=== PATIENT | male | born 1975 | race Caucasian/White ===

== ENCOUNTER 2024-04-17 17:38 | Emergency (ER) | payer OTHER ==
[2024-04-17] MEDS ORDERED: LORazepam 2 MG/ML VIAL ONE (18:29)
[2024-04-17] MEDS ORDERED: ONDANSETRON 4 MG/2 ML VIAL ONE (18:29)
[2024-04-17] MEDS ORDERED: NA CHLORIDE 0.9% 1,000 ML ONE (18:30)
[2024-04-17 18:36] LABS: Absolute Eosinophils 0.2 K/uL (0-0.5); Absolute Monocytes 0.3 K/uL (0.1-1.3); Absolute Neutrophil 3.1 K/uL (1.8-8.0); Basophils % 0.9 % (0-1.3); Eosinophils % 5.2 % (0-4.4); Hematocrit 40.6 % (39.6-49.0); Hemoglobin 13.7 g/dL (13.6-17.9); Lymphocytes % 22.3 % (15.3-44.8); MCH 29.5 pg (27.0-35.0); MCHC 33.6 g/dL (32.0-36.0); MCV 87.8 fL (80-100); MPV 7.8 fL (7.6-11.3); Neutrophils % 65.6 % (41.7-73.7); Nucleated Red Blood Cells % 0.1 % (0-0); Platelets 164 thou/uL (152-406); RBC Red Blood Cell Count 4.63 M/uL (4.33-5.43); Red Cell Distribution Width 17.8 % (12.1-15.2)
[2024-04-17 18:53] LABS: Albumin 3.8 g/dL (3.4-5.0); Albumin/Globulin Ratio 0.8 (1.1-1.8); Anion Gap 15.5 mEq/L (5.0-15.0); Bilirubin Total 0.5 mg/dL (0.2-1.0); Globulin 4.6 g/dL (2.3-3.5); Magnesium 2.2 mg/dL (1.6-2.4); Potassium 3.5 mEq/L (3.5-5.1); Protein, Total 8.4 g/dL (6.4-8.2)
--- NOTE | 2024-04-17 19:03 | ER ---
Nurse's Notes [facility] Name: Felipe Barriga Age: 48 yrs Sex: Male : 1975 Arrival Date: 04/17/2024 Time: 17:38 Bed 10 Private MD: Diagnosis: Alcohol withdrawal Presentation: 04/17 17:47 Chief complaint: EMS states: toned out for n/v/detox from etoh. Had been drinking for 6 me1 days and hasnt had anything since last night. Coronavirus screen: Vaccine status: Patient reports receiving the 2nd dose of the covid vaccine. Ebola Screen: No symptoms or risks identified at this time. Initial Sepsis Screen: Does the patient meet any 2 criteria? No. Patient's initial sepsis screen is negative. Does the patient have a suspected source of infection? No. Patient's initial sepsis screen is negative. Risk Assessment: Do you want to hurt yourself or someone else? Patient reports no desire to harm self or others. Onset of symptoms was April 17, 2024. 17:47 Method Of Arrival: EMS: [facility] nc1 17:47 Acuity: CLARITA 3 me1 Triage Assessment: 17:52 General: Appears ill, well developed, well nourished, Behavior is calm, cooperative, me1 appropriate for age, Reports feeling ill for detoxing from etoh starting this morning. Pain: Complains of pain in generalized. EENT: No signs and/or symptoms were reported regarding the EENT system. Neuro: Level of Consciousness is awake, alert, obeys commands, Oriented to person, place, time, situation, Appropriate for age. Cardiovascular: Patient's skin is warm and dry. Respiratory: Airway is patent Trachea midline Respiratory effort is even, unlabored, Respiratory pattern is regular, symmetrical. GI: Pt is actively vomiting clear fluid, Bowel sounds present X 4 quads. : No signs and/or symptoms were reported regarding the genitourinary system. Derm: Skin is intact, is healthy with good turgor, Skin is pink, warm \T\ dry. Musculoskeletal: No signs and/or symptoms reported regarding the musculoskeletal system. Historical: - Allergies: 17:52 No Known Allergies; me1 - PMHx: 17:52 PTSD; Anxiety; Depressive disorder; night terrors; me1 - Immunization history:: Adult Immunizations up to date. - Infectious Disease History:: Denies. - Social history:: Smoking status: Patient denies any tobacco usage or history of. Patient uses alcohol, on a daily basis. Screenin:52 [facility] ED Fall Risk Assessment (Adult) History of falling in the last 3 months, me1 including since admission No falls in past 3 months (0 pts) Confusion or Disorientation No (0 pts) Intoxicated or Sedated No (0 pts) Impaired Gait No (0 pts) Mobility Assist Device Used No (0 pt) Altered Elimination No (0 pt) Score/Fall Risk Level 0 - 2 = Low Risk Maintained a safe environment, Provided non-skid footwear, Hourly rounding (assess needs \T\ fall precautionary measures) done. Abuse screen: Denies threats or abuse. Nutritional screening: No deficits noted. Tuberculosis screening: No symptoms or risk factors identified. Assessment: 17:52 General: See triage assessment. . me1 19:07 General: Discharge delayed to finish IV fluids. me1 Vital Signs: 17:47 BP 129 / 82; Pulse 98; Resp 16; Temp 98.6; Pulse Ox 98% ; Weight 96.16 kg; Height 5 ft. me1 11 in. ; Pain 3/10; 19:04 BP 119 / 83; Pulse 94; Resp 16; Pulse Ox 99% on R/A; me1 20:00 BP 120 / 79; Pulse 93; Resp 16; Temp 98.4; Pulse Ox 100% on R/A; me1 17:47 Body Mass Index 29.57 (96.16 kg, 180.34 cm) me1 17:47 Pain Scale: Adult nc1 ED Course: 17:42 Patient arrived in ED. sp3 17:42 Minda Chacon MD is Attending Physician. sp3 17:47 Cesilia Sims, KORIN is Primary Nurse. me1 17:52 Triage completed. me1 17:52 Arm band placed on Patient placed in an exam room. me1 17:52 Patient has correct armband on for positive identification. Bed in low position. Call nc1 light in reach. Side rails up X2. Provided Education on: POC. Verbalized understanding. . Client placed on continuous cardiac and pulse oximetry monitoring. NIBP monitoring applied. Pulse ox on. NIBP on. Warm blanket given. 17:52 No provider procedures requiring assistance completed. me1 18:27 CBC with Diff Sent. me1 18:27 CMP Sent. me1 18:27 Lipase Sent. me1 18:27 Magnesium Sent. me1 18:27 Initial lab(s) drawn, by me, sent to lab. Inserted saline lock: 24 gauge in right hand, me1 using aseptic technique. 20:39 IV discontinued, intact, bleeding controlled, No redness/swelling at site. Pressure me1 dressing applied. Administered Medications: 18:35 Drug: NS 0.9% IV 1000 ml IV at 1 bolus Per protocol; 1000 mL bolus Route: IV; Rate: 1 me1 bolus; Site: right hand; 20:39 Follow up: IV Status: Infusion continued; IV Intake: 1000ml me1 18:35 Drug: Ondansetron IVP 4 mg IVP once; over 2 minutes Route: IVP; Site: right hand; me1 19:04 Follow up: Response: No adverse reaction; Nausea is decreased me1 18:35 Drug: Ativan IVP 1 mg IVP once Route: IVP; Site: right hand; me1 19:04 Follow up: Response: No adverse reaction; Anxiety decreased; Nausea is decreased me1 Medication: 17:52 VIS not applicable for this client. me1 Intake: 20:39 IV: 1000ml; Total: 1000ml. me1 Outcome: 19:02 Discharge ordered by . sp3 20:39 Discharged to home ambulatory, me1 20:39 Condition: stable 20:39 Discharge instructions given to patient, Instructed on discharge instructions, follow up and referral plans. medication usage, Demonstrated understanding of instructions, follow-up care, medications, Prescriptions given X 1, 20:40 Patient left the ED. me1 Signatures: Minda Chacon MD MD sp3 Cesilia Sims, RN RN me1
--- NOTE | 2024-04-17 19:03 | EDPHYS ---
Physician Documentation [facility] Name: Felipe Barriga Age: 48 yrs Sex: Male : 1975 Arrival Date: 04/17/2024 Time: 17:38 Bed 10 Private MD: ED Physician Minda Chacon HPI: 04/17 18:15 48-year-old male with history of PTSD, anxiety, depression, alcoholism now presents to 3 the ED with chief complaint alcohol withdrawal with last drink being over 6 days ago. He also states he is nauseated. He denies any trauma, fever, neck pain, chest pain, shortness of breath, diarrhea, abdominal pain, rash, or any other signs or symptoms on ROS at this time.. Historical: - Allergies: 17:52 No Known Allergies; me1 - PMHx: 17:52 PTSD; Anxiety; Depressive disorder; night terrors; me1 - Immunization history:: Adult Immunizations up to date. - Infectious Disease History:: Denies. - Social history:: Smoking status: Patient denies any tobacco usage or history of. Patient uses alcohol, on a daily basis. ROS: 18:16 Constitutional: Negative for fever, chills, and weight loss, Eyes: Negative for injury, sp3 pain, redness, and discharge, Neck: Negative for injury, pain, and swelling, Cardiovascular: Negative for chest pain, palpitations, and edema, Respiratory: Negative for shortness of breath, cough, wheezing, and pleuritic chest pain, Back: Negative for injury and pain, MS/Extremity: Negative for injury and deformity, Skin: Negative for injury, rash, and discoloration, Endocrine: Negative for neck swelling, polydipsia, polyuria, polyphagia, and marked weight changes, Hematologic/Lymphatic: Negative for swollen nodes, abnormal bleeding, and unusual bruising, 18:16 All other systems are negative, Exam: 18:18 Constitutional: This is a well developed, well nourished patient who is awake, alert, sp3 and in no acute distress. Head/Face: Normocephalic, atraumatic. Eyes: Pupils equal round and reactive to light, extra-ocular motions intact. Lids and lashes normal. Conjunctiva and sclera are non-icteric and not injected. Cornea within normal limits. Periorbital areas with no swelling, redness, or edema. ENT: Nares patent. No nasal discharge, no septal abnormalities noted. External auditory canals are clear. Oropharynx with no redness, swelling, or masses, exudates, or evidence of obstruction, uvula midline. Mucous membranes moist. Neck: Trachea midline, no thyromegaly or masses palpated, and no cervical lymphadenopathy. Supple, full range of motion without nuchal rigidity, or vertebral point tenderness. No Meningismus. Chest/axilla: Normal chest wall appearance and motion. Nontender with no deformity. No lesions are appreciated. Cardiovascular: Regular rate and rhythm with a normal S1 and S2. No gallops, murmurs, or rubs. Normal PMI, no JVD. No pulse deficits. Respiratory: Lungs have equal breath sounds bilaterally, clear to auscultation and percussion. No rales, rhonchi or wheezes noted. No increased work of breathing, no retractions or nasal flaring. Abdomen/GI: Soft, non-tender, with normal bowel sounds. No distension or tympany. No guarding or rebound. No evidence of tenderness throughout. Back: No spinal tenderness. No costovertebral tenderness. Full range of motion. Skin: Warm, dry with normal turgor. Normal color with no rashes, no lesions, and no evidence of cellulitis. MS/ Extremity: Pulses equal, no cyanosis. Neurovascular intact. Full, normal range of motion. Neuro: Awake and alert, GCS 15, oriented to person, place, time, and situation. Cranial nerves II-XII grossly intact. Motor strength 5/5 in all extremities. Sensory grossly intact. Cerebellar exam normal. Normal gait. Psych: Awake, alert, with orientation to person, place and time. Behavior, mood, and affect are within normal limits. Vital Signs: 17:47 BP 129 / 82; Pulse 98; Resp 16; Temp 98.6; Pulse Ox 98% ; Weight 96.16 kg; Height 5 ft. me1 11 in. ; Pain 3/10; 19:04 BP 119 / 83; Pulse 94; Resp 16; Pulse Ox 99% on R/A; me1 20:00 BP 120 / 79; Pulse 93; Resp 16; Temp 98.4; Pulse Ox 100% on R/A; me1 17:47 Body Mass Index 29.57 (96.16 kg, 180.34 cm) me1 17:47 Pain Scale: Adult me1 MDM: 17:42 Patient medically screened. sp3 18:18 Data reviewed: vital signs, nurses notes, EMS record, lab test result(s). ED course: sp3 48-year-old male with subjective alcohol withdrawal. Patient's vital signs are normal and patient has no tremor or other signs of withdrawal. No diaphoresis. Normal neurological exam. Will administer normal saline 1 L, check blood work and also administer ondansetron and Ativan 1 mg. If workup negative and vital signs continue to be normal, we will safely discharge patient home on p.o. clonidine and follow-up with the [facility].. 19:01 ED course: Full workup negative and electrolytes are normal. Will safely discharge sp3 patient home on clonidine as needed.. 04/17 17:46 Order name: CBC with Diff; Complete Time: 18:58 sp3 04/17 17:46 Order name: CMP; Complete Time: 18:58 sp3 04/17 17:46 Order name: Lipase; Complete Time: 18:58 sp3 04/17 17:46 Order name: Magnesium; Complete Time: 18:58 sp3 04/17 17:46 Order name: IV Saline Lock; Complete Time: 18:27 sp3 04/17 17:46 Order name: Labs collected and sent; Complete Time: 18:27 sp3 Administered Medications: 18:35 Drug: NS 0.9% IV 1000 ml IV at 1 bolus Per protocol; 1000 mL bolus Route: IV; Rate: 1 me1 bolus; Site: right hand; 20:39 Follow up: IV Status: Infusion continued; IV Intake: 1000ml me1 18:35 Drug: Ondansetron IVP 4 mg IVP once; over 2 minutes Route: IVP; Site: right hand; me1 19:04 Follow up: Response: No adverse reaction; Nausea is decreased me1 18:35 Drug: Ativan IVP 1 mg IVP once Route: IVP; Site: right hand; me1 19:04 Follow up: Response: No adverse reaction; Anxiety decreased; Nausea is decreased me1 Disposition Summary: 04/17/24 19:02 Discharge Ordered Notes: Location: Home sp3 Condition: Stable sp3 Diagnosis - Alcohol withdrawal sp3 Followup: sp3 - With: Private Physician - When: Upon discharge from the Emergency Department - Reason: Continuance of care Discharge Instructions: - Discharge Summary Sheet sp3 - Alcohol Withdrawal Syndrome sp3 Forms: - Medication Reconciliation Form sp3 - Antibiotic Education sp3 - Prescription Opioid Use sp3 - Patient Portal Instructions sp3 - Leadership Thank You Letter sp3 Prescriptions: - clonidine HCl 0.1 mg Oral tablet - take 1 tablet ORAL route every 6 hours for 24 hours as needed for alcohol sp3 withdrawal; 20 tablet; Refills: 0, Product Selection Permitted Signatures: Dispatcher [employer] Minda Torres MD MD sp3 Cesilia Sism RN RN me1
[2024-04-17 21:08] VITALS: BP 120/79; TEMP 98.4; O2SAT 100
== END 2024-04-17 20:40 | disposition home or self-care (01) ==
LOC: ER 17:38
DX: F10.239 Alcohol dependence with withdrawal, unspecified (principal)
CPT/HCPCS: 96361; 85025; 36415; 83735; 83690; 80053; 96375; 96374; 99284; J2405; J7030

== ENCOUNTER 2024-04-18 14:36 | Emergency (ER) | payer OTHER ==
[2024-04-18] MEDS ORDERED: LORazepam 2 MG/ML VIAL ONE (15:28)
[2024-04-18] MEDS ORDERED: ONDANSETRON 4 MG/2 ML VIAL ONE (15:29)
[2024-04-18] MEDS ORDERED: NA CHLORIDE 0.9% 1,000 ML ONE (15:29)
[2024-04-18] MEDS ORDERED: FAMOTIDINE 20 MG/2 ML VIAL IV ONE (15:29)
[2024-04-18 15:46] LABS: Absolute Eosinophils 0.8 K/uL (0-0.5); Absolute Monocytes 0.4 K/uL (0.1-1.3); Absolute Neutrophil 5.6 K/uL (1.8-8.0); Basophils % 0.5 % (0-1.3); Eosinophils % 9.7 % (0-4.4); Hematocrit 38.8 % (39.6-49.0); Hemoglobin 12.9 g/dL (13.6-17.9); Lymphocytes % 12.7 % (15.3-44.8); MCH 29.3 pg (27.0-35.0); MCHC 33.1 g/dL (32.0-36.0); MCV 88.5 fL (80-100); MPV 7.9 fL (7.6-11.3); Monocytes % 5.4 % (3.3-12.3); Neutrophils % 71.7 % (41.7-73.7); Platelets 135 thou/uL (152-406); RBC Red Blood Cell Count 4.38 M/uL (4.33-5.43)
[2024-04-18 16:06] LABS: Albumin 3.7 g/dL (3.4-5.0); Albumin/Globulin Ratio 0.9 (1.1-1.8); Anion Gap 14.4 mEq/L (5.0-15.0); Bilirubin Total 0.7 mg/dL (0.2-1.0); Globulin 4.1 g/dL (2.3-3.5); Potassium 3.4 mEq/L (3.5-5.1); Protein, Total 7.8 g/dL (6.4-8.2)
--- NOTE | 2024-04-18 17:04 | RAD REPORT ---
EXAM DESCRIPTION: CTAbdomen Pelvis W Contrast - 04/18/2024 4:54 pm CLINICAL HISTORY: Abdominal pain. ABD PAIN COMPARISON: No comparisons TECHNIQUE: Biphasic CT imaging of the abdomen and pelvis was performed with 100 ml non-ionic IV cont rast. All CT scans are performed using dose optimization technique as appropriate and may include automated exposure control or mA/KV adjustment according to patient size. FINDINGS: The lung bases are clear.Small hiatal hernia. The liver demonstrates mild fatty infiltration. Spleen, pancreas, adrenal glands and kidneys are with in normal limits. Gallbladder is distended. No bowel obstruction, free air, free fluid or abscess. The appendix is normal. No evidence of signi ficant lymphadenopathy. No suspicious bony findings. IMPRESSION: No acute intra-abdominal or pelvic finding. Fatty liver. Gallbladder distension.
--- NOTE | 2024-04-18 19:57 | EDPHYS ---
Physician Documentation [facility] Name: Felipe Barriga Age: 48 yrs Sex: Male : 1975 Arrival Date: 04/18/2024 Time: 14:36 Bed 26 Private MD: ED Physician Bib Prieto HPI: 04/18 15:48 This 48 yrs old Male presents to ER via EMS with complaints of Alcohol Withdrawal. rn 15:48 Patient brought in by EMS from [facility] for possible alcohol withdrawal. Patient rn reports binges a lot of alcohol, has been on a 1 week binge currently with last drink yesterday. Patient reports feels tremors. Seen here yesterday and deemed safe to be discharged. Patient returns with identical symptoms. Does not feel any better or worse.. Onset: The symptoms/episode began/occurred yesterday. Severity of symptoms: At their worst the symptoms were moderate in the emergency department the symptoms are unchanged. The patient has been recently seen by a physician: The patient has been recently seen at the [facility] Emergency Department. Historical: - Allergies: 14:43 No Known Allergies; iw - PMHx: 14:42 Anxiety; depressive disorder; Night Terrors; PTSD; iw - Immunization history:: Adult Immunizations unknown. - Infectious Disease History:: Denies. - Social history:: Smoking status: Patient reports the use of cigarette tobacco products, denies chronic smoking, but will smoke occasionally, Patient uses alcohol, on a daily basis. - Family history:: not pertinent. - Hospitalizations: : No recent hospitalization is reported. ROS: 15:48 Constitutional: Negative for fever, chills, and weight loss, Eyes: Negative for injury, rn pain, redness, and discharge, Cardiovascular: Negative for chest pain, palpitations, and edema, Respiratory: Negative for shortness of breath, cough, wheezing, and pleuritic chest pain, Abdomen/GI: Positive for nausea MS/Extremity: Negative for injury and deformity, Skin: Negative for injury, rash, and discoloration, Neuro: Positive for tremors and generalized weakness Exam: 15:48 Constitutional: Disheveled, no acute distress, holding emesis bag Head/Face: rn Normocephalic, atraumatic. Eyes: Pupils equal round and reactive to light, extra-ocular motions intact. No nystagmus ENT: Dry mucous membranes Cardiovascular: Regular rate and rhythm. No pulse deficits. Respiratory: No increased work of breathing, no retractions or nasal flaring. Abdomen/GI: Soft, mild left lower quadrant tenderness. No masses Neuro: Coarse bilateral extremity tremor. Mild tongue fasciculations present. Equal strength throughout. 15:53 ECG was reviewed by the Attending Physician. rn Vital Signs: 14:40 BP 127 / 72; Pulse 84; Resp 18; Temp 98.1; Pulse Ox 84% on R/A; me1 14:41 Pulse Ox 96% on 2 lpm NC; me1 16:00 BP 142 / 78; Pulse 94; Resp 16; Pulse Ox 94% on 3 lpm NC; me1 17:00 BP 127 / 76; Pulse 85; Resp 14; Pulse Ox 100% on 4 lpm NC; me1 18:00 BP 121 / 65; Pulse 92; Resp 15; Pulse Ox 94% on 3 lpm NC; me1 19:02 BP 123 / 65; Pulse 82; Resp 16; Pulse Ox 98% on R/A; me1 19:32 BP 124 / 73; Pulse 92; Resp 16; Pulse Ox 97% on R/A; jb4 14:41 Dr Prieto informed me1 MDM: 14:44 Patient medically screened. rn 19:13 Differential Diagnosis Mild alcohol withdrawal, dehydration, psychiatric issues. Data rn reviewed: vital signs, nurses notes, lab test result(s), radiologic studies, CT scan, and as a result, I will discharge patient. Counseling: I had a detailed discussion with the patient and/or guardian regarding the historical points, exam findings, and any diagnostic results supporting the discharge/admit diagnosis, lab results, radiology results, the need for outpatient follow up, to return to the emergency department if symptoms worsen or persist or if there are any questions or concerns that arise at home. Response to treatment: the patient's symptoms have markedly improved after treatment. ED course: Patient feels much better, still somnolent from Ativan but easily awakens to voice. Will continue to monitor and anticipate discharge home as mild alcohol intoxication.. 19:55 Special discussion: I discussed with the patient/guardian in detail that at this point rn there is no indication for admission to the hospital. It is understood, however, that if the symptoms persist or worsen the patient needs to return immediately for re-evaluation. ED course: Patient markedly improved, normal vital signs, no indication for emergent admission as his mild withdrawal. Patient sent home with clonidine yesterday. Will discharge home with return precautions and recommend slow taper of alcohol with usage of his medication prescribed. Also recommend detox facility if needed.. 04/18 14:56 Order name: CBC with Diff; Complete Time: 16:10 rn 04/18 14:56 Order name: CMP; Complete Time: 16:10 rn 04/18 14:56 Order name: Lipase; Complete Time: 16:10 rn 04/18 14:56 Order name: CT Abd/Pelvis - IV Contrast Only rn 04/18 14:56 Order name: IV Start; Complete Time: 16:00 rn 04/18 14:56 Order name: Labs collected and sent; Complete Time: 16:00 rn EC:53 Rate is 89 beats/min. Rhythm is regular. QRS [place] is Normal. [place] interval is normal. QRS rn interval is normal. QT interval is normal. No Q waves. T waves are Normal. No ST changes noted. Clinical impression: NSR w/ Non-specific ST/T Changes. Interpreted by me. Reviewed by me. Administered Medications: 16:00 Drug: NS 0.9% IV 1000 ml IV at 1 bolus Per protocol; 1000 mL bolus Route: IV; Rate: 1 me1 bolus; Site: right forearm; 17:54 Follow up: Response: No adverse reaction; IV Status: Completed infusion; IV Intake: me1 1000ml 16:00 Drug: Famotidine IVP 20 mg IVP once; dilute with 10 mL 0.9% NaCl; give over 2 minutes me1 Route: IVP; Site: right forearm; 16:37 Follow up: Response: No adverse reaction me1 16:00 Drug: Ondansetron IVP 4 mg IVP once; over 2 minutes Route: IVP; Site: right forearm; me1 16:36 Follow up: Response: No adverse reaction; Nausea is decreased me1 16:00 Drug: Ativan IVP 1 mg IVP once Route: IVP; Site: right forearm; me1 16:30 Follow up: Response: No adverse reaction; Marked relief of symptoms me1 Disposition Summary: 04/18/24 19:56 Discharge Ordered Notes: Location: Home rn Problem: new rn Symptoms: have improved rn Condition: Stable rn Diagnosis - Alcohol dependence with withdrawal, unspecified rn Followup: rn - With: Private Physician - When: As needed - Reason: Recheck today's complaints, Re-evaluation by your physician Discharge Instructions: - Discharge Summary Sheet rn - Finding Treatment for Addiction rn - Alcohol Withdrawal Syndrome rn - Alcohol Use Disorder rn Forms: - Medication Reconciliation Form rn - Antibiotic chief crna - Prescription Opioid Use rn - Patient Portal Instructions rn - Leadership Thank You Letter rn Signatures: Dispatcher [employer] Arielle Stack RN Bib Leyva MD MD rn Eddleman, Michelle, RN RN me1
--- NOTE | 2024-04-18 19:57 | ER ---
Nurse's Notes [facility] Name: Felipe Barriga Age: 48 yrs Sex: Male : 1975 Arrival Date: 04/18/2024 Time: 14:36 Bed 26 Private MD: Diagnosis: Alcohol dependence with withdrawal, unspecified Presentation: 04/18 14:40 Chief complaint: EMS states: toned out for alcohol withdrawal, last drink was 10 hours iw ago, he was seen here and discharged from ER yesterday , pt appears to be having seizure like activity that lasts approx 20 seconds, with no postictal period, also reports sharp chest pains , pt A\T\OX3. Coronavirus screen: At this time, the client does not indicate any symptoms associated with coronavirus-19. Ebola Screen: No symptoms or risks identified at this time. Onset of symptoms was April 18, 2024. 14:40 Method Of Arrival: EMS iw 14:40 Acuity: CLARITA 2 iw 14:56 Initial Sepsis Screen: Does the patient meet any 2 criteria? No. Patient's initial me1 sepsis screen is negative. Does the patient have a suspected source of infection? No. Patient's initial sepsis screen is negative. Risk Assessment: Do you want to hurt yourself or someone else? Patient reports no desire to harm self or others. Triage Assessment: 14:56 General: Appears uncomfortable, ill, unkempt, well developed, well nourished, Behavior me1 is cooperative, appropriate for age, anxious, Reports toned out for alcohol withdrawal, last drink was 10 hours ago, he was seen here and discharged from ER yesterday , pt appears to be having seizure like activity that lasts approx 20 seconds, with no postictal period, also reports sharp chest pains , pt A\T\OX3. Pain: Complains of pain in chest Pain does not radiate. Pain currently is 3 out of 10 on a pain scale. at worst was 10 out of 10 on a pain scale. Quality of pain is described as sharp, Pain began suddenly, Is intermittent. EENT: No signs and/or symptoms were reported regarding the EENT system. Neuro: Level of Consciousness is awake, alert, obeys commands, Oriented to person, place, time, situation, Appropriate for age. Cardiovascular: Reports chest pain, Patient's skin is warm and dry. Respiratory: Airway is patent Trachea midline Respiratory effort is even, unlabored, Respiratory pattern is regular, symmetrical. GI: Reports nausea, vomiting. : No signs and/or symptoms were reported regarding the genitourinary system. Derm: Skin is intact, is healthy with good turgor, Skin is pink, warm \T\ dry. Musculoskeletal: No signs and/or symptoms reported regarding the musculoskeletal system. Historical: - Allergies: 14:43 No Known Allergies; iw - PMHx: 14:42 Anxiety; depressive disorder; Night Terrors; PTSD; iw - Immunization history:: Adult Immunizations unknown. - Infectious Disease History:: Denies. - Social history:: Smoking status: Patient reports the use of cigarette tobacco products, denies chronic smoking, but will smoke occasionally, Patient uses alcohol, on a daily basis. - Family history:: not pertinent. - Hospitalizations: : No recent hospitalization is reported. Screenin:55 [facility] ED Fall Risk Assessment (Adult) History of falling in the last 3 months, me1 including since admission No falls in past 3 months (0 pts) Confusion or Disorientation No (0 pts) Intoxicated or Sedated Yes (3 pts) Impaired Gait No (0 pts) Mobility Assist Device Used No (0 pt) Altered Elimination No (0 pt) Score/Fall Risk Level 0 - 2 = Low Risk Maintained a safe environment, Provided non-skid footwear, Hourly rounding (assess needs \T\ fall precautionary measures) done. Abuse screen: Denies threats or abuse. Nutritional screening: No deficits noted. Tuberculosis screening: No symptoms or risk factors identified. Assessment: 14:55 General: Appears uncomfortable, well groomed, well developed, well nourished, Behavior me1 is calm, cooperative, appropriate for age, Reports toned out for alcohol withdrawal, last drink was 10 hours ago, he was seen here and discharged from ER yesterday , pt appears to be having seizure like activity that lasts approx 20 seconds, with no postictal period, also reports sharp chest pains , pt A\T\OX3. Pain: Denies pain. Neuro: Level of Consciousness is awake, alert, obeys commands, Oriented to person, place, time, situation, Appropriate for age EMS reported seizure activity with no postictal state after. . Cardiovascular: Patient's skin is warm and dry. Respiratory: Airway is patent Trachea midline Respiratory effort is even, unlabored, Respiratory pattern is regular, symmetrical, room air o2 sat dropped to mid 80s, o2 at 2 lpm via nc administered and o2 increased to 97%. GI: Reports nausea, vomiting. : No signs and/or symptoms were reported regarding the genitourinary system. EENT: No signs and/or symptoms were reported regarding the EENT system. Derm: Skin is intact, is healthy with good turgor, Skin is pink, warm \T\ dry. Musculoskeletal: No signs and/or symptoms reported regarding the musculoskeletal system. 18:00 General: Intermittent episodes of sleep apnea where o2 sats drop down to the 60s. . me1 19:52 Reassessment: PT is lethargic, wakens to physical and verbal stimuli. Provider jb4 notified, will continue to monitor. 20:41 Reassessment: Patient appears in no apparent distress at this time. Patient and/or jb4 family updated on plan of care and expected duration. Pain level reassessed. Patient is alert, oriented x 3, equal unlabored respirations, skin warm/dry/pink. Pt ambulated to the lobby to call cab ride home. Vital Signs: 14:40 BP 127 / 72; Pulse 84; Resp 18; Temp 98.1; Pulse Ox 84% on R/A; me1 14:41 Pulse Ox 96% on 2 lpm NC; me1 16:00 BP 142 / 78; Pulse 94; Resp 16; Pulse Ox 94% on 3 lpm NC; me1 17:00 BP 127 / 76; Pulse 85; Resp 14; Pulse Ox 100% on 4 lpm NC; me1 18:00 BP 121 / 65; Pulse 92; Resp 15; Pulse Ox 94% on 3 lpm NC; me1 19:02 BP 123 / 65; Pulse 82; Resp 16; Pulse Ox 98% on R/A; me1 19:32 BP 124 / 73; Pulse 92; Resp 16; Pulse Ox 97% on R/A; jb4 14:41 Dr Prieto informed me1 ED Course: 14:40 Patient arrived in ED. iw 14:42 Triage completed. iw 14:42 Arm band placed on. iw 14:44 Bib Prieto MD is Attending Physician. rn 14:55 Cesilia Sims RN is Primary Nurse. me1 14:55 Patient has correct armband on for positive identification. Bed in low position. Call me1 light in reach. Side rails up X2. Provided Education on: POC. Verbalized understanding. . Client placed on continuous cardiac and pulse oximetry monitoring. NIBP monitoring applied. Pulse ox on. NIBP on. 15:00 Missed attempt(s): 24 gauge in right antecubital area. Bleeding controlled, band aid bc6 applied, catheter tip intact. 15:02 EKG done, by ED staff, reviewed by Bib Prieto MD. iw 15:09 Missed attempt(s): 24 gauge in right hand. Bleeding controlled, band aid applied, bc6 catheter tip intact. 15:39 No provider procedures requiring assistance completed. Accessed peripheral vein via me1 ultrasound, utilizing dynamic ultrasound technique Blood collected. Clean \T\ dry. Dressing intact. Good blood return. Flushes easily. by Nubia Horton RN (household refrigeration mechanic). 16:56 CT Abd/Pelvis - IV Contrast Only In Process Unspecified. EDMS 20:41 IV discontinued, intact, bleeding controlled, No redness/swelling at site. Pressure jb4 dressing applied. Administered Medications: 16:00 Drug: NS 0.9% IV 1000 ml IV at 1 bolus Per protocol; 1000 mL bolus Route: IV; Rate: 1 me1 bolus; Site: right forearm; 17:54 Follow up: Response: No adverse reaction; IV Status: Completed infusion; IV Intake: me1 1000ml 16:00 Drug: Famotidine IVP 20 mg IVP once; dilute with 10 mL 0.9% NaCl; give over 2 minutes me1 Route: IVP; Site: right forearm; 16:37 Follow up: Response: No adverse reaction me1 16:00 Drug: Ondansetron IVP 4 mg IVP once; over 2 minutes Route: IVP; Site: right forearm; me1 16:36 Follow up: Response: No adverse reaction; Nausea is decreased me1 16:00 Drug: Ativan IVP 1 mg IVP once Route: IVP; Site: right forearm; me1 16:30 Follow up: Response: No adverse reaction; Marked relief of symptoms me1 Medication: 14:55 VIS not applicable for this client. me1 Intake: 17:54 IV: 1000ml; Total: 1000ml. me1 Outcome: 19:56 Discharge ordered by . rn 20:41 Discharged to home ambulatory, jb4 20:41 Condition: stable 20:41 Discharge instructions given to patient, Instructed on discharge instructions, follow up and referral plans. Demonstrated understanding of instructions, follow-up care, 20:49 Patient left the ED. jb4 Signatures: Dispatcher [employer] EDArielle Sales, RN RN iw Bib Prieto MD MD rn Bryson, James, RN RN jb4 Paula [facility] Cesilia Sims RN RN me1 Corrections: (The following items were deleted from the chart) 14:59 14:40 Chief complaint: EMS states: toned out for alcohol withdrawal, last drink was 10 me1 hours ago, he was seen here and discharged from ER yesterday , pt appears to be having seizure like activity that lasts approx 20 seconds, with no postictal period, also reports sharp chest pains , pt A\T\OX3 iw 15:46 14:40 Chief complaint: EMS states: toned out for alcohol withdrawal, last drink was 10 me1 hours ago, he was seen here and discharged from ER yesterday , pt appears to be having seizure like activity that lasts approx 20 seconds, with no postictal period, also reports sharp chest pains , pt A\T\OX3 me1 19:02 18:00 BP 123 / 65; Pulse 82bpm; Resp 16bpm; Pulse Ox 98% RA; me1 me1
[2024-04-18 20:56] VITALS: TEMP 98.1
[2024-04-18 21:06] VITALS: BP 124/73; O2SAT 97
== END 2024-04-18 20:49 | disposition home or self-care (01) ==
LOC: ER 14:36
DX: F10.239 Alcohol dependence with withdrawal, unspecified (principal); F17.210 Nicotine dependence, cigarettes, uncomplicated
CPT/HCPCS: 85025; 36415; 83690; 80053; 74177; Q9967; J2405; J7030

== ENCOUNTER 2024-04-25 19:10 | Inpatient (IN) | payer OTHER ==
[2024-04-25] MEDS ORDERED: LORazepam 2 MG/ML VIAL ONE (19:36)
[2024-04-25] MEDS ORDERED: THIAMINE 200 MG/2 ML INJ ONE (19:37)
[2024-04-25] MEDS ORDERED: FOLIC ACID 5 MG/ML VIAL ONE (19:37)
[2024-04-25] MEDS ORDERED: MULTIVITAMINS 10 ML VIAL (INJ) IV ONE (19:37)
[2024-04-25] MEDS ORDERED: NA CHLORIDE 0.9% 1,000 ML ONE ×2 (19:38→22:13)
[2024-04-25 20:36] LABS: Absolute Lymphocytes (CBC) 0.7 K/uL (0.7-4.9); Absolute Monocytes 0.9 K/uL (0.1-1.3); Absolute Neutrophil 7.7 K/uL (1.8-8.0); Eosinophils % 0.1 % (0-4.4); Hematocrit 42.5 % (39.6-49.0); Hemoglobin 14.3 g/dL (13.6-17.9); Lymphocytes % 7.7 % (15.3-44.8); MCHC 33.6 g/dL (32.0-36.0); MCV 89.4 fL (80-100); MPV 8.5 fL (7.6-11.3); Monocytes % 9.8 % (3.3-12.3); Neutrophils % 82.4 % (41.7-73.7); Nucleated Red Blood Cells % 0.1 % (0-0); Platelets 84 thou/uL (152-406); RBC Red Blood Cell Count 4.75 M/uL (4.33-5.43); Red Cell Distribution Width 17.8 % (12.1-15.2)
--- NOTE | 2024-04-25 20:40 | RAD REPORT ---
EXAM DESCRIPTION: CT - Head Brain Wo Cont - 04/25/2024 8:31 pm CLINICAL HISTORY: Seizure COMPARISON: none TECHNIQUE: Computed axial tomography of the head was obtained. IV contrast was not requested. All CT scans are performed using dose optimization technique as appropriate and may include automated exposure control or mA/KV adjustment according to patient size. FINDINGS: An intracranial bleed is not seen The ventricles are normal in caliber No significant hypodense areas within the brain visualized No extra-axial fluid collection is noted. Fluid within the sinuses/ mastoids is not seen IMPRESSION: No acute intracranial abnormality is seen If patient's symptoms persist MRI of the brain would be recommended
[2024-04-25 20:49] LABS: Albumin/Globulin Ratio 0.8 (1.1-1.8); Anion Gap 16.8 mEq/L (5.0-15.0); Bilirubin Total 1.1 mg/dL (0.2-1.0); Globulin 4.8 g/dL (2.3-3.5); Potassium 2.8 mEq/L (3.5-5.1); Protein, Total 8.8 g/dL (6.4-8.2)
[2024-04-25 21:25] LABS: Blood Morphology Comment NOT SEEN (NOT SEEN); Platelet Estimate DECR; White Blood Cell Scan OK (OK)
[2024-04-25] MEDS ORDERED: LEVETIRACETAM 500 MG/5 ML VIAL IV ONE (21:40)
[2024-04-25] MEDS ORDERED: POTASSIUM CL SA 10 MEQ TAB PO ONE (21:40)
[2024-04-25] MEDS ORDERED: NA CHLORIDE 0.9% 100 ML ONE (21:40)
--- NOTE | 2024-04-25 21:41 | P.HP ---
Certification for Inpatient Patient admitted to: Inpatient With expected LOS: >2 Midnights Practitioner: I am a practitioner with admitting privileges, knowledge of patient current condition, hospital course, and medical plan of care. Services: Services provided to patient in accordance with Admission requirements found in Title 42 Section 412.3 of the Code of Federal Regulations Patient History Date of Service: 04/25/24 Reason for admission: Withdrawals History of Present Illness: 48-year-old male with history of alcohol use, history of seizures presents to the emergency with suspected withdrawals. The patient reports that earlier today around 6 PM he was found by a group of people after what he suspects he had a seizure. He reports since this morning he has been feeling that he has been having withdrawals. Reports having nausea and vomiting for the last day and a half. He does report some abdominal pain as well as chills. The patient states that his last drink was about 4 days ago. He states he drinks multiple bottles of whiskey. When he drinks he binge drinks. He has been drinking heavy since his 20s. He recently moved here from [place]. He states he is has a poor appetite. And has had minimal stool and urine output. A CT scan of his head was done in the emergency room which was unremarkable Review of Systems 10-point ROS is otherwise unremarkable General: Chills Respiratory: Unremarkable Cardiovascular: Unremarkable Gastrointestinal: Nausea, Vomiting, Abdominal Pain Genitourinary: Unremarkable Musculoskeletal: Other Physical Examination - Physical Exam General: Alert, Oriented x3 HEENT: Atraumatic, Normocephalic Neck: Supple Respiratory: Clear to auscultation bilaterally, Normal air movement Cardiovascular: No edema Gastrointestinal: Normal bowel sounds, Soft and benign Musculoskeletal: Other Integumentary: Other Neurological: Normal speech - Studies Laboratory Data (last 24 hrs) 04/25/24 04/25/24 20:20 20:20 WBC 9.30 Hgb 14.3 Hct 42.5 Plt Count 84 L Sodium 127 L Potassium 2.8 L BUN 22 H Creatinine 1.90 H Glucose 110 H Total Bilirubin 1.1 H AST 91 H ALT 39 Alkaline Phosphatase 94 Lipase 77 H Assessment and Plan - Problems (Diagnosis) (1) ETOH abuse Current Visit: Yes Status: Acute (2) Seizure Current Visit: Yes Status: Acute (3) Hyponatremia Current Visit: Yes Status: Acute (4) Elevated CK Current Visit: Yes Status: Acute (5) DINORA (acute kidney injury) Current Visit: Yes Status: Acute (6) Nausea & vomiting Current Visit: Yes Status: Acute (7) Thrombocytopenia Current Visit: Yes Status: Acute - Plan 48-year-old male presents with possible seizure, alcohol withdrawal Alcohol withdrawal Suspected seizure Hyponatremia Hypokalemia Acute kidney injury Hypochloremia Thrombocytopenia Elevated CK Will place patient on CIWA protocol Banana bag given, continue as needed benzos, vitamin replacement Seizure precautions, will load with Keppra 1 g then 500 mg twice daily MRI brain with contrast if possible pending improvement of creatinine Replace potassium Monitor labs including serial CBCs and BMPs Order EEG Case was discussed with neurology DVT:SCD Code:full - Advance Directives Does patient have a Living Will: No Does patient have a Durable POA for Healthcare: No
[2024-04-25 22:10] LABS: Specific Gravity 1.022 (1.005-1.030); Sqamous Epithelial <5 /HPF (None Seen); Urine Bacteria None Seen /HPF (<20); Urine Bilirubin NEGATIVE (Negative); Urine Blood 1+ (Negative); Urine Clarity Extremely Turbid (Clear); Urine Color Yellow (Yellow); Urine Culture Reflex Order NOT NEEDED; Urine Glucose NEGATIVE (Negative); Urine Ketones TRACE (Negative); Urine Microscopic Reflex YN ORDER UMIC; Urine Mucus Slight /HPF (None Seen); Urine Nitrite NEGATIVE (Negative); Urine Protein 2+ (Negative); Urine RBC <5 /HPF (None Seen); Urine Urobilinogen 1+ (Normal); Urine WBC <5 /HPF (<5); Urine Yeast (Budding) Trace /HPF (None Seen)
[2024-04-25] MEDS ORDERED: ONDANSETRON 4 MG/2 ML VIAL IV PRN (22:17)
--- NOTE | 2024-04-25 22:18 | RAD REPORT ---
EXAM DESCRIPTION: CT - Abdomen Pelvis Wo Contrast - 04/25/2024 10:07 pm CLINICAL HISTORY: Abdominal pain acute renal failure COMPARISON: March 2024 TECHNIQUE: Computed axial tomography of the abdomen and pelvis was obtained. IV and oral contrast we re not requested. All CT scans are performed using dose optimization technique as appropriate and may include automated exposure control or mA/KV adjustment according to patient size. FINDINGS: The evaluation of solid organs, vessels and bowel is limited secondary to the lack of con trast administration. Fatty liver Gallbladder distention The spleen, pancreas, adrenals and right kidney grossly normal Small left renal calculi. No hydronephrosis. The appendix is normal. There is no evidence of diverticulitis. Small hiatal hernia IMPRESSION: Gallbladder distention Small nonobstructing left renal calculi
[2024-04-25] MEDS ORDERED: FLUMAZENIL 0.1 MG/ML (5 mL VIAL) IV PRN (22:25)
[2024-04-25] MEDS ORDERED: LORAZEPAM 1 MG TABLET PO PRN (22:25)
--- NOTE | 2024-04-25 22:28 | EDPHYS ---
Physician Documentation [facility] Name: Felipe Barriga Age: 48 yrs Sex: Male : 1975 Arrival Date: 04/25/2024 Time: 19:10 Bed 5 Private MD: ED Physician Fiordaliza Justin HPI: 04/25 21:28 This 48 yrs old Male presents to ER via EMS with complaints of seizure. kb 21:28 Pt is a 48 year old male who presents after seizure. States he remembers sitting on his couch, watching tv then he was being picked up by EMS. EMS reports they were called for pt having seizure on the side of the road. Pt does not remember going outside. States he has been drinking heavily over the last several days and his last drink was last night. . Historical: - Allergies: 19:28 No Known Allergies; ha1 - PMHx: 19:28 Anxiety; depressive disorder; Night Terrors; PTSD; Alcohol dependence; ha1 - Immunization history:: Adult Immunizations up to date. - Infectious Disease History:: Denies. - Social history:: Smoking status: Patient denies any tobacco usage or history of. ROS: 21:28 Constitutional: As per HPI kb Exam: 20:51 Constitutional: This is a well developed, well nourished patient who is awake, alert, kb and in no acute distress. Head/Face: Normocephalic, atraumatic. Eyes: Pupils equal round and reactive to light, extra-ocular motions intact. Lids and lashes normal. Conjunctiva and sclera are non-icteric and not injected. Cornea within normal limits. Periorbital areas with no swelling, redness, or edema. ENT: Moist Mucous membranes Cardiovascular: Regular rate Respiratory: Respirations even and unlabored. No increased work of breathing. Talking in full sentences Abdomen/GI: Soft, non-tender. No distention Skin: Warm, dry with normal turgor. Normal color. MS/ Extremity: Pulses equal, no cyanosis. Neurovascular intact. Full, normal range of motion. 20:51 ECG was reviewed by the Attending Physician. 20:51 Neuro: Orientation: to person, place, time \T\ situation. Mentation: is normal, able to follow commands, Motor: moves all fours, tremors, Vital Signs: 19:20 BP 119 / 72; Pulse 124; Resp 18 S; Temp 98.7(O); Pulse Ox 96% on R/A; Weight 92.99 kg; ha1 Height 5 ft. 11 in. ; 21:10 BP 119 / 84; Pulse 108; Resp 17 S; Pulse Ox 96% on R/A; ha1 22:14 BP 99 / 78; Pulse 104; Resp 17 S; Pulse Ox 97% on R/A; ha1 23:20 BP 127 / 73; Pulse 96; Resp 17 S; Pulse Ox 97% on R/A; ha1 19:20 Body Mass Index 28.59 (92.99 kg, 180.34 cm) ha1 MDM: 19:28 Patient medically screened. kb 21:27 Differential diagnosis: seizure, abnormal electrolytes, ETOH withdrawal. Data reviewed: kb vital signs, nurses notes. Consideration of Admission/Observation Patient was admitted/placed on observation. Escalation of care including admission/observation considered. Management of patient was discussed with the following: Hospitalist: kg Suarez CPK, lactate, ct abd/pelvis and kaitlyn mcgraw. Historians other than the Patient: EMS: [facility]. Counseling: I had a detailed discussion with the patient and/or guardian regarding the historical points, exam findings, and any diagnostic results supporting the discharge/admit diagnosis, lab results, radiology results, the need for further work-up and treatment in the hospital. 04/25 19:29 Order name: CBC with Diff; Complete Time: 21:26 kb 04/25 19:29 Order name: CMP; Complete Time: 21:51 kb 04/25 19:29 Order name: ETOH Level; Complete Time: 20:50 kb 04/25 19:29 Order name: Lipase; Complete Time: 21:51 kb 04/25 20:41 Order name: CBC Smear Scan; Complete Time: 21:26 EDMS 04/25 21:06 Order name: Lactate w/ 2H reflex if indic.; Complete Time: 23:15 kb 04/25 21:07 Order name: Urinalysis w/ reflexes; Complete Time: 22:11 kb 04/25 21:10 Order name: Creatine Phosphokinase; Complete Time: 21:51 EDMS 04/25 22:25 Order name: Urinalysis w/ reflexes EDMS 04/25 22:25 Order name: CBC with Automated Diff EDMS 04/25 22:25 Order name: CBC with Automated Diff EDMS 04/25 22:25 Order name: Comprehensive Metabolic Panel EDMS 04/25 22:25 Order name: Comprehensive Metabolic Panel EDMS 04/25 22:25 Order name: Creatine Phosphokinase EDMS 04/25 22:25 Order name: Creatine Phosphokinase EDMS 04/25 22:25 Order name: Creatine Phosphokinase EDMS 04/25 22:26 Order name: Creatine Phosphokinase EDMS 04/25 22:26 Order name: Magnesium EDMS 04/25 22:26 Order name: Magnesium EDMS 04/25 22:26 Order name: Phosphorus EDMS 04/25 22:26 Order name: Phosphorus EDMS 04/25 19:29 Order name: CT Head Brain wo Cont; Complete Time: 20:43 kb 04/25 21:20 Order name: CT Abd/Pelvis - Without Contrast; Complete Time: 22:24 kb 04/25 22:32 Order name: EEG Request EDMS 04/25 19:29 Order name: EKG; Complete Time: 19:29 kb 04/25 19:29 Order name: IV Start; Complete Time: 22:05 kb 04/25 19:29 Order name: EKG - Nurse/Tech; Complete Time: 20:28 kb EC:51 Rate is 115 beats/min. Rhythm is regular. QRS Estill is Normal. CO interval is normal at kb 148 msec. QRS interval is normal at 80 msec. QT interval is normal at 484 msec. Administered Medications: 20:13 Drug: Ativan IVP 1 mg IVP once Route: IVP; Site: left forearm; ha1 20:40 Follow up: Response: No adverse reaction; Marked relief of symptoms; RASS: Alert and ha1 Calm (0) 20:15 Drug: Banana Bag - (Multivitamin IV 1 amp, NS 0.9% IV 1000 ml, Thiamine IV 100 mg, ha1 foLIC Acid IVPB 1 mg) IV at calculated rate once Route: IV; Rate: calculated rate; Site: left forearm; 04/26 00:11 Follow up: Response: No adverse reaction; IV Status: Completed infusion; IV Intake: ha1 1000ml 04/25 21:40 Drug: Keppra IV 1000 mg IV at calculated rate once Route: IV; Rate: calculated rate; ha1 Site: right antecubital; 22:00 Follow up: Response: No adverse reaction; IV Status: Completed infusion; IV Intake: ha1 100ml 21:50 Drug: Potassium Chloride PO 40 mEq PO once Route: PO; ha1 22:25 Follow up: Response: No adverse reaction ha1 22:00 Drug: NS 0.9% IV 1000 ml IV at 125 ml/hr continuous Route: IV; Rate: 125 ml/hr; Site: [facility] right antecubital; 04/26 00:11 Follow up: Response: No adverse reaction; IV Status: Infusion continued upon admission; ha1 IV Intake: 450ml Disposition Summary: 04/25/24 22:27 Hospitalization Ordered Notes: Hospitalization Status: Inpatient Admission kb Provider: Theodore Yu Location: Telemetry/MedSurg (Inpatient) kb Condition: Stable kb Problem: new kb Symptoms: are unchanged kb Bed/Room Type: Standard Room Assignment: 209(04/25/24 23:18) Diagnosis - Rhabdomyolysis kb - Acute kidney failure, unspecified kb - Hypokalemia kb - Hyponatremia kb - Other seizures kb - Alcohol dependence with withdrawal kb Forms: - Medication Reconciliation Form kb - SBAR form kb - Leadership Thank You Letter kb Signatures: Dispatcher [employer] EDSwapna Mcintyre, ELECTRIC POWER MACHINE OPERATOR-C ELECTRIC POWER MACHINE OPERATOR-Albertina Blackwood, RN RN Arely Rosado RN RN 1 Corrections: (The following items were deleted from the chart) 04/25 21:07 21:07 LACTATE+C.LAB.BRZ ordered. EDIL EDMS 21:07 21:07 CREATINE PHOSPHOKINASE+C.LAB.BRZ ordered. EDIL EDMS 23:18 22:27 kb cg
--- NOTE | 2024-04-25 22:28 | ER ---
Nurse's Notes [facility] Name: Felipe Barriga Age: 48 yrs Sex: Male : 1975 Arrival Date: 04/25/2024 Time: 19:10 Bed 5 Private MD: Diagnosis: Rhabdomyolysis;Acute kidney failure, unspecified;Hypokalemia;Hyponatremia;Other seizures;Alcohol dependence with withdrawal Presentation: 04/25 19:20 Chief complaint: EMS states: 48 year old patient was found unconscious on the side of [address]. CPR was performed by other people who were going by . On our arrival AOX4 reporting going trough alcohol withdraws which is causing him seizures and N/V. Coronavirus screen: Vaccine status: Patient reports being unvaccinated. Ebola Screen: Patient denies travel to an Ebola-affected area in the 21 days before illness onset. Initial Sepsis Screen: Does the patient meet any 2 criteria? No. Patient's initial sepsis screen is negative. Does the patient have a suspected source of infection? No. Patient's initial sepsis screen is negative. Risk Assessment: Do you want to hurt yourself or someone else? Patient reports no desire to harm self or others. Onset of symptoms was April 25, 2024. 19:20 Method Of Arrival: EMS: [facility] 19:20 Acuity: CLARITA 2 1 Triage Assessment: 19:20 General: Appears uncomfortable, Behavior is cooperative, anxious. Pain: Complains of ha1 pain in body tremors Pain does not radiate. Pain currently is 7 out of 10 on a pain scale. Quality of pain is described as aching. Neuro: Level of Consciousness is awake, alert, obeys commands, Oriented to person, place, time, situation. Cardiovascular: Capillary refill < 3 seconds Patient's skin is warm and dry. Respiratory: Airway is patent Respiratory effort is even, unlabored, Respiratory pattern is regular, symmetrical. GI: Abdomen is round non-distended, Bowel sounds present X 4 quads. Reports nausea, vomiting. Musculoskeletal: Circulation, motion, and sensation intact. Range of motion: intact in all extremities. Historical: - Allergies: 19:28 No Known Allergies; ha1 - PMHx: 19:28 Anxiety; depressive disorder; Night Terrors; PTSD; Alcohol dependence; ha1 - Immunization history:: Adult Immunizations up to date. - Infectious Disease History:: Denies. - Social history:: Smoking status: Patient denies any tobacco usage or history of. Screenin:17 [facility] ED Fall Risk Assessment (Adult) History of falling in the last 3 months, ha1 including since admission Yes- single mechanical fall (1 pt) Confusion or Disorientation No (0 pts) Intoxicated or Sedated Yes (3 pts) Impaired Gait No (0 pts) Mobility Assist Device Used No (0 pt) Altered Elimination Yes (1 pt) Score/Fall Risk Level 3 or more points = High Risk Oriented to surroundings, Maintained a safe environment, Educated pt \T\ family on fall prevention, incl call for assistance when getting out of bed, Hourly rounding (assess needs \T\ fall precautionary measures) done. Abuse screen: Denies threats or abuse. Denies injuries from another. Nutritional screening: No deficits noted. Tuberculosis screening: No symptoms or risk factors identified. Assessment: 19:17 Reassessment: see triage assessment. 1 20:25 Reassessment: going to CT. 1 20:25 Reassessment: Patient and/or family updated on plan of care and expected duration. Pain ha1 level reassessed. Patient is alert, oriented x 3, equal unlabored respirations, skin warm/dry/pink. 21:10 Reassessment: Patient and/or family updated on plan of care and expected duration. Pain ha1 level reassessed. Patient is alert, oriented x 3, equal unlabored respirations, skin warm/dry/pink. 22:10 Reassessment: Patient and/or family updated on plan of care and expected duration. Pain ha1 level reassessed. Patient is alert, oriented x 3, equal unlabored respirations, skin warm/dry/pink. 23:10 Reassessment: Patient and/or family updated on plan of care and expected duration. Pain ha1 level reassessed. Patient is alert, oriented x 3, equal unlabored respirations, skin warm/dry/pink. Patient denies pain at this time. Patient states feeling better. Patient states symptoms have improved. 23:35 Reassessment: report fax sheet sent. [facility] Vital Signs: 19:20 BP 119 / 72; Pulse 124; Resp 18 S; Temp 98.7(O); Pulse Ox 96% on R/A; Weight 92.99 kg; ha1 Height 5 ft. 11 in. ; 21:10 BP 119 / 84; Pulse 108; Resp 17 S; Pulse Ox 96% on R/A; ha1 22:14 BP 99 / 78; Pulse 104; Resp 17 S; Pulse Ox 97% on R/A; ha1 23:20 BP 127 / 73; Pulse 96; Resp 17 S; Pulse Ox 97% on R/A; ha1 19:20 Body Mass Index 28.59 (92.99 kg, 180.34 cm) ha1 ED Course: 19:17 Patient arrived in ED. rv1 19:17 Patient has correct armband on for positive identification. Placed in gown. Bed in low ha1 position. Call light in reach. Side rails up X2. Seizure precautions initiated. 19:17 Arm band placed on right wrist. ha1 19:28 Swapna Mary FNP-C is PHCP. kb 19:28 Fiordaliza Justin MD is Attending Physician. kb 19:28 Triage completed. ha1 19:31 Arely Rosado RN is Primary Nurse. ha1 19:35 Missed attempt(s): 20 gauge in right antecubital area. Bleeding controlled, band aid ha1 applied, catheter tip intact. 19:45 Missed attempt(s): 20 gauge in right forearm. Bleeding controlled, band aid applied, ha1 catheter tip intact. 19:45 EKG done, by ED staff, reviewed by Swapna RENTERIA. ha1 20:13 Inserted saline lock: 20 gauge in left forearm, using aseptic technique. Blood ha1 collected. Flushed with 10 mL NS Accessed peripheral vein via ultrasound, utilizing dynamic ultrasound technique. 20:25 IV discontinued, intact, bleeding controlled, No redness/swelling at site. Pressure ha1 dressing applied, IV discontinue patient reports discomfort at IV site. 20:33 CT Head Brain wo Cont In Process Unspecified. EDMS 20:46 Inserted saline lock: 20 gauge in right antecubital area, using aseptic technique. jb4 22:09 CT Abd/Pelvis - Without Contrast In Process Unspecified. EDMS 22:26 Theodore Yu MD is Hospitalizing Provider. kb 22:28 Lactate w/ 2H reflex if indic. Sent. ha1 04/26 00:13 No provider procedures requiring assistance completed. Patient admitted, IV remains in ha1 place. 00:13 Provided Education on: need for admit . ha1 Administered Medications: 04/25 20:13 Drug: Ativan IVP 1 mg IVP once Route: IVP; Site: left forearm; [facility] 20:40 Follow up: Response: No adverse reaction; Marked relief of symptoms; RASS: Alert and ha1 Calm (0) 20:15 Drug: Banana Bag - (Multivitamin IV 1 amp, NS 0.9% IV 1000 ml, Thiamine IV 100 mg, ha1 foLIC Acid IVPB 1 mg) IV at calculated rate once Route: IV; Rate: calculated rate; Site: left forearm; 04/26 00:11 Follow up: Response: No adverse reaction; IV Status: Completed infusion; IV Intake: ha1 1000ml 04/25 21:40 Drug: Keppra IV 1000 mg IV at calculated rate once Route: IV; Rate: calculated rate; [facility] Site: right antecubital; 22:00 Follow up: Response: No adverse reaction; IV Status: Completed infusion; IV Intake: ha1 100ml 21:50 Drug: Potassium Chloride PO 40 mEq PO once Route: PO; ha1 22:25 Follow up: Response: No adverse reaction [facility] 22:00 Drug: NS 0.9% IV 1000 ml IV at 125 ml/hr continuous Route: IV; Rate: 125 ml/hr; Site: [facility] right antecubital; 04/26 00:11 Follow up: Response: No adverse reaction; IV Status: Infusion continued upon admission; [facility] IV Intake: 450ml Medication: 04/25 22:05 VIS not applicable for this client. 1 Intake: 22:00 IV: 100ml; Total: 100ml. ha1 04/26 00:11 IV: 450ml; Total: 550ml. ha1 00:11 IV: 1000ml; Total: 1550ml. [facility] Outcome: 04/25 22:27 Decision to Hospitalize by Provider. kb 04/26 00:00 Admitted to Med/surg accompanied by tech, via stretcher, room 209, with chart, [facility] Condition: stable Instructed on the need for admit, Demonstrated understanding of instructions, 00:14 Patient left the ED. [facility] Signatures: Dispatcher [employer] [facility] Swapna Mary, ZAINC GARY-Vj Oropeza RN RN jb4 Arely Rosado RN RN ha1 Sharda Morillo rv1
[2024-04-25] MEDS: NA CHLORIDE 0.9% 1,000 ML IV SCH (23:00)
[2024-04-26 00:32] VITALS: BMI 28.4
[2024-04-26] MEDS: LORAZEPAM 1 MG TABLET PO SCH (01:04)
[2024-04-26 04:55] LABS: Absolute Monocytes 0.9 K/uL (0.1-1.3); Absolute Neutrophil 4.2 K/uL (1.8-8.0); Basophils % 0.4 % (0-1.3); Eosinophils % 0.5 % (0-4.4); Hematocrit 38.8 % (39.6-49.0); Hemoglobin 12.8 g/dL (13.6-17.9); Lymphocytes % 16.1 % (15.3-44.8); MCH 29.5 pg (27.0-35.0); MCHC 32.9 g/dL (32.0-36.0); MCV 89.6 fL (80-100); MPV 8.5 fL (7.6-11.3); RBC Red Blood Cell Count 4.33 M/uL (4.33-5.43); Red Cell Distribution Width 18.1 % (12.1-15.2)
[2024-04-26 04:58] LABS: Platelets 66 thou/uL (152-406)
[2024-04-26 05:52] LABS: Albumin 3.5 g/dL (3.4-5.0); Albumin/Globulin Ratio 0.9 (1.1-1.8); Anion Gap 11.4 mEq/L (5.0-15.0); Bilirubin Total 0.8 mg/dL (0.2-1.0); Phosphorus 4.3 mg/dL (2.5-4.9); Protein, Total 7.5 g/dL (6.4-8.2)
[2024-04-26 05:55] LABS: Potassium 2.4 mEq/L (3.5-5.1)
[2024-04-26] MEDS: KCL 20 MEQ/100 mL IVPB 100 ML IV ONE (06:08)
[2024-04-26] MEDS: KCL 20 MEQ/100 mL IVPB 20 MEQ/100 ML BAG IV SCH (06:12)
[2024-04-26] MEDS: MULTIVITAMIN TAB PO SCH (08:12)
[2024-04-26] MEDS: levETIRAcetam 500 MG in NA CHLORIDE 0.9% 100 ML IV SCH (08:12)
[2024-04-26] MEDS: THIAMINE HCL 100 MG TABLET PO SCH (08:13)
[2024-04-26] MEDS: FOLIC ACID 1 MG TABLET PO SCH (08:13)
[2024-04-26 11:08] VITALS: O2SAT 98
--- NOTE | 2024-04-26 17:07 | P.PN ---
Subjective Date of Service: 04/26/24 Chief Complaint: Withdrawals Patient reports generalized weakness. He denies any nausea vomiting. He denies any palpitation. He has mild tremors. Physical Examination - Vital Signs Temperature: 98.3 F Blood Pressure: 129/66 Pulse: 81 Respirations: 16 Pulse Ox (%): 98 - Studies Laboratory Data (last 24 hrs) 04/25/24 04/25/24 20:20 20:20 WBC 9.30 Hgb 14.3 Hct 42.5 Plt Count 84 L Sodium 127 L Potassium 2.8 L BUN 22 H Creatinine 1.90 H Glucose 110 H Total Bilirubin 1.1 H AST 91 H ALT 39 Alkaline Phosphatase 94 Lipase 77 H Assessment And Plan - Plan Physical examination General: Alert and oriented x3, NAD, HEENT: Conjunctiva not pale, anicteric sclera Neck: Supple, no elevated JVD Heart: Heart sounds 1 and 2 normal, regular rhythm, normal rate, no pedal edema Lungs: Clear to auscultation bilaterally, adequate breath sounds bilaterally, no rhonchi or crackles. Abdomen: Soft, nondistended, nontender, normal bowel sounds. Extremities: No tenderness, no deformity Skin: Normal skin turgor, no rash, no nodules or ulcers. Neuro: No focal motor deficit. Normal speech. Psychiatry: Normal mood, no agitation. Diagnosis: Alcohol withdrawal syndrome Alcohol-related seizure Hyponatremia Hypokalemia Acute kidney injury Thrombocytopenia Elevated CK Plan: Alcohol withdrawal ssyndrome Alcohol-related seizure Patient reports this is her second episode of alcohol-related seizure Last alcohol binge was about 3 days ago. 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 Continue Keppra for now. Acute kidney Hyponatremia Hypokalemia Continue IV hydration with IV NS Replete potassium p.o. and IV. Monitor and optimize electrolytes including magnesium and phosphorus levels. Thrombocytopenia Likely alcohol related. Monitor CBC. Elevated CK IV hydration Monitor CK levels. DVT prophylaxis; SCD Advanced directive: Full code
[2024-04-26] MEDS: BUSPIRONE HCL 5 MG TABLET PO SCH (20:14)
[2024-04-26] MEDS: TRAZODONE 50 MG TABLET PO SCH (20:15)
[2024-04-26] MEDS: TRAZODONE 150 MG TAB PO SCH (20:15)
[2024-04-26] MEDS: PRAZOSIN HCL 1 MG CAP PO SCH (20:16)
[2024-04-26] MEDS ORDERED: HOME MED 1 EA UNK (Trazodone Hcl [Desyrel] 100 MG Tablet) PO SCH (21:00)
[2024-04-26] MEDS ORDERED: HOME MED 1 EA UNK (Prazosin Hcl [Prazosin Hcl] 2 MG Capsule) PO SCH (21:00)
[2024-04-26 22:23] LABS: Magnesium 1.8 mg/dL (1.6-2.4); Phosphorus 3.3 mg/dL (2.5-4.9)
[2024-04-26] MEDS: POTASSIUM CL SA 10 MEQ TAB PO ONE (23:23)
[2024-04-27 05:35] LABS: Absolute Eosinophils 0.1 K/uL (0-0.5); Absolute Lymphocytes (CBC) 0.9 K/uL (0.7-4.9); Absolute Monocytes 0.6 K/uL (0.1-1.3); Absolute Neutrophil 3.3 K/uL (1.8-8.0); Basophils % 0.7 % (0-1.3); Eosinophils % 2.6 % (0-4.4); Hematocrit 32.6 % (39.6-49.0); Hemoglobin 10.9 g/dL (13.6-17.9); Lymphocytes % 18.9 % (15.3-44.8); MCH 30.5 pg (27.0-35.0); MCHC 33.3 g/dL (32.0-36.0); MCV 91.5 fL (80-100); MPV 8.1 fL (7.6-11.3); Monocytes % 11.7 % (3.3-12.3); Neutrophils % 66.1 % (41.7-73.7); Nucleated Red Blood Cells % 0.1 % (0-0); Platelets 77 thou/uL (152-406); RBC Red Blood Cell Count 3.56 M/uL (4.33-5.43); Red Cell Distribution Width 18.2 % (12.1-15.2)
[2024-04-27 05:44] LABS: Albumin 2.9 g/dL (3.4-5.0); Anion Gap 9.9 mEq/L (5.0-15.0); Phosphorus 3.3 mg/dL (2.5-4.9); Potassium 2.9 mEq/L (3.5-5.1)
[2024-04-27] MEDS: KCL 20 MEQ/100 mL IVPB 20 MEQ/100 ML BAG IV SCH (06:00)
[2024-04-27] MEDS: SERTRALINE HCL 100 MG TAB PO SCH (08:03)
[2024-04-27] MEDS: POTASSIUM 25 MEQ EFFERV TAB PO SCH (10:43)
--- NOTE | 2024-04-27 12:20 | EEG ---
CHART: [id number] TEST ID#: [id number] DATE OF STUDY: 04-26-2024 THE EEG WAS RECORDED PORTABLE IN THE PATIENT'S ROOM ON A 17 CHANNEL MACHINE. ELECTRODES WERE APPLIED IN THE USUAL MANNER USING THE INTERNATIONAL 10-20 SYSTEM. THE WAKING BACKGROUND RHYTHM IN THIS RECORD CONSISTS OF WELL DEVELOPED AND WELL ORGANIZED WAVES OF 9 HZ., MAXIMAL IN THE POSTERIOR HEAD REGIONS WHICH ATTENUATE NORMALLY WITH EYE OPENING. LOW-VOLTAGE 18-22 HZ ACTIVITY IS EXPRESSED IN THE FRONTAL REGIONS. THERE ARE NO FOCAL OR LATERALIZING FEATURES. NO EPILEPTIFORM ACTIVITY APPEARS. SLEEP OCCURRED NATURALLY. IN ADDTION NORMAL SLEEP PATTERNS ARE PRESENT. HYPERVENTILATION WAS NOT PERFORMED. PHOTIC STIMULATION PRODUCED FAIR DRIVING BILATERALLY. IMPRESSION: NORMAL EEG FOR THE AGE OF THE PATIENT IN [place], DROWSINESS AND SLEEP.
[2024-04-27] MEDS: POTASSIUM CL SA 10 MEQ TAB PO SCH ×2 (12:59→16:26)
--- NOTE | 2024-04-27 14:11 | EKG ---
Test Date: 2024-04-25 Test Time: 20:23:03 Tentering Machine Off Bearer: ISAC MEASUREMENT RESULTS: Intervals: Rate: 115 ME: 148 QRSD: 80 QT: 350 QTc: 484 [place]: P: 70 ME: 148 QRS: 52 T: 44 INTERPRETIVE STATEMENTS: Sinus tachycardia Cannot rule out Anterior infarct, age undetermined Abnormal ECG Compared to ECG 04/18/2024 14:53:04 Myocardial infarct finding now present Sinus rhythm no longer present Electronically Signed On 04-27-24 14:07:46 CDT by Prince Nelson
--- NOTE | 2024-04-27 17:51 | P.PN ---
Subjective Date of Service: 04/27/24 Chief Complaint: Withdrawals Patient states he feels better today He denies any palpitation. Physical Examination - Vital Signs Temperature: 98.4 F Blood Pressure: 137/69 Pulse: 77 Respirations: 16 Pulse Ox (%): 94 Assessment And Plan - Plan Physical examination General: Alert and oriented x3, NAD, HEENT: Conjunctiva not pale, anicteric sclera Neck: Supple, no elevated JVD Heart: Heart sounds 1 and 2 normal, regular rhythm, normal rate, no pedal edema Lungs: Clear to auscultation bilaterally, adequate breath sounds bilaterally, no rhonchi or crackles. Abdomen: Soft, nondistended, nontender, normal bowel sounds. Skin: Normal skin turgor, no rash, no nodules or ulcers. Neuro: No focal motor deficit. Normal speech. Psychiatry: Normal mood, no agitation. Diagnosis: Alcohol withdrawal syndrome Alcohol-related seizure Hyponatremia Hypokalemia Acute kidney injury Thrombocytopenia Elevated CK Plan: Alcohol withdrawal ssyndrome Alcohol-related seizure Patient reports this is her second episode of alcohol-related seizure Last alcohol binge was about 3 days ago. Continue CIWA [employer] vitals. Continue Keppra for now. Acute kidney Hyponatremia Hypokalemia Continue IV hydration with IV NS Replete potassium p.o. and IV. Monitor and optimize electrolytes including magnesium and phosphorus levels. Thrombocytopenia Likely alcohol related. stable Elevated CK Serum CK level improved IV hydration Monitor CK levels. DVT prophylaxis; SCD Advanced directive: Full code
[2024-04-27 18:04] LABS: Magnesium 1.6 mg/dL (1.6-2.4); Potassium 4.3 mEq/L (3.5-5.1)
[2024-04-27 18:06] LABS: Anion Gap 11.3 mEq/L (5.0-15.0); Potassium 4.3 mEq/L (3.5-5.1)
[2024-04-27] MEDS: LORAZEPAM 1 MG TABLET PO SCH (23:00)
[2024-04-28 06:11] LABS: Albumin 3.1 g/dL (3.4-5.0); Anion Gap 10.8 mEq/L (5.0-15.0); Magnesium 1.7 mg/dL (1.6-2.4); Phosphorus 2.8 mg/dL (2.5-4.9); Potassium 3.8 mEq/L (3.5-5.1)
[2024-04-28] MEDS: MAGNESIUM OXIDE 400 MG TAB PO ONE (08:27)
[2024-04-28] MEDS: POTASSIUM CL SA 10 MEQ TAB PO ONE (08:28)
[2024-04-28 08:45] VITALS: BP 128/67; TEMP 98.8
--- NOTE | 2024-04-28 13:05 | P.DS ---
Admission Date: 04/25/24 Discharge Date: 04/28/24 Disposition: ROUTINE DISCHARGE Reason for Admission: Withdrawals Brief History of Present Illness: 48-year-old male with history of alcohol use, history of seizures presents to the emergency with suspected withdrawals. The patient reported that he was found by a group of people after what he suspects he had a seizure. He reported he was experiencing alcohol withdrawal symptoms with associated nausea and vo miting and abdominal pain. Last alcohol drink was [address] scan of his head was done in the emergency room which was unremarkable. Patient was hospitalized for further management. Hospital Course: Patient was admitted to the medical floor and the following medical problems addressed: Diagnosis: Alcohol withdrawal syndrome Alcohol-related seizure Hyponatremia Hypokalemia Acute kidney injury Thrombocytopenia Elevated CK Plan: Alcohol withdrawal ssyndrome Alcohol-related seizure Patient reports this is his third episode of alcohol-related seizure Last alcohol binge was about 4 days prior. Patient placed on CIWA protocol. He experienced mild alcohol withdrawal symptoms which resolved. Patient was placed on Keppra for alcohol-related seizures. Case discussed with neurology Dr. Angelo and patient discharged with oral Keppra as patient complained of multiple seizure episodes prior to this one Acute kidney Hyponatremia Hypokalemia Treated with IV fluid. Potassium was replaced both IV and p.o. DINORA, hyponatremia and hypokalemia resolved. Thrombocytopenia Likely alcohol related. stable Elevated CK Serum CK level improved with IV hydration Vital Signs/Physical Exam: Temp Pulse Resp BP Pulse Ox 98.8 F 83 16 128/67 94 04/28/24 08:00 04/28/24 08:00 04/28/24 08:00 04/28/24 08:00 04/28/24 08:00 General: Alert, In no apparent distress, Oriented x3 HEENT: Mucous membr. moist/pink, Sclerae nonicteric Neck: Supple, JVD not distended Respiratory: Clear to auscultation bilaterally, Normal air movement Cardiovascular: No edema, Regular rate/rhythm, Normal S1 S2 Gastrointestinal: Normal bowel sounds, Soft and benign, Non-distended, No tenderness Musculoskeletal: No swelling, No tenderness Integumentary: No rashes, No cyanosis Neurological: Normal strength at 5/5 x4 extr Laboratory Data at Discharge: WBC 5.00 thou/uL (4.3-10.9) 04/27/24 04:50 Hgb 10.9 g/dL (13.6-17.9) L D 04/27/24 04:50 Hct 32.6 % (39.6-49.0) L 04/27/24 04:50 Plt Count 77 thou/uL (152-406) L 04/27/24 04:50 Sodium 140 mEq/L (136-145) 04/28/24 04:31 Potassium 3.8 mEq/L (3.5-5.1) 04/28/24 04:31 BUN 12 mg/dL (7-18) 04/28/24 04:31 Creatinine 0.87 mg/dL (0.70-1.30) 04/28/24 04:31 Glucose 93 mg/dL (74-106) 04/28/24 04:31 Phosphorus 2.8 mg/dL (2.5-4.9) 04/28/24 04:31 Phosphorus 3.0 mg/dL (2.5-4.9) 04/28/24 04:31 Magnesium 1.7 mg/dL (1.6-2.4) 04/28/24 04:31 Total Bilirubin 0.8 mg/dL (0.2-1.0) 04/26/24 04:42 AST 72 U/L (15-37) H 04/26/24 04:42 ALT 35 U/L (16-61) 04/26/24 04:42 Alkaline Phosphatase 80 U/L (45-117) 04/26/24 04:42 Lipase 77 U/L (13-75) H 04/25/24 20:20 Home Medications: Buspirone HCl [Buspar*] 5 mg PO BID 04/26/24 Prazosin HCl 2 mg PO BEDTIME 04/26/24 Quetiapine [Seroquel*] 50 mg PO DAILY 04/26/24 Quetiapine [Seroquel] 100 mg PO BEDTIME 04/26/24 Sertraline [Zoloft*] 200 mg PO DAILY 04/26/24 Trazodone HCl [Desyrel] 200 mg PO BEDTIME 04/26/24 Folic Acid 1 mg PO DAILY #30 tab 04/28/24 Multivit,Ther Iron,Ca,FA & Min [Centrum Tablet*] 1 tab PO DAILY #30 tab 04/28/24 Thiamine HCl [Vitamin B-1*] 100 mg PO DAILY #30 tab 04/28/24 levETIRAcetam [Keppra Tab] 500 mg PO BID #60 tab 04/28/24 New Medications: Multivit,Ther Iron,Ca,FA & Min [Centrum Tablet*] 1 tab PO DAILY #30 tab Folic Acid 1 mg PO DAILY #30 tab levETIRAcetam [Keppra Tab] 500 mg PO BID #60 tab Thiamine HCl [Vitamin B-1*] 100 mg PO DAILY #30 tab Followup: Bud Angelo MD [ASSOCIATE-ACTIVE - CAN ADMIT] - (within 3 weeks) [facility] [Primary Care Provider] - 1-2 Weeks Time spent managing pt's care (in minutes): 32
== END 2024-04-28 10:28 | disposition home or self-care (01) | DRG 897 ==
LOC: ER 19:10 → ERHOLD 22:17 → 2ND 04-26 00:01
PROVIDERS: ADMIT Internal Medicine; ATTEND Internal Medicine
DX: F10.239 Alcohol dependence with withdrawal, unspecified (principal); E87.1 Hypo-osmolality and hyponatremia; N17.9 Acute kidney failure, unspecified; M62.82 Rhabdomyolysis; G40.89 Other seizures; E87.6 Hypokalemia; F43.10 Post-traumatic stress disorder, unspecified; E87.8 Other disorders of electrolyte and fluid balance, not elsewhere classified; Y90.0 Blood alcohol level of less than 20 mg/100 ml; D69.59 Other secondary thrombocytopenia; R25.1 Tremor, unspecified
CPT/HCPCS: 36415; 70450; 74176; 80048; 80053; 80069; 81001; 82077; 82550; 83605; 83690; 83735; 84100; 84132; 85025; 93005; 95819; 99285; J1953; J3411; J3480; J7030

== ENCOUNTER 2024-06-01 14:51 | Inpatient (IN) | payer OTHER ==
[2024-06-01] MEDS ORDERED: LORazepam 2 MG/ML VIAL ONE ×4 (15:06→22:10)
[2024-06-01] MEDS ORDERED: NA CHLORIDE 0.9% 1,000 ML ONE ×2 (15:07→22:16)
[2024-06-01 15:20] LABS: Absolute Lymphocytes (CBC) 0.8 K/uL (0.7-4.9); Absolute Monocytes 1.3 K/uL (0.1-1.3); Absolute Neutrophil 8.1 K/uL (1.8-8.0); Basophils % 0.2 % (0-1.3); Hematocrit 41.5 % (39.6-49.0); Hemoglobin 13.9 g/dL (13.6-17.9); MCH 30.5 pg (27.0-35.0); MCHC 33.5 g/dL (32.0-36.0); MPV 7.5 fL (7.6-11.3); Neutrophils % 78.8 % (41.7-73.7); Nucleated Red Blood Cells % 0.1 % (0-0); Platelets 384 thou/uL (152-406); RBC Red Blood Cell Count 4.56 M/uL (4.33-5.43); Red Cell Distribution Width 18.5 % (12.1-15.2)
--- NOTE | 2024-06-01 15:33 | RAD REPORT ---
Procedure: Chest Single View History: Chest pain Comparison: none Findings: The lungs appear clear of acute infiltrate. No significant pleural effusion noted. The heart is normal size. Post surgical changes involving the chest. Old rib fractures IMPRESSION: No acute abnormality is displayed.
[2024-06-01 15:43] LABS: Albumin 4.1 g/dL (3.4-5.0); Albumin/Globulin Ratio 0.9 (1.1-1.8); Anion Gap 15.6 mEq/L (5.0-15.0); Bilirubin Direct 0.4 mg/dL (0-0.2); Bilirubin Indirect, Calculated 1.6 mg/dL (0.2-0.8); Globulin 4.6 g/dL (2.3-3.5); Potassium 3.6 mEq/L (3.5-5.1); Protein, Total 8.7 g/dL (6.4-8.2); Troponin High Sensitivity 12.9 pg/mL (<58.9)
[2024-06-01] MEDS ORDERED: ONDANSETRON 4 MG/2 ML VIAL ONE (16:08)
[2024-06-01] MEDS ORDERED: ACETAMINOPHEN 325 MG TABLET ONE (16:44)
[2024-06-01 16:49] LABS: Barbiturates NEGATIVE (NEGATIVE); Benzodiazepines NEGATIVE (NEGATIVE); Cocaine NEGATIVE (NEGATIVE); METHAMPHETAM NEGATIVE (NEGATIVE); Methadone NEGATIVE (NEGATIVE); Opiates NEGATIVE (NEGATIVE); Phencyclidine NEGATIVE (NEGATIVE); THC Cannibis NEGATIVE (NEGATIVE)
--- NOTE | 2024-06-01 16:49 | RAD REPORT ---
EXAMINATION: CT ABDOMEN AND PELVIS WITHOUT CONTRAST CLINICAL INDICATION: Abdominal pain TECHNIQUE: CT abdomen and pelvis was performed, as per department protocol. IV contrast and oral was not administered.Axial, sagittal and coronal reconstructions were obtained. One or more of the following dose reduction techniques were used: Automated exposure control, adjustment of the mA and/o r kV according to the patient size, and/or iterative reconstruction. Unless otherwise specified, incidental findings do not require dedicated imaging follow-up. [id number]. COMPARISON: April 2024 FINDINGS: The lack of intravenous and contrast limits the sensitivity of this exam for evaluation of solid visc eral organs, vascular structures, and bowel. The liver appears grossly normal. Mild gallbladder distention The spleen, pancreas, adrenals and right kidney grossly normal Small left renal calculi. No hydronephrosis. The appendix is normal. There is no evidence of diverticulitis. Small hiatal hernia Mild bladder distention IMPRESSION: Mild gallbladder distention. Small nonobstructing left renal calculi
--- NOTE | 2024-06-01 17:26 | RAD REPORT ---
EXAM: Right upper quadrant ultrasound. CLINICAL HISTORY: COMPARISON: June 01, 2024 CT FINDINGS: A gallstone is not seen. Gallbladder wall not thickened. Small amount of gallbladder sludge. Mild gallbladder distention Biliary tree normal caliber IMPRESSION: Mild gallbladder distention Small amount of gallbladder sludge. No evidence of cholecystitis
--- NOTE | 2024-06-01 18:33 | ER ---
Nurse's Notes [facility] Name: Felipe Barriga Age: 48 yrs Sex: Male : 1975 Arrival Date: 06/01/2024 Time: 14:51 Bed 19 Private MD: Diagnosis: Alcohol dependence with withdrawal;Hypo-osmolality and hyponatremia;Acute kidney failure, unspecified Presentation: 06/01 15:11 Chief complaint: EMS states: "toned out for alcohol withdrawal and chest pain that mb9 started today. Last drink was 2 days ago.". Coronavirus screen: Vaccine status: Patient reports receiving the 2nd dose of the covid vaccine. Ebola Screen: No symptoms or risks identified at this time. Initial Sepsis Screen: Does the patient meet any 2 criteria? No. Patient's initial sepsis screen is negative. Does the patient have a suspected source of infection? No. Patient's initial sepsis screen is negative. Risk Assessment: Do you want to hurt yourself or someone else? Patient reports no desire to harm self or others. Onset of symptoms was June 01, 2024. Care prior to arrival: Medication(s) given: zofran 4 mg. 15:11 Acuity: CLARITA 2 mb9 15:11 Method Of Arrival: EMS: [facility] mb9 Triage Assessment: 15:14 General: Appears uncomfortable, Behavior is anxious. Pain: Complains of pain in chest mb9 and abdomen Pain radiates to LUQ Pain currently is 8 out of 10 on a pain scale. Quality of pain is described as sharp, stabbing, Pain began suddenly, Is continuous. EENT: No signs and/or symptoms were reported regarding the EENT system. Neuro: Turner Agitation-Sedation Scale (RASS): 0 - Alert and Calm Level of Consciousness is awake, alert, obeys commands, Oriented to person, place, time, situation, Appropriate for age tremors noted . Cardiovascular: Heart tones S1 S2 present Patient's skin is warm and dry. Rhythm is sinus tachycardia. Respiratory: Airway is patent Respiratory effort is even, unlabored, Respiratory pattern is regular, symmetrical, Breath sounds are clear bilaterally. GI: Abdomen is round non-distended, Bowel sounds present X 4 quads. Abd is soft and non tender X 4 quads. Reports nausea, vomiting. : No signs and/or symptoms were reported regarding the genitourinary system. Derm: Skin is intact, Skin is clammy, Skin is red, Skin temperature is warm. Musculoskeletal: Range of motion: intact in all extremities. Historical: - Allergies: 15:12 No Known Allergies; mb9 - PMHx: 15:12 Alcohol dependence; Anxiety; depressive disorder; Night Terrors; PTSD; mb9 - PSHx: 15:12 aortic root replacement (PTSD); mb9 - Immunization history:: Adult Immunizations up to date. - Infectious Disease History:: Denies. - Social history:: Smoking status: Patient denies any tobacco usage or history of. Screenin:15 [facility] ED Fall Risk Assessment (Adult) History of falling in the last 3 months, mb9 including since admission No falls in past 3 months (0 pts) Confusion or Disorientation No (0 pts) Intoxicated or Sedated No (0 pts) Impaired Gait No (0 pts) Mobility Assist Device Used No (0 pt) Altered Elimination No (0 pt) Score/Fall Risk Level 0 - 2 = Low Risk Oriented to surroundings, Maintained a safe environment, Educated pt \\T\\ family on fall prevention, incl call for assistance when getting out of bed. Abuse screen: Denies threats or abuse. Nutritional screening: No deficits noted. Tuberculosis screening: No symptoms or risk factors identified. Assessment: 15:15 Reassessment: see triage assessment. mb9 16:35 Reassessment:. Neuro: Reports headache in entire frontal area. mb9 17:00 Reassessment: Patient and/or family updated on plan of care and expected duration. Pain mb9 level reassessed. Patient is alert, oriented x 3, equal unlabored respirations, skin warm/dry/pink. Patient states feeling better. Patient states symptoms have improved. 18:45 Reassessment: No changes from previously documented assessment. Patient and/or family mb9 updated on plan of care and expected duration. Pain level reassessed. Patient is alert, oriented x 3, equal unlabored respirations, skin warm/dry/pink. 20:00 Reassessment: Patient appears in no apparent distress at this time. Patient and/or jb4 family updated on plan of care and expected duration. Pain level reassessed. Patient is alert, oriented x 3, equal unlabored respirations, skin warm/dry/pink. Vital Signs: 15:11 BP 146 / 83; Pulse 112; Resp 18; Temp 98.9; Pulse Ox 100% ; Weight 97.52 kg; Height 5 mb9 ft. 11 in. ; Pain 8/10; 15:45 BP 142 / 68; Pulse 107; Resp 18; Pulse Ox 100% on R/A; mb9 17:53 BP 138 / 88; Pulse 108; Resp 16; Pulse Ox 99% on R/A; mb9 19:06 BP 145 / 93; Pulse 112; Resp 16; Pulse Ox 97% on R/A; mb9 20:00 BP 131 / 83; Pulse 112; Resp 18; Pulse Ox 94% on R/A; jb4 21:00 BP 128 / 81; Pulse 116; Resp 17; Pulse Ox 96% on R/A; jb4 22:15 BP 115 / 74; Pulse 117; Resp 20; Pulse Ox 97% on R/A; jb4 15:11 Body Mass Index 29.99 (97.52 kg, 180.34 cm) mb9 15:11 Pain Scale: Adult mb9 ED Course: 14:57 Patient arrived in ED. sb4 14:57 Neisha Candelario PA-C is PHCP. sb4 14:57 Rafael Young MD is Attending Physician. sb4 15:04 Leonela Drew, KORIN is Primary Nurse. mb9 15:05 EKG done, by ED staff, reviewed by Neisha Candelario PA-C. mb9 15:10 Initial lab(s) drawn, by ut, sent to lab. Inserted saline lock: 20 gauge in right mb9 forearm, using aseptic technique. Blood collected. Flushed with 10 mL NS. 15:12 Triage completed. mb9 15:15 Arm band placed on. mb9 15:16 XRAY Chest (1 view) In Process Unspecified. EDMS 15:16 No provider procedures requiring assistance completed. mb9 15:16 Placed in gown. Bed in low position. Call light in reach. Side rails up X 1. Provided mb9 Education on: press call light if needing anything. Client placed on continuous cardiac and pulse oximetry monitoring. NIBP monitoring applied. stationary engineer supervisor on. 16:36 CT Abd/Pelvis - Without Contrast In Process Unspecified. EDMS 17:04 Osmolality, Serum Sent. mb9 17:04 Urine Sodium Random Sent. mb9 17:04 Urine Osmolality Sent. mb9 17:05 Repeat lab(s) drawn. by me, sent to lab. Urine collected: clean catch specimen, clear. mb9 17:05 Door closed. Noise minimized. Warm blanket given. Pillow given. mb9 17:13 Abdomen Limited US In Process Unspecified. EDMS 18:32 Prince Blanton MD is Hospitalizing Provider. sb4 19:06 Patient admitted, IV remains in place. mb9 19:13 Report given to KORIN Tellez. mb9 Administered Medications: 15:10 Drug: NS 0.9% IV 1000 ml IV at 1000 ml once; to be given as a bolus over 60 minutes mb9 Route: IV; Rate: 1000 ml; Site: right forearm; 16:06 Follow up: Response: No adverse reaction; IV Status: Completed infusion mb9 15:10 Drug: Ativan IVP 1 mg IVP once Route: IVP; Site: right forearm; mb9 15:52 Follow up: Response: No adverse reaction mb9 16:08 Drug: Ondansetron IVP 4 mg IVP once; over 2 minutes Route: IVP; Site: right forearm; mb9 17:04 Follow up: Response: No adverse reaction mb9 16:11 Drug: Ativan IVP 2 mg IVP once Route: IVP; Site: right forearm; mb9 17:04 Follow up: Response: No adverse reaction mb9 16:48 Drug: Acetaminophen PO 650 mg PO once Route: PO; mb9 17:04 Follow up: Response: No adverse reaction mb9 Medication: 15:16 VIS not applicable for this client. mb9 Outcome: 18:33 Decision to Hospitalize by Provider. sb4 19:06 Admitted to ER Hold. Please see [facility] for further documentation. mb9 19:06 Condition: stable 19:06 Instructed on the need for admit, 23:14 Admitted to ICU accompanied by nurse, room ICU 8, with chart, Report called to fidelia Mendes RN 23:14 Condition: improved 23:14 Instructed on the need for admit, 23:16 Patient left the ED. fidelia Signatures: Dispatcher [employer] EDMS Vj Rizzo RN RN jb4 Brown, Sophia PAGalileoC PAGalileoC Leonela Becerril RN KORIN mb9
--- NOTE | 2024-06-01 18:33 | EDPHYS ---
Physician Documentation [facility] Name: Felipe Barriga Age: 48 yrs Sex: Male : 1975 Arrival Date: 06/01/2024 Time: 14:51 Bed 19 Private MD: ED Physician Rafael Young HPI: 06/01 15:01 This 48 yrs old Male presents to ER via Unassigned with complaints of alcohol sb4 withdrawal, chest pain, abdominal pain, vomiting. 15:01 patient presents via EMS with chest pain, abdominal pain, nausea, vomiting, and sb4 suspected alcohol withdrawal. he states his last drink was 1.5 days ago, reports drinking a 5th of whiskey/day. has been seen here 4 times in the past month and half for similar symptoms. he states he cannot hold anything down. states he wishes to become sober. Historical: - Allergies: 15:12 No Known Allergies; mb9 - PMHx: 15:12 Alcohol dependence; Anxiety; depressive disorder; Night Terrors; PTSD; mb9 - PSHx: 15:12 aortic root replacement (PTSD); mb9 - Immunization history:: Adult Immunizations up to date. - Infectious Disease History:: Denies. - Social history:: Smoking status: Patient denies any tobacco usage or history of. ROS: 15:01 Constitutional: Negative for fever, chills, and weight loss, sb4 15:01 Cardiovascular: Positive for chest pain, 15:01 Respiratory: 15:01 Abdomen/GI: Positive for abdominal pain, nausea and vomiting, 15:01 All other systems are negative, Exam: 15:01 Constitutional: The patient appears alert, awake, anxious, in obvious distress, mildly sb4 distressed, 15:03 Head/Face: Normocephalic, atraumatic. Eyes: Extra-ocular motions intact. Periorbital sb4 areas with no swelling, redness, or edema. ENT: Mucous membranes moist. Respiratory: Lungs have equal breath sounds bilaterally, clear to auscultation and percussion. No rales, rhonchi or wheezes noted. No increased work of breathing, no retractions or nasal flaring. 15:03 Cardiovascular: Rate: tachycardic, Rhythm: regular, 15:03 Abdomen/GI: Inspection: abdomen appears normal, Bowel sounds: normal, Palpation: soft, mild abdominal tenderness, in the epigastric area, Vital Signs: 15:11 BP 146 / 83; Pulse 112; Resp 18; Temp 98.9; Pulse Ox 100% ; Weight 97.52 kg; Height 5 mb9 ft. 11 in. ; Pain 8/10; 15:45 BP 142 / 68; Pulse 107; Resp 18; Pulse Ox 100% on R/A; mb9 17:53 BP 138 / 88; Pulse 108; Resp 16; Pulse Ox 99% on R/A; mb9 19:06 BP 145 / 93; Pulse 112; Resp 16; Pulse Ox 97% on R/A; mb9 20:00 BP 131 / 83; Pulse 112; Resp 18; Pulse Ox 94% on R/A; jb4 21:00 BP 128 / 81; Pulse 116; Resp 17; Pulse Ox 96% on R/A; jb4 22:15 BP 115 / 74; Pulse 117; Resp 20; Pulse Ox 97% on R/A; jb4 15:11 Body Mass Index 29.99 (97.52 kg, 180.34 cm) mb9 15:11 Pain Scale: Adult mb9 MDM: 14:57 Patient medically screened. sb4 18:32 Data reviewed: vital signs, nurses notes, EMS record, lab test result(s), EKG, sb4 radiologic studies, and as a result, I will admit patient. Counseling: I had a detailed discussion with the patient and/or guardian regarding the historical points, exam findings, and any diagnostic results supporting the discharge/admit diagnosis, the presence of at least one elevated blood pressure reading (>120/80) during this emergency department visit, lab results, radiology results, the need for further work-up and treatment in the hospital. 19:42 ED course: Offered transfer to [place], but patient states he would prefer to stay here. sb4 06/01 14:58 Order name: Basic Metabolic Panel; Complete Time: 15:44 sb4 06/01 14:58 Order name: CBC with Diff; Complete Time: 15:25 sb4 06/01 14:58 Order name: LFT's; Complete Time: 15:44 sb4 06/01 14:58 Order name: Troponin HS; Complete Time: 15:44 sb4 06/01 14:58 Order name: ETOH Level; Complete Time: 15:31 sb4 06/01 14:58 Order name: Lipase; Complete Time: 15:44 4 06/01 14:58 Order name: UDS; Complete Time: 16:49 4 06/01 15:16 Order name: Creatine Phosphokinase; Complete Time: 15:44 [facility] 06/01 16:47 Order name: Osmolality, Serum; Complete Time: 17:58 4 06/01 16:47 Order name: Urine Sodium Random; Complete Time: 17:14 [facility] 06/01 16:47 Order name: Urine Osmolality; Complete Time: 17:58 4 06/01 19:53 Order name: Lactate w/ 2H reflex if indic. [facility] 06/01 19:53 Order name: Urinalysis w/ reflexes [facility] 06/01 19:53 Order name: CBC with Automated Diff [facility] 06/01 19:53 Order name: CBC with Automated Diff [facility] 06/01 19:53 Order name: Comprehensive Metabolic Panel [facility] 06/01 19:53 Order name: Comprehensive Metabolic Panel [facility] 06/01 20:02 Order name: Magnesium [facility] 06/01 20:02 Order name: Phosphorus [facility] 06/01 20:02 Order name: Basic Metabolic Panel [facility] 06/01 20:02 Order name: Basic Metabolic Panel [facility] 06/01 20:02 Order name: Basic Metabolic Panel [facility] 06/01 20:02 Order name: Basic Metabolic Panel [facility] 06/01 14:58 Order name: XRAY Chest (1 view); Complete Time: 15:34 [facility] 06/01 15:46 Order name: CT Abd/Pelvis - Without Contrast; Complete Time: 16:49 [facility] 06/01 16:49 Order name: Abdomen Limited US; Complete Time: 17:27 [facility] 06/01 20:02 Order name: Occupational Therapy Consult [facility] 06/01 20:02 Order name: Physical Therapy Consult [facility] 06/01 20:05 Order name: Delirium Tremens Prophylaxis-IV Meds [facility] 06/01 14:58 Order name: Cardiac monitoring; Complete Time: 15:04 4 06/01 14:58 Order name: EKG - Nurse/Tech; Complete Time: 15:04 [facility] 06/01 14:58 Order name: IV Saline Lock; Complete Time: 15:05 [facility] 06/01 14:58 Order name: Labs collected and sent; Complete Time: 15:05 [facility] 06/01 14:58 Order name: O2 Per Protocol; Complete Time: 15:05 sb4 06/01 14:58 Order name: O2 Sat Monitoring; Complete Time: 15:05 sb4 EC:05 Rate is 112 beats/min. Rhythm is regular, Sinus tachycardia. HI interval is normal at sb4 140 msec. QRS interval is normal at 76 msec. QT interval is normal at 352 msec. No Q waves. T waves are Normal. No ST changes noted. Clinical impression: Sinus tachycardia and No evidence of ischemia. Interpreted by me. Reviewed by me. Administered Medications: 15:10 Drug: NS 0.9% IV 1000 ml IV at 1000 ml once; to be given as a bolus over 60 minutes mb9 Route: IV; Rate: 1000 ml; Site: right forearm; 16:06 Follow up: Response: No adverse reaction; IV Status: Completed infusion mb9 15:10 Drug: Ativan IVP 1 mg IVP once Route: IVP; Site: right forearm; mb9 15:52 Follow up: Response: No adverse reaction mb9 16:08 Drug: Ondansetron IVP 4 mg IVP once; over 2 minutes Route: IVP; Site: right forearm; mb9 17:04 Follow up: Response: No adverse reaction mb9 16:11 Drug: Ativan IVP 2 mg IVP once Route: IVP; Site: right forearm; mb9 17:04 Follow up: Response: No adverse reaction mb9 16:48 Drug: Acetaminophen PO 650 mg PO once Route: PO; mb9 17:04 Follow up: Response: No adverse reaction mb9 Disposition Summary: 06/01/24 18:33 Hospitalization Ordered Notes: Hospitalization Status: Inpatient Admission sb4 Provider: Prince Franny sbMarquita Condition: Fair sb4 Problem: new sb4 Symptoms: are unchanged sb4 Bed/Room Type: Standard sb4 Location: Intensive Care Unit(06/01/24 22:46) Room Assignment: 8-(06/01/24 22:46) Diagnosis - Alcohol dependence with withdrawal sb4 - Hypo-osmolality and hyponatremia sb4 - Acute kidney failure, unspecified sb4 Forms: - Medication Reconciliation Form sb4 - SBAR form sb4 - Leadership Thank You Letter sb4 Addendum: 06/03/2024 07:03 I was immediately available for consultation during this patient's visit. I did not e c2 personally see the patient or discuss the patient with the SCHUYLER. . Signatures: Dispatcher [employer] EDHawa Reddy RN Neisha Oconnor PA-C PA-C sb4 Wilkerson, Mary Beth RN RN mb9 Rafael Young MD MD ec2 Mary Jane Moraes cp4 Orlando Garcia ty Corrections: (The following items were deleted from the chart) 06/01 14:58 14:58 BASIC METABOLIC PANEL+C.LAB.BRZ ordered. EDMS EDMS 14:58 14:58 CBC+H.LAB.BRZ ordered. EDMS EDMS 14:58 14:58 HEPATIC FUNCTION+C.LAB.BRZ ordered. EDMS EDMS 14:58 14:58 Troponin High Sensitivity+C.LAB.BRZ ordered. EDMS EDMS 14:58 14:58 ETHANOL+C.LAB.BRZ ordered. EDMS EDMS 14:58 14:58 LIPASE+C.LAB.BRZ ordered. EDMS EDMS 14:58 14:58 URINE DRUG SCREEN+UC.LAB.BRZ ordered. EDMS EDMS 14:58 14:58 Chest Single View+RAD.RAD.BRZ ordered. EDMS EDMS 15:16 15:01 CREATINE PHOSPHOKINASE+C.LAB.BRZ ordered. EDMS EDMS 15:47 15:45 Abdomen Pelvis W Con+CT.RAD.BRZ ordered. EDMS EDMS 20:38 18:33 sb4 ty 22:33 18:33 Telemetry/MedSurg (Inpatient) sb4 cp4 22:33 20:38 209 ty cp4 22:46 22:33 BR ER HOLD cp4 kl 22:46 22:33 ERHOLD- cp4 kl
--- NOTE | 2024-06-01 19:53 | P.HP ---
Certification for Inpatient Patient admitted to: Inpatient With expected LOS: >2 Midnights Practitioner: I am a practitioner with admitting privileges, knowledge of patient current condition, hospital course, and medical plan of care. Services: Services provided to patient in accordance with Admission requirements found in Title 42 Section 412.3 of the Code of Federal Regulations Patient History Date of Service: 06/01/24 Reason for admission: alcohol withdrawal syndrome History of Present Illness: Patient is a 48-year-old male with a past medical history of excessive alcohol consumption. He presented to the ER complaining of excessive tremors involving both his upper and lower extremities. Patient states that he knows he is withdrawing from alcohol. He mainly consumes liquor and admits doing quite a lot of it. He has not consumed any alcohol for the past 1-1/2 days. Patient is visibly tremulous during my evaluation. He can provide a history but appears lethargic. He is being admitted for alcohol withdrawal syndrome. Allergies No Known Allergies Allergy (Verified 04/26/24 00:33) Home Medications: Buspirone HCl [Buspar*] 5 mg PO BID 04/26/24 Prazosin HCl 2 mg PO BEDTIME 04/26/24 Quetiapine [Seroquel*] 50 mg PO DAILY 04/26/24 Quetiapine [Seroquel] 100 mg PO BEDTIME 04/26/24 Sertraline [Zoloft*] 200 mg PO DAILY 04/26/24 Trazodone HCl [Desyrel] 200 mg PO BEDTIME 04/26/24 Folic Acid 1 mg PO DAILY #30 tab 04/28/24 Multivit,Ther Iron,Ca,FA & Min [Centrum Tablet*] 1 tab PO DAILY #30 tab 04/28/24 Thiamine HCl [Vitamin B-1*] 100 mg PO DAILY #30 tab 04/28/24 levETIRAcetam [Keppra Tab] 500 mg PO BID #60 tab 04/28/24 - Past Medical/Surgical History Diabetic: No -: PTSD -: Schizoeffective anxiety -: Major Depressive disorder -: Alcohol abuse -: Aortic root replacement - Family History Mother -: Cancer Notes: breast - Social History Alcohol use: Yes CD- Drugs: No Caffeine use: Yes Physical Examination - Physical Exam General: Cooperative, Obese HEENT: Atraumatic, Normocephalic Respiratory: Clear to auscultation bilaterally, Normal air movement, Diminished Cardiovascular: No edema, Normal pulses, Regular rate/rhythm, No murmurs, Other (tachycardic) Musculoskeletal: No clubbing, No swelling, No contractures, No tenderness Integumentary: Other (flushed) Neurological: Other (tremelous) - Studies Laboratory Data (last 24 hrs) 06/01/24 06/01/24 15:03 15:03 WBC 10.20 Hgb 13.9 Hct 41.5 Plt Count 384 Sodium 124 L Potassium 3.6 BUN 27 H Creatinine 1.73 H Glucose 132 H Total Bilirubin 2.0 H AST 31 ALT 28 Alkaline Phosphatase 93 Lipase 55 Assessment and Plan - Problems (Diagnosis) (1) Alcohol withdrawal syndrome Current Visit: Yes Status: Acute (2) DINORA (acute kidney injury) Current Visit: No Status: Acute (3) ETOH abuse Current Visit: No Status: Acute (4) Seizure Current Visit: No Status: Acute - Plan Assessment Patient is a 48-year-old male who is being admitted for alcohol withdrawal syndrome after he presented with generalized tremors. He has gone a day and a half without consuming alcohol. Admits to drinking excessively. Basic labs are significant for an DINORA with a creatinine of 1.73 and a sodium of 124. Patient is visibly tremulous during my evaluation. Alcohol withdrawal syndrome Hyponatremia DINORA Rhabdomyolysis Plan: Will admit inpatient with telemetry Initiate CIWA protocol Will also start a banana bag which will include multivitamins PT/OT VTE and GI prophylaxis Patient is full code - Advance Directives Does patient have a Living Will: No Does patient have a Durable POA for Healthcare: No
[2024-06-01] MEDS ORDERED: FLUMAZENIL 0.1 MG/ML (5 mL VIAL) IV PRN (20:01)
[2024-06-01] MEDS ORDERED: HALOPERIDOL LACT 5 MG/ML INJ IM PRN (20:01)
[2024-06-01] MEDS ORDERED: SODIUM CHLORIDE 0.9% 10ML INJ IV PRN (20:04)
[2024-06-01] MEDS ORDERED: ACETAMINOPHEN 500 MG TAB PO PRN (21:00)
[2024-06-01] MEDS: LORazepam 2 MG/ML VIAL IV SCH (21:00)
[2024-06-01] MEDS: LORazepam 2 MG/ML VIAL IV PRN (22:13)
[2024-06-01] MEDS ORDERED: PANTOPRAZOLE 40 MG INJ ONE (22:15)
[2024-06-01] MEDS ORDERED: THIAMINE 200 MG/2 ML INJ ONE (22:15)
[2024-06-01] MEDS ORDERED: FOLIC ACID 5 MG/ML VIAL ONE (22:16)
[2024-06-01] MEDS ORDERED: MULTIVITAMINS 10 ML VIAL (INJ) IV ONE (22:16)
[2024-06-01] MEDS: FOLIC ACID 1 MG, MULTIVITAMINS INJ 10 ML, THIAMINE HCL 100 MG in NA CHLORIDE 0.9% 1,000 ML IV SCH (22:25)
[2024-06-01] MEDS: PANTOPRAZOLE 40 MG INJ IVP SCH (22:25)
[2024-06-01] MEDS: ONDANSETRON 4 MG/2 ML VIAL IV PRN (23:50)
[2024-06-02 00:39] LABS: Anion Gap 12.2 mEq/L (5.0-15.0); Potassium 3.2 mEq/L (3.5-5.1)
[2024-06-02 00:54] LABS: Magnesium 1.3 mg/dL (1.6-2.4)
[2024-06-02 01:09] LABS: Specific Gravity 1.009 (1.005-1.030); Urine Bilirubin NEGATIVE (Negative); Urine Blood Negative (Negative); Urine Clarity Clear (Clear); Urine Color Light-Yellow (Yellow); Urine Glucose NEGATIVE (Negative); Urine Ketones NEGATIVE (Negative); Urine Microscopic Reflex YN NO UMIC; Urine Nitrite NEGATIVE (Negative); Urine Protein NEGATIVE (Negative); Urine Urobilinogen Normal (Normal); Urine pH 6.5 (5.0-7.0)
[2024-06-02] MEDS: NA CHLORIDE 0.9% 500 ML IV ONE (01:12)
[2024-06-02 06:01] LABS: Absolute Lymphocytes (CBC) 1.3 K/uL (0.7-4.9); Absolute Neutrophil 5.2 K/uL (1.8-8.0); Basophils % 0.6 % (0-1.3); Eosinophils % 0.2 % (0-4.4); Hemoglobin 12.9 g/dL (13.6-17.9); Lymphocytes % 16.9 % (15.3-44.8); MCH 30.2 pg (27.0-35.0); MCV 91.5 fL (80-100); MPV 7.7 fL (7.6-11.3); Monocytes % 13.1 % (3.3-12.3); Neutrophils % 69.2 % (41.7-73.7); Platelets 287 thou/uL (152-406); RBC Red Blood Cell Count 4.26 M/uL (4.33-5.43)
[2024-06-02] MEDS: MAGNESIUM 50% 3 GM in NA CHLORIDE 0.9% 100 ML IV ONE (06:11)
[2024-06-02] MEDS: Magnesium Sulfate 2gm IVPB 2 G/50 ML BAG IV ONE (06:26)
[2024-06-02 06:35] LABS: Albumin 3.7 g/dL (3.4-5.0); Anion Gap 8.1 mEq/L (5.0-15.0); Bilirubin Total 1.4 mg/dL (0.2-1.0); Globulin 3.6 g/dL (2.3-3.5); Potassium 3.1 mEq/L (3.5-5.1); Protein, Total 7.3 g/dL (6.4-8.2)
[2024-06-02] MEDS: KCL 20 MEQ/100 mL IVPB 20 MEQ/100 ML BAG IV ONE (09:05)
[2024-06-02] MEDS: POTASSIUM 25 MEQ EFFERV TAB PO ONE (09:05)
[2024-06-02] MEDS: ENOXAPARIN 40 MG/0.4 ML SQ SCH (09:06)
--- NOTE | 2024-06-02 10:01 | P.PN ---
Subjective Date of Service: 06/02/24 Chief Complaint: alcohol withdrawal syndrome Patient is currently stable requiring large doses of Ativan Review of Systems is unable to be obtained Physical Examination - Vital Signs Temperature: 97.7 F Blood Pressure: 124/76 Pulse: 102 Respirations: 16 Pulse Ox (%): 97 - Physical Exam General: Unresponsive - Studies Laboratory Data (last 24 hrs) 06/01/24 06/01/24 15:03 15:03 WBC 10.20 Hgb 13.9 Hct 41.5 Plt Count 384 Sodium 124 L Potassium 3.6 BUN 27 H Creatinine 1.73 H Glucose 132 H Total Bilirubin 2.0 H AST 31 ALT 28 Alkaline Phosphatase 93 Lipase 55 Assessment And Plan - Current Problems (Diagnosis) (1) Alcohol withdrawal delirium Current Visit: Yes Status: Acute Plan: Patient is 48 years of age admitted with alcohol withdrawal symptoms currently requiring sedation resume all his home medication he has a history of baseline schizophrenia labs reviewed add additional thiamine continue with IV fluids replace potassium signs stable oxygenation satisfactory labs reviewed no significant findings on chest x-ray will order abdominal CT to monitor in ICU
[2024-06-02] MEDS: POTASSIUM CL SA 10 MEQ TAB PO ONE (11:25)
[2024-06-02] MEDS: SERTRALINE HCL 100 MG TAB PO SCH (11:25)
[2024-06-02] MEDS: QUETIAPINE 25 MG TAB PO SCH (11:25)
[2024-06-02] MEDS: THIAMINE 200 MG/2 ML INJ IVP SCH (11:33)
[2024-06-02] MEDS: DEXMEDETOMIDINE HCL 1,000 MCG in NA CHLORIDE 0.9% 490 ML IV SCH (15:52)
[2024-06-02] MEDS ORDERED: DEXMEDETOMIDINE HCL 200 MCG in NA CHLORIDE 0.9% 98 ML IV SCH (16:00)
[2024-06-02] MEDS: PANTOPRAZOLE 40MG TABLET PO ONE (19:14)
[2024-06-02] MEDS: PANTOPRAZOLE 40MG TABLET PO SCH (19:21)
[2024-06-02] MEDS: BUSPIRONE HCL 5 MG TABLET PO SCH (20:52)
[2024-06-02] MEDS: TRAZODONE 50 MG TABLET PO SCH (20:53)
[2024-06-02] MEDS: PRAZOSIN HCL 1 MG CAP PO SCH (20:54)
[2024-06-02] MEDS: TRAZODONE 150 MG TAB PO SCH (20:54)
[2024-06-02] MEDS: QUETIAPINE 100MG TAB PO SCH (20:55)
[2024-06-02] MEDS ORDERED: HOME MED 1 EA UNK (Prazosin Hcl [Prazosin Hcl] 2 MG Capsule) PO SCH (21:00)
[2024-06-02] MEDS ORDERED: HOME MED 1 EA UNK (Trazodone Hcl [Desyrel] 100 MG Tablet) PO SCH (21:00)
[2024-06-03 05:40] LABS: Anion Gap 8.5 mEq/L (5.0-15.0); Magnesium 2.1 mg/dL (1.6-2.4); Phosphorus 3.8 mg/dL (2.5-4.9); Potassium 3.5 mEq/L (3.5-5.1)
[2024-06-03] MEDS: POTASSIUM 25 MEQ EFFERV TAB PO ONE (06:23)
[2024-06-03] MEDS ORDERED: LORazepam 2 MG/ML VIAL IV PRN (08:43)
--- NOTE | 2024-06-03 08:45 | P.PN ---
Subjective Date of Service: 06/03/24 Chief Complaint: alcohol withdrawal syndrome Condition has been stabilized on Precedex being drinking communicating Review of Systems is unable to be obtained Physical Examination - Vital Signs Temperature: 98.5 F Blood Pressure: 98/63 Pulse: 84 Respirations: 12 Pulse Ox (%): 96 - Physical Exam General: Unresponsive Respiratory: Clear to auscultation bilaterally Cardiovascular: No edema, Regular rate/rhythm Assessment And Plan - Current Problems (Diagnosis) (1) Alcohol withdrawal delirium Current Visit: Yes Status: Acute Plan: Patient admitted with alcohol withdrawal doing better on Precedex over to p.o. Librium advance diet eating and drinking wean off the has a family labs reviewed Discharge Plan: Home Plan to discharge in: 48 Hours
[2024-06-03] MEDS ORDERED: THIAMINE HCL 100 MG TABLET PO SCH (09:00)
[2024-06-03] MEDS: MULTIVITAMIN TAB PO SCH (09:06)
[2024-06-03] MEDS: FOLIC ACID 1 MG TABLET PO SCH (09:07)
[2024-06-03] MEDS: chlordiazePOXIDE HCl 5 MG CAP PO PRN (15:10)
[2024-06-03] MEDS: LORazepam 2 MG/ML VIAL IV PRN (16:54)
[2024-06-03] MEDS ORDERED: LORazepam 2 MG/ML VIAL IV SCH (21:00)
[2024-06-04 05:32] LABS: Anion Gap 7.8 mEq/L (5.0-15.0); Potassium 3.8 mEq/L (3.5-5.1)
[2024-06-04 05:50] LABS: Magnesium 1.7 mg/dL (1.6-2.4); Phosphorus 3.9 mg/dL (2.5-4.9)
[2024-06-04] MEDS: MAGNESIUM SULFATE 1 gm IVPB 1 GM/100 ML BAG IV ONE (06:15)
[2024-06-04] MEDS: POTASSIUM CL SA 10 MEQ TAB PO ONE (06:16)
[2024-06-05 05:31] LABS: Absolute Basophils 0.1 K/uL (0-0.5); Absolute Eosinophils 0.1 K/uL (0-0.5); Absolute Lymphocytes (CBC) 1.3 K/uL (0.7-4.9); Absolute Monocytes 0.6 K/uL (0.1-1.3); Absolute Neutrophil 5.3 K/uL (1.8-8.0); Basophils % 0.7 % (0-1.3); Eosinophils % 1.6 % (0-4.4); Hemoglobin 12.5 g/dL (13.6-17.9); Lymphocytes % 17.2 % (15.3-44.8); MCH 31.3 pg (27.0-35.0); MCHC 33.9 g/dL (32.0-36.0); MCV 92.5 fL (80-100); MPV 7.6 fL (7.6-11.3); Neutrophils % 72.5 % (41.7-73.7); Nucleated Red Blood Cells % 0.1 % (0-0); Platelets 236 thou/uL (152-406); Red Cell Distribution Width 18.1 % (12.1-15.2)
[2024-06-05 06:30] LABS: Anion Gap 7.8 mEq/L (5.0-15.0); Magnesium 1.8 mg/dL (1.6-2.4); Potassium 3.8 mEq/L (3.5-5.1)
[2024-06-05] MEDS: POTASSIUM CL SA 10 MEQ TAB PO ONE ×2 (06:35→08:04)
[2024-06-05] MEDS: MAGNESIUM SULFATE 1 gm IVPB 1 GM/100 ML BAG IV ONE (06:46)
[2024-06-05] MEDS: chlordiazePOXIDE HCl 5 MG CAP PO SCH (11:48)
--- NOTE | 2024-06-05 23:59 | P.PN ---
Subjective Date of Service: 06/04/24 Subjective: No new changes, No C/O voiced, Improving Review of Systems 10-point ROS is otherwise unremarkable Physical Examination - Vital Signs Temperature: 98.8 F Blood Pressure: 112/60 Pulse: 75 Respirations: 14 Pulse Ox (%): 97 - Physical Exam General: Alert, In no apparent distress, Oriented x3 ( ) Respiratory: Clear to auscultation bilaterally, Normal air movement Cardiovascular: Regular rate/rhythm, Normal S1 S2, No murmurs Gastrointestinal: Normal bowel sounds, Soft and benign, Non-distended, No tenderness, No rebound, No guarding Musculoskeletal: No clubbing, No swelling Neurological: Normal gait, Normal speech, Normal strength at 5/5 x4 extr, Sensation intact, Cranial nerves 3-12 intact Assessment & Plan - Problems (Diagnosis) (1) Alcohol withdrawal delirium Current Visit: Yes Status: Acute (2) ETOH abuse Current Visit: No Status: Acute (3) DINORA (acute kidney injury) Current Visit: No Status: Acute - Plan Plan: 1. Continue with IV fluids 2. Librium tapering dose 3. Replete electrolytes 4. Physical therapy evaluation 5. Out of bed and ambulate Discharge Plan: Home Plan to discharge in: 24 Hours - Advance Directives Does patient have a Living Will: No Does patient have a Durable POA for Healthcare: Yes - Code Status/Comfort Care Code Status Assessed: Yes Code Status: Full Code Critical Care: Yes Time Spent Managing PTS Care (In Minutes): 35
--- NOTE | 2024-06-06 00:14 | P.PN ---
Date of Service: 06/05/24 Subjective Physical Examination - Vital Signs reviewed - Physical Exam General: Alert, In no apparent distress, Oriented x3 ( ) Respiratory: Clear to auscultation bilaterally, Normal air movement Cardiovascular: Regular rate/rhythm, Normal S1 S2, No murmurs Gastrointestinal: Normal bowel sounds, Soft and benign, Non-distended, No tenderness, No rebound, No guarding Musculoskeletal: No clubbing, No swelling Neurological: Normal gait, Normal speech, Normal strength at 5/5 x4 extr, Sensation intact, Cranial nerves 3-12 intact Assessment & Plan - Problems (Diagnosis) (1) Alcohol withdrawal delirium Current Visit: Yes Status: Acute (2) ETOH abuse Current Visit: No Status: Acute (3) DINORA (acute kidney injury) Current Visit: No Status: Acute - Plan Plan: 1. Continue with IV fluids 2. Librium tapering dose 3. Replete electrolytes 4. Physical therapy evaluation 5. Out of bed and ambulate Discharge Plan: Home Plan to discharge in: 24 Hours - Advance Directives Does patient have a Living Will: No Does patient have a Durable POA for Healthcare: Yes - Code Status/Comfort Care Code Status Assessed: Yes Code Status: Full Code Critical Care: Yes Time Spent Managing PTS Care (In Minutes): 35
[2024-06-06 06:55] LABS: Absolute Basophils 0.1 K/uL (0-0.5); Absolute Eosinophils 0.1 K/uL (0-0.5); Absolute Lymphocytes (CBC) 1.1 K/uL (0.7-4.9); Absolute Monocytes 0.7 K/uL (0.1-1.3); Absolute Neutrophil 4.7 K/uL (1.8-8.0); Basophils % 0.8 % (0-1.3); Eosinophils % 1.4 % (0-4.4); Hemoglobin 12.7 g/dL (13.6-17.9); Lymphocytes % 16.1 % (15.3-44.8); MCH 31.6 pg (27.0-35.0); MCHC 34.2 g/dL (32.0-36.0); MCV 92.2 fL (80-100); MPV 7.7 fL (7.6-11.3); Monocytes % 10.3 % (3.3-12.3); Neutrophils % 71.4 % (41.7-73.7); Nucleated Red Blood Cells % 0.1 % (0-0); Platelets 228 thou/uL (152-406); RBC Red Blood Cell Count 4.02 M/uL (4.33-5.43); Red Cell Distribution Width 18.8 % (12.1-15.2)
[2024-06-06 07:03] LABS: Anion Gap 8.9 mEq/L (5.0-15.0); Magnesium 1.9 mg/dL (1.6-2.4); Phosphorus 3.3 mg/dL (2.5-4.9); Potassium 3.9 mEq/L (3.5-5.1)
[2024-06-06] MEDS: POTASSIUM CL SA 10 MEQ TAB PO ONE (08:27)
[2024-06-06] MEDS: NA CHLORIDE 0.9% 500 ML IV ONE (11:11)
[2024-06-06] MEDS: NA CHLORIDE 0.9% 1,000 ML IV SCH (11:12)
[2024-06-07 06:29] LABS: Absolute Basophils 0.1 K/uL (0-0.5); Absolute Eosinophils 0.1 K/uL (0-0.5); Absolute Lymphocytes (CBC) 1.4 K/uL (0.7-4.9); Absolute Neutrophil 3.3 K/uL (1.8-8.0); Basophils % 1.2 % (0-1.3); Hematocrit 35.3 % (39.6-49.0); Hemoglobin 11.4 g/dL (13.6-17.9); Lymphocytes % 23.4 % (15.3-44.8); MCH 30.4 pg (27.0-35.0); MCHC 32.4 g/dL (32.0-36.0); MCV 93.7 fL (80-100); MPV 7.8 fL (7.6-11.3); Monocytes % 16.4 % (3.3-12.3); Nucleated Red Blood Cells % 0.1 % (0-0); Platelets 202 thou/uL (152-406); RBC Red Blood Cell Count 3.77 M/uL (4.33-5.43); Red Cell Distribution Width 17.9 % (12.1-15.2)
[2024-06-07 06:33] VITALS: BMI 28.6
[2024-06-07 06:54] LABS: Anion Gap 7.9 mEq/L (5.0-15.0); Magnesium 1.8 mg/dL (1.6-2.4); Phosphorus 3.6 mg/dL (2.5-4.9); Potassium 3.9 mEq/L (3.5-5.1)
[2024-06-07] MEDS: chlordiazePOXIDE HCl 5 MG CAP PO SCH ×2 (09:41→12:55)
--- NOTE | 2024-06-07 12:16 | EKG ---
Test Date: 2024-06-01 Test Time: 14:57:39 [employer]: MB MEASUREMENT RESULTS: Intervals: Rate: 112 WV: 140 QRSD: 76 QT: 352 QTc: 480 [place]: P: 77 WV: 140 QRS: 69 T: 62 INTERPRETIVE STATEMENTS: Sinus tachycardia Otherwise normal ECG Compared to ECG 05/18/2024 12:43:01 No significant changes Electronically Signed On 06-07-24 12:01:03 CDT by Bernard Whitmore
[2024-06-08 00:14] VITALS: TEMP 97.8
[2024-06-08 01:12] VITALS: BP 126/63
[2024-06-08 09:02] VITALS: O2SAT 97
--- NOTE | 2024-06-08 09:25 | P.DS ---
Admission Date: 06/01/24 Discharge Date: 06/08/24 Disposition: ROUTINE DISCHARGE Discharge Condition: GOOD Reason for Admission: alcohol withdrawal syndrome Brief History of Present Illness: Patient is a 48-year-old male with a past medical history of excessive alcohol consumption. He presented to the ER complaining of excessive tremors involving both his upper and lower extremities. Patient states that he knows he is withdrawing from alcohol. He mainly consumes liquor and admits doing quite a lot of it. He has not consumed any alcohol for the past 1-1/2 days. Patient is visibly tremulous during my evaluation. He can provide a history but appears lethargic. He is being admitted for alcohol withdrawal syndrome. - Physical Exam General: Alert, In no apparent distress, Oriented x3 ( ) Respiratory: Clear to auscultation bilaterally, Normal air movement Cardiovascular: Regular rate/rhythm, Normal S1 S2, No murmurs Gastrointestinal: Normal bowel sounds, Soft and benign, Non-distended, No tenderness, No rebound, No guarding Musculoskeletal: No clubbing, No swelling Neurological: Normal gait, Normal speech, Normal strength at 5/5 x4 extr, Sensation intact, Cranial nerves 3-12 intact Hospital Course: 48-year-old male with a past medical history of excessive alcohol consumption. He presented to the ER complaining of excessive tremors involving both his upper and lower extremities. Patient states that he knows he is withdrawing from alcohol. He mainly consumes liquor and admits doing quite a lot of it. He has not consumed any alcohol for the past 1-1/2 days prior to admission. He is being admitted for alcohol withdrawal syndrome. Symptoms improved stable to discharge home, follow-up with primary care after discharge. Discharge medication Librium, Protonix, follow-up with PCP after discharge, follow-up with the [facility] after discharge for alcohol cessation Assessment Alcohol withdrawals-treated with Librium, alcohol withdrawal protocol while inpatient. Alcohol abuse educated on alcohol cessation Acute kidney injury, treated with IV fluids, Nonobstructing left renal kqguumxz-wzhgob-gu with PCP for routine monitor Mild gallbladder tlgwcrqybp-nbu-zak low saturated diet CT of the abdomen pelvis Mild gallbladder distention, Small nonobstructing left renal calculi Abdomen ultrasound Mild gallbladder distention. Small nonobstructing left renal calculi INSTRUCTIONS: Physician Discharge Instructions: -Follow-up with PCP in 1 to 2 weeks -Please call Dr. Ojeda at [phone] if any questions regarding hospital stay -Please call nursing station at [phone] if any nursing or medication questions -Return to the emergency room if symptoms worsen Diet: ADA, low sodium Activity: Fall precautions Vital Signs/Physical Exam: Temp Pulse Resp BP Pulse Ox 97.8 F 91 H 16 126/63 98 06/08/24 04:40 06/08/24 04:40 06/08/24 04:40 06/08/24 04:40 06/08/24 04:40 Laboratory Data at Discharge: WBC 5.80 thou/uL (4.3-10.9) 06/07/24 06:08 Hgb 11.4 g/dL (13.6-17.9) L D 06/07/24 06:08 Hct 35.3 % (39.6-49.0) L 06/07/24 06:08 Plt Count 202 thou/uL (152-406) 06/07/24 06:08 Sodium 137 mEq/L (136-145) 06/07/24 06:08 Potassium 3.9 mEq/L (3.5-5.1) 06/07/24 06:08 BUN 11 mg/dL (7-18) 06/07/24 06:08 Creatinine 0.98 mg/dL (0.70-1.30) 06/07/24 06:08 Glucose 97 mg/dL (74-106) 06/07/24 06:08 Phosphorus 3.6 mg/dL (2.5-4.9) 06/07/24 06:08 Magnesium 1.8 mg/dL (1.6-2.4) 06/07/24 06:08 Total Bilirubin 1.4 mg/dL (0.2-1.0) H 06/02/24 05:44 AST 27 U/L (15-37) 06/02/24 05:44 ALT 27 U/L (16-61) 06/02/24 05:44 Alkaline Phosphatase 71 U/L (45-117) D 06/02/24 05:44 Lipase 55 U/L (13-75) 06/01/24 15:03 Home Medications: Buspirone HCl [Buspar*] 5 mg PO BID 04/26/24 Prazosin HCl 2 mg PO BEDTIME 04/26/24 Quetiapine [Seroquel*] 50 mg PO DAILY 04/26/24 Quetiapine [Seroquel*] 100 mg PO BEDTIME 04/26/24 Sertraline [Zoloft*] 200 mg PO DAILY 04/26/24 Trazodone HCl [Desyrel] 200 mg PO BEDTIME 04/26/24 Folic Acid 1 mg PO DAILY #30 tab 04/28/24 Multivit,Ther Iron,Ca,FA & Min [Centrum Tablet*] 1 tab PO DAILY #30 tab 04/28/24 Thiamine HCl [Vitamin B-1*] 100 mg PO DAILY #30 tab 04/28/24 Pantoprazole [Protonix Tab*] 40 mg PO DAILYAC #30 tab 06/08/24 chlordiazePOXIDE HCl [Chlordiazepoxide HCl] 20 mg PO Q8H #70 cap 06/08/24 New Medications: chlordiazePOXIDE HCl [Chlordiazepoxide HCl] 20 mg PO Q8H #70 cap Pantoprazole [Protonix Tab*] 40 mg PO DAILYAC #30 tab Physician Discharge Instructions: 48-year-old male with a past medical history of excessive alcohol consumption. He presented to the ER complaining of excessive tremors involving both his upper and lower extremities. Patient states that he knows he is withdrawing from alcohol. He mainly consumes liquor and admits doing quite a lot of it. He has not consumed any alcohol for the past 1-1/2 days prior to admission. He is being admitted for alcohol withdrawal syndrome. Symptoms improved stable to discharge home, follow-up with primary care after discharge. Discharge medication Librium, Protonix, follow-up with PCP after discharge, follow-up with the [facility] after discharge for alcohol cessation Assessment Alcohol withdrawals-treated with Librium, alcohol withdrawal protocol while inpatient. Alcohol abuse educated on alcohol cessation Acute kidney injury, treated with IV fluids, Nonobstructing left renal aczktopo-mlpnco-sn with PCP for routine monitor Mild gallbladder zpyslxqpum-tvv-lto low saturated diet CT of the abdomen pelvis Mild gallbladder distention, Small nonobstructing left renal calculi Abdomen ultrasound Mild gallbladder distention. Small nonobstructing left renal calculi INSTRUCTIONS: Physician Discharge Instructions: -DC IV and DC home -Follow-up with PCP in 1 to 2 weeks -Please call Dr. Ojeda at [phone] if any questions regarding hospital stay -Please call nursing station at [phone] if any nursing or medication questions -Return to the emergency room if symptoms worsen Diet: ADA, low sodium Activity: Fall precautions Diet: AHA Activity: Fall precautions [facility]up: [facility] [Primary Care Provider] - Time spent managing pt's care (in minutes): 45
== END 2024-06-08 09:50 | disposition home or self-care (01) | DRG 897 ==
LOC: ER 14:51 → ERHOLD 19:48 → 2ND 21:50 → 3RD-ICU 22:48 → 2ND 06-07 20:52
PROVIDERS: ADMIT Internal Medicine; ATTEND Hospitalist
DX: F10.231 Alcohol dependence with withdrawal delirium (principal); E87.1 Hypo-osmolality and hyponatremia; N17.9 Acute kidney failure, unspecified; M62.82 Rhabdomyolysis; N20.0 Calculus of kidney; E66.9 Obesity, unspecified; F43.10 Post-traumatic stress disorder, unspecified; Z68.29 Body mass index [BMI] 29.0-29.9, adult; Z79.899 Other long term (current) drug therapy; Y90.0 Blood alcohol level of less than 20 mg/100 ml
CPT/HCPCS: 36415; 71045; 74176; 76705; 80048; 80053; 80076; 80307; 81003; 82077; 82550; 83605; 83690; 83735; 83930; 83935; 84100; 84300; 84484; 85025; 93005; 94760; 96361; 96374; 96375; 97116; 97161; 97165; 97530; 99285; J1650; J2405; J2470; J3411; J3475; J3480; J7030; J7040

== ENCOUNTER 2024-06-14 15:57 | Emergency (ER) | payer OTHER ==
[2024-06-14] MEDS ORDERED: LORazepam 2 MG/ML VIAL ONE ×2 (17:43→22:09)
[2024-06-14] MEDS ORDERED: NA CHLORIDE 0.9% 1,000 ML ONE (17:44)
[2024-06-14] MEDS ORDERED: NA CHLORIDE 0.9% 0 ML ONE (17:44)
[2024-06-14] MEDS ORDERED: MULTIVITAMINS 10 ML VIAL (INJ) IV ONE (17:44)
[2024-06-14] MEDS ORDERED: THIAMINE 200 MG/2 ML INJ ONE (17:44)
--- NOTE | 2024-06-14 17:49 | EDPHYS ---
Physician Documentation [facility] Name: Felipe Barriga Age: 48 yrs Sex: Male : 1975 Arrival Date: 06/14/2024 Time: 15:57 Bed 2 Private MD: SALVADOR Physician Chuck Shine HPI: 06/14 17:39 This 48 yrs old Male presents to ER via EMS with complaints of ETOH Abuse, briana Alcohol Withdrawal. 17:39 ALCOHOL ABUSE WITHDRAWAL. The patient presents with trouble concentrating. Onset: The briana symptoms/episode began/occurred today, yesterday. Possible causes: alcohol, has had a recent alcohol binge, has apparently stopped drinking, for 1.5 day(s). Associated signs and symptoms: Pertinent positives: gait abnormality, nausea, palpitations. Onset: The symptoms/episode began/occurred 1.5 day(s) ago. Current symptoms: In the emergency department the patient's symptoms are unchanged from the initial presentation. Patient's baseline: Neuro: alert and fully oriented. Severity of symptoms: At their worst the symptoms were moderate in the emergency department the symptoms are unchanged. Historical: - Allergies: 16:28 No Known Allergies; db - PMHx: 16:28 Alcohol dependence; Anxiety; depressive disorder; Night Terrors; PTSD; db - PSHx: 16:28 aortic root replacement (PTSD); db - Immunization history:: Adult Immunizations unknown. - Infectious Disease History:: Denies. - Social history:: Smoking status: Patient denies any tobacco usage or history of. Patient/guardian denies using alcohol. ROS: 17:43 Constitutional: Negative for fever, chills, and weight loss, Eyes: Negative for injury, briana pain, redness, and discharge, ENT: Negative for injury, pain, and discharge, Neck: Negative for injury, pain, and swelling, Respiratory: Negative for shortness of breath, cough, wheezing, and pleuritic chest pain, Abdomen/GI: Negative for abdominal pain, nausea, vomiting, diarrhea, and constipation, Back: Negative for injury and pain, : Negative for injury, bleeding, discharge, and swelling, MS/Extremity: Negative for injury and deformity, Skin: Negative for injury, rash, and discoloration, Psych: Negative for depression, anxiety, suicide ideation, homicidal ideation, and hallucinations, Allergy/Immunology: Negative for hives, rash, and allergies, Endocrine: Negative for neck swelling, polydipsia, polyuria, polyphagia, and marked weight changes, Hematologic/Lymphatic: Negative for swollen nodes, abnormal bleeding, and unusual bruising, 17:43 Cardiovascular: Positive for palpitations, 17:43 Neuro: Positive for altered mental status, gait disturbance, weakness, Exam: 17:43 Constitutional: This is a well developed, well nourished patient who is awake, alert, briana and in no acute distress. Head/Face: Normocephalic, atraumatic. Eyes: Pupils equal round and reactive to light, extra-ocular motions intact. Lids and lashes normal. Conjunctiva and sclera are non-icteric and not injected. Cornea within normal limits. Periorbital areas with no swelling, redness, or edema. ENT: Nares patent. No nasal discharge, no septal abnormalities noted. Tympanic membranes are normal and external auditory canals are clear. Oropharynx with no redness, swelling, or masses, exudates, or evidence of obstruction, uvula midline. Mucous membranes moist. Neck: Trachea midline, no thyromegaly or masses palpated, and no cervical lymphadenopathy. Supple, full range of motion without nuchal rigidity, or vertebral point tenderness. No Meningismus. Chest/axilla: Normal chest wall appearance and motion. Nontender with no deformity. No lesions are appreciated. Respiratory: Lungs have equal breath sounds bilaterally, clear to auscultation and percussion. No rales, rhonchi or wheezes noted. No increased work of breathing, no retractions or nasal flaring. Abdomen/GI: Soft, non-tender, with normal bowel sounds. No distension or tympany. No guarding or rebound. No evidence of tenderness throughout. Back: No spinal tenderness. No costovertebral tenderness. Full range of motion. Male : Normal genitalia with no discharge or lesions. Skin: Warm, dry with normal turgor. Normal color with no rashes, no lesions, and no evidence of cellulitis. MS/ Extremity: Pulses equal, no cyanosis. Neurovascular intact. Full, normal range of motion. Psych: Awake, alert, with orientation to person, place and time. Behavior, mood, and affect are within normal limits. 17:43 Cardiovascular: Rate: tachycardic, actual rate is 118 bpm, Rhythm: regular, Pulses: Pulses are 4+ in bilateral radial, brachial, femoral, popliteal, posterior tibial and and dorsalis pedis arteries.. Heart sounds: normal, Edema: is not appreciated, JVD: is not appreciated, 18:41 ECG was reviewed by the Attending Physician. [facility] Vital Signs: 16:31 BP 143 / 87; Pulse 118; Resp 18; Temp 98.5(O); Pulse Ox 95% ; Weight 97.52 kg; Height 5 db ft. 11 in. ; 20:14 BP 145 / 92; Pulse 107; Resp 18; Pulse Ox 96% ; vc1 16:31 Body Mass Index 29.99 (97.52 kg, 180.34 cm) db MDM: 16:21 Medical Screening Exam initiated briana 17:44 Differential Diagnosis altered mental status, sepsis, flu. Differential Diagnosis: CVA, briana electrolyte abnormality, alcohol intoxication, hypoglycemia, intracranial bleed, overdose, TIA, UTI, volume depletion. Data reviewed: vital signs, nurses notes, lab test result(s), EKG, radiologic studies, CT scan, plain films. Consideration of Admission/Observation Escalation of care including admission/observation considered. I considered the following discharge prescriptions or medication management in the emergency department Medications were administered in the Emergency Department. See MAR. Independent interpretation of the following test(s) in the Emergency Department EKG: See my EKG interpretation above. Test considered but Not performed: MRI: NO MRI BRAIN. Care significantly affected by the following chronic conditions: Obesity, ALCOHOL DEPENDENCE, ANXIETY, NIGHT TERRORS, PTSD. 06/14 16:24 Order name: Basic Metabolic Panel; Complete Time: 18:34 [facility] 06/14 16:24 Order name: CBC with Diff; Complete Time: 18:34 [facility] 06/14 16:24 Order name: LFT's; Complete Time: 18:34 [facility] 06/14 16:24 Order name: Magnesium; Complete Time: 18:34 [facility] 06/14 16:24 Order name: NT PRO-BNP; Complete Time: 18:34 [facility] 06/14 16:24 Order name: PT-INR; Complete Time: 18:34 [facility] 06/14 16:24 Order name: Troponin HS; Complete Time: 18:34 [facility] 06/14 16:24 Order name: Acetaminophen; Complete Time: 18:34 [facility] 06/14 16:24 Order name: ETOH Level; Complete Time: 18:34 06/14 16:24 Order name: Ptt, Activated; Complete Time: 18:34 06/14 16:24 Order name: Salicylate; Complete Time: 19:08 briana 06/14 16:24 Order name: XRAY Chest (1 view); Complete Time: 18:34 06/14 17:42 Order name: CT Head Brain wo Cont; Complete Time: 18:34 06/14 16:24 Order name: EKG; Complete Time: 16:25 06/14 16:24 Order name: Cardiac monitoring; Complete Time: 18:32 06/14 16:24 Order name: EKG - Nurse/Tech; Complete Time: 18:32 briana 06/14 16:24 Order name: IV Saline Lock; Complete Time: 18:32 [facility] 06/14 16:24 Order name: Labs collected and sent; Complete Time: 18:32 [facility] 06/14 16:24 Order name: O2 Per Protocol; Complete Time: 18:32 [facility] 06/14 16:24 Order name: O2 Sat Monitoring; Complete Time: 18:32 [facility] EC:41 Rate is 105 beats/min. Rhythm is regular. QRS [place] is Normal. [place] interval is normal. briana QRS interval is normal. QT interval is normal. No Q waves. T waves are Normal. No ST changes noted. Clinical impression: Sinus tachycardia and No evidence of ischemia. Interpreted by me. Reviewed by me. Administered Medications: 18:31 Drug: Thiamine IV 100 mg IV at bolus once Route: IV; Rate: bolus; Site: right upper arm;iw 18:35 Follow up: IV Status: Completed infusion vc1 18:31 Drug: NS 0.9% IV 1000 ml IV at 1000 ml once; to be given as a bolus over 60 minutes iw Route: IV; Rate: 1000 ml; Site: right upper arm; 19:31 Follow up: IV Status: Completed infusion; IV Intake: 1000ml dd2 18:31 Drug: Ativan IVP 2 mg IVP once Route: IVP; Site: right upper arm; iw 19:05 Follow up: Response: No adverse reaction vc1 18:48 Drug: Banana Bag - (Multivitamin IV 1 amp, NS 0.9% IV 1000 ml, Thiamine IV 100 mg, rs5 foLIC Acid IVPB 1 mg) IV at 500 ml/hr once Route: IV; Rate: 500 ml/hr; Site: right upper arm; 19:04 Follow up: IV Status: Infusion continued upon transfer vc1 19:06 Follow up: IV Status: Infusion continued upon transfer iw 19:30 Drug: Magnesium Sulfate IVPB 2 grams IVPB once over 1 hrs Route: IVPB; Infused Over: 1 vc1 hrs; Site: right upper arm; 19:52 Follow up: IV Status: Completed infusion; IV Intake: 50ml vc1 22:12 Drug: Ativan IVP 2 mg IVP once; IF NEEDED Route: IVP; Site: right upper arm; dd2 22:54 Drug: Ondansetron IVP 8 mg IVP once; over 2 minutes, ordered by Maximino Dunbar MD dd2 Route: IVP; Site: right upper arm; 22:54 Follow up: Response: Medication Administered at Departure dd2 Disposition Summary: 06/14/24 17:48 Transfer Ordered Notes: Transfer Location: [facility] briana Reason: Higher level of care briana Condition: Fair briana Problem: new briana Symptoms: have improved briana Accepting Physician: TO [facility](06/14/24 22:56) dd2 Diagnosis - Alcohol dependence with withdrawal, unspecified briana - Alcohol abuse briana - Post-traumatic stress disorder (PTSD) briana - Tachycardia, unspecified briana - Essential (primary) hypertension briana - Hypomagnesemia briana - Chronic kidney disease, unspecified briana - Elevated white blood cell count briana Forms: - Medication Reconciliation Form briana - SBAR form briana Signatures: Dispatcher [employer] EDChuck Castañeda MD MD cha Williams, Irene, RN RN iw Peri Cosme RN RN vc1 Pauly Nunez RN RN db Konstantin Jackson RN RN rs5 FADY SOW RN RN dd2 Corrections: (The following items were deleted from the chart) 16:25 16:25 BASIC METABOLIC PANEL+C.LAB.BRZ ordered. EDMS EDMS 16:25 16:25 CBC+H.LAB.BRZ ordered. EDMS EDMS 16:25 16:25 HEPATIC FUNCTION+C.LAB.BRZ ordered. EDMS EDMS 16:25 16:25 MAGNESIUM+C.LAB.BRZ ordered. EDMS EDMS 16:25 16:25 PROBNP+C.LAB.BRZ ordered. EDMS EDMS 16:25 16:25 PROTIME (+INR)+COAG.LAB.BRZ ordered. EDMS EDMS 16:25 16:25 Troponin High Sensitivity+C.LAB.BRZ ordered. EDMS EDMS 16:25 16:25 ACETAMINOPHEN+C.LAB.BRZ ordered. EDMS EDMS 16:25 16:25 ETHANOL+C.LAB.BRZ ordered. EDMS EDMS 16:25 16:25 PTT, ACTIVATED+COAG.LAB.BRZ ordered. EDMS EDMS 16:25 16:25 SALICYLATE+C.LAB.BRZ ordered. EDMS EDMS 16:25 16:25 Urinalysis+U.LAB.BRZ ordered. EDMS EDMS 16:25 16:25 URINE DRUG SCREEN+UC.LAB.BRZ ordered. EDMS EDMS 18:04 16:24 Suicide Screening ([place]) ordered. briana iw 18:37 17:48 TO [facility] briana briana 18:37 18:37 TO [facility] briana briana 22:56 18:37 TO [facility] briana dd2
--- NOTE | 2024-06-14 17:49 | ER ---
Nurse's Notes [facility] Name: Felipe Barriga Age: 48 yrs Sex: Male : 1975 Arrival Date: 06/14/2024 Time: 15:57 Bed 2 Private MD: Diagnosis: Alcohol dependence with withdrawal, unspecified;Alcohol abuse;Post-traumatic stress disorder (PTSD);Tachycardia, unspecified;Essential (primary) hypertension;Hypomagnesemia;Chronic kidney disease, unspecified;Elevated white blood cell count Presentation: 06/14 16:26 Chief complaint: EMS states: ETOH WITHDRAWAL. X 2 DAYS. HAS NOT EATEN OR DRANK ALCHOL db IN 2 DAYS. Coronavirus screen: Client denies travel out of the [place] in the last 14 days. At this time, the client does not indicate any symptoms associated with coronavirus-19. Ebola Screen: Patient negative for fever greater than or equal to 101.5 degrees Fahrenheit, and additional compatible Ebola Virus Disease symptoms Patient denies exposure to infectious person. Patient denies travel to an Ebola-affected area in the 21 days before illness onset. No symptoms or risks identified at this time. Initial Sepsis Screen: Does the patient meet any 2 criteria? No. Patient's initial sepsis screen is negative. Does the patient have a suspected source of infection? No. Patient's initial sepsis screen is negative. Risk Assessment: Do you want to hurt yourself or someone else? Patient reports no desire to harm self or others. Onset of symptoms was June 14, 2024. 16:26 Method Of Arrival: EMS: [facility] db 16:26 Acuity: CLARITA 3 db Triage Assessment: 16:28 General: Appears in no apparent distress. uncomfortable, Behavior is cooperative, db anxious. Pain: Complains of pain in head and abdomen Pain currently is 6 out of 10 on a pain scale. Neuro: Level of Consciousness is awake, alert, obeys commands, Oriented to person, place, time, situation. Neuro: Reports headache. Respiratory: Airway is patent Respiratory effort is even, unlabored, Respiratory pattern is regular, symmetrical. GI: Reports upper abdominal pain. Historical: - Allergies: 16:28 No Known Allergies; db - PMHx: 16:28 Alcohol dependence; Anxiety; depressive disorder; Night Terrors; PTSD; db - PSHx: 16:28 aortic root replacement (PTSD); db - Immunization history:: Adult Immunizations unknown. - Infectious Disease History:: Denies. - Social history:: Smoking status: Patient denies any tobacco usage or history of. Patient/guardian denies using alcohol. Screenin:05 [facility] ED Fall Risk Assessment (Adult) History of falling in the last 3 months, iw including since admission No falls in past 3 months (0 pts) Confusion or Disorientation No (0 pts) Intoxicated or Sedated Yes (3 pts) Impaired Gait No (0 pts) Mobility Assist Device Used No (0 pt) Altered Elimination No (0 pt) Score/Fall Risk Level 3 or more points = High Risk Oriented to surroundings. Abuse screen: Denies injuries from another. Nutritional screening: No deficits noted. Tuberculosis screening: No symptoms or risk factors identified. Assessment: 18:05 General: Appears uncomfortable, Behavior is cooperative, agitated, anxious. Neuro: iw Level of Consciousness is awake, alert, obeys commands, Oriented to person, place, time, situation, Moves all extremities. Full function. Cardiovascular: Patient's skin is warm and dry. Respiratory: Respiratory effort is even, unlabored, Respiratory pattern is regular, symmetrical. GI: Abdomen is non-distended. GI: Reports nausea, vomiting. Derm: Skin is intact, is healthy with good turgor. Musculoskeletal: Range of motion: intact in all extremities. 20:12 Reassessment: Patient appears in no apparent distress at this time. No changes from vc1 previously documented assessment. Patient and/or family updated on plan of care and expected duration. Pain level reassessed. Patient is alert, oriented x 3, equal unlabored respirations, skin warm/dry/pink. 22:04 Reassessment: REPORT CALLED TO REJI RN \T\ [facility]. dd2 Vital Signs: 16:31 BP 143 / 87; Pulse 118; Resp 18; Temp 98.5(O); Pulse Ox 95% ; Weight 97.52 kg; Height 5 db ft. 11 in. ; 20:14 BP 145 / 92; Pulse 107; Resp 18; Pulse Ox 96% ; vc1 16:31 Body Mass Index 29.99 (97.52 kg, 180.34 cm) db ED Course: 16:21 Patient arrived in ED. ss 16:21 Chuck Shine MD is Attending Physician. briana 16:28 Triage completed. db 16:29 Arm band placed on right wrist. Patient placed. db 17:24 XRAY Chest (1 view) In Process Unspecified. EDMS 17:45 Initial lab(s) drawn, by me, sent to lab. Inserted saline lock: 24 gauge in right upper iw arm, using aseptic technique. Blood collected. Flushed with 10 mL NS. 18:04 Arielle Reese, RN is Primary Nurse. iw 18:05 CT Head Brain wo Cont In Process Unspecified. EDMS 20:15 Patient has correct armband on for positive identification. Bed in low position. Call vc1 light in reach. Side rails up X2. monitoring coordinator on. Pulse ox on. NIBP on. 22:55 Provided Education on: MEDICATION, TRANSFER. dd2 22:55 No provider procedures requiring assistance completed. Patient transferred, IV remains dd2 in place. 23:00 1900 called the [place] to start transfer talked to Jessika Gaytan 2045 Dr. Haley Chen accepted sp pt 2045 admin approval by Jessika Gaytan will go to the [facility] to the ER report number [phone] faxed MOT to [phone]. called [facility] talked to Laly. Administered Medications: 18:31 Drug: Thiamine IV 100 mg IV at bolus once Route: IV; Rate: bolus; Site: right upper arm;iw 18:35 Follow up: IV Status: Completed infusion vc1 18:31 Drug: NS 0.9% IV 1000 ml IV at 1000 ml once; to be given as a bolus over 60 minutes iw Route: IV; Rate: 1000 ml; Site: right upper arm; 19:31 Follow up: IV Status: Completed infusion; IV Intake: 1000ml dd2 18:31 Drug: Ativan IVP 2 mg IVP once Route: IVP; Site: right upper arm; iw 19:05 Follow up: Response: No adverse reaction vc1 18:48 Drug: Banana Bag - (Multivitamin IV 1 amp, NS 0.9% IV 1000 ml, Thiamine IV 100 mg, rs5 foLIC Acid IVPB 1 mg) IV at 500 ml/hr once Route: IV; Rate: 500 ml/hr; Site: right upper arm; 19:04 Follow up: IV Status: Infusion continued upon transfer vc1 19:06 Follow up: IV Status: Infusion continued upon transfer iw 19:30 Drug: Magnesium Sulfate IVPB 2 grams IVPB once over 1 hrs Route: IVPB; Infused Over: 1 vc1 hrs; Site: right upper arm; 19:52 Follow up: IV Status: Completed infusion; IV Intake: 50ml vc1 22:12 Drug: Ativan IVP 2 mg IVP once; IF NEEDED Route: IVP; Site: right upper arm; dd2 22:54 Drug: Ondansetron IVP 8 mg IVP once; over 2 minutes, ordered by Maximino Dunbar MD dd2 Route: IVP; Site: right upper arm; 22:54 Follow up: Response: Medication Administered at Departure dd2 Medication: 18:06 VIS not applicable for this client. iw Intake: 19:31 IV: 1000ml; Total: 1000ml. dd2 19:52 IV: 50ml; Total: 1050ml. vc1 Outcome: 17:48 ER care complete, transfer ordered by MD. warren 22:55 Transferred by ground EMS to [facility] Transfer form completed. dd2 22:55 Condition: stable 22:55 Instructed on the need for transfer, 22:56 Patient left the ED. dd2 Signatures: Dispatcher [employer] EDMS Chuck Shine MD MD cha Pinkerton, Shawna sp Williams, Irene, RN RN iw Nubia Horton RN RN ss Peri Cosme RN RN vc1 Pauly Nunez RN RN db Konstantin Jackson RN RN rs5 FADY SOW RN RN dd2
--- NOTE | 2024-06-14 17:51 | RAD REPORT ---
EXAMINATION: ONE VIEW CHEST XR CLINICAL INDICATION: Male, 48 years old.,COUGH TECHNIQUE: Frontal chest projection is submitted. Examination is limited by patient positioning and t echnique. COMPARISON: 06/01/2024 FINDINGS: The lungs are well inflated and clear. No pneumothorax or sizable effusion. The heart is normal in s ize. Bilateral rib deformities with replating hardware is again seen. Sequelae of median sternotomy. IMPRESSION: No acute intrathoracic abnormalities.
[2024-06-14 17:56] LABS: Absolute Basophils 0.1 K/uL (0-0.5); Absolute Lymphocytes (CBC) 1.6 K/uL (0.7-4.9); Basophils % 0.5 % (0-1.3); Eosinophils % 0.1 % (0-4.4); Hematocrit 42.3 % (39.6-49.0); Hemoglobin 14.4 g/dL (13.6-17.9); Lymphocytes % 9.9 % (15.3-44.8); MCH 30.8 pg (27.0-35.0); MCHC 34.1 g/dL (32.0-36.0); MCV 90.3 fL (80-100); MPV 7.5 fL (7.6-11.3); Monocytes % 6.6 % (3.3-12.3); Neutrophils % 82.9 % (41.7-73.7); Platelets 352 thou/uL (152-406); RBC Red Blood Cell Count 4.68 M/uL (4.33-5.43); Red Cell Distribution Width 18.3 % (12.1-15.2)
[2024-06-14 18:03] LABS: PT Prothrombin Time 13.2 SECONDS (9.4-12.5); PTT, Activated Partial Thromb 29.5 SECONDS (24.3-36.9); Protime INR 1.18
[2024-06-14 18:23] LABS: ALT/SGPT 37 U/L (16-61); AST/SGOT 24 U/L (15-37); Albumin 4.2 g/dL (3.4-5.0); Albumin/Globulin Ratio 0.9 (1.1-1.8); Alkaline Phosphatase 68 U/L (45-117); Anion Gap 19.9 mEq/L (5.0-15.0); BUN Blood Urea Nitrogen 19 mg/dL (7-18); Bicarbonate 22 mEq/L (21-32); Bilirubin Direct 0.2 mg/dL (0-0.2); Bilirubin Indirect, Calculated 0.9 mg/dL (0.2-0.8); Bilirubin Total 1.1 mg/dL (0.2-1.0); Globulin 4.7 g/dL (2.3-3.5); Glomerular Filtration Rate 41 ml/min (=/>90); Glucose Level 98 mg/dL (74-106); NT PRO-BNP 89 pg/mL (<125); Potassium 3.9 mEq/L (3.5-5.1); Protein, Total 8.9 g/dL (6.4-8.2); Sodium Level 132 mEq/L (136-145); Troponin High Sensitivity 11.8 pg/mL (<58.9)
[2024-06-14 18:25] LABS: Magnesium 0.7 mg/dL (1.6-2.4)
--- NOTE | 2024-06-14 18:25 | RAD REPORT ---
EXAM: CT Head Brain Wo Cont HISTORY: DIZZINESS COMPARISON: 04/25/2024 TECHNIQUE: Multiple contiguous axial images were obtained for a CT of the brain without contrast. Sag ittal and coronal reformats were performed. One or more of the following dose reduction techniques were used: Automated exposure control, adjus tment of the mA and kV according to patient size, and iterative reconstruction. Unless otherwise specified, incidental findings do not require dedicated imaging follow-up. FINDINGS: No evidence of hydrocephalus, intracranial hemorrhage, or extra-axial fluid collection. The brain is normal in morphology. The calvarium is intact. The visualized paranasal sinuses and mastoid air cells are essentially clear . IMPRESSION: No evidence of acute intracranial abnormality.
[2024-06-14] MEDS ORDERED: FOLIC ACID 1 MG, MULTIVITAMINS INJ 10 ML, THIAMINE HCL 100 MG in NA CHLORIDE 0.9% 1,000 ML IV SCH (19:00)
[2024-06-14] MEDS ORDERED: Magnesium Sulfate 2gm IVPB 2 G/50 ML BAG IV ONE (19:10)
[2024-06-14] MEDS ORDERED: ONDANSETRON 4 MG/2 ML VIAL ONE (22:51)
[2024-06-15 08:59] VITALS: TEMP 98.5
[2024-06-15 09:10] VITALS: BP 145/92; O2SAT 96
--- NOTE | 2024-06-15 14:13 | EKG ---
Test Date: 2024-06-14 Test Time: 17:53:40 School Coordinator: RAKEL MEASUREMENT RESULTS: Intervals: Rate: 105 W[place]: 138 QRSD: 76 QT: 356 QTc: 470 [place]: P: 51 W[place]: 138 QRS: 24 T: 47 INTERPRETIVE STATEMENTS: Sinus tachycardia Otherwise normal ECG Compared to ECG 06/01/2024 14:57:39 No significant changes Electronically Signed On 06-15-24 14:11:04 CDT by Bernard Whitmore
== END 2024-06-14 22:56 ==
LOC: ER 15:57
DX: F10.239 Alcohol dependence with withdrawal, unspecified (principal); F43.10 Post-traumatic stress disorder, unspecified; R00.0 Tachycardia, unspecified; E83.42 Hypomagnesemia; D72.829 Elevated white blood cell count, unspecified; I12.9 Hypertensive chronic kidney disease with stage 1 through stage 4 chronic kidney disease, or unspecified chronic kidney disease; N18.9 Chronic kidney disease, unspecified
CPT/HCPCS: 96365; 96367; 96361; 93005; 85025; 80048; 36415; 83735; 85610; 80076; 85730; 84484; 83880; 70450; 71045; 96375; 99285; 80143; 80179; 82077; J3411; J3475; J2405; J7030 ×2

== ENCOUNTER 2024-07-01 17:08 | Inpatient (IN) | payer OTHER ==
[2024-07-01 18:43] LABS: Absolute Basophils 0.1 K/uL (0-0.5); Absolute Lymphocytes (CBC) 1.2 K/uL (0.7-4.9); Absolute Monocytes 0.5 K/uL (0.1-1.3); Absolute Neutrophil 5.7 K/uL (1.8-8.0); Basophils % 1.2 % (0-1.3); Eosinophils % 0.4 % (0-4.4); Hematocrit 37.9 % (39.6-49.0); Hemoglobin 12.8 g/dL (13.6-17.9); Lymphocytes % 15.6 % (15.3-44.8); MCH 30.9 pg (27.0-35.0); MCHC 33.7 g/dL (32.0-36.0); MCV 91.7 fL (80-100); MPV 6.7 fL (7.6-11.3); Monocytes % 7.2 % (3.3-12.3); Neutrophils % 75.6 % (41.7-73.7); Platelets 366 thou/uL (152-406); RBC Red Blood Cell Count 4.13 M/uL (4.33-5.43); Red Cell Distribution Width 19.6 % (12.1-15.2)
[2024-07-01 18:47] LABS: PT Prothrombin Time 12.6 SECONDS (9.4-12.5); Protime INR 1.13
[2024-07-01 18:53] LABS: Sqamous Epithelial <5 /HPF (None Seen); Urine Bacteria <20 /HPF (<20); Urine Bilirubin NEGATIVE (Negative); Urine Blood Negative (Negative); Urine Clarity Turbid (Clear); Urine Color Yellow (Yellow); Urine Crystals Unidentified Few /HPF (None Seen); Urine Culture Reflex Order NOT NEEDED; Urine Glucose NEGATIVE (Negative); Urine Ketones TRACE (Negative); Urine Microscopic Reflex YN ORDER UMIC; Urine Mucus 1+ /HPF (None Seen); Urine Nitrite NEGATIVE (Negative); Urine Protein 2+ (Negative); Urine RBC <5 /HPF (None Seen); Urine Urobilinogen Normal (Normal); Urine WBC <5 /HPF (<5); Urine WBC Clump Rare /HPF (None Seen); Urine Yeast (Budding) Trace /HPF (None Seen); Urine pH 6.5 (5.0-7.0)
[2024-07-01 19:00] LABS: Barbiturates NEGATIVE (NEGATIVE); Benzodiazepines POSITIVE (NEGATIVE); Cocaine NEGATIVE (NEGATIVE); METHAMPHETAM NEGATIVE (NEGATIVE); Methadone NEGATIVE (NEGATIVE); Opiates NEGATIVE (NEGATIVE); Phencyclidine NEGATIVE (NEGATIVE); THC Cannibis POSITIVE (NEGATIVE)
[2024-07-01 19:02] LABS: ALT/SGPT 24 U/L (16-61); AST/SGOT 26 U/L (15-37); Albumin 3.4 g/dL (3.4-5.0); Albumin/Globulin Ratio 0.7 (1.1-1.8); Alkaline Phosphatase 90 U/L (45-117); Anion Gap 15.5 mEq/L (5.0-15.0); BUN Blood Urea Nitrogen 15 mg/dL (7-18); Bicarbonate 23 mEq/L (21-32); Bilirubin Total 0.3 mg/dL (0.2-1.0); Globulin 4.7 g/dL (2.3-3.5); Glomerular Filtration Rate 88 ml/min (=/>90); Glucose Level 108 mg/dL (74-106); Lipase 48 U/L (13-75); Magnesium 1.2 mg/dL (1.6-2.4); NT PRO-BNP 38 pg/mL (<125); Potassium 3.5 mEq/L (3.5-5.1); Protein, Total 8.1 g/dL (6.4-8.2); Sodium Level 138 mEq/L (136-145); Troponin High Sensitivity 52.5 pg/mL (<58.9)
[2024-07-01 19:03] LABS: Bilirubin Direct < 0.2 mg/dL (0-0.2); Bilirubin Indirect, Calculated 0.1 mg/dL (0.2-0.8)
--- NOTE | 2024-07-01 19:09 | RAD REPORT ---
EXAMINATION: ONE VIEW CHEST XR CLINICAL INDICATION: Male, 48 years old.,COUGH TECHNIQUE: Frontal chest projection is submitted. Examination is limited by patient positioning and t echnique. COMPARISON: 06/14/2024 FINDINGS: The lungs are well inflated and clear. No pneumothorax or sizable effusion. The heart is normal in s ize. Mediastinal contours are unchanged with sequelae of median sternotomy. Stable rib deformities with replating hardware on the left. IMPRESSION: No acute intrathoracic abnormalities.
--- NOTE | 2024-07-01 19:54 | ER ---
Nurse's Notes [facility] Name: Felipe Barriga Age: 48 yrs Sex: Male : 1975 Arrival Date: 07/01/2024 Time: 17:08 Bed 13 Private MD: Diagnosis: Alcohol dependence with withdrawal, unspecified;Essential (primary) hypertension;Adjustment disorder with mixed anxiety and depressed mood;Hypomagnesemia;Vomiting Presentation: 07/01 17:28 Acuity: CLARITA 2 aa 17:28 Onset of symptoms was July 01, 2024. aa 17:28 Coronavirus screen: vomiting. Ebola Screen: Patient denies travel to an Ebola-affected [place] [employer] [place] area in the 21 days before illness onset. Initial Sepsis Screen: Does the patient meet any 2 criteria? HR > 90 bpm. Does the patient have a suspected source of infection? No. Patient's initial sepsis screen is negative. Risk Assessment: Do you want to hurt yourself or someone else? Patient reports no desire to harm self or others. 17:28 Method Of Arrival: EMS: [facility] [place] [employer] 17:28 Chief complaint: Chief complaint: Patient states: "I drank a bunch of whiskey, bottles aa5 and bottles of whiskey yesterday". Pt reports tremors, nausea/vomiting, and right foot pain, abrasion noted to right great toe, pt states "I am not sure how I hurt my foot". Historical: - Allergies: 17:41 No Known Allergies; aa5 - PMHx: 17:41 Alcohol dependence; Anxiety; depressive disorder; Night Terrors; PTSD; aa5 - PSHx: 17:41 aortic root replacement (Unknown); aa5 - Immunization history:: Adult Immunizations unknown. - Infectious Disease History:: Denies. - Social history:: Smoking status: Patient denies any tobacco usage or history of. Patient uses alcohol, patient/guardian reports recent binge of alcohol consumption. Pt states "I normally binge drink about 3 times a week" . street drugs, marijuana. - Family history:: not pertinent. Screenin:16 [facility] ED Fall Risk Assessment (Adult) History of falling in the last 3 months, tl4 including since admission No falls in past 3 months (0 pts) Confusion or Disorientation No (0 pts) Intoxicated or Sedated No (0 pts) Impaired Gait No (0 pts) Mobility Assist Device Used No (0 pt) Altered Elimination No (0 pt) Score/Fall Risk Level 0 - 2 = Low Risk Oriented to surroundings, Maintained a safe environment, Educated pt \\T\\ family on fall prevention, incl call for assistance when getting out of bed, Assessed \\T\\ reinforced patient's understanding of fall precautions. Abuse screen: Denies threats or abuse. Denies injuries from another. Nutritional screening: No deficits noted. Tuberculosis screening: No symptoms or risk factors identified. 18:20 Clinical [facility] Withdrawal Assessment for Alcohol, revised (CIWA-Ar): tl4 Nausea/Vomitin - Intermittent nausea with dry heaves Headache: 2 - Mild Paroxysmal Sweats: 4 - Beads of sweat obvious on forehead Anxiety: 4 - Moderately anxious, guarded Agitation: 0 - Normal actiivty Tremor: 4 - Moderate when client's hands extended Auditory Disturbances: 0 - Not present Visual Disturbances: 0 - Not present Tactile Disturbances: 0 - None Orientation and Clouding of Sensorium: 0 - Oriented and can do serial additions Total Score: 10 to 15: Mild Withdrawal. Assessment: 18:15 General: Appears distressed, Behavior is calm, cooperative. Pain: Complains of pain in tl4 chest. Neuro: Level of Consciousness is awake, alert, obeys commands, Oriented to person, place, time, situation. Cardiovascular: Capillary refill < 3 seconds Patient's skin is warm and dry. Respiratory: Airway is patent Respiratory effort is even, unlabored, Respiratory pattern is regular, symmetrical, Breath sounds are clear bilaterally. GI: No signs and/or symptoms were reported involving the gastrointestinal system. : No signs and/or symptoms were reported regarding the genitourinary system. EENT: No signs and/or symptoms were reported regarding the EENT system. Derm: No signs and/or symptoms reported regarding the dermatologic system. Musculoskeletal: No signs and/or symptoms reported regarding the musculoskeletal system. 19:00 Reassessment: Patient appears in no apparent distress at this time. No changes from 4 previously documented assessment. Patient and/or family updated on plan of care and expected duration. Pain level reassessed. Patient is alert, oriented x 3, equal unlabored respirations, skin warm/dry/pink. 20:00 Reassessment: Patient appears in no apparent distress at this time. Patient and/or cp4 family updated on plan of care and expected duration. Pain level reassessed. Patient is alert, oriented x 3, equal unlabored respirations, skin warm/dry/pink. 21:00 Reassessment: Patient appears in no apparent distress at this time. Patient and/or cp4 family updated on plan of care and expected duration. Pain level reassessed. Patient is alert, oriented x 3, equal unlabored respirations, skin warm/dry/pink. Vital Signs: 17:28 BP 157 / 85; Pulse 119; Resp 20 S; Temp 98.3(O); Pulse Ox 98% on R/A; Weight 97.52 kg aa5 (R); Height 5 ft. 11 in. (R); 18:32 BP 157 / 85; Pulse 114; Resp 21; Pulse Ox 98% on R/A; tl4 19:30 BP 153 / 83; Pulse 117; Resp 18; Pulse Ox 95% ; cp4 20:30 BP 146 / 85; Pulse 121; Resp 18; Pulse Ox 96% ; cp4 21:41 BP 138 / 71; Pulse 111; Resp 18; Pulse Ox 94% ; cp4 17:28 Body Mass Index 29.99 (97.52 kg, 180.34 cm) aa5 ED Course: 17:28 Patient arrived in ED. aa5 17:28 Arm band placed on Patient placed in an exam room, on a stretcher. aa5 17:35 Triage completed. aa5 17:39 Chuck Shine MD is Attending Physician. [facility] 18:00 Christiano Coker, RN is Primary Nurse. tl4 18:07 XRAY Chest (1 view) In Process Unspecified. EDMS 18:15 EKG done, by ED staff, reviewed by Chuck Shine MD. tl4 18:16 Patient has correct armband on for positive identification. Placed in gown. Bed in low tl4 position. Call light in reach. Side rails up X2. Client placed on continuous cardiac and pulse oximetry monitoring. NIBP monitoring applied. double end trimmer on. Door closed. Noise minimized. Lights dimmed. Moved to private room. Warm blanket given. 18:30 Basic Metabolic Panel Sent. tl4 18:30 CBC with Diff Sent. tl4 18:30 LFT's Sent. tl4 18:30 Magnesium Sent. tl4 18:30 NT PRO-BNP Sent. tl4 18:30 PT-INR Sent. tl4 18:31 Troponin HS Sent. tl4 18:31 Lipase Sent. tl4 18:31 Initial lab(s) drawn, by me, sent to lab. tl4 18:46 Missed attempt(s): 22 gauge in right antecubital area. tl4 19:08 Primary Nurse role handed off by Christiano Coker RN cp4 19:08 Mary Jane Moraes is Primary Nurse. cp4 19:52 Stepan Abarca MD is Hospitalizing Provider. briana 20:11 Accessed peripheral vein via ultrasound, utilizing dynamic ultrasound technique Clean \\T\\ cm10 dry. Dressing intact. Good blood return. Flushes easily. 20g right forearm. 21:20 ETOH Level Sent. cp4 Administered Medications: 20:24 Drug: NS 0.9% IV 1000 ml IV at 1000 ml once; to be given as a bolus over 60 minutes cp4 Route: IV; Rate: 1000 ml; Site: right forearm; 21:40 Follow up: IV Status: Completed infusion cp4 20:24 Drug: Ativan IVP 2 mg IVP once Route: IVP; Site: right forearm; cp4 20:45 Follow up: Response: No adverse reaction cp4 20:25 Drug: Thiamine IV 100 mg IV at bolus once Route: IV; Rate: bolus; Site: right forearm; cp4 20:44 Follow up: Response: No adverse reaction; IV Status: Completed infusion cp4 20:25 Drug: Banana Bag - (Multivitamin IV 1 amp, NS 0.9% IV 1000 ml, Thiamine IV 100 mg, cp4 foLIC Acid IVPB 1 mg) IV at 500 ml/hr once Route: IV; Rate: 500 ml/hr; Site: right forearm; 21:40 Follow up: IV Status: Infusion continued upon admission cp4 20:25 Drug: Ondansetron IVP 4 mg IVP once; over 2 minutes Route: IVP; Site: right antecubital;cp4 20:45 Follow up: Response: No adverse reaction cp4 20:26 Drug: Famotidine IVP 20 mg IVP once; dilute with 10 mL 0.9% NaCl; give over 2 minutes cp4 Route: IVP; Site: right forearm; 20:45 Follow up: Response: No adverse reaction cp4 20:44 Drug: Magnesium Sulfate IVPB 2 grams IVPB once over 1 hrs Route: IVPB; Infused Over: 1 cp4 hrs; Site: right forearm; 21:40 Follow up: IV Status: Completed infusion cp4 20:44 Drug: Ativan IVP 2 mg IVP once Route: IVP; Site: right forearm; cp4 21:40 Follow up: Response: No adverse reaction cp4 Medication: 18:16 VIS not applicable for this client. tl4 Outcome: 19:54 Decision to Hospitalize by Provider. [facility] 21:42 Patient left the ED. cp4 Signatures: Dispatcher [employer] EDChuck Castañeda MD MD cha Calderon, Audri RN RN aa5 Liliana Roberto RN RN cm10 Mary Jane Moraes cp4 Christiano Coker RN RN tl4 Corrections: (The following items were deleted from the chart) 17:39 17:28 Chief complaint: aa5 aa5 20:24 20:24 Ativan IVP 2 mg IVP in right forearm cp4 cp4
--- NOTE | 2024-07-01 19:54 | EDPHYS ---
Physician Documentation [facility] Name: Felipe Barriga Age: 48 yrs Sex: Male : 1975 Arrival Date: 07/01/2024 Time: 17:08 Bed 13 Private MD: ED Physician Chuck Shine HPI: 07/01 19:46 This 48 yrs old Male presents to ER via EMS with complaints of Alcohol briana Withdrawal. 19:46 The patient presents to the emergency department with anxiety, a history of substance briana abuse, Type: beer, 12 cans per day. Onset: The symptoms/episode began/occurred 2 week(s) ago. Past psychiatric history: Prior diagnosis: addiction history, alcohol, depression. The patient presents to the emergency department with nausea, that is moderate, vomiting, that is intermittent. Possible causes: ETOH WD. ALCOHOLIC. Associated signs and symptoms: Pertinent positives: nausea, vomiting. Historical: - Allergies: 17:41 No Known Allergies; aa5 - PMHx: 17:41 Alcohol dependence; Anxiety; depressive disorder; Night Terrors; PTSD; aa5 - PSHx: 17:41 aortic root replacement (Unknown); aa5 - Immunization history:: Adult Immunizations unknown. - Infectious Disease History:: Denies. - Social history:: Smoking status: Patient denies any tobacco usage or history of. Patient uses alcohol, patient/guardian reports recent binge of alcohol consumption. Pt states "I normally binge drink about 3 times a week" . street drugs, marijuana. - Family history:: not pertinent. ROS: 19:46 Constitutional: Negative for fever, chills, and weight loss, Eyes: Negative for injury, briana pain, redness, and discharge, ENT: Negative for injury, pain, and discharge, Neck: Negative for injury, pain, and swelling, Respiratory: Negative for shortness of breath, cough, wheezing, and pleuritic chest pain, Back: Negative for injury and pain, : Negative for injury, bleeding, discharge, and swelling, MS/Extremity: Negative for injury and deformity, Skin: Negative for injury, rash, and discoloration, Psych: Negative for depression, anxiety, suicide ideation, homicidal ideation, and hallucinations, Allergy/Immunology: Negative for hives, rash, and allergies, Endocrine: Negative for neck swelling, polydipsia, polyuria, polyphagia, and marked weight changes, Hematologic/Lymphatic: Negative for swollen nodes, abnormal bleeding, and unusual bruising, 19:46 Cardiovascular: Positive for palpitations, 19:46 Abdomen/GI: Positive for nausea and vomiting, nausea, vomiting, 19:46 Neuro: Positive for dizziness, weakness, 19:46 Psych: Positive for anxiety, depression, Exam: 19:46 Constitutional: This is a well developed, well nourished patient who is awake, alert, briana and in no acute distress. Head/Face: Normocephalic, atraumatic. Eyes: Pupils equal round and reactive to light, extra-ocular motions intact. Lids and lashes normal. Conjunctiva and sclera are non-icteric and not injected. Cornea within normal limits. Periorbital areas with no swelling, redness, or edema. ENT: Nares patent. No nasal discharge, no septal abnormalities noted. Tympanic membranes are normal and external auditory canals are clear. Oropharynx with no redness, swelling, or masses, exudates, or evidence of obstruction, uvula midline. Mucous membranes moist. Neck: Trachea midline, no thyromegaly or masses palpated, and no cervical lymphadenopathy. Supple, full range of motion without nuchal rigidity, or vertebral point tenderness. No Meningismus. Chest/axilla: Normal chest wall appearance and motion. Nontender with no deformity. No lesions are appreciated. Respiratory: Lungs have equal breath sounds bilaterally, clear to auscultation and percussion. No rales, rhonchi or wheezes noted. No increased work of breathing, no retractions or nasal flaring. Abdomen/GI: Soft, non-tender, with normal bowel sounds. No distension or tympany. No guarding or rebound. No evidence of tenderness throughout. Back: No spinal tenderness. No costovertebral tenderness. Full range of motion. Male : Normal genitalia with no discharge or lesions. MS/ Extremity: Pulses equal, no cyanosis. Neurovascular intact. Full, normal range of motion. Neuro: Awake and alert, GCS 15, oriented to person, place, time, and situation. Cranial nerves II-XII grossly intact. Motor strength 5/5 in all extremities. Sensory grossly intact. Cerebellar exam normal. Normal gait. Psych: Awake, alert, with orientation to person, place and time. Behavior, mood, and affect are within normal limits. 19:46 Cardiovascular: Rate: tachycardic, actual rate is 114 bpm, Rhythm: regular, Pulses: Pulses are 4+ in bilateral radial, brachial, femoral, popliteal, posterior tibial and and dorsalis pedis arteries.. Heart sounds: normal, Edema: is not appreciated, JVD: is not appreciated, 19:46 ECG was reviewed by the Attending Physician. 19:46 Musculoskeletal/extremity: ROM: no acute changes, Circulation is intact in all extremities. Compartment Syndrome exam of affected extremity: is normal. no pain, no numbness, no tingling, no sensation deficit, no palor, no weak pulses, Weight bearing: able to fully bear weight, DVT Exam: No signs of deep vein thrombosis. no pain, no swelling, no tenderness, negative Homans' sign noted on exam, no appreciated bluish discoloration, no erythema, no increased warmth, Vital Signs: 17:28 BP 157 / 85; Pulse 119; Resp 20 S; Temp 98.3(O); Pulse Ox 98% on R/A; Weight 97.52 kg aa5 (R); Height 5 ft. 11 in. (R); 18:32 BP 157 / 85; Pulse 114; Resp 21; Pulse Ox 98% on R/A; tl4 19:30 BP 153 / 83; Pulse 117; Resp 18; Pulse Ox 95% ; cp4 20:30 BP 146 / 85; Pulse 121; Resp 18; Pulse Ox 96% ; cp4 21:41 BP 138 / 71; Pulse 111; Resp 18; Pulse Ox 94% ; cp4 17:28 Body Mass Index 29.99 (97.52 kg, 180.34 cm) aa5 MDM: 17:39 Medical Screening Exam initiated briana 19:50 Differential diagnosis: drug withdrawal. acute psychotic break, depression, psychosis briana secondary to non-compliance, Nonspecific abd pain, gastritis, cholecystitis, pancreatitis, viral gastroenteritis, gastroenteritis. Differential Diagnosis altered mental status, sepsis, flu. Data reviewed: vital signs, nurses notes, lab test result(s), EKG, radiologic studies. Consideration of Admission/Observation Patient was admitted/placed on observation. Escalation of care including admission/observation considered. I considered the following discharge prescriptions or medication management in the emergency department Medications were administered in the Emergency Department. See MAR. Independent interpretation of the following test(s) in the Emergency Department EKG: See my EKG interpretation above. Test considered but Not performed: Ultrasound NO ABD USG. Historians other than the Patient: EMS: EMS WELL INFORMED. Care significantly affected by the following chronic conditions: Hypertension, Obesity, ETOH, PTSD, ANXIETY, NIGHT TEROR. 07/01 17:42 Order name: Basic Metabolic Panel; Complete Time: 19:34 [facility] 07/01 17:42 Order name: CBC with Diff; Complete Time: 19:34 07/01 17:42 Order name: LFT's; Complete Time: 19:34 [facility] 07/01 17:42 Order name: Magnesium; Complete Time: 19:34 [facility] 07/01 17:42 Order name: NT PRO-BNP; Complete Time: 19:34 [facility] 07/01 17:42 Order name: PT-INR; Complete Time: 19:34 [facility] 07/01 17:42 Order name: Troponin HS; Complete Time: 19:34 [facility] 07/01 17:42 Order name: Lipase; Complete Time: 19:34 [facility] 07/01 17:43 Order name: Urinalysis w/ reflexes; Complete Time: 19:34 [facility] 07/01 17:43 Order name: UDS; Complete Time: 19:34 [facility] 07/01 19:36 Order name: ETOH Level [facility] 07/01 20:40 Order name: Urinalysis w/ reflexes EDMS 07/01 20:40 Order name: CBC with Automated Diff EDMS 07/01 20:40 Order name: CBC with Automated Diff EDMS 07/01 20:40 Order name: Comprehensive Metabolic Panel EDMS 07/01 20:40 Order name: Comprehensive Metabolic Panel EDMS 07/01 17:42 Order name: XRAY Chest (1 view); Complete Time: 19:34 [facility] 07/01 17:42 Order name: Cardiac monitoring; Complete Time: 18:15 [facility] 07/01 17:42 Order name: EKG - Nurse/Tech; Complete Time: 18:15 [facility] 07/01 17:42 Order name: IV Saline Lock; Complete Time: 20:11 [facility] 07/01 17:42 Order name: Labs collected and sent; Complete Time: 18:30 [facility] 07/01 17:42 Order name: O2 Per Protocol; Complete Time: 18:14 [facility] 07/01 17:42 Order name: O2 Sat Monitoring; Complete Time: 18:14 [facility] 07/01 21:19 Order name: Misc. Order: GREEN TOP; Complete Time: 21:29 sp EC:46 Rate is 111 beats/min. Rhythm is regular. QRS [place] is Normal. NV interval is normal. briana QRS interval is normal. QT interval is normal. No Q waves. T waves are Normal. No ST changes noted. Clinical impression: Sinus tachycardia and No evidence of ischemia. Interpreted by me. Reviewed by me. Administered Medications: 20:24 Drug: NS 0.9% IV 1000 ml IV at 1000 ml once; to be given as a bolus over 60 minutes cp4 Route: IV; Rate: 1000 ml; Site: right forearm; 21:40 Follow up: IV Status: Completed infusion cp4 20:24 Drug: Ativan IVP 2 mg IVP once Route: IVP; Site: right forearm; cp4 20:45 Follow up: Response: No adverse reaction cp4 20:25 Drug: Thiamine IV 100 mg IV at bolus once Route: IV; Rate: bolus; Site: right forearm; cp4 20:44 Follow up: Response: No adverse reaction; IV Status: Completed infusion cp4 20:25 Drug: Banana Bag - (Multivitamin IV 1 amp, NS 0.9% IV 1000 ml, Thiamine IV 100 mg, cp4 foLIC Acid IVPB 1 mg) IV at 500 ml/hr once Route: IV; Rate: 500 ml/hr; Site: right forearm; 21:40 Follow up: IV Status: Infusion continued upon admission cp4 20:25 Drug: Ondansetron IVP 4 mg IVP once; over 2 minutes Route: IVP; Site: right antecubital;cp4 20:45 Follow up: Response: No adverse reaction cp4 20:26 Drug: Famotidine IVP 20 mg IVP once; dilute with 10 mL 0.9% NaCl; give over 2 minutes cp4 Route: IVP; Site: right forearm; 20:45 Follow up: Response: No adverse reaction cp4 20:44 Drug: Magnesium Sulfate IVPB 2 grams IVPB once over 1 hrs Route: IVPB; Infused Over: 1 cp4 hrs; Site: right forearm; 21:40 Follow up: IV Status: Completed infusion cp4 20:44 Drug: Ativan IVP 2 mg IVP once Route: IVP; Site: right forearm; cp4 21:40 Follow up: Response: No adverse reaction cp4 Disposition Summary: 07/01/24 19:54 Hospitalization Ordered Notes: Hospitalization Status: Inpatient Admission briana Provider: Stepan Abarca cha Location: Telemetry/MedSurg (Inpatient) briana Condition: Fair briana Problem: new briana Symptoms: have improved briana Bed/Room Type: Standard briana Room Assignment: 210(07/01/24 20:43) sp Diagnosis - Alcohol dependence with withdrawal, unspecified briana - Essential (primary) hypertension briana - Adjustment disorder with mixed anxiety and depressed mood briana - Hypomagnesemia briana - Vomiting briana Forms: - Medication Reconciliation Form briana - SBAR form briana - Leadership Thank You Letter briana Signatures: Dispatcher [employer] EDMS Chuck Shine MD MD cha Pinkerton, Shawna sp Calderon, Audri, RN RN aa5 Mary Jane Moraes cp4 Corrections: (The following items were deleted from the chart) 17:43 17:43 BASIC METABOLIC PANEL+C.LAB.BRZ ordered. EDMS EDMS 17:43 17:43 CBC+H.LAB.BRZ ordered. EDMS EDMS 17:43 17:43 HEPATIC FUNCTION+C.LAB.BRZ ordered. EDMS EDMS 17:43 17:43 MAGNESIUM+C.LAB.BRZ ordered. EDMS EDMS 17:43 17:43 PROBNP+C.LAB.BRZ ordered. EDMS EDMS 17:43 17:43 PROTIME (+INR)+COAG.LAB.BRZ ordered. EDMS EDMS 17:43 17:43 Troponin High Sensitivity+C.LAB.BRZ ordered. EDMS EDMS 17:43 17:43 LIPASE+C.LAB.BRZ ordered. EDMS EDMS 17:43 17:43 Chest Single View+RAD.RAD.BRZ ordered. EDMS EDMS 17:44 17:44 Urinalysis+U.LAB.BRZ ordered. EDMS EDMS 17:44 17:44 URINE DRUG SCREEN+UC.LAB.BRZ ordered. EDMS EDMS 20:43 19:54 briana sp
[2024-07-01] MEDS ORDERED: ONDANSETRON 4 MG/2 ML VIAL ONE (20:12)
[2024-07-01] MEDS ORDERED: LORazepam 2 MG/ML VIAL ONE ×2 (20:12→20:40)
[2024-07-01] MEDS ORDERED: THIAMINE 200 MG/2 ML INJ ONE (20:13)
[2024-07-01] MEDS ORDERED: FAMOTIDINE 20 MG/2 ML VIAL IV ONE (20:13)
[2024-07-01] MEDS ORDERED: MULTIVITAMINS 10 ML VIAL (INJ) IV ONE (20:13)
[2024-07-01] MEDS ORDERED: NA CHLORIDE 0.9% 2,000 ML ONE (20:14)
[2024-07-01] MEDS ORDERED: FOLIC ACID 5 MG/ML VIAL ONE (20:14)
--- NOTE | 2024-07-01 20:33 | P.HP ---
Certification for Inpatient Patient admitted to: Inpatient With expected LOS: >2 Midnights Practitioner: I am a practitioner with admitting privileges, knowledge of patient current condition, hospital course, and medical plan of care. Services: Services provided to patient in accordance with Admission requirements found in Title 42 Section 412.3 of the Code of Federal Regulations Patient History Date of Service: 07/01/24 Reason for admission: Alcohool Withdrawal History of Present Illness: 48 yrs old Male with past medical history of anxiety, depression, PTSD, alcohol dependence, history of substance abuse, brought to ER with alcohol withdrawal symptoms. He usually drinks 12 cans of beer a day. He started having nausea associated with the vomiting intermittent. Denies any abdominal pain. No fever or chills. No sick contacts. Patient started having palpitations and anxiety and was presented to ER. Patient was assessed in the ER and was admitted for further management of alcohol withdrawal Allergies No Known Allergies Allergy (Verified 04/26/24 00:33) Home medications list reviewed: Yes Home Medications: Buspirone HCl [Buspar*] 5 mg PO BID 04/26/24 Prazosin HCl 2 mg PO BEDTIME 04/26/24 Quetiapine [Seroquel*] 50 mg PO DAILY 04/26/24 Quetiapine [Seroquel*] 100 mg PO BEDTIME 04/26/24 Sertraline [Zoloft*] 200 mg PO DAILY 04/26/24 Trazodone HCl [Desyrel] 200 mg PO BEDTIME 04/26/24 Folic Acid 1 mg PO DAILY #30 tab 04/28/24 Multivit,Ther Iron,Ca,FA & Min [Centrum Tablet*] 1 tab PO DAILY #30 tab 04/28/24 Thiamine HCl [Vitamin B-1*] 100 mg PO DAILY #30 tab 04/28/24 Pantoprazole [Protonix Tab*] 40 mg PO DAILYAC #30 tab 06/08/24 chlordiazePOXIDE HCl [Chlordiazepoxide HCl] 20 mg PO Q8H #70 cap 06/08/24 - Past Medical/Surgical History Diabetic: No Past Medical History: Reviewed- Non-Contributory -: PTSD -: Schizoeffective anxiety -: Major Depressive disorder -: Alcohol abuse Past Surgical History: Reviewed- Non-Contributory -: Aortic root replacement -: Leg Surgery when child - Family History Family History: Reviewed- Non-Contributory - Family History Mother -: Cancer Notes: breast - Social History Smoking Status: Current some day smoker Alcohol use: Yes CD- Drugs: No Caffeine use: Yes Review of Systems 10-point ROS is otherwise unremarkable Physical Examination - Vital Signs Temperature: 98.3 F Blood Pressure: 156/82 Pulse: 119 Respirations: 18 Pulse Ox (%): 94 - Physical Exam General: Alert, Oriented x3, Mild distress HEENT: Atraumatic, Normocephalic Neck: Supple, No Thyromegaly Respiratory: Clear to auscultation bilaterally, Normal air movement Cardiovascular: Normal S1 S2, Other (Tachycardia) Capillary refill: <2 Seconds Gastrointestinal: Soft and benign, W/out hepatosplenomegaly Musculoskeletal: No clubbing Integumentary: No rashes, No breakdown Neurological: Other (Alert, Awake , non focal ) Lymphatics: No axilla or inguinal lymphadenopathy - Studies Laboratory Data (last 24 hrs) 07/01/24 07/01/24 07/01/24 18:29 18:29 18:29 WBC 7.50 Hgb 12.8 L Hct 37.9 L Plt Count 366 PT 12.6 H INR 1.13 Sodium 138 Potassium 3.5 BUN 15 Creatinine 1.05 Glucose 108 H Magnesium 1.2 L Total Bilirubin 0.3 AST 26 ALT 24 Alkaline Phosphatase 90 Lipase 48 Assessment and Plan - Plan Alcohol withdrawal Advised alcohol cessation Watch closely for delirium tremens Seizure precautions Started on CIWA protocol with Ativan as needed Banana bag Monitor closely Anxiety Depression PTSD Continue home medications and titrate as needed Alcohol abuse Advised cessation Offered measures Hypomagnesemia Will replace magnesium Electrolytes monitor and replace accordingly Substance abuse THC positive benzo positive as well Advised cessation GI/DVT prophylaxis Advanced directive full code Discharge Plan: Home Plan to discharge in: 48 Hours - Advance Directives Does patient have a Living Will: No Does patient have a Durable POA for Healthcare: No - Code Status/Comfort Care Code Status: Full Code Time Spent Managing Pts Care (In Minutes): 48
[2024-07-01] MEDS ORDERED: ONDANSETRON 4 MG/2 ML VIAL IV PRN (20:34)
[2024-07-01] MEDS ORDERED: Magnesium Sulfate 2gm IVPB 2 G/50 ML BAG IV ONE (20:40)
[2024-07-01 23:13] VITALS: BMI 29.9
[2024-07-02 05:29] LABS: Absolute Basophils 0.1 K/uL (0-0.5); Absolute Eosinophils 0.1 K/uL (0-0.5); Absolute Lymphocytes (CBC) 0.9 K/uL (0.7-4.9); Absolute Monocytes 0.7 K/uL (0.1-1.3); Absolute Neutrophil 4.2 K/uL (1.8-8.0); Basophils % 0.9 % (0-1.3); Hematocrit 31.7 % (39.6-49.0); Hemoglobin 10.9 g/dL (13.6-17.9); Lymphocytes % 15.4 % (15.3-44.8); MCH 31.5 pg (27.0-35.0); MCHC 34.3 g/dL (32.0-36.0); MCV 91.9 fL (80-100); MPV 6.9 fL (7.6-11.3); Monocytes % 11.6 % (3.3-12.3); Neutrophils % 71.1 % (41.7-73.7); Platelets 258 thou/uL (152-406); RBC Red Blood Cell Count 3.45 M/uL (4.33-5.43); Red Cell Distribution Width 19.1 % (12.1-15.2)
[2024-07-02 05:49] LABS: Albumin 2.9 g/dL (3.4-5.0); Albumin/Globulin Ratio 0.8 (1.1-1.8); Anion Gap 11.4 mEq/L (5.0-15.0); Bilirubin Total 0.5 mg/dL (0.2-1.0); Globulin 3.6 g/dL (2.3-3.5); Potassium 3.4 mEq/L (3.5-5.1); Protein, Total 6.5 g/dL (6.4-8.2)
[2024-07-02] MEDS: LORazepam 2 MG/ML VIAL IV PRN (09:23)
[2024-07-02] MEDS: FOLIC ACID 1 MG, MULTIVITAMINS INJ 10 ML, THIAMINE HCL 100 MG in NA CHLORIDE 0.9% 1,000 ML IV SCH (09:25)
[2024-07-02] MEDS: ENOXAPARIN 40 MG/0.4 ML SQ SCH (09:26)
[2024-07-02] MEDS ORDERED: FLUMAZENIL 0.1 MG/ML (5 mL VIAL) IV PRN (09:44)
[2024-07-02] MEDS ORDERED: ONDANSETRON 4 MG/2 ML VIAL IV PRN (09:44)
--- NOTE | 2024-07-02 09:48 | P.PN ---
Date of Service: 07/02/24 subjective Tremors, as needed p.o. Ativan ordered Reports drinking heavily for 5 days prior to admission Review of Systems 10-point ROS is otherwise unremarkable Physical Examination - Vital Signs reviewed - Physical Exam General: Alert, Oriented x3, Mild distress HEENT: Atraumatic, Normocephalic Neck: Supple, No Thyromegaly Respiratory: Clear to auscultation bilaterally, Normal air movement Cardiovascular: Normal S1 S2, Other (Tachycardia) Capillary refill: <2 Seconds Gastrointestinal: Soft and benign, W/out hepatosplenomegaly Musculoskeletal: No clubbing Integumentary: No rashes, No breakdown Neurological: Other (Alert, Awake , non focal deficits, mild hand tremor Lymphatics: No axilla or inguinal lymphadenopathy Assessment and Plan - Plan acute Alcohol withdrawal Alcohol abuse Advised cessation Offered measures alcohol cessation Advised alcohol cessation Watch closely for delirium tremens Seizure precautions Started on CIWA protocol with Ativan as needed Banana bag, Librium, thiamine, folic acid, when tolerating p.o. Anxiety PTSD Resume antidepressants,'s as needed benzodiazepine, Seroquel Hypomagnesemia hypokalemia Hypocalcemia Will replace electrolytes as needed Electrolytes monitor and replace accordingly Substance abuse THC positive benzo positive as well Advised cessation GI/DVT prophylaxis Advanced directive full code Discharge Plan: Home Plan to discharge in: 48 Hours - Advance Directives Does patient have a Living Will: No Does patient have a Durable POA for Healthcare: No - Code Status/Comfort Care Code Status: Full Code Time Spent Managing Pts Care (In Minutes): 35
[2024-07-02] MEDS ORDERED: CLIDINIUM/CHLORDIAZEPOX 1 CAP PO PRN (10:00)
[2024-07-02] MEDS: QUETIAPINE 25 MG TAB PO SCH (10:54)
[2024-07-02] MEDS: CALCIUM GLUCONATE 1 GM IVPB 1 GM/50 ML BAG IV ONE (10:55)
[2024-07-02] MEDS: ACETAMINOPHEN 325 MG TABLET PO PRN (11:00)
[2024-07-02] MEDS: LORazepam 2 MG/ML VIAL IV ONE (11:46)
[2024-07-02] MEDS ORDERED: LORAZEPAM 0.5 MG TABLET PO PRN (11:55)
--- NOTE | 2024-07-02 12:04 | EKG ---
Test Date: 2024-07-01 Test Time: 18:07:51 Irrigator Head: TL MEASUREMENT RESULTS: Intervals: Rate: 111 MA: 170 QRSD: 74 QT: 354 QTc: 481 [place]: P: 45 MA: 170 QRS: -7 T: 58 INTERPRETIVE STATEMENTS: Sinus tachycardia Otherwise normal ECG Compared to ECG 06/14/2024 17:53:40 No significant changes Electronically Signed On 07-02-24 12:02:39 CLINICAL SCIENCE LIAISON by Bernard Whitmore
[2024-07-02] MEDS: PANTOPRAZOLE 40MG TABLET PO SCH (16:05)
[2024-07-02] MEDS: chlordiazePOXIDE HCl 25 MG CAP PO ONE (16:06)
[2024-07-02] MEDS: chlordiazePOXIDE HCl 25 MG CAP PO SCH (17:05)
[2024-07-02] MEDS: QUETIAPINE 100MG TAB PO SCH (21:09)
[2024-07-02] MEDS: TRAZODONE 50 MG TABLET PO SCH (22:05)
[2024-07-02] MEDS: BUSPIRONE HCL 5 MG TABLET PO SCH (22:05)
[2024-07-03 06:06] LABS: Absolute Eosinophils 0.1 K/uL (0-0.5); Absolute Lymphocytes (CBC) 0.8 K/uL (0.7-4.9); Absolute Monocytes 0.5 K/uL (0.1-1.3); Absolute Neutrophil 2.2 K/uL (1.8-8.0); Basophils % 0.9 % (0-1.3); Eosinophils % 2.6 % (0-4.4); Lymphocytes % 22.8 % (15.3-44.8); MCH 31.4 pg (27.0-35.0); MCHC 34.3 g/dL (32.0-36.0); MCV 91.5 fL (80-100); MPV 7.2 fL (7.6-11.3); Monocytes % 14.3 % (3.3-12.3); Neutrophils % 59.4 % (41.7-73.7); Nucleated Red Blood Cells % 0.3 % (0-0); Platelets 237 thou/uL (152-406); RBC Red Blood Cell Count 3.83 M/uL (4.33-5.43); Red Cell Distribution Width 18.8 % (12.1-15.2)
[2024-07-03 06:16] LABS: Albumin/Globulin Ratio 0.7 (1.1-1.8); Anion Gap 10.3 mEq/L (5.0-15.0); Bilirubin Total 0.4 mg/dL (0.2-1.0); Globulin 4.1 g/dL (2.3-3.5); Magnesium 1.7 mg/dL (1.6-2.4); Potassium 3.3 mEq/L (3.5-5.1); Protein, Total 7.1 g/dL (6.4-8.2)
[2024-07-03] MEDS: MAGNESIUM SULFATE 1 gm IVPB 1 GM/100 ML BAG IV ONE (06:59)
[2024-07-03] MEDS: FOLIC ACID 1 MG TABLET PO SCH (09:55)
[2024-07-03] MEDS: THIAMINE HCL 100 MG TABLET PO SCH (09:55)
[2024-07-03] MEDS: POTASSIUM CL SA 10 MEQ TAB PO ONE (09:55)
--- NOTE | 2024-07-03 20:40 | P.PN ---
Date of Service: 07/03/24 subjective Tremors are improving, reports moderate anxiety Review of Systems 10-point ROS is otherwise unremarkable Physical Examination - Vital Signs reviewed - Physical Exam General: Alert, Oriented x3, anxious HEENT: Atraumatic, Normocephalic Neck: Supple, No Thyromegaly Respiratory: Clear to auscultation bilaterally, Normal air movement Cardiovascular: Normal S1 S2, Other (Tachycardia) Capillary refill: <2 Seconds Gastrointestinal: Soft and benign, W/out hepatosplenomegaly Musculoskeletal: No clubbing Integumentary: No rashes, No breakdown Neurological: Other (Alert, Awake , non focal deficits, tremors Lymphatics: No axilla or inguinal lymphadenopathy Psychological: Anxious Assessment and Plan - Plan acute Alcohol withdrawal Alcohol abuse Advised cessation Offered measures alcohol cessation Advised alcohol cessation Watch closely for delirium tremens Seizure precautions Started on CIWA protocol with Ativan as needed Banana bag, Librium, thiamine, folic acid, when tolerating p.o. Anxiety PTSD Resume antidepressants,'s as needed benzodiazepine, Seroquel Hypomagnesemia hypokalemia Hypocalcemia Will replace electrolytes as needed Electrolytes monitor and replace accordingly Microcytic anemia stable Trend H&H Substance abuse THC positive benzo positive as well Advised cessation GI/DVT prophylaxis Advanced directive full code Discharge Plan: Home Plan to discharge in: 48 Hours - Advance Directives Does patient have a Living Will: No Does patient have a Durable POA for Healthcare: No - Code Status/Comfort Care Code Status: Full Code Time Spent Managing Pts Care (In Minutes): 25
[2024-07-03] MEDS ORDERED: BUSPIRONE HCL 5 MG TABLET PO SCH (21:30)
[2024-07-03] MEDS ORDERED: TRAZODONE 50 MG TABLET PO SCH (21:30)
[2024-07-04 04:46] LABS: Absolute Basophils 0.1 K/uL (0-0.5); Absolute Eosinophils 0.2 K/uL (0-0.5); Absolute Lymphocytes (CBC) 1.1 K/uL (0.7-4.9); Absolute Monocytes 0.6 K/uL (0.1-1.3); Absolute Neutrophil 4.3 K/uL (1.8-8.0); Basophils % 0.9 % (0-1.3); Eosinophils % 2.7 % (0-4.4); Hematocrit 34.8 % (39.6-49.0); Hemoglobin 11.3 g/dL (13.6-17.9); Lymphocytes % 17.7 % (15.3-44.8); MCH 30.5 pg (27.0-35.0); MCHC 32.6 g/dL (32.0-36.0); MCV 93.5 fL (80-100); MPV 7.8 fL (7.6-11.3); Monocytes % 9.6 % (3.3-12.3); Neutrophils % 69.1 % (41.7-73.7); Nucleated Red Blood Cells % 0.1 % (0-0); Platelets 194 thou/uL (152-406); RBC Red Blood Cell Count 3.72 M/uL (4.33-5.43); Red Cell Distribution Width 18.6 % (12.1-15.2)
[2024-07-04 05:06] LABS: Albumin 3.1 g/dL (3.4-5.0); Albumin/Globulin Ratio 0.8 (1.1-1.8); Anion Gap 9.4 mEq/L (5.0-15.0); Bilirubin Total 0.5 mg/dL (0.2-1.0); Magnesium 1.7 mg/dL (1.6-2.4); Potassium 3.4 mEq/L (3.5-5.1); Protein, Total 7.1 g/dL (6.4-8.2)
[2024-07-04] MEDS: POTASSIUM 25 MEQ EFFERV TAB PO ONE (06:53)
[2024-07-04] MEDS: MAGNESIUM SULFATE 1 gm IVPB 1 GM/100 ML BAG IV ONE (06:56)
--- NOTE | 2024-07-04 07:17 | P.DS ---
Admission Date: 07/01/24 Discharge Date: 07/04/24 Disposition: ROUTINE DISCHARGE Discharge Condition: FAIR Reason for Admission: Alcohool Withdrawal Brief History of Present Illness: 48 yrs old Male with past medical history of anxiety, depression, PTSD, alcohol dependence, history of substance abuse, brought to ER with alcohol withdrawal symptoms. He usually drinks 12 cans of beer a day. He started having nausea associated with the vomiting intermittent. Denies any abdominal pain. No fever or chills. No sick contacts. Patient started having palpitations and anxiety and was presented to ER. Patient was assessed in the ER and was admitted for further management of alcohol withdrawal - Physical Exam General: Alert, Oriented x3, Mild distress HEENT: Atraumatic, Normocephalic Neck: Supple, No Thyromegaly Respiratory: Clear to auscultation bilaterally, Normal air movement Cardiovascular: Normal S1 S2, Other (Tachycardia) Capillary refill: <2 Seconds Gastrointestinal: Soft and benign, W/out hepatosplenomegaly Musculoskeletal: No clubbing Integumentary: No rashes, No breakdown Neurological: Other (Alert, Awake , non focal ), Hospital Course: 48 yrs old Male with past medical history of anxiety, depression, PTSD, alcohol dependence, history of substance abuse, brought to ER with alcohol withdrawal symptoms. He usually drinks 12 cans of beer a day. He started having nausea associated with the vomiting intermittent. Denies any abdominal pain. No fever or chills. No sick contacts. Patient started having palpitations and anxiety and was presented to ER. Was admitted for alcohol withdrawals, treated with Librium, as needed Ativan, alcohol withdrawal symptoms improved, plan to discharge home on Librium, instruct patient to alcohol cessation. Patient verbalized understanding. He reports history of binge drinking, he is to follow-up with PCP after discharge, follow-up with AA after discharge for alcohol abuse Assessment Alcohol abuse, follow-up with AA after discharge Substance abuse, discharge follow-up with AA after discharge/PCP for treat GOAL: Clear understanding of disease process INSTRUCTIONS: Physician Discharge Instructions: -Follow-up with AA after -Follow-up with PCP in 1 to 2 weeks -Please call Dr. Ojeda at [phone] if any questions regarding hospital stay -Please call nursing station at [phone] if any nursing or medication questions -Return to the emergency room if symptoms worsen Diet: ADA, low sodium Activity: Fall precautions Alcohol withdrawals, treated with Librium, as needed Ativan, discharged home on Librium after discharge PTSD, anxiety, Electrolyte derangement during inpatient, replaced while inpatient, Microcytic anemia H&H is stable, Vital Signs/Physical Exam: Temp Pulse Resp BP Pulse Ox 97.6 F 95 H 19 128/64 96 07/04/24 04:00 07/04/24 04:00 07/04/24 04:00 07/04/24 04:00 07/04/24 04:00 Laboratory Data at Discharge: WBC 6.30 thou/uL (4.3-10.9) 07/04/24 04:27 Hgb 11.3 g/dL (13.6-17.9) L 07/04/24 04:27 Hct 34.8 % (39.6-49.0) L 07/04/24 04:27 Plt Count 194 thou/uL (152-406) 07/04/24 04:27 PT 12.6 SECONDS (9.4-12.5) H 07/01/24 18:29 INR 1.13 07/01/24 18:29 Sodium 137 mEq/L (136-145) 07/04/24 04:27 Potassium 3.4 mEq/L (3.5-5.1) L 07/04/24 04:27 BUN 11 mg/dL (7-18) 07/04/24 04:27 Creatinine 1.01 mg/dL (0.70-1.30) 07/04/24 04:27 Glucose 105 mg/dL (74-106) 07/04/24 04:27 Phosphorus 3.0 mg/dL (2.5-4.9) 07/03/24 05:40 Magnesium 1.7 mg/dL (1.6-2.4) 07/04/24 04:27 Total Bilirubin 0.5 mg/dL (0.2-1.0) 07/04/24 04:27 AST 15 U/L (15-37) 07/04/24 04:27 ALT 16 U/L (16-61) 07/04/24 04:27 Alkaline Phosphatase 92 U/L (45-117) 07/04/24 04:27 Lipase 48 U/L (13-75) 07/01/24 18:29 Home Medications: Buspirone HCl [Buspar*] 5 mg PO BID 04/26/24 Prazosin HCl 2 mg PO BEDTIME 04/26/24 Quetiapine [Seroquel*] 50 mg PO DAILY 04/26/24 Quetiapine [Seroquel*] 100 mg PO BEDTIME 04/26/24 Sertraline [Zoloft*] 200 mg PO DAILY 04/26/24 Trazodone HCl [Desyrel] 200 mg PO BEDTIME 04/26/24 Folic Acid 1 mg PO DAILY #30 tab 04/28/24 Multivit,Ther Iron,Ca,FA & Min [Centrum Tablet*] 1 tab PO DAILY #30 tab 04/28/24 Thiamine HCl [Vitamin B-1*] 100 mg PO DAILY #30 tab 04/28/24 Pantoprazole [Protonix Tab*] 40 mg PO DAILYAC #30 tab 06/08/24 chlordiazePOXIDE HCl [Chlordiazepoxide HCl] 20 mg PO Q8H #70 cap 06/08/24 Diet: AHA Activity: Fall precautions [facility]: [facility] [Primary Care Provider] - Time spent managing pt's care (in minutes): 55
[2024-07-04 08:28] VITALS: BP 130/74; TEMP 98.2
[2024-07-04 10:41] VITALS: O2SAT 96
== END 2024-07-04 11:17 | disposition home or self-care (01) | DRG 897 ==
LOC: ER 17:08 → ERHOLD 20:34 → 2ND 20:55
PROVIDERS: ADMIT Family Medicine; ATTEND Hospitalist
DX: F10.239 Alcohol dependence with withdrawal, unspecified (principal); F41.9 Anxiety disorder, unspecified; I10 Essential (primary) hypertension; F43.10 Post-traumatic stress disorder, unspecified; E83.42 Hypomagnesemia; F32.A Depression, unspecified; F12.10 Cannabis abuse, uncomplicated; E83.51 Hypocalcemia; E87.6 Hypokalemia; D50.9 Iron deficiency anemia, unspecified; F17.200 Nicotine dependence, unspecified, uncomplicated; Z68.29 Body mass index [BMI] 29.0-29.9, adult; Z79.899 Other long term (current) drug therapy; Y90.6 Blood alcohol level of 120-199 mg/100 ml
CPT/HCPCS: 36415; 71045; 80048; 80053; 80076; 80307; 81001; 82077; 83690; 83735; 83880; 84100; 84484; 85025; 85610; 93005; 94760; 99285; J0612; J1650; J2405; J3411; J3475; J7030

== ENCOUNTER 2024-07-11 14:50 | Inpatient (IN) | payer OTHER ==
[2024-07-11] MEDS ORDERED: THIAMINE 200 MG/2 ML INJ ONE (15:01)
[2024-07-11] MEDS ORDERED: MULTIVITAMINS 10 ML VIAL (INJ) IV ONE (15:01)
[2024-07-11] MEDS ORDERED: DIAZEPAM 10 MG/2 ML INJ SYRINGE ONE ×3 (15:01→17:32)
[2024-07-11] MEDS ORDERED: NA CHLORIDE 0.9% 2,000 ML ONE (15:02)
[2024-07-11] MEDS ORDERED: FOLIC ACID 5 MG/ML VIAL ONE (15:02)
[2024-07-11 15:57] LABS: Absolute Lymphocytes (CBC) 0.8 K/uL (0.7-4.9); Absolute Monocytes 0.8 K/uL (0.1-1.3); Basophils % 0.5 % (0-1.3); Hemoglobin 12.8 g/dL (13.6-17.9); Lymphocytes % 8.6 % (15.3-44.8); MCH 30.8 pg (27.0-35.0); MCHC 33.6 g/dL (32.0-36.0); MCV 91.6 fL (80-100); MPV 7.4 fL (7.6-11.3); Monocytes % 8.3 % (3.3-12.3); Neutrophils % 82.6 % (41.7-73.7); Nucleated Red Blood Cells % 0.1 % (0-0); Platelets 260 thou/uL (152-406); RBC Red Blood Cell Count 4.15 M/uL (4.33-5.43); Red Cell Distribution Width 17.7 % (12.1-15.2)
[2024-07-11 16:07] LABS: PT Prothrombin Time 12.5 SECONDS (9.4-12.5); PTT, Activated Partial Thromb 24.8 SECONDS (24.3-36.9); Protime INR 1.12
[2024-07-11 16:17] LABS: Albumin 4.1 g/dL (3.4-5.0); Albumin/Globulin Ratio 0.8 (1.1-1.8); Anion Gap 17.6 mEq/L (5.0-15.0); Bilirubin Direct 0.4 mg/dL (0-0.2); Bilirubin Indirect, Calculated 1.3 mg/dL (0.2-0.8); Bilirubin Total 1.7 mg/dL (0.2-1.0); Globulin 4.9 g/dL (2.3-3.5); Potassium 3.6 mEq/L (3.5-5.1)
[2024-07-11] MEDS ORDERED: ONDANSETRON 4 MG/2 ML VIAL ONE (17:32)
--- NOTE | 2024-07-11 18:57 | ER ---
Nurse's Notes [facility] Name: Felipe Barriga Age: 48 yrs Sex: Male : 1975 Arrival Date: 07/11/2024 Time: 14:50 Bed 18 Private MD: Diagnosis: Alcohol dependence with withdrawal Presentation: 07/11 14:52 Chief complaint: EMS states: pt toned out EMS for alcohol withdrawal, pt reports rs5 shakiness, dizziness, and that he had a seizure one hour prior to arrival. Pt was AOx4 on arrival and shaking. Last drink was yesterday morning at 10 a.m. 14:52 Coronavirus screen: At this time, the client does not indicate any symptoms associated rs5 with coronavirus-19. Ebola Screen: No symptoms or risks identified at this time. Initial Sepsis Screen: Does the patient meet any 2 criteria? Yes Does the patient have a suspected source of infection? No. Patient's initial sepsis screen is negative. Risk Assessment: Do you want to hurt yourself or someone else? Patient reports no desire to harm self or others. Onset of symptoms was July 21, 2024. 14:52 Method Of Arrival: EMS: [facility] rs5 14:52 Acuity: CLARIAT 2 rs5 Historical: - Allergies: 15:10 No Known Allergies; rs5 - PMHx: 15:10 Alcohol dependence; Anxiety; depressive disorder; Night Terrors; PTSD; rs5 - PSHx: 15:10 aortic root replacement; rs5 - Immunization history:: Adult Immunizations up to date. - Infectious Disease History:: Denies. - Social history:: Smoking status: Patient denies any tobacco usage or history of. - Family history:: not pertinent. - Hospitalizations: : No recent hospitalization is reported. Screenin:55 [facility] ED Fall Risk Assessment (Adult) History of falling in the last 3 months, rs5 including since admission No falls in past 3 months (0 pts) Confusion or Disorientation No (0 pts) Intoxicated or Sedated No (0 pts) Impaired Gait Mobility Assist Device Used No (0 pt) Altered Elimination No (0 pt) Score/Fall Risk Level 0 - 2 = Low Risk Oriented to surroundings, Maintained a safe environment. Abuse screen: Denies threats or abuse. Nutritional screening: No deficits noted. Tuberculosis screening: No symptoms or risk factors identified. Assessment: 14:52 General: Appears distressed, uncomfortable, Behavior is agitated, anxious. rs5 14:52 Pain: Denies pain. Neuro: Level of Consciousness is awake, alert, obeys commands, rs5 Oriented to person, place, time, situation. Cardiovascular: Patient's skin is warm and dry. Respiratory: Airway is patent Respiratory effort is even, unlabored, Respiratory pattern is regular, symmetrical. GI: Abdomen is round non-distended, Abd is soft and non tender X 4 quads. : No signs and/or symptoms were reported regarding the genitourinary system. EENT: No signs and/or symptoms were reported regarding the EENT system. Derm: Skin is intact, Skin is pink, warm \T\ dry. Musculoskeletal: Range of motion: intact in all extremities. 15:54 Reassessment: Patient and/or family updated on plan of care and expected duration. Pain rs5 level reassessed. Patient is alert, oriented x 3, equal unlabored respirations, skin warm/dry/pink. 16:34 Reassessment: Patient and/or family updated on plan of care and expected duration. Pain rs5 level reassessed. Patient is alert, oriented x 3, equal unlabored respirations, skin warm/dry/pink. 17:21 Reassessment: Patient and/or family updated on plan of care and expected duration. Pain rs5 level reassessed. Patient is alert, oriented x 3, equal unlabored respirations, skin warm/dry/pink. 18:44 Reassessment: Patient and/or family updated on plan of care and expected duration. Pain rs5 level reassessed. Patient is alert, oriented x 3, equal unlabored respirations, skin warm/dry/pink. Vital Signs: 14:52 BP 148 / 94; Pulse 132; Resp 18; Temp 98.6(O); Pulse Ox 98% on R/A; rs5 15:54 BP 141 / 88; Pulse 117; Resp 17; Pulse Ox 99% on R/A; rs5 16:36 BP 154 / 91; Pulse 108; Resp 17; Pulse Ox 99% on R/A; rs5 20:34 BP 154 / 123; Pulse 109; Resp 27; Pulse Ox 100% on R/A; Pain 7/10; le1 20:34 Pain Scale: Adult le1 ED Course: 14:51 Patient arrived in ED. rn 14:51 Bib Prieto MD is Attending Physician. rn 14:55 No provider procedures requiring assistance completed. rs5 14:55 Patient has correct armband on for positive identification. Placed in gown. Bed in low rs5 position. Call light in reach. Side rails up X2. 14:59 Konstantin Jackson RN is Primary Nurse. rs5 15:00 Missed attempt(s): 22 gauge in right antecubital area. Bleeding controlled, band aid rs5 applied, catheter tip intact. 15:10 Triage completed. rs5 15:15 Missed attempt(s): 22 gauge forearm. Bleeding controlled, band aid applied, catheter rs5 tip intact. 15:40 Accessed ,peripheral vein via ultrasound, utilizing static ultrasound technique using rs5 20G Nexia IV catheter ,sterile technique, per hospital protocol. Clean \T\ dry. Dressing intact. Good blood return. Flushes easily. 18:56 Stepan Abarca MD is Hospitalizing Provider. rn 20:24 Primary Nurse role handed off by Konstantin Jackson RN le1 20:24 Alan Palencia RN is Primary Nurse. le1 20:33 Provided Education on: Informed patient to use call light if needing assistance. le1 07/12 01:04 Patient admitted, IV remains in place. al5 Administered Medications: 07/11 15:52 Drug: Diazepam IVP 10 mg IVP once Route: IVP; Site: right antecubital; rs5 16:20 Follow up: Response: No adverse reaction; Other; tremors decreased rs5 15:52 Drug: Banana Bag - (Multivitamin IV 1 amp, NS 0.9% IV 1000 ml, Thiamine IV 100 mg, rs5 foLIC Acid IVPB 1 mg) IV at calculated rate once Route: IV; Rate: calculated rate; Site: right antecubital; 18:12 Follow up: Response: No adverse reaction; IV Status: Completed infusion; IV Intake: rs5 1000ml 15:53 Drug: NS 0.9% IV 1000 ml IV at 1 bolus Per protocol; to be given as a bolus over 60 rs5 minutes Route: IV; Rate: 1 bolus; Site: right antecubital; 17:04 Follow up: Response: No adverse reaction; IV Status: Completed infusion; IV Intake: rs5 1000ml 16:22 Drug: Diazepam IVP 10 mg IVP once Route: IVP; Site: right antecubital; rs5 16:44 Follow up: Response: No adverse reaction; Anxiety decreased rs5 17:25 Drug: Ondansetron IVP 4 mg IVP once; over 2 minutes Route: IVP; Site: right antecubital;rs5 18:01 Follow up: Response: No adverse reaction rs5 17:25 Drug: Diazepam IVP 10 mg IVP once Route: IVP; Site: right antecubital; rs5 18:15 Follow up: Response: No adverse reaction; Anxiety decreased rs5 Medication: 16:35 VIS not applicable for this client. rs5 Intake: 17:04 IV: 1000ml; Total: 1000ml. rs5 18:12 IV: 1000ml; Total: 2000ml. rs5 Outcome: 18:57 Decision to Hospitalize by Provider. rn 07/12 01:04 Admitted to ER Hold. Please see [facility] for further documentation. al5 Condition: stable Instructed on the need for admit, Instructed on ER hold since 185607/11/24 14:51 Patient left the ED. bp Signatures: Bib Prieto MD MD rn Peltier, Brian RN RN bp oKnstantin Jackson RN RN rs5 Abbie Romo RN RN al5 Alan Palencia RN RN le1 Corrections: (The following items were deleted from the chart) 07/11 16:00 15:00 Accessed ,peripheral vein via ultrasound, utilizing static ultrasound technique rs5 using 20G Nexia IV catheter ,sterile technique, per hospital protocol. Clean \T\ dry. Dressing intact. Good blood return. Flushes easily. rs5
--- NOTE | 2024-07-11 18:57 | EDPHYS ---
Physician Documentation [facility] Name: Felipe Barriga Age: 48 yrs Sex: Male : 1975 Arrival Date: 07/11/2024 Time: 14:50 Bed 18 Private MD: ED Physician Bib Prieto HPI: 07/11 17:12 This 48 yrs old Male presents to ER via EMS with complaints of Alcohol Withdrawal. rn 17:12 Patient reports alcoholic and last drink was yesterday. Experiencing alcohol withdrawal rn once again.. Onset: The symptoms/episode began/occurred today. Severity of symptoms: At their worst the symptoms were moderate in the emergency department the symptoms are unchanged. The patient has experienced similar episodes in the past. Historical: - Allergies: 15:10 No Known Allergies; rs5 - PMHx: 15:10 Alcohol dependence; Anxiety; depressive disorder; Night Terrors; PTSD; rs5 - PSHx: 15:10 aortic root replacement; rs5 - Immunization history:: Adult Immunizations up to date. - Infectious Disease History:: Denies. - Social history:: Smoking status: Patient denies any tobacco usage or history of. - Family history:: not pertinent. - Hospitalizations: : No recent hospitalization is reported. ROS: 17:12 Constitutional: Negative for fever, chills, and weight loss, Neck: Negative for injury, rn pain, and swelling, Cardiovascular: Positive for palpitations Respiratory: Negative for shortness of breath, cough, wheezing, and pleuritic chest pain, Abdomen/GI: Positive for nausea MS/Extremity: Negative for injury and deformity, Neuro: Positive for generalized weakness and tremors Exam: 14:59 ECG was reviewed by the Attending Physician. 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 No pulse deficits. Respiratory: No increased work of breathing, no retractions or nasal flaring. Abdomen/GI: Soft, non-tender MS/ Extremity: Pulses equal, no cyanosis. Neuro: Awake and alert, GCS 15, oriented to person, place, time, and situation. Cranial nerves II-XII grossly intact. Motor strength 5/5 in all extremities. Sensory grossly intact. Coarse tremor and tongue fasciculations present Vital Signs: 14:52 BP 148 / 94; Pulse 132; Resp 18; Temp 98.6(O); Pulse Ox 98% on R/A; rs5 15:54 BP 141 / 88; Pulse 117; Resp 17; Pulse Ox 99% on R/A; rs5 16:36 BP 154 / 91; Pulse 108; Resp 17; Pulse Ox 99% on R/A; rs5 20:34 BP 154 / 123; Pulse 109; Resp 27; Pulse Ox 100% on R/A; Pain 7/10; le1 20:34 Pain Scale: Adult le1 MDM: 14:51 Medical Screening Exam initiated rn 18:56 Differential Diagnosis Alcohol withdrawal, dehydration, electrolyte disorder. Data rn reviewed: vital signs, nurses notes, lab test result(s), EKG, and as a result, I will admit patient. Consideration of Admission/Observation Patient was admitted/placed on observation. Escalation of care including admission/observation considered. Counseling: I had a detailed discussion with the patient and/or guardian regarding the historical points, exam findings, and any diagnostic results supporting the discharge/admit diagnosis, lab results, the need for further work-up and treatment in the hospital. ED course: I personally spent 35 minutes engaged in work directly related to the individual patient's care. This does not include any time spent performing procedures. The patient has been deemed critically ill because of moderate to severe alcohol withdrawal requiring multiple IV doses of diazepam and admission to the hospital. 07/11 14:55 Order name: CBC with Diff; Complete Time: 16:14 rn 07/11 14:55 Order name: Basic Metabolic Panel; Complete Time: 16:42 rn 07/11 14:55 Order name: Protime (+inr); Complete Time: 16:14 rn 07/11 14:55 Order name: Ptt, Activated; Complete Time: 16:14 rn 07/11 14:55 Order name: LFT's; Complete Time: 16:42 rn 07/11 14:56 Order name: ETOH Level; Complete Time: 16:14 rn 07/11 19:39 Order name: Urinalysis w/ reflexes EDMS 07/11 19:39 Order name: CBC with Automated Diff EDMS 07/11 19:39 Order name: CBC with Automated Diff EDMS 07/11 19:39 Order name: Comprehensive Metabolic Panel EDMS 07/11 19:39 Order name: Comprehensive Metabolic Panel EDMS 07/12 09:01 Order name: Ammonia EDTX 07/12 09:06 Order name: Lactate w/ 2H reflex if indic. EDTX 07/12 09:17 Order name: Magnesium EDTX 07/12 12:28 Order name: Potassium [facility] 07/11 14:55 Order name: IV Start; Complete Time: 16:00 rn 07/11 14:55 Order name: Cardiac monitoring; Complete Time: 14:58 rn 07/11 14:55 Order name: O2 Sat Monitoring; Complete Time: 14:58 rn EC:59 Rate is 124 beats/min. Rhythm is regular. QRS Craig is Normal. AR interval is normal. rn QRS interval is normal. QT interval is normal. No Q waves. T waves are Normal. No ST changes noted. Clinical impression: Sinus tachycardia. Interpreted by me. Reviewed by me. Administered Medications: 15:52 Drug: Diazepam IVP 10 mg IVP once Route: IVP; Site: right antecubital; rs5 16:20 Follow up: Response: No adverse reaction; Other; tremors decreased rs5 15:52 Drug: Banana Bag - (Multivitamin IV 1 amp, NS 0.9% IV 1000 ml, Thiamine IV 100 mg, rs5 foLIC Acid IVPB 1 mg) IV at calculated rate once Route: IV; Rate: calculated rate; Site: right antecubital; 18:12 Follow up: Response: No adverse reaction; IV Status: Completed infusion; IV Intake: rs5 1000ml 15:53 Drug: NS 0.9% IV 1000 ml IV at 1 bolus Per protocol; to be given as a bolus over 60 rs5 minutes Route: IV; Rate: 1 bolus; Site: right antecubital; 17:04 Follow up: Response: No adverse reaction; IV Status: Completed infusion; IV Intake: rs5 1000ml 16:22 Drug: Diazepam IVP 10 mg IVP once Route: IVP; Site: right antecubital; rs5 16:44 Follow up: Response: No adverse reaction; Anxiety decreased rs5 17:25 Drug: Ondansetron IVP 4 mg IVP once; over 2 minutes Route: IVP; Site: right antecubital;rs5 18:01 Follow up: Response: No adverse reaction rs5 17:25 Drug: Diazepam IVP 10 mg IVP once Route: IVP; Site: right antecubital; rs5 18:15 Follow up: Response: No adverse reaction; Anxiety decreased rs5 Disposition Summary: 07/11/24 18:57 Hospitalization Ordered Notes: Hospitalization Status: Inpatient Admission rn Provider: Stepan Abarca rn Condition: Stable rn Problem: new rn Symptoms: have improved rn Bed/Room Type: Standard rn Location: Telemetry/MedSurg (Inpatient)(07/12/24 13:56) em1 Room Assignment: 218(07/12/24 13:56) em1 Diagnosis - Alcohol dependence with withdrawal rn Forms: - Medication Reconciliation Form rn - SBAR form rn - Leadership Thank You Letter rn 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 EDMS EDMS 14:56 14:56 BASIC METABOLIC PANEL+C.LAB.BRZ ordered. EDMS EDMS 14:56 14:56 PROTIME (+INR)+COAG.LAB.BRZ ordered. EDMS EDMS 14:56 14:56 PTT, ACTIVATED+COAG.LAB.BRZ ordered. EDMS EDMS 14:56 14:56 HEPATIC FUNCTION+C.LAB.BRZ ordered. EDMS EDMS 19:48 18:57 Telemetry/MedSurg (Inpatient) rn rv1 19:48 18:57 rn rv1 07/12 13:56 07/11 19:48 [facility] ER HOLD rv1 em1 07/12 13:56 07/11 19:48 ERHOLD- rv1 em1
[2024-07-11] MEDS ORDERED: ACETAMINOPHEN 325 MG TABLET PO PRN (19:32)
[2024-07-11] MEDS ORDERED: ONDANSETRON 4 MG/2 ML VIAL IV PRN (19:32)
--- NOTE | 2024-07-11 19:32 | P.HP ---
Certification for Inpatient Patient admitted to: Inpatient With expected LOS: >2 Midnights Practitioner: I am a practitioner with admitting privileges, knowledge of patient current condition, hospital course, and medical plan of care. Services: Services provided to patient in accordance with Admission requirements found in Title 42 Section 412.3 of the Code of Federal Regulations Patient History Date of Service: 07/11/24 Reason for admission: Alcohol Withdrawal History of Present Illness: 48 yrs old Male with past medical history of anxiety, depression, PTSD, alcohol dependence, history of substance abuse, brought to ER with alcohol withdrawal symptoms. He usually drinks 12 cans of beer a day. He started having nausea associated with the vomiting intermittent. Denies any abdominal pain. No fever or chills. No sick contacts. Patient started having palpitations and anxiety and was presented to ER. No chest pain or shortness of breath Patient was assessed in the ER and was admitted for further management of alcohol withdrawal Allergies No Known Allergies Allergy (Verified 04/26/24 00:33) Home medications list reviewed: Yes Home Medications: Buspirone HCl [Buspar*] 5 mg PO BID 04/26/24 Prazosin HCl 2 mg PO BEDTIME 04/26/24 Quetiapine [Seroquel*] 50 mg PO DAILY 04/26/24 Quetiapine [Seroquel*] 100 mg PO BEDTIME 04/26/24 Sertraline [Zoloft*] 200 mg PO DAILY 04/26/24 Trazodone HCl [Desyrel] 200 mg PO BEDTIME 04/26/24 Folic Acid 1 mg PO DAILY #30 tab 04/28/24 Multivit,Ther Iron,Ca,FA & Min [Centrum Tablet*] 1 tab PO DAILY #30 tab 04/28/24 Thiamine HCl [Vitamin B-1*] 100 mg PO DAILY #30 tab 04/28/24 Pantoprazole [Protonix Tab*] 40 mg PO DAILYAC #30 tab 06/08/24 chlordiazePOXIDE HCl [Chlordiazepoxide HCl] 20 mg PO Q8H #70 cap 06/08/24 Pantoprazole [Protonix Tab*] 40 mg PO BIDAC #60 tab 07/04/24 Thiamine HCl [Vitamin B-1*] 100 mg PO DAILY #30 tab 07/04/24 chlordiazePOXIDE HCl [Chlordiazepoxide HCl] 10 mg PO Q8H #35 cap 07/04/24 - Past Medical/Surgical History Diabetic: No Past Medical History: Reviewed- Non-Contributory -: PTSD -: Schizoeffective anxiety -: Major Depressive disorder -: Alcohol abuse Past Surgical History: Reviewed- Non-Contributory -: Aortic root replacement -: Leg Surgery when child - Family History Mother -: Cancer Notes: breast - Social History Smoking Status: Never smoker Alcohol use: Yes CD- Drugs: No Caffeine use: Yes Review of Systems 10-point ROS is otherwise unremarkable Physical Examination - Vital Signs Temperature: 97.6 F Blood Pressure: 146/78 Pulse: 86 Respirations: 18 Pulse Ox (%): 94 - Physical Exam General: Alert, Mild distress HEENT: Atraumatic, Normocephalic Neck: Supple, No Thyromegaly Respiratory: Clear to auscultation bilaterally, Normal air movement Cardiovascular: Regular rate/rhythm, Normal S1 S2 Capillary refill: <2 Seconds Gastrointestinal: Soft and benign, No tenderness Musculoskeletal: No clubbing, Swelling Integumentary: No rashes Neurological: Other (Alert, awake ) Lymphatics: No axilla or inguinal lymphadenopathy - Studies Laboratory Data (last 24 hrs) 07/11/24 07/11/24 07/11/24 15:48 15:48 15:48 WBC 9.70 Hgb 12.8 L Hct 38.0 L Plt Count 260 PT 12.5 INR 1.12 APTT 24.8 Sodium 135 L Potassium 3.6 BUN 11 Creatinine 1.37 H Glucose 113 H Total Bilirubin 1.7 H AST 21 ALT 24 Alkaline Phosphatase 112 Assessment and Plan - Plan Alcohol withdrawal Advised alcohol cessation Watch closely for delirium tremens Seizure precautions Started on CIWA protocol with Ativan as needed Banana bag Monitor closely Anxiety Depression PTSD Continue home medications and titrate as needed Alcohol abuse Advised cessation Offered measures DINORA Dehydration IV hydration Substance abuse history Advised cessation GI/DVT prophylaxis Advanced directive full code Discharge Plan: Home Plan to discharge in: 48 Hours - Advance Directives Does patient have a Living Will: No Does patient have a Durable POA for Healthcare: No - Code Status/Comfort Care Code Status: Full Code Time Spent Managing Pts Care (In Minutes): 48
[2024-07-11] MEDS: HEPARIN 5000 UNIT/ML 1 ML VIAL SQ SCH (21:00)
[2024-07-11] MEDS ORDERED: HEPARIN 5000 UNIT/ML 1 ML VIAL ONE (21:29)
[2024-07-11] MEDS ORDERED: LORazepam 2 MG/ML VIAL ONE (21:29)
[2024-07-11] MEDS: LORazepam 2 MG/ML VIAL IV PRN (21:32)
[2024-07-11 21:46] LABS: Specific Gravity > 1.030 (1.005-1.030); Sqamous Epithelial <5 /HPF (None Seen); Urine Bacteria <20 /HPF (<20); Urine Bilirubin NEGATIVE (Negative); Urine Blood Negative (Negative); Urine Clarity Extremely Turbid (Clear); Urine Color Yellow (Yellow); Urine Crystals Unidentified Few /HPF (None Seen); Urine Culture Reflex Order NOT NEEDED; Urine Glucose NEGATIVE (Negative); Urine Ketones TRACE (Negative); Urine Microscopic Reflex YN ORDER UMIC; Urine Mucus 4+ /HPF (None Seen); Urine Nitrite NEGATIVE (Negative); Urine Protein 3+ (Negative); Urine Urobilinogen 1+ (Normal); Urine WBC <5 /HPF (<5); Urine WBC Clump Rare /HPF (None Seen)
[2024-07-11 22:35] VITALS: BMI 29.2
[2024-07-12] MEDS: NA CHLORIDE 0.9% 1,000 ML IV SCH (02:00)
[2024-07-12] MEDS ORDERED: LORazepam 2 MG/ML VIAL ONE (02:16)
[2024-07-12] MEDS ORDERED: NA CHLORIDE 0.9% 1,000 ML ONE (02:17)
[2024-07-12 05:27] LABS: Absolute Eosinophils 0.1 K/uL (0-0.5); Absolute Lymphocytes (CBC) 1.2 K/uL (0.7-4.9); Absolute Monocytes 0.7 K/uL (0.1-1.3); Absolute Neutrophil 3.5 K/uL (1.8-8.0); Basophils % 0.8 % (0-1.3); Eosinophils % 1.5 % (0-4.4); Hematocrit 34.6 % (39.6-49.0); Hemoglobin 11.6 g/dL (13.6-17.9); Lymphocytes % 22.3 % (15.3-44.8); MCHC 33.6 g/dL (32.0-36.0); MCV 92.2 fL (80-100); MPV 7.9 fL (7.6-11.3); Monocytes % 12.5 % (3.3-12.3); Neutrophils % 62.9 % (41.7-73.7); Nucleated Red Blood Cells % 0.1 % (0-0); Platelets 220 thou/uL (152-406); RBC Red Blood Cell Count 3.76 M/uL (4.33-5.43); Red Cell Distribution Width 18.5 % (12.1-15.2)
[2024-07-12 05:58] LABS: Albumin 3.2 g/dL (3.4-5.0); Albumin/Globulin Ratio 0.8 (1.1-1.8); Anion Gap 10.9 mEq/L (5.0-15.0); Bilirubin Total 1.3 mg/dL (0.2-1.0); Globulin 4.2 g/dL (2.3-3.5); Potassium 2.9 mEq/L (3.5-5.1); Protein, Total 7.4 g/dL (6.4-8.2)
[2024-07-12] MEDS ORDERED: LORazepam 2 MG/ML VIAL IV PRN ×2 (07:06→15:42)
[2024-07-12] MEDS ORDERED: SODIUM CHLORIDE 0.9% 10ML INJ IV PRN (07:09)
[2024-07-12] MEDS: DIAZEPAM 10 MG/2 ML INJ SYRINGE IV ONE (07:30)
[2024-07-12] MEDS: PANTOPRAZOLE 40 MG INJ IVP ONE (07:45)
[2024-07-12] MEDS: POTASSIUM 25 MEQ EFFERV TAB PO ONE (08:00)
[2024-07-12] MEDS: KCL 20 MEQ/100 mL IVPB 20 MEQ/100 ML BAG IV SCH (08:00)
[2024-07-12] MEDS ORDERED: PANTOPRAZOLE 40 MG INJ ONE (08:19)
[2024-07-12] MEDS ORDERED: DIAZEPAM 10 MG/2 ML INJ SYRINGE ONE (08:19)
[2024-07-12] MEDS ORDERED: HEPARIN 5000 UNIT/ML 1 ML VIAL ONE (08:19)
[2024-07-12] MEDS ORDERED: POTASSIUM 25 MEQ EFFERV TAB ONE (08:20)
[2024-07-12] MEDS ORDERED: KCL 20 MEQ/100 mL IVPB 100 ML IV ONE (08:20)
[2024-07-12] MEDS: FOLIC ACID 1 MG, MULTIVITAMINS INJ 10 ML, THIAMINE HCL 100 MG in NA CHLORIDE 0.9% 1,000 ML IV SCH (09:00)
--- NOTE | 2024-07-12 11:08 | P.PN ---
Date of Service: 07/12/24 Subjective frequent admissions for the same. Pt with tremor. States he tries. Discussed recurrent behavior and consequences to health and life Review of Systems 10-point ROS is otherwise unremarkable Physical Examination - Vital Signs reviewed - Physical Exam General: Alert, Mild distress HEENT: Atraumatic, Normocephalic Neck: Supple, No Thyromegaly Respiratory: Clear to auscultation bilaterally, Normal air movement Cardiovascular: Regular rate/rhythm, Normal S1 S2 Capillary refill: <2 Seconds Gastrointestinal: Soft and benign, No tenderness Musculoskeletal: No clubbing, Swelling Integumentary: No rashes Neurological: Other (Alert, awake ) Lymphatics: No axilla or inguinal lymphadenopathy - Studies Laboratory Data (last 24 hrs) 07/11/24 07/11/24 07/11/24 15:48 15:48 15:48 WBC 9.70 Hgb 12.8 L Hct 38.0 L Plt Count 260 PT 12.5 INR 1.12 APTT 24.8 Sodium 135 L Potassium 3.6 BUN 11 Creatinine 1.37 H Glucose 113 H Total Bilirubin 1.7 H AST 21 ALT 24 Alkaline Phosphatase 112 Assessment and Plan - Plan Alcohol withdrawal Advised alcohol cessation Watch closely for delirium tremens Seizure precautions Started on CIWA protocol with Ativan as needed Banana bag Monitor closely Anxiety Depression PTSD Continue home medications and titrate as needed Alcohol abuse Advised cessation Offered measures DINORA Dehydration IV hydration Substance abuse history Advised cessation GI/DVT prophylaxis Advanced directive full code Discharge Plan: Home Plan to discharge in: 48 Hours - Advance Directives Does patient have a Living Will: No Does patient have a Durable POA for Healthcare: No - Code Status/Comfort Care Code Status: Full Code
[2024-07-12] MEDS: chlordiazePOXIDE HCl 25 MG CAP PO SCH (12:00)
[2024-07-12] MEDS ORDERED: chlordiazePOXIDE HCl 25 MG CAP ONE (14:03)
[2024-07-12] MEDS: LORazepam 2 MG/ML VIAL IV PRN (16:56)
--- NOTE | 2024-07-13 10:40 | P.PN ---
Date of Service: 07/13/24 Subjective frequent admissions for the same. Pt with tremor. States he tries. Discussed recurrent behavior and consequences to health and life Review of Systems 10-point ROS is otherwise unremarkable Physical Examination - Vital Signs reviewed - Physical Exam General: Alert, Mild distress HEENT: Atraumatic, Normocephalic Neck: Supple, No Thyromegaly Respiratory: Clear to auscultation bilaterally, Normal air movement Cardiovascular: Regular rate/rhythm, Normal S1 S2 Capillary refill: <2 Seconds Gastrointestinal: Soft and benign, No tenderness Musculoskeletal: No clubbing, Swelling Integumentary: No rashes Neurological: Other (Alert, awake ) Lymphatics: No axilla or inguinal lymphadenopathy Assessment and Plan Alcohol withdrawal Advised alcohol cessation Watch closely for delirium tremens - pt states he is feeling better Seizure precautions Started on CIWA protocol with Ativan as needed Banana bag Monitor closely Anxiety Depression PTSD Continue home medications and titrate as needed Alcohol abuse Advised cessation Offered measures DINORA Dehydration IV hydration continues 07/13/24 pt eating better, potassium improved, hypomagnesemic at 1.4, will give two grams IV and reassess Substance abuse history Advised cessation GI/DVT prophylaxis Advanced directive full code Discharge Plan: Home Plan to discharge in: 24 Hours - Advance Directives Does patient have a Living Will: No Does patient have a Durable POA for Healthcare: No - Code Status/Comfort Care Code Status: Full Code
[2024-07-13] MEDS: Magnesium Sulfate 2gm IVPB 2 G/50 ML BAG IV ONE (11:14)
[2024-07-14 07:36] LABS: Absolute Basophils 0.1 K/uL (0-0.5); Absolute Eosinophils 0.2 K/uL (0-0.5); Absolute Lymphocytes (CBC) 1.1 K/uL (0.7-4.9); Absolute Monocytes 0.6 K/uL (0.1-1.3); Absolute Neutrophil 4.3 K/uL (1.8-8.0); Basophils % 1.1 % (0-1.3); Eosinophils % 3.1 % (0-4.4); Hematocrit 32.5 % (39.6-49.0); Hemoglobin 10.8 g/dL (13.6-17.9); Lymphocytes % 17.5 % (15.3-44.8); MCH 31.2 pg (27.0-35.0); MCHC 33.2 g/dL (32.0-36.0); MPV 8.5 fL (7.6-11.3); Monocytes % 10.3 % (3.3-12.3); Platelets 183 thou/uL (152-406); RBC Red Blood Cell Count 3.46 M/uL (4.33-5.43); Red Cell Distribution Width 17.6 % (12.1-15.2)
[2024-07-14 07:55] LABS: Albumin/Globulin Ratio 0.8 (1.1-1.8); Anion Gap 9.4 mEq/L (5.0-15.0); Bilirubin Total 0.4 mg/dL (0.2-1.0); Globulin 3.8 g/dL (2.3-3.5); Magnesium 1.7 mg/dL (1.6-2.4); Potassium 3.4 mEq/L (3.5-5.1); Protein, Total 6.8 g/dL (6.4-8.2)
[2024-07-14] MEDS: MAGNESIUM SULFATE 1 gm IVPB 1 GM/100 ML BAG IV ONE (09:19)
[2024-07-14] MEDS: POTASSIUM CL SA 10 MEQ TAB PO ONE (09:19)
[2024-07-14] MEDS: LIDOCAINE 4% PATCH TOP SCH (09:19)
--- NOTE | 2024-07-14 10:31 | P.PN ---
Date of Service: 07/14/24 Subjective feeling better today, continued tremor, states LUQ is tender. Tolerating po last pm Review of Systems 10-point ROS is otherwise unremarkable Physical Examination - Vital Signs reviewed - Physical Exam General: Alert, Mild distress HEENT: Atraumatic, Normocephalic Neck: Supple, No Thyromegaly Respiratory: Clear to auscultation bilaterally, Normal air movement Cardiovascular: Regular rate/rhythm, Normal S1 S2 Capillary refill: <2 Seconds Gastrointestinal: Soft and benign, LUQ tenderness Musculoskeletal: No clubbing Integumentary: No rashes Neurological: Other (Alert, awake), tremors continue Lymphatics: No axilla or inguinal lymphadenopathy Assessment and Plan Alcohol withdrawal Advised alcohol cessation Watch closely for delirium tremens - pt states he is feeling better, tremors continue but tolerating diet Seizure precautions Started on CIWA protocol with Ativan as needed Banana bag infusion is finishing this am and pt is tolerating diet so will stop IVF Monitor closely Anxiety Depression PTSD Continue home medications and titrate as needed Alcohol abuse Advised cessation Offered measures DINORA Dehydration IV hydration continues 07/13/24 pt eating better, potassium improved, hypomagnesemic at 1.4, will give two grams IV and reassess 07/14/24 electrolytes improved, creatinine normal, GFR 104 DINORA resolved Substance abuse history Advised cessation Luq abdominal pain will US abd for cirrhotic change, splenomegaly, pancreatitis GI/DVT prophylaxis Advanced directive full code Discharge Plan: Home Plan to discharge in: expect dc in am - Advance Directives Does patient have a Living Will: No Does patient have a Durable POA for Healthcare: No - Code Status/Comfort Care Code Status: Full Code
--- NOTE | 2024-07-14 16:43 | RAD REPORT ---
EXAMINATION: US Abdomen Exam Complete CLINICAL INDICATION: Male, 48 years, [facility] MA[facility] LUQ pain hx ETOH abuse TECHNIQUE: Grayscale ultrasonography of the abdomen was performed. COMPARISON: No prior exam. FINDINGS: LIVER: Increased echogenicity with reduced sonographic penetration and without focal mass. GALLBLADDER: Decompressed limiting evaluation. The gallbladder wall at the upper limit of normal in t hickness. No gallstones. No Pericholecystic fluid. No reported sonographic Estrada's sign. BILE DUCTS: Intrahepatic and extrahepatic bile ducts appear normal. Measured near the emerson hepatis , the common bile duct is 0.4 cm RIGHT KIDNEY: Right renal length measurement: 11.0 cm. Normal in echogenicity and size. No calculus, solid mass or hydronephrosis. LEFT KIDNEY: Left renal length measurement: 12.6 cm. Normal in echogenicity and size. No calculus, s olid mass or hydronephrosis. SPLEEN: Normal in echogenicity, with length of 11.3 cm PANCREAS: The visualized pancreas is normal in size and echogenicity. AORTA AND INFERIOR VENA CAVA: Visualized segments of the aorta and inferior vena cava are normal. ASCITES: None. ADDITIONAL FINDINGS: Superficial sonographic evaluation in the area of concern in the left lower quadrant shows no abnorma lity of the cutaneous tissues and included deeper muscles. IMPRESSION: Diffuse hepatic parenchymal hyperechogenicity suggesting steatosis. Contracted gallbladder limiting evaluation. No abnormalities upon superficial targeted sonographic evaluation in the left lower quadrant.
[2024-07-15 08:54] VITALS: BP 114/61; TEMP 98.3
--- NOTE | 2024-07-15 09:19 | P.DS ---
Admission Date: 07/11/24 Discharge Date: 07/15/24 Reason for Admission: Alcohol Withdrawal Brief History of Present Illness: 48 yrs old Male with past medical history of anxiety, depression, PTSD, alcohol dependence, history of substance abuse, brought to ER with alcohol withdrawal symptoms. He usually drinks 12 cans of beer a day. He started having nausea associated with the vomiting intermittent. Denies any abdominal pain. No fever or chills. No sick contacts. Patient started having palpitations and anxiety and was presented to ER. No chest pain or shortness of breath Mr. Barriga has been admitted many times for alcohol withdrawal. He states he is committed to quitting. [place] for this kind of assistance and he is encouraged to follow-up. During hospitalization, he had no seizures, his electrolytes were replaced and returned to normal. He did briefly complain of some left mid abdomen pain and an ultrasound of his abdomen was unremarkable for any acute findings. [facility], changes in behavior, and encouragement of adhering to a healthy lifestyle. <Laly Khan - Last Filed: 07/15/24 09:23> Admission Date: 07/11/24 Discharge Date: 07/15/24 Brief History of Present Illness: Discharge diagnosis #1 alcohol withdrawal #2 mild hypokalemia with hypomagnesemia associated with #1, resolved #3 alcoholic fatty liver #4 generalized anxiety disorder and depression <ERIKA Michaud - Last Filed: 07/15/24 17:11> Disposition: ROUTINE DISCHARGE Discharge Condition: GOOD Vital Signs/Physical Exam: Temp Pulse Resp BP Pulse Ox 98.3 F 88 18 114/61 100 07/15/24 08:00 07/15/24 08:00 07/15/24 08:00 07/15/24 08:00 07/15/24 08:00 General: Alert, In no apparent distress, Oriented x3 HEENT: Atraumatic, Normocephalic, PERRLA Neck: Supple Respiratory: Clear to auscultation bilaterally, Normal air movement Cardiovascular: No edema, Normal pulses, Regular rate/rhythm, Normal S1 S2 Capillary refill: <2 Seconds Gastrointestinal: Normal bowel sounds Musculoskeletal: No clubbing Integumentary: No rashes Neurological: Normal speech, Normal tone, Normal affect Lymphatics: No axilla or inguinal lymphadenopathy External genitalia: Deferred Rectal: Deferred Laboratory Data at Discharge: WBC 6.30 thou/uL (4.3-10.9) 07/14/24 07:14 Hgb 10.8 g/dL (13.6-17.9) L 07/14/24 07:14 Hct 32.5 % (39.6-49.0) L 07/14/24 07:14 Plt Count 183 thou/uL (152-406) 07/14/24 07:14 PT 12.5 SECONDS (9.4-12.5) 07/11/24 15:48 INR 1.12 07/11/24 15:48 APTT 24.8 SECONDS (24.3-36.9) 07/11/24 15:48 Sodium 136 mEq/L (136-145) 07/14/24 07:14 Potassium 4.1 mEq/L (3.5-5.1) D 07/14/24 15:46 BUN 13 mg/dL (7-18) 07/14/24 07:14 Creatinine 0.85 mg/dL (0.70-1.30) 07/14/24 07:14 Glucose 102 mg/dL (74-106) 07/14/24 07:14 Magnesium 1.7 mg/dL (1.6-2.4) 07/14/24 07:14 Total Bilirubin 0.4 mg/dL (0.2-1.0) 07/14/24 07:14 AST 12 U/L (15-37) L 07/14/24 07:14 ALT 17 U/L (16-61) 07/14/24 07:14 Alkaline Phosphatase 74 U/L (45-117) 07/14/24 07:14 <Khan,Laly Nixon - Last Filed: 07/15/24 09:23> Vital Signs/Physical Exam: Temp Pulse Resp BP Pulse Ox 98.3 F 88 18 114/61 100 07/15/24 08:00 07/15/24 08:00 07/15/24 08:00 07/15/24 08:00 07/15/24 08:00 Laboratory Data at Discharge: WBC 6.30 thou/uL (4.3-10.9) 07/14/24 07:14 Hgb 10.8 g/dL (13.6-17.9) L 07/14/24 07:14 Hct 32.5 % (39.6-49.0) L 07/14/24 07:14 Plt Count 183 thou/uL (152-406) 07/14/24 07:14 PT 12.5 SECONDS (9.4-12.5) 07/11/24 15:48 INR 1.12 07/11/24 15:48 APTT 24.8 SECONDS (24.3-36.9) 07/11/24 15:48 Sodium 136 mEq/L (136-145) 07/14/24 07:14 Potassium 4.1 mEq/L (3.5-5.1) D 07/14/24 15:46 BUN 13 mg/dL (7-18) 07/14/24 07:14 Creatinine 0.85 mg/dL (0.70-1.30) 07/14/24 07:14 Glucose 102 mg/dL (74-106) 07/14/24 07:14 Magnesium 1.7 mg/dL (1.6-2.4) 07/14/24 07:14 Total Bilirubin 0.4 mg/dL (0.2-1.0) 07/14/24 07:14 AST 12 U/L (15-37) L 07/14/24 07:14 ALT 17 U/L (16-61) 07/14/24 07:14 Alkaline Phosphatase 74 U/L (45-117) 07/14/24 07:14 <ERIKA Michaud - Last Filed: 07/15/24 17:11> Diet: Regular Activity: Ad kezia <Erin,Laly Nixon - Last Filed: 07/15/24 09:23> <ERIKA Michaud - Last Filed: 07/15/24 17:11> Home Medications: Buspirone HCl [Buspar*] 5 mg PO BID 04/26/24 Prazosin HCl 2 mg PO BEDTIME 04/26/24 Quetiapine [Seroquel*] 50 mg PO DAILY 04/26/24 Quetiapine [Seroquel*] 100 mg PO BEDTIME 04/26/24 Sertraline [Zoloft*] 200 mg PO DAILY 04/26/24 Trazodone HCl [Desyrel] 200 mg PO BEDTIME 04/26/24 Folic Acid 1 mg PO DAILY #30 tab 04/28/24 Multivit,Ther Iron,Ca,FA & Min [Centrum Tablet*] 1 tab PO DAILY #30 tab 04/28/24 Thiamine HCl [Vitamin B-1*] 100 mg PO DAILY #30 tab 04/28/24 chlordiazePOXIDE HCl [Chlordiazepoxide HCl] 20 mg PO Q8H #70 cap 06/08/24 Thiamine HCl [Vitamin B-1*] 100 mg PO DAILY #30 tab 07/04/24 chlordiazePOXIDE HCl [Chlordiazepoxide HCl] 10 mg PO Q8H #35 cap 07/04/24 chlordiazePOXIDE HCl [Librium*] 25 mg PO Q12HR #10 cap 07/15/24 chlordiazePOXIDE HCl [Librium] 25 mg PO Q12H 5 Days #10 cap 07/15/24 New Medications: chlordiazePOXIDE HCl [Librium*] 25 mg PO Q12HR #10 cap chlordiazePOXIDE HCl [Librium] 25 mg PO Q12H 5 Days #10 cap Physician Discharge Instructions: 48 yrs old Male with past medical history of anxiety, depression, PTSD, alcohol dependence, history of substance abuse, brought to ER with alcohol withdrawal symptoms. He usually drinks 12 cans of beer a day. He started having nausea associated with the vomiting intermittent. Denies any abdominal pain. No fever or chills. No sick contacts. Patient started having palpitations and anxiety and was presented to ER. No chest pain or shortness of breath Mr. Barriga has been admitted many times for alcohol withdrawal. He states he is committed to quitting. [place] resources for this kind of assistance and he is encouraged to follow-up. During hospitalization, he had no seizures, his electrolytes were replaced and returned to normal. He did briefly complain of some left mid abdomen pain and an ultrasound of his abdomen was unremarkable for any acute findings. [facility] to discuss [facility], changes in behavior, and encouragement of adhering to a healthy lifestyle. New prescriptions: Librium 10 mg p.o. twice daily #10 Continue home medicines as previously prescribed GOAL: Clear understanding of disease process Diet: AHA, low sodium Activity: Fall precautions INSTRUCTIONS: Physician Discharge Instructions: Okay to DC IV and DC home Follow-up with primary care provider in 1 week [facility] Please call the inpatient unit for any questions or concerns regarding hospital stay Return to the ER for worsening symptoms [facility] [Primary Care Provider] -
[2024-07-15] MEDS: PROPRANOLOL HCL 60 MG SA CAP PO SCH (10:47)
[2024-07-15] MEDS: MULTIVITAMIN TAB PO SCH (10:47)
[2024-07-15] MEDS: FOLIC ACID 1 MG TABLET PO SCH (10:48)
[2024-07-15] MEDS: THIAMINE HCL 100 MG TABLET PO SCH (10:48)
[2024-07-15 12:11] VITALS: O2SAT 100
--- NOTE | 2024-07-16 12:12 | EKG ---
Test Date: 2024-07-11 Test Time: 14:55:20 Engineer/Conductor: AMARA MEASUREMENT RESULTS: Intervals: Rate: 124 NM: 142 QRSD: 74 QT: 320 QTc: 459 [place]: P: 66 NM: 142 QRS: 55 T: 73 INTERPRETIVE STATEMENTS: Sinus tachycardia Otherwise normal ECG Compared to ECG 07/01/2024 18:07:51 No significant changes Electronically Signed On 07-16-24 12:05:11 ANIMAL HUSBANDRY TECHNICIAN by Bernard Whitmore
== END 2024-07-15 13:05 | disposition home or self-care (01) | DRG 897 ==
LOC: ER 14:50 → ERHOLD 19:32 → 2ND 07-12 14:02
PROVIDERS: ADMIT Family Medicine; ATTEND Internal Medicine
DX: F10.239 Alcohol dependence with withdrawal, unspecified (principal); N17.9 Acute kidney failure, unspecified; E86.0 Dehydration; F32.A Depression, unspecified; E87.6 Hypokalemia; E83.42 Hypomagnesemia; K70.0 Alcoholic fatty liver; F41.1 Generalized anxiety disorder; F43.10 Post-traumatic stress disorder, unspecified; Z79.899 Other long term (current) drug therapy
CPT/HCPCS: 36415; 76700; 80048; 80053; 80076; 81001; 82077; 82140; 83605; 83735; 84132; 85025; 85610; 85730; 93005; 96365; 96366; 96375; 99285; J1644; J2003; J2405; J2470; J3360; J3411; J3475; J3480; J7030

== ENCOUNTER 2024-08-07 12:14 | Inpatient (IN) | payer OTHER ==
[2024-08-07 13:02] LABS: Absolute Lymphocytes (CBC) 0.6 K/uL (0.7-4.9); Absolute Neutrophil 5.8 K/uL (1.8-8.0); Basophils % 0.2 % (0-1.3); Eosinophils % 0.1 % (0-4.4); Hematocrit 36.2 % (39.6-49.0); Lymphocytes % 7.6 % (15.3-44.8); MCH 29.4 pg (27.0-35.0); MCHC 33.2 g/dL (32.0-36.0); MCV 88.5 fL (80-100); MPV 8.1 fL (7.6-11.3); Monocytes % 12.9 % (3.3-12.3); Neutrophils % 79.2 % (41.7-73.7); Platelets 136 thou/uL (152-406); RBC Red Blood Cell Count 4.09 M/uL (4.33-5.43); Red Cell Distribution Width 18.1 % (12.1-15.2)
[2024-08-07] MEDS ORDERED: NA CHLORIDE 0.9% 1,000 ML ONE (13:04)
[2024-08-07] MEDS ORDERED: LORazepam 2 MG/ML VIAL ONE ×2 (13:04→14:14)
[2024-08-07] MEDS ORDERED: THIAMINE HCL 100 MG TABLET ONE (13:04)
[2024-08-07] MEDS ORDERED: MULTIVITAMIN TAB PO ONE (13:04)
[2024-08-07 13:18] LABS: Albumin 3.9 g/dL (3.4-5.0); Albumin/Globulin Ratio 0.8 (1.1-1.8); Anion Gap 17.2 mEq/L (5.0-15.0); Bilirubin Total 1.6 mg/dL (0.2-1.0); Globulin 4.6 g/dL (2.3-3.5); Potassium 3.2 mEq/L (3.5-5.1); Protein, Total 8.5 g/dL (6.4-8.2)
--- NOTE | 2024-08-07 13:40 | ER ---
Nurse's Notes [facility] Name: Felipe Barriga Age: 48 yrs Sex: Male : 1975 Arrival Date: 08/07/2024 Time: 12:14 Bed 24 Private MD: Diagnosis: Delirium tremens Presentation: 08/07 12:16 Chief complaint: Patient states: uncontrollable shaking and sweating. Pt has a hx of ss ETOH abuse and had his last drink on Tuesday. Coronavirus screen: Client denies travel out of the [place] in the last 14 days. Ebola Screen: Patient denies exposure to infectious person. Patient denies travel to an Ebola-affected area in the 21 days before illness onset. Initial Sepsis Screen: Does the patient meet any 2 criteria? RR > 20 per min. HR > 90 bpm. Yes Does the patient have a suspected source of infection? No. Patient's initial sepsis screen is negative. Risk Assessment: Do you want to hurt yourself or someone else? Patient reports no desire to harm self or others. Onset of symptoms is unknown. 12:16 Method Of Arrival: EMS: [facility] ss 12:16 Acuity: CLAR[facility] 2 ss 12:18 Care prior to arrival: Medication(s) given: zofran 4 mg. Transition of care: patient ss was not received from another setting of care. Historical: - Allergies: 12:17 No Known Allergies; ss - PMHx: 12:17 Alcohol dependence; Anxiety; depressive disorder; Night Terrors; PTSD; ss - PSHx: 12:17 aortic root replacement; ss - Immunization history:: Adult Immunizations up to date. - Infectious Disease History:: Denies. - Social history:: Patient uses alcohol, on a daily basis. Smoking status: Patient denies any tobacco usage or history of. Patient uses alcohol, on a daily basis. Screenin:26 [facility] ED Fall Risk Assessment (Adult) History of falling in the last 3 months, me1 including since admission No falls in past 3 months (0 pts) Confusion or Disorientation No (0 pts) Intoxicated or Sedated No (0 pts) Impaired Gait No (0 pts) Mobility Assist Device Used No (0 pt) Altered Elimination No (0 pt) Score/Fall Risk Level 0 - 2 = Low Risk Maintained a safe environment, Provided non-skid footwear, Hourly rounding (assess needs \T\ fall precautionary measures) done. Abuse screen: Denies threats or abuse. Nutritional screening: No deficits noted. Tuberculosis screening: No symptoms or risk factors identified. Assessment: 13:26 General: Appears uncomfortable, unkempt, well developed, well nourished, Behavior is me1 cooperative, appropriate for age, anxious, Reports uncontrollable shaking and sweating. Pt has a hx of ETOH abuse and had his last drink on Tuesday. Pain: Denies pain. Neuro: Level of Consciousness is awake, alert, obeys commands, Oriented to person, place, time, situation, Appropriate for age Reports uncontrollable tremors and sweating. Cardiovascular: Patient's skin is warm and dry. Respiratory: Airway is patent Respiratory effort is even, unlabored, Respiratory pattern is regular, symmetrical. GI: No signs and/or symptoms were reported involving the gastrointestinal system. : No signs and/or symptoms were reported regarding the genitourinary system. EENT: No signs and/or symptoms were reported regarding the EENT system. Derm: Skin is intact, is healthy with good turgor, Skin is diaphoretic, Skin is pink, warm \T\ dry. Musculoskeletal: tremors. Vital Signs: 12:16 Pulse 100; Resp 22; Temp 97.6(O); Pulse Ox 100% ; Weight 97.52 kg; Height 5 ft. 11 in. ;ss 13:00 BP 147 / 76; Pulse 94; Resp 18; Pulse Ox 98% on R/A; me1 14:00 BP 137 / 74; Pulse 94; Resp 16; Pulse Ox 99% ; me1 14:45 BP 136 / 76; Pulse 91; Resp 17; Temp 98.4; Pulse Ox 99% ; me1 12:16 Body Mass Index 29.99 (97.52 kg, 180.34 cm) ED Course: 12:15 Patient arrived in ED. ms3 12:15 Gaston Silverman DO is Attending Physician. ms3 12:17 Triage completed. ss 12:17 Arm band placed on right wrist. ss 12:25 Cesilia Sims, RN is Primary Nurse. me1 12:47 Accessed peripheral vein via ultrasound, utilizing dynamic ultrasound technique using 20G Nexia IV catheter ,sterile technique, per hospital protocol. Clean \T\ dry. Dressing intact. Good blood return. Flushes easily. 13:26 Patient has correct armband on for positive identification. Bed in low position. Call me1 light in reach. Side rails up X2. Provided Education on: POC. Verbalized understanding.. Client placed on continuous cardiac and pulse oximetry monitoring. NIBP monitoring applied. Pulse ox on. NIBP on. 13:26 No provider procedures requiring assistance completed. me1 13:37 Regan Michaud is Hospitalizing Provider. ms3 14:54 Patient admitted, IV remains in place. me1 Administered Medications: 13:25 Drug: Ativan IVP 2 mg IVP once Route: IVP; Site: right forearm; me1 13:26 Follow up: Response: No adverse reaction; Anxiety decreased me1 13:25 Drug: Thiamine PO 100 mg PO once Route: PO; me1 13:29 Follow up: Response: No adverse reaction me1 13:25 Drug: multivitamins-mins no. [id number] acid 9 mg iron-500 mcg 1 caps PO once Route: me1 PO; 13:29 Follow up: Response: No adverse reaction me1 13:25 Drug: NS 0.9% IV 1000 ml IV at 1 bolus Per protocol; to be given as a bolus over 60 me1 minutes Route: IV; Rate: 1 bolus; Site: right forearm; 14:16 Follow up: Response: No adverse reaction; IV Status: Completed infusion; IV Intake: me1 1000ml 14:16 Drug: Ativan IVP 2 mg IVP once Route: IVP; Site: right forearm; me1 14:27 Follow up: Response: No adverse reaction; Marked relief of symptoms me1 Medication: 13:26 VIS not applicable for this client. me1 Intake: 14:16 IV: 1000ml; Total: 1000ml. me1 Outcome: 13:40 Decision to Hospitalize by Provider. ms3 14:54 Admitted to Med/surg accompanied by luigi, via wheelchair, room 206, with chart, Report me1 called to faxed, receipt confirmed with Maureen 14:54 Condition: stable 14:54 Instructed on the need for admit, 15:07 Patient left the ED. me1 Signatures: Nubia Horton RN RN Gaston Wright DO DO ms3 Cesilia Sims RN RN me1 Corrections: (The following items were deleted from the chart) 13:26 12:16 Chief complaint: Patient states: uncontrollable shaking and sweating. Pt has a hx me1 of ETOH abuse and had his last drink on Tuesday. ss
--- NOTE | 2024-08-07 13:40 | P.HP ---
Certification for Inpatient Patient admitted to: Observation With expected LOS: <2 Midnights Patient will require the following post-hospital care: None Practitioner: I am a practitioner with admitting privileges, knowledge of patient current condition, hospital course, and medical plan of care. Services: Services provided to patient in accordance with Admission requirements found in Title 42 Section 412.3 of the Code of Federal Regulations <Xochitl Seymour - Last Filed: 08/07/24 18:22> Patient History Date of Service: 08/07/24 Reason for admission: Alcohol withdrawal History of Present Illness: Felipe Barriga is a 48-year-old male with past medical history of PTSD, schizoaffective anxiety, major depressive disorder, alcohol abuse, aortic root replacement who presents to the ED in alcohol withdrawal. He has been admitted multiple times for alcohol withdrawal. Education provided with resources from the [place] the offer help. On examination, he is having tremors and dry heaves, HR with mild tachycardia, BP stable. Laboratory evaluation sodium 128, potassium 3.2, creatinine kinase 545, H&H 12/36, platelets 136 Felipe Barriga will be admitted to hospitalist service for further monitoring and treatment of alcohol intoxication in active withdrawl - Past Medical/Surgical History Diabetic: No -: PTSD -: Schizoeffective anxiety -: Major Depressive disorder -: Alcohol abuse -: Aortic root replacement -: Leg Surgery when child - Family History Mother -: Cancer Notes: breast - Social History Alcohol use: Yes CD- Drugs: No Caffeine use: Yes <Xochitl Seymour - Last Filed: 08/07/24 18:22> Date of Service: 08/08/24 <ERIKA Michaud - Last Filed: 08/08/24 06:15> Allergies No Known Allergies Allergy (Verified 04/26/24 00:33) Home Medications: Buspirone HCl [Buspar*] 5 mg PO BID 04/26/24 Prazosin HCl 2 mg PO BEDTIME 04/26/24 Quetiapine [Seroquel*] 50 mg PO DAILY 04/26/24 Quetiapine [Seroquel*] 100 mg PO BEDTIME 04/26/24 Sertraline [Zoloft*] 200 mg PO DAILY 04/26/24 Trazodone HCl [Desyrel] 200 mg PO BEDTIME 04/26/24 Folic Acid 1 mg PO DAILY #30 tab 04/28/24 Multivit,Ther Iron,Ca,FA & Min [Centrum Tablet*] 1 tab PO DAILY #30 tab 04/28/24 Thiamine HCl [Vitamin B-1*] 100 mg PO DAILY #30 tab 04/28/24 chlordiazePOXIDE HCl [Chlordiazepoxide HCl] 20 mg PO Q8H #70 cap 06/08/24 Thiamine HCl [Vitamin B-1*] 100 mg PO DAILY #30 tab 07/04/24 chlordiazePOXIDE HCl [Chlordiazepoxide HCl] 10 mg PO Q8H #35 cap 07/04/24 chlordiazePOXIDE HCl [Librium*] 25 mg PO Q12HR #10 cap 07/15/24 chlordiazePOXIDE HCl [Librium] 25 mg PO Q12H 5 Days #10 cap 07/15/24 Review of Systems General: Sweats Gastrointestinal: Nausea, Other (dry heaves) <Xochitl Seymour - Last Filed: 08/07/24 18:22> Physical Examination - Physical Exam General: Alert, Oriented x3, Disheveled, Acute distress HEENT: Atraumatic, Normocephalic, PERRLA Neck: Supple, 2+ carotid pulse no bruit Respiratory: Clear to auscultation bilaterally, Normal air movement Cardiovascular: Normal pulses, Normal S1 S2, Irregular heart rate/rhythm (mild tachycardia) Capillary refill: <2 Seconds Gastrointestinal: Normal bowel sounds, Soft and benign Musculoskeletal: No clubbing Integumentary: No rashes Neurological: Other (Tremors ) - Studies Laboratory Data (last 24 hrs) 08/07/24 08/07/24 12:46 12:46 WBC 7.40 Hgb 12.0 L Hct 36.2 L Plt Count 136 L Sodium 128 L Potassium 3.2 L BUN 17 Creatinine 1.25 Glucose 111 H Total Bilirubin 1.6 H AST 29 ALT 22 Alkaline Phosphatase 112 <Xochitl Seymour - Last Filed: 08/07/24 18:22> - Studies Laboratory Data (last 24 hrs) 08/07/24 08/07/24 12:46 12:46 WBC 7.40 Hgb 12.0 L Hct 36.2 L Plt Count 136 L Sodium 128 L Potassium 3.2 L BUN 17 Creatinine 1.25 Glucose 111 H Total Bilirubin 1.6 H AST 29 ALT 22 Alkaline Phosphatase 112 <ERIKA Michaud - Last Filed: 08/08/24 06:15> Assessment and Plan - Plan Assessment and plan Alcohol intoxication in active withdrawl History of Alcohol abuse Electrolyte imbalance Tachycardia -Na 128, K 3.2 -Frequent hospitalizations, Last admission in June -Education provided, [facility] resources available -[facility] protocol -Banana bag -Monitor for delirium tremens and seizure precautions in place -continuous telemetry -UDS pending Schizoaffective anxiety PTSD major depressive disorder -Continue home medications DVT ppx SCD Full code LOS 2 days Discharge Plan: Home Plan to discharge in: 24 Hours - Advance Directives Does patient have a Living Will: No Does patient have a Durable POA for Healthcare: No <Xochitl Seymour - Last Filed: 08/07/24 18:22> - Plan He is noncompliant with follow-up and his medication. Patient has frequent hospitalizations for alcohol withdrawal symptoms. <ERIKA Michaud - Last Filed: 08/08/24 06:15>
--- NOTE | 2024-08-07 13:40 | EDPHYS ---
Physician Documentation [facility] Name: Felipe Barriga Age: 48 yrs Sex: Male : 1975 Arrival Date: 08/07/2024 Time: 12:14 Bed 24 Private MD: ED Physician Gaston Silverman HPI: 08/07 18:51 This 48 yrs old Male presents to ER via EMS with complaints of Alcohol Withdrawal. ms3 18:51 Mr. Barriga a 48-year-old male, presents to the Emergency Department with symptoms ms3 related to alcohol cessation. He reports stopping drinking on Tuesday, which was two days ago. Since then, he has experienced continuous shaking and has been experiencing non-stop vomiting for the past two days. He also reports stomach pain and a headache. He does not recall most of the events from last week, noting episodes of blacking out.. Historical: - Allergies: 12:17 No Known Allergies; ss - PMHx: 12:17 Alcohol dependence; Anxiety; depressive disorder; Night Terrors; PTSD; ss - PSHx: 12:17 aortic root replacement; ss - Immunization history:: Adult Immunizations up to date. - Infectious Disease History:: Denies. - Social history:: Patient uses alcohol, on a daily basis. Smoking status: Patient denies any tobacco usage or history of. Patient uses alcohol, on a daily basis. ROS: 18:51 Constitutional: Negative for fever, and chills. Respiratory: Negative for shortness of ms3 breath, cough, wheezing, and pleuritic chest pain, Abdomen/GI: Negative for abdominal pain, nausea, vomiting, diarrhea, and constipation, MS/Extremity: Negative for injury and deformity, Skin: Negative for injury, rash, and discoloration, 18:51 Cardiovascular: Negative for chest pain, and palpitations. Exam: 18:51 Constitutional: This is a well developed, well nourished patient who is awake, alert, ms3 and in no acute distress. Neck: Trachea midline, no cervical lymphadenopathy. Supple, full range of motion without nuchal rigidity, or vertebral point tenderness. No Meningismus. Chest/axilla: Normal chest wall appearance and motion. Nontender with no deformity. 18:51 Abdomen/GI: Soft, non-tender, with normal bowel sounds. No distension or tympany. No guarding or rebound. No evidence of tenderness throughout. Skin: Warm, dry with normal turgor. Normal color with no rashes, no lesions, and no evidence of cellulitis. MS/ Extremity: Pulses equal, no cyanosis. Neurovascular intact. Full, normal range of motion. 18:51 Cardiovascular: Rate: tachycardic, Rhythm: regular, Pulses: no pulse deficits are appreciated, Vital Signs: 12:16 Pulse 100; Resp 22; Temp 97.6(O); Pulse Ox 100% ; Weight 97.52 kg; Height 5 ft. 11 in. ;ss 13:00 BP 147 / 76; Pulse 94; Resp 18; Pulse Ox 98% on R/A; me1 14:00 BP 137 / 74; Pulse 94; Resp 16; Pulse Ox 99% ; me1 14:45 BP 136 / 76; Pulse 91; Resp 17; Temp 98.4; Pulse Ox 99% ; me1 12:16 Body Mass Index 29.99 (97.52 kg, 180.34 cm) ss MDM: 12:16 Medical Screening Exam initiated ms3 18:51 Differential Diagnosis Alcohol withdrawal vs Rhabdo vs DT. Data reviewed: vital signs, ms3 nurses notes, lab test result(s), and as a result, I will admit patient. Consideration of Admission/Observation Patient was admitted/placed on observation. Management of patient was discussed with the following: Hospitalist: Dr Michaud. I considered the following discharge prescriptions or medication management in the emergency department Medications were administered in the Emergency Department. See MAR. Historians other than the Patient: EMS: [facility]. Counseling: I had a detailed discussion with the patient and/or guardian regarding the historical points, exam findings, and any diagnostic results supporting the discharge/admit diagnosis, lab results, the need for further work-up and treatment in the hospital. ED course: Labs do not reveal rhabdomyolysis. After 4 mg Ativan patient's shaking improved. Discussed necessity for admission with patient. He understands agrees with plan. All questions were answered.. 08/07 12:18 Order name: CBC with Diff; Complete Time: 13:26 ms3 08/07 12:18 Order name: CMP; Complete Time: 13:26 ms3 08/07 12:18 Order name: CK; Complete Time: 13:26 ms3 08/07 13:59 Order name: Urinalysis w/ reflexes EDSD 08/07 13:59 Order name: Urine Drug Screen EDSD 08/07 13:58 Order name: Delirium Tremens Prophylaxis-IV Meds EDMS Administered Medications: 13:25 Drug: Ativan IVP 2 mg IVP once Route: IVP; Site: right forearm; me1 13:26 Follow up: Response: No adverse reaction; Anxiety decreased me1 13:25 Drug: Thiamine PO 100 mg PO once Route: PO; me1 13:29 Follow up: Response: No adverse reaction me1 13:25 Drug: multivitamins-mins no. 82-[id number] acid 9 mg iron-500 mcg 1 caps PO once Route: me1 PO; 13:29 Follow up: Response: No adverse reaction me1 13:25 Drug: NS 0.9% IV 1000 ml IV at 1 bolus Per protocol; to be given as a bolus over 60 me1 minutes Route: IV; Rate: 1 bolus; Site: right forearm; 14:16 Follow up: Response: No adverse reaction; IV Status: Completed infusion; IV Intake: me1 1000ml 14:16 Drug: Ativan IVP 2 mg IVP once Route: IVP; Site: right forearm; me1 14:27 Follow up: Response: No adverse reaction; Marked relief of symptoms me1 Disposition Summary: 08/07/24 13:40 Hospitalization Ordered Notes: Hospitalization Status: Inpatient Admission ms3 Provider: Regan Michaud ms3 Condition: Stable ms3 Problem: new ms3 Symptoms: are unchanged ms3 Bed/Room Type: Standard ms3 Location: Telemetry/MedSurg (Inpatient)(08/07/24 14:10) Room Assignment: [facility](08/07/24 14:10) Diagnosis - Delirium tremens ms3 Forms: - Medication Reconciliation Form ms3 - SBAR form ms3 - Leadership Thank You Letter ms3 Critical care time excluding procedures: 18:51 Critical care time: Bedside Care: 30 minutes, Consultation: 5 minutes. Total time: 35 ms3 minutes Signatures: Dispatcher [employer] Tori Shahid Shelby, RN RN Gaston Wright DO DO ms3 Cesilia Sims RN RN me1 Corrections: (The following items were deleted from the chart) 12:19 12:19 CBC+H.LAB.BRZ ordered. EDMS EDMS 12: 12:19 COMPREHENSIVE METABOLIC PANEL+C.LAB.BRZ ordered. EDMS EDMS : 12:19 CREATINE PHOSPHOKINASE+C.LAB.BRZ ordered. EDMS EDMS 14: 13:40 Intensive Care Unit ms3 bd 14:10 13:40 ms3 bd
[2024-08-07] MEDS ORDERED: LORazepam 2 MG/ML VIAL IV PRN (13:51)
[2024-08-07] MEDS ORDERED: SODIUM CHLORIDE 0.9% 10ML INJ IV PRN (13:57)
[2024-08-07] MEDS: PANTOPRAZOLE 40 MG INJ IVP SCH (13:58)
[2024-08-07] MEDS: LORazepam 2 MG/ML VIAL IV SCH (14:00)
[2024-08-07 17:19] VITALS: BMI 29.8
[2024-08-08] MEDS: MORPHINE 2 MG/ML SYR IV PRN (00:35)
[2024-08-08 07:43] LABS: Absolute Eosinophils 0.1 K/uL (0-0.5); Absolute Lymphocytes (CBC) 0.8 K/uL (0.7-4.9); Absolute Monocytes 0.6 K/uL (0.1-1.3); Absolute Neutrophil 6.8 K/uL (1.8-8.0); Basophils % 0.4 % (0-1.3); Eosinophils % 1.1 % (0-4.4); Hematocrit 36.9 % (39.6-49.0); Hemoglobin 12.3 g/dL (13.6-17.9); Lymphocytes % 9.6 % (15.3-44.8); MCH 29.6 pg (27.0-35.0); MCHC 33.4 g/dL (32.0-36.0); MCV 88.6 fL (80-100); MPV 7.9 fL (7.6-11.3); Monocytes % 7.6 % (3.3-12.3); Neutrophils % 81.3 % (41.7-73.7); Platelets 111 thou/uL (152-406); RBC Red Blood Cell Count 4.17 M/uL (4.33-5.43)
[2024-08-08 07:59] LABS: Anion Gap 10.7 mEq/L (5.0-15.0); Magnesium 1.4 mg/dL (1.6-2.4); Phosphorus 1.8 mg/dL (2.5-4.9); Potassium 2.7 mEq/L (3.5-5.1)
[2024-08-08] MEDS: FOLIC ACID 1 MG, MULTIVITAMINS INJ 10 ML, THIAMINE HCL 100 MG in NA CHLORIDE 0.9% 1,000 ML IV SCH (08:30)
[2024-08-08] MEDS ORDERED: FOLIC ACID 1 MG, MULTIVITAMINS INJ 10 ML, THIAMINE HCL 100 MG in NA CHLORIDE 0.9% 1,000 ML IV SCH (09:00)
--- NOTE | 2024-08-08 10:59 | P.PN ---
Date of Service: 08/08/24 Subjective Awake, still uncomfortable, tremors persist CLD started, will advance as tolerated On RA ROS 10 point ROS as noted above, otherwise negative Physical Exam General: Alert and Oriented x3, Disheveled, uncomfortable HEENT: Atraumatic, Normocephalic, PERRLA Neck: Supple, 2+ carotid pulse no bruit Respiratory: Clear to auscultation bilaterally, Normal air movement Cardiovascular: Normal pulses, Normal S1 S2, NSR, Irregular heart rate/rhythm (mild tachycardia) Capillary refill: <2 Seconds Gastrointestinal: Normal bowel sounds, Soft and benign on palpation, nontender Musculoskeletal: No clubbing Integumentary: No rashes Neurological: Other (Tremors ) Vitals Reviewed Problem list Alcohol intoxication in active withdrawl History of Alcohol abuse Electrolyte imbalance Tachycardia Noncompliance follow-up/medications Schizoaffective anxiety PTSD major depressive disorder Assessment and Plan Alcohol intoxication in active withdrawl History of Alcohol abuse Electrolyte imbalance Tachycardia Noncompliance follow-up/medications -Na 132, K 2.7, Phos 1.8, Mag 1.4 -Electrolyte replacement PRN -Frequent hospitalizations, Last admission in June -Education provided, [facility] resources available -[facility] protocol -Banana bag, IVF -Ativan PRN -Monitor for delirium tremens and seizure precautions in place -continuous telemetry -UDS still pending Schizoaffective anxiety PTSD major depressive disorder -Continue home medications DVT ppx SCD Full code LOS 2 days Discharge Plan: Home Plan to discharge in: 24 Hours <Xochitl Seymour - Last Filed: 08/08/24 10:45> Patient tolerating oral diet well, I will advance diet to soft diet. Patient is demonstrating moderate tremors of both hands, tachycardia and mild elevated blood pressure. I will add Inderal 60 mg long-acting once a day and titrate up slowly. <ERIKA Michaud - Last Filed: 08/08/24 14:39>
[2024-08-08] MEDS: NA CHLORIDE 0.9% 1,000 ML IV SCH (11:00)
[2024-08-08] MEDS: POTASS/SODIUM PHOSPHATE 1 PKT POWD.PACK PO ONE (11:11)
[2024-08-08] MEDS: KCL 20 MEQ/100 mL IVPB 20 MEQ/100 ML BAG IV SCH (11:11)
[2024-08-08] MEDS: PROPRANOLOL HCL 60 MG SA CAP PO SCH (14:33)
[2024-08-08] MEDS: chlordiazePOXIDE HCl 25 MG CAP PO SCH (17:14)
[2024-08-08] MEDS: BUSPIRONE HCL 5 MG TABLET PO SCH (20:12)
[2024-08-08] MEDS: MAGNESIUM OXIDE 400 MG TAB PO SCH (20:12)
[2024-08-08] MEDS: PRAZOSIN HCL 1 MG CAP PO SCH (20:12)
[2024-08-08] MEDS: TRAZODONE 150 MG TAB PO SCH (20:12)
[2024-08-08] MEDS ORDERED: HOME MED 1 EA UNK (Buspirone Hcl [Buspar] 10 MG Tablet) PO SCH (21:00)
[2024-08-08] MEDS ORDERED: HOME MED 1 EA UNK (Prazosin Hcl [Prazosin Hcl] 2 MG Capsule) PO SCH (21:00)
[2024-08-08] MEDS ORDERED: QUETIAPINE 25 MG TAB PO SCH (21:00)
[2024-08-08] MEDS: POTASSIUM CL SA 10 MEQ TAB PO ONE (23:37)
[2024-08-09 05:30] LABS: Absolute Eosinophils 0.1 K/uL (0-0.5); Absolute Lymphocytes (CBC) 0.8 K/uL (0.7-4.9); Absolute Monocytes 0.6 K/uL (0.1-1.3); Absolute Neutrophil 4.7 K/uL (1.8-8.0); Basophils % 0.3 % (0-1.3); Eosinophils % 1.8 % (0-4.4); Hematocrit 33.1 % (39.6-49.0); Hemoglobin 11.2 g/dL (13.6-17.9); Lymphocytes % 12.9 % (15.3-44.8); MCH 30.1 pg (27.0-35.0); MCHC 33.8 g/dL (32.0-36.0); MCV 88.9 fL (80-100); MPV 8.9 fL (7.6-11.3); Monocytes % 10.4 % (3.3-12.3); Neutrophils % 74.6 % (41.7-73.7); Platelets 95 thou/uL (152-406); RBC Red Blood Cell Count 3.72 M/uL (4.33-5.43); Red Cell Distribution Width 17.6 % (12.1-15.2)
[2024-08-09 05:59] LABS: Albumin/Globulin Ratio 0.8 (1.1-1.8); Anion Gap 9.9 mEq/L (5.0-15.0); Bilirubin Total 0.5 mg/dL (0.2-1.0); Globulin 3.6 g/dL (2.3-3.5); Magnesium 1.3 mg/dL (1.6-2.4); Phosphorus 1.8 mg/dL (2.5-4.9); Potassium 2.9 mEq/L (3.5-5.1); Protein, Total 6.6 g/dL (6.4-8.2)
[2024-08-09 07:28] LABS: Platelet Estimate DECR; White Blood Cell Scan OK (OK)
[2024-08-09 08:11] LABS: Blood Morphology Comment NOT SEEN (NOT SEEN)
[2024-08-09] MEDS ORDERED: HOME MED 1 EA UNK (Quetiapine Fumarate [Seroquel] 50 MG Tablet) PO SCH (09:00)
[2024-08-09] MEDS: Magnesium Sulfate 2gm IVPB 2 G/50 ML BAG IV ONE ×2 (09:00→16:12)
--- NOTE | 2024-08-09 09:23 | P.PN ---
Date of Service: 08/09/24
--- NOTE | 2024-08-09 09:32 | P.DS ---
Admission Date: 08/07/24 Discharge Date: 08/09/24 Disposition: ROUTINE DISCHARGE Discharge Condition: GOOD Reason for Admission: Alcohol withdrawal Brief History of Present Illness: Felipe Barriga is a 48-year-old male with past medical history of PTSD, schizoaffective anxiety, major depressive disorder, alcohol abuse, aortic root replacement who presents to the ED in alcohol withdrawal. He has been admitted multiple times for alcohol withdrawal. Education provided with resources from the [place] the offer help. On examination, he is having tremors and dry heaves, HR with mild tachycardia, BP stable. Laboratory evaluation sodium 128, potassium 3.2, creatinine kinase 545, H&H , platelets 136 Felipe Barriga will be admitted to hospitalist service for further monitoring and treatment of alcohol intoxication in active withdrawl Hospital Course: Mr. Barriga is acutely aware of his disease process. He has been to inpatient rehab 7 times. He stated to me this morning that he knew his stressors were "excuses" and that rehab helped for between 2 months and 1 year. This most recent exacerbation was secondary to noncommunication between he and his Son. He states he knows it is a difficult time of year with [place] around the corner. We discussed coping mechanisms and that frequent admissions only results in a Band-Aid not actual treatment. This morning labs show significant hypokalemia (2.9). We will replete and discharge him home later today. Vital Signs/Physical Exam: Temp Pulse Resp BP Pulse Ox 97.9 F 87 16 109/63 99 08/09/24 08:00 08/09/24 08:00 08/09/24 08:00 08/09/24 08:00 08/09/24 08:00 General: Alert, In no apparent distress, Oriented x3 HEENT: Atraumatic, Normocephalic Neck: Supple Respiratory: Normal air movement Cardiovascular: No edema, Normal pulses Capillary refill: <2 Seconds Gastrointestinal: Soft and benign Musculoskeletal: No clubbing, No swelling Integumentary: No rashes Neurological: Normal speech, Normal tone, Normal affect Lymphatics: No axilla or inguinal lymphadenopathy External genitalia: Deferred Rectal: Deferred Laboratory Data at Discharge: WBC 6.30 thou/uL (4.3-10.9) 08/09/24 05:00 Hgb 11.2 g/dL (13.6-17.9) L D 08/09/24 05:00 Hct 33.1 % (39.6-49.0) L 08/09/24 05:00 Plt Count 95 thou/uL (152-406) L 08/09/24 05:00 Sodium 136 mEq/L (136-145) D 08/09/24 05:00 Potassium 2.9 mEq/L (3.5-5.1) L 08/09/24 05:00 BUN 11 mg/dL (7-18) 08/09/24 05:00 Creatinine 1.03 mg/dL (0.70-1.30) 08/09/24 05:00 Glucose 139 mg/dL (74-106) H 08/09/24 05:00 Phosphorus 1.8 mg/dL (2.5-4.9) L 08/09/24 05:00 Magnesium 1.3 mg/dL (1.6-2.4) L 08/09/24 05:00 Total Bilirubin 0.5 mg/dL (0.2-1.0) 08/09/24 05:00 AST 13 U/L (15-37) L 08/09/24 05:00 ALT 15 U/L (16-61) L 08/09/24 05:00 Alkaline Phosphatase 77 U/L (45-117) 08/09/24 05:00 Home Medications: Buspirone HCl [Buspar] 20 mg PO BID 08/08/24 Prazosin HCl 2 mg PO BEDTIME 08/08/24 Quetiapine Fumarate [Seroquel] 50 mg PO DAILY 08/08/24 Quetiapine [Seroquel] 75 mg PO BEDTIME 08/08/24 Sertraline [Zoloft] 200 mg PO DAILY 08/08/24 Trazodone [Desyrel] 150 mg PO BEDTIME 08/08/24 Physician Discharge Instructions: Mr. Barriga is acutely aware of his disease process. He has been to inpatient rehab 7 times. He stated to me this morning that he knew his stressors were "excuses" and that rehab helped for between 2 months and 1 year. This most recent exacerbation was secondary to noncommunication between he and his Son. He states he knows it is a difficult time of year with [place] around the corner. We discussed coping mechanisms and that frequent admissions only results in a Band-Aid not actual treatment. This morning labs show significant hypokalemia (2.9). We will replete and discharge him home later today. Diet: AHA Activity: Fall precautions [facility]: [facility] [Primary Care Provider] -
[2024-08-09] MEDS: KCL 20 MEQ/100 mL IVPB 20 MEQ/100 ML BAG IV SCH (09:34)
[2024-08-09] MEDS: QUETIAPINE 25 MG TAB PO SCH (09:35)
[2024-08-09] MEDS: POTASS/SODIUM PHOSPHATE 1 PKT POWD.PACK PO SCH (09:36)
[2024-08-09] MEDS: SERTRALINE HCL 100 MG TAB PO SCH (09:36)
[2024-08-09] MEDS ORDERED: LORazepam 2 MG/ML VIAL IV SCH (14:00)
[2024-08-09 14:11] LABS: Specific Gravity 1.011 (1.005-1.030); Urine Bilirubin NEGATIVE (Negative); Urine Blood Negative (Negative); Urine Clarity Clear (Clear); Urine Color Light-Yellow (Yellow); Urine Glucose NEGATIVE (Negative); Urine Ketones NEGATIVE (Negative); Urine Microscopic Reflex YN NO UMIC; Urine Nitrite NEGATIVE (Negative); Urine Protein NEGATIVE (Negative); Urine Urobilinogen Normal (Normal); Urine pH 7.5 (5.0-7.0)
[2024-08-09 14:22] LABS: Barbiturates NEGATIVE (NEGATIVE); Benzodiazepines POSITIVE (NEGATIVE); Cocaine NEGATIVE (NEGATIVE); METHAMPHETAM NEGATIVE (NEGATIVE); Methadone NEGATIVE (NEGATIVE); Opiates NEGATIVE (NEGATIVE); Phencyclidine NEGATIVE (NEGATIVE); THC Cannibis POSITIVE (NEGATIVE)
[2024-08-09 16:20] VITALS: O2SAT 95
[2024-08-09 20:38] VITALS: BP 118/66; TEMP 98.3
[2024-08-10] MEDS ORDERED: THIAMINE HCL 100 MG TABLET PO SCH (09:00)
[2024-08-10] MEDS ORDERED: MULTIVITAMIN TAB PO SCH (09:00)
[2024-08-10] MEDS ORDERED: FOLIC ACID 1 MG TABLET PO SCH (09:00)
== END 2024-08-09 19:34 | disposition home or self-care (01) | DRG 897 ==
LOC: ER 12:14 → ERHOLD 13:51 → 2ND 14:48
PROVIDERS: ADMIT Internal Medicine; ATTEND Internal Medicine
DX: F10.121 Alcohol abuse with intoxication delirium (principal); F10.139 Alcohol abuse with withdrawal, unspecified; F43.10 Post-traumatic stress disorder, unspecified; F25.1 Schizoaffective disorder, depressive type; E87.6 Hypokalemia; F32.9 Major depressive disorder, single episode, unspecified; R00.0 Tachycardia, unspecified; Z79.899 Other long term (current) drug therapy; Z91.148 Patient's other noncompliance with medication regimen for other reason; Z91.199 Patient's noncompliance with other medical treatment and regimen due to unspecified reason
CPT/HCPCS: 36415; 80048; 80053; 80307; 81003; 82550; 83735; 84100; 84132; 85025; 96361; 96374; 99285; J2270; J2470; J3411; J3475; J3480; J7030

== ENCOUNTER 2024-08-14 17:00 | Emergency (ER) | payer OTHER ==
[2024-08-14 17:25] LABS: Absolute Basophils 0.1 K/uL (0-0.5); Absolute Eosinophils 0.1 K/uL (0-0.5); Absolute Lymphocytes (CBC) 1.4 K/uL (0.7-4.9); Absolute Monocytes 0.9 K/uL (0.1-1.3); Basophils % 1.2 % (0-1.3); Eosinophils % 1.5 % (0-4.4); Hematocrit 38.5 % (39.6-49.0); Hemoglobin 12.8 g/dL (13.6-17.9); MCH 29.4 pg (27.0-35.0); MCHC 33.2 g/dL (32.0-36.0); MCV 88.8 fL (80-100); Monocytes % 16.6 % (3.3-12.3); Neutrophils % 54.7 % (41.7-73.7); Nucleated Red Blood Cells % 0.1 % (0-0); Platelets 217 thou/uL (152-406); RBC Red Blood Cell Count 4.34 M/uL (4.33-5.43)
[2024-08-14] MEDS ORDERED: droPERidol 5 MG/2 ML VIAL ONE (17:31)
[2024-08-14] MEDS ORDERED: NA CHLORIDE 0.9% 1,000 ML ONE ×2 (17:31→20:21)
[2024-08-14 17:33] LABS: PT Prothrombin Time 11.9 SECONDS (9.4-12.5); Protime INR 1.06
[2024-08-14 17:44] LABS: ALT/SGPT 49 U/L (16-61); AST/SGOT 51 U/L (15-37); Albumin 3.6 g/dL (3.4-5.0); Albumin/Globulin Ratio 0.8 (1.1-1.8); Alkaline Phosphatase 80 U/L (45-117); Anion Gap 16.3 mEq/L (5.0-15.0); BUN Blood Urea Nitrogen 11 mg/dL (7-18); Bicarbonate 23 mEq/L (21-32); Bilirubin Total 0.4 mg/dL (0.2-1.0); Globulin 4.6 g/dL (2.3-3.5); Glomerular Filtration Rate 69 ml/min (=/>90); Glucose Level 117 mg/dL (74-106); Lipase 86 U/L (13-75); NT PRO-BNP 55 pg/mL (<125); Potassium 3.3 mEq/L (3.5-5.1); Protein, Total 8.2 g/dL (6.4-8.2); Sodium Level 139 mEq/L (136-145); Troponin High Sensitivity 33.5 pg/mL (<58.9)
[2024-08-14 17:45] LABS: Bilirubin Direct < 0.2 mg/dL (0-0.2); Bilirubin Indirect, Calculated 0.2 mg/dL (0.2-0.8)
--- NOTE | 2024-08-14 17:50 | RAD REPORT ---
Procedure: Chest Single View HISTORY: Chest pain COMPARISON: June 2024 FINDINGS: The lungs appear clear of acute infiltrate. No significant pleural effusion noted. The heart is normal size.. Post surgical changes involve the chest. IMPRESSION: No acute abnormality is displayed.
--- NOTE | 2024-08-14 19:10 | RAD REPORT ---
EXAMINATION: CT ABDOMEN AND PELVIS WITH CONTRAST CLINICAL INDICATION: Abdominal pain TECHNIQUE: CT abdomen and pelvis was performed, after the administration of 100 cc Isovue-300.. Sagit giovany and coronal reconstructions were obtained. One or more of the following dose reduction techniques were used: Automated exposure control, adjustment of the mA and kV according to patient si ze, and iterative reconstruction. Unless otherwise specified, incidental findings do not require dedicated imaging follow-up. [id number]. Oral contrast was not given which limits evaluation of bowel and appendix. COMPARISON: .May 2024 FINDINGS: The liver is mildly enlarged. The spleen, pancreas, adrenals and kidneys appear unremarkable No evidence of diverticulitis. Small hiatal hernia Normal appendix : IMPRESSION: Mild hepatomegaly
--- NOTE | 2024-08-14 22:18 | EDPHYS ---
Physician Documentation [facility] Name: Felipe Barriga Age: 48 yrs Sex: Male : 1975 Arrival Date: 08/14/2024 Time: 17:00 Bed 3 Private MD: ED Physician Chuck Shine HPI: 08/14 17:05 This 48 yrs old Male presents to ER via EMS with complaints of ETOH withdrawal. sb4 17:05 patient with history of binging alcohol presents with a withdrawal episode. states that sb4 he last drank yesterday and has been experiencing nausea, vomiting, abdominal pain, chest pain, and headache since. states that when he goes on drinking binges, he drinks a 5th of whiskey/day. states he has been drinking more recently because of the holidays. Historical: - Allergies: 17:01 No Known Allergies; ll1 - PMHx: 17:01 Alcohol dependence; Anxiety; depressive disorder; Night Terrors; PTSD; ll1 - PSHx: 17:01 aortic root replacement; ll1 - Immunization history:: Adult Immunizations up to date. - Infectious Disease History:: Denies. - Social history:: Smoking status: Patient reports the use of cigarette tobacco products, denies chronic smoking, but will smoke occasionally. ROS: 17:06 Constitutional: Negative for fever, chills, and weight loss, sb4 17:06 Cardiovascular: Positive for chest pain, 17:06 Abdomen/GI: Positive for abdominal pain, nausea and vomiting, 17:06 Neuro: Positive for headache, 17:06 All other systems are negative, Exam: 17:07 Head/Face: Normocephalic, atraumatic. Eyes: Extra-ocular motions intact. Periorbital sb4 areas with no swelling, redness, or edema. Respiratory: No increased work of breathing, no retractions or nasal flaring. Skin: Warm, dry with normal turgor. Normal color with no rashes, no lesions, and no evidence of cellulitis. 17:07 Constitutional: The patient appears alert, awake, unkempt, 17:07 Cardiovascular: Rate: tachycardic, Rhythm: regular, 17:07 Abdomen/GI: Inspection: distension, that is moderate, Palpation: soft, mild abdominal tenderness, in all quadrants, Vital Signs: 17:01 BP 131 / 93; Pulse 121; Resp 20; Pulse Ox 97% on R/A; Pain 9/10; ll1 19:06 BP 122 / 76; Pulse 110; Resp 18; Temp 97.2; Pulse Ox 96% on R/A; ll1 21:20 BP 136 / 87; Pulse 101; Resp 18 S; Pulse Ox 93% on R/A; br2 22:35 BP 135 / 86; Pulse 98; Resp 20 S; Pulse Ox 100% on R/A; aa10 17:01 Pain Scale: Adult ll1 MDM: 17:01 Medical Screening Exam initiated sb4 22:17 Data reviewed: vital signs, nurses notes, EMS record, lab test result(s), radiologic sb4 studies, and as a result, I will discharge patient. Counseling: I had a detailed discussion with the patient and/or guardian regarding the historical points, exam findings, and any diagnostic results supporting the discharge/admit diagnosis, lab results, radiology results, the need for outpatient follow up, for definitive care, to return to the emergency department if symptoms worsen or persist or if there are any questions or concerns that arise at home. 08/14 17:02 Order name: Basic Metabolic Panel; Complete Time: 17:45 sb4 08/14 17:02 Order name: CBC with Diff; Complete Time: 17:46 sb4 08/14 17:02 Order name: LFT's; Complete Time: 17:45 sb4 08/14 17:02 Order name: NT PRO-BNP; Complete Time: 17:45 sb4 08/14 17:02 Order name: PT-INR; Complete Time: 17:45 sb4 08/14 17:02 Order name: Troponin HS; Complete Time: 17:45 sb4 08/14 17:02 Order name: Lipase; Complete Time: 17:45 sb4 08/14 19:15 Order name: Troponin High Sensitivity; Complete Time: 20:59 sb4 08/14 17:02 Order name: XRAY Chest (1 view); Complete Time: 17:52 sb4 08/14 17:53 Order name: CT Abd/Pelvis - IV Contrast Only; Complete Time: 19:15 sb4 08/14 17:02 Order name: Cardiac monitoring; Complete Time: 17:40 sb4 08/14 17:02 Order name: EKG - Nurse/Tech; Complete Time: 17:40 sb4 08/14 17:02 Order name: IV Saline Lock; Complete Time: 17:40 sb4 08/14 17:02 Order name: Labs collected and sent; Complete Time: 17:19 sb4 08/14 17:02 Order name: O2 Per Protocol; Complete Time: 17:09 sb4 08/14 17:02 Order name: O2 Sat Monitoring; Complete Time: 17:09 sb4 08/14 21:00 Order name: PO challenge; Complete Time: 22:01 sb4 EC:49 Rate is 120 beats/min. Rhythm is regular, Sinus tachycardia. MS interval is normal at sb4 154 msec. QRS interval is normal at 82 msec. QT interval is normal at 320 msec. No Q waves. T waves are Normal. No ST changes noted. Clinical impression: Sinus tachycardia. Interpreted by me. Reviewed by me. Administered Medications: 17:40 Drug: NS 0.9% IV 1000 ml IV at 1000 ml once; to be given as a bolus over 60 minutes jl7 Route: IV; Rate: 1000 ml; Site: left forearm; 22:00 Follow up: IV Intake: 1000ml aa10 22:00 Follow up: Response: No adverse reaction; Marked relief of symptoms aa10 22:54 Follow up: IV Status: Completed infusion; IV Intake: 1000ml aa10 17:40 Drug: Droperidol IVP 2.5 mg IVP once Route: IVP; Site: left forearm; jl7 22:00 Follow up: Response: No adverse reaction; Marked relief of symptoms aa10 20:33 Drug: NS 0.9% IV 1000 ml IV at 1000 ml once; to be given as a bolus over 60 minutes aa10 Route: IV; Rate: 1000 ml; Site: right hand; 21:59 Follow up: Response: No adverse reaction; Marked relief of symptoms; IV Intake: 1000ml aa10 22:53 Follow up: IV Status: Completed infusion; IV Intake: 1000ml aa10 Disposition Summary: 08/14/24 22:18 Discharge Ordered Notes: Location: Home sb4 Problem: an ongoing problem sb4 Symptoms: have improved sb4 Condition: Stable sb4 Diagnosis - Alcohol abuse with other alcohol-induced disorders sb4 Followup: sb4 - With: Private Physician - When: 2 - 3 days - Reason: Recheck today's complaints, Re-evaluation by your physician Discharge Instructions: - Discharge Summary Sheet sb4 - Alcohol Abuse and Dependence Information, Adult sb4 Forms: - Patient Portal Instructions sb4 - Leadership Thank You Letter sb4 Addendum: 08/16/2024 12:39 Co-signature as Attending Physician, Rhea Romero RN I agree with the assessment and c lin plan of care. Signatures: Dispatcher [employer] EDMS Chuck Shine MD MD cha Leal, Jahala, RN RN jl7 Anshu Stahl, RN RN ll1 Neisha Candelario, PA-C PA-C sb4 Rhea Romero, RN RN aa10 Corrections: (The following items were deleted from the chart) 08/14 17:03 17:03 BASIC METABOLIC PANEL+C.LAB.BRZ ordered. EDMS EDMS 17:03 17:03 CBC+H.LAB.BRZ ordered. EDMS EDMS 17:03 17:03 HEPATIC FUNCTION+C.LAB.BRZ ordered. EDMS EDMS 17:03 17:03 PROBNP+C.LAB.BRZ ordered. EDMS EDMS 17:03 17:03 PROTIME (+INR)+COAG.LAB.BRZ ordered. EDMS EDMS 17:03 17:03 Troponin High Sensitivity+C.LAB.BRZ ordered. EDMS EDMS 17:03 17:03 LIPASE+C.LAB.BRZ ordered. EDMS EDMS 17:03 17:03 Chest Single View+RAD.RAD.BRZ ordered. EDMS EDMS 17:53 17:53 Abdomen Pelvis W Con+CT.RAD.BRZ ordered. EDMS EDMS
--- NOTE | 2024-08-14 22:18 | ER ---
Nurse's Notes [facility] Name: Felipe Barriga Age: 48 yrs Sex: Male : 1975 Arrival Date: 08/14/2024 Time: 17:00 Bed 3 Private MD: Diagnosis: Alcohol abuse with other alcohol-induced disorders Presentation: 08/14 17:01 Chief complaint: Patient states: ETOH withdrawals for 2 days. CP, abdominal pain, AWAD, ll1 SOB since. Coronavirus screen: Client denies travel out of the [place] in the last 14 days. At this time, the client does not indicate any symptoms associated with coronavirus-19. Ebola Screen: Patient denies travel to an Ebola-affected area in the 21 days before illness onset. Initial Sepsis Screen: Does the patient meet any 2 criteria? No. Patient's initial sepsis screen is negative. Does the patient have a suspected source of infection? No. Patient's initial sepsis screen is negative. Risk Assessment: Do you want to hurt yourself or someone else? Patient reports no desire to harm self or others. Onset of symptoms was August 13, 2024. 17:01 Method Of Arrival: EMS: [facility] ll1 17:01 Acuity: CLARITA 2 ll1 Triage Assessment: 17:03 General: Appears distressed, uncomfortable, Behavior is calm, cooperative, appropriate ll1 for age. Pain: Complains of pain in chest and abdomen. Cardiovascular: Reports chest pain, shortness of breath. Respiratory: Reports shortness of breath. GI: Reports upper abdominal pain. Historical: - Allergies: 17:01 No Known Allergies; ll1 - PMHx: 17:01 Alcohol dependence; Anxiety; depressive disorder; Night Terrors; PTSD; ll1 - PSHx: 17:01 aortic root replacement; ll1 - Immunization history:: Adult Immunizations up to date. - Infectious Disease History:: Denies. - Social history:: Smoking status: Patient reports the use of cigarette tobacco products, denies chronic smoking, but will smoke occasionally. Screenin:06 [facility] ED Fall Risk Assessment (Adult) History of falling in the last 3 months, ll1 including since admission No falls in past 3 months (0 pts) Confusion or Disorientation No (0 pts) Intoxicated or Sedated No (0 pts) Impaired Gait Yes (1 pt) Mobility Assist Device Used Yes (1 pt) Altered Elimination No (0 pt) Score/Fall Risk Level 0 - 2 = Low Risk Maintained a safe environment, Hourly rounding (assess needs \\T\\ fall precautionary measures) done. Abuse screen: Denies threats or abuse. Nutritional screening: No deficits noted. Tuberculosis screening: No symptoms or risk factors identified. Assessment: 18:30 Reassessment: No changes from previously documented assessment. Patient and/or family ll1 updated on plan of care and expected duration. Pain level reassessed. Patient is alert, oriented x 3, equal unlabored respirations, skin warm/dry/pink. 19:06 Reassessment: No changes from previously documented assessment. Patient and/or family ll1 updated on plan of care and expected duration. Pain level reassessed. Patient is alert, oriented x 3, equal unlabored respirations, skin warm/dry/pink. 22:35 Reassessment: Patient appears in no apparent distress at this time. No changes from aa10 previously documented assessment. Patient and/or family updated on plan of care and expected duration. Pain level reassessed. Patient is alert, oriented x 3, equal unlabored respirations, skin warm/dry/pink. Patient states feeling better. Patient states symptoms have improved. Psych: 19:07 [place] Suicide Severity Screening: "In the past month, have you actually had any ll1 thoughts of killing yourself?". 19:08 [place] Suicide Severity Screening: In the past month, have you wished you were ll1 or wished you could go to sleep and not wake up? Patient responds "No.". [place] Suicide Severity Screening: "In your lifetime, have you ever done anything, started to do anything, or prepared to do anything to end your life?" Patient responds "no.". Subjective: Hallucinations are denied. Objective: Speech is normal. Interventions: n/a. Safety Checks: n/a. Patient uses. 22:53 Commitment: N/A. aa10 Vital Signs: 17:01 BP 131 / 93; Pulse 121; Resp 20; Pulse Ox 97% on R/A; Pain 9/10; ll1 19:06 BP 122 / 76; Pulse 110; Resp 18; Temp 97.2; Pulse Ox 96% on R/A; ll1 21:20 BP 136 / 87; Pulse 101; Resp 18 S; Pulse Ox 93% on R/A; br2 22:35 BP 135 / 86; Pulse 98; Resp 20 S; Pulse Ox 100% on R/A; aa10 17:01 Pain Scale: Adult ll1 ED Course: 17:01 Patient arrived in ED. ll1 17:01 [facility] sb4 17:01 Chuck Shine MD is Attending Physician. sb4 17:03 Triage completed. ll1 17:03 Arm band placed on Patient placed in an exam room, on a stretcher. ll1 17:05 Provided Education on: ER procedures and process. ll1 17:09 Anshu Stahl, RN is Primary Nurse. ll1 17:30 Missed attempt(s): 22 gauge in left upper arm. Bleeding controlled, band aid applied, ll1 catheter tip intact. 17:35 Inserted saline lock: 22 gauge in left forearm, using aseptic technique. Blood jl7 collected. Flushed with 10 mL NS. 17:37 XRAY Chest (1 view) In Process Unspecified. EDMS 18:23 CT Abd/Pelvis - IV Contrast Only In Process Unspecified. EDMS 19:00 IV discontinued, intact, bleeding controlled, No redness/swelling at site. Pressure ll1 dressing applied. 19:07 Patient has correct armband on for positive identification. Bed in low position. Client ll1 placed on continuous cardiac and pulse oximetry monitoring. NIBP monitoring applied. 19:12 Report given to shift superintendent RN. ll1 20:31 Troponin High Sensitivity Sent. aa10 20:34 Primary Nurse role handed off by Anshu Stahl, KORIN aa10 20:34 Rhea Romero, KORIN is Primary Nurse. aa10 20:38 Troponin High Sensitivity Sent. aa10 22:37 No provider procedures requiring assistance completed. aa10 22:51 IV discontinued. aa10 Administered Medications: 17:40 Drug: NS 0.9% IV 1000 ml IV at 1000 ml once; to be given as a bolus over 60 minutes jl7 Route: IV; Rate: 1000 ml; Site: left forearm; 22:00 Follow up: IV Intake: 1000ml aa10 22:00 Follow up: Response: No adverse reaction; Marked relief of symptoms aa10 22:54 Follow up: IV Status: Completed infusion; IV Intake: 1000ml aa10 17:40 Drug: Droperidol IVP 2.5 mg IVP once Route: IVP; Site: left forearm; jl7 22:00 Follow up: Response: No adverse reaction; Marked relief of symptoms aa10 20:33 Drug: NS 0.9% IV 1000 ml IV at 1000 ml once; to be given as a bolus over 60 minutes aa10 Route: IV; Rate: 1000 ml; Site: right hand; 21:59 Follow up: Response: No adverse reaction; Marked relief of symptoms; IV Intake: 1000ml aa10 22:53 Follow up: IV Status: Completed infusion; IV Intake: 1000ml aa10 Medication: 19:08 VIS not applicable for this client. ll1 Intake: 21:59 IV: 1000ml; Total: 1000ml. aa10 22:00 IV: 1000ml; Total: 2000ml. aa10 22:53 IV: 1000ml; Total: 3000ml. aa10 22:54 IV: 1000ml; Total: 4000ml. aa10 Outcome: 22:18 Discharge ordered by . sb4 22:37 Discharged to home ambulatory, aa10 22:37 Condition: good 22:37 Discharge instructions given to patient, Instructed on discharge instructions, Demonstrated understanding of instructions, follow-up care, 22:54 Patient left the ED. aa10 Signatures: Dispatcher [employer] EDMS Joseph Hancock RN RN jl7 Anshu Stahl RN RN ll1 Neisha Candelario PA-C PAShannan [email or web address] Stella Rahman RN RN br2 Rhea Romero RN RN aa10
[2024-08-14 23:19] VITALS: TEMP 97.2
[2024-08-14 23:21] VITALS: BP 135/86; O2SAT 100
--- NOTE | 2024-08-17 13:43 | EKG ---
Test Date: 2024-08-14 Test Time: 17:37:34 Information Broker: TM MEASUREMENT RESULTS: Intervals: Rate: 120 WV: 154 QRSD: 82 QT: 320 QTc: 452 [place]: P: 58 WV: 154 QRS: 10 T: 61 INTERPRETIVE STATEMENTS: Sinus tachycardia Cannot rule out Anterior infarct, age undetermined Abnormal ECG Compared to ECG 07/11/2024 14:55:20 Myocardial infarct finding now present Electronically Signed On 08-17-24 13:37:41 TRANSPORTATION COORDINATOR by Prince Nelson
== END 2024-08-14 22:54 | disposition home or self-care (01) ==
LOC: ER 17:00
DX: F10.188 Alcohol abuse with other alcohol-induced disorder (principal); F41.9 Anxiety disorder, unspecified; F32.A Depression, unspecified; F43.10 Post-traumatic stress disorder, unspecified; F17.210 Nicotine dependence, cigarettes, uncomplicated
CPT/HCPCS: 96361; 93005; 85025; 80048; 36415; 85610; 80076; 84484 ×2; 83690; 83880; 74177; 71045; 96374; 99284; Q9967; J1790; J7030 ×2

== ENCOUNTER 2024-09-23 17:28 | Emergency (ER) | payer OTHER ==
--- OUTSIDE RECORDS SUMMARY | 2024-09-23 17:31 | XMS REPORT | Continuity of Care Document ---
Author Name Unknown Address [address] [place] [address] [facility] Address [address] [place] [address] Care Team Providers Care Tool Planer Set Up Operator Name Role Phone Vickie Garcia Attending Clinician Unavailable Vickie Garcia Admitting Clinician Unavailable Payers Payer Name Policy Type Policy Number Effective Date Expirati on Date Source Allergies, Adverse Reactions, Alerts Allergy Name Allergy Type Status Severity Reaction(s) Onset Date Inactive Date Treating Clinician Comments Source No Known Allergie s DA Active U 03-18 00:00: 00 [facility] Encounters Start Date/Time End Date/Time Encounter Type Admission Type Attending Clinicians Care Facility Care Department Encounter ID Source 2024-03-18 03:55:00 2024-03-20 12:41:00 Inpatient EM Vickie Garcia [facility] TELE [id number] [facility] Results Test Description Test Time Test Comments Results Result Co mments Source COMPREHENSIVE METABOLIC [id number] 17:15:00* Test Item Value Reference Range Interpretation Comme nts SODIUM (test code = NA) 136 mmol/l 134.0-147.0 N POTASSIUM (test code = K) 3.8 mmol/L 3.6-5.2 N CHLORIDE (test code = CL) 102 mmol/l 98.0-107.0 N CARBON DIOXIDE (test code = CO2) 26.1 mmol/l 21.0-33.0 N ANION GAP (test code = GAP) 11.7 0-20 N GLUCOSE (test code = GLU) 152 mg/dl 70.0-110.0 H BLOOD UREA NITROGEN (test code = BUN) 6 mg/dl 7.0-18.0 L GLOMERULAR FILTRATION RATE (test code = GFR) 89 mL/min The Glomerular Filtration Rate is a calculated parameterbased on serum Creatinine, patient age and sex. GFR valuesless than 60 mL/min/1.73 square meters are indicative ofChronic Kidney Disease. Values less than 15 mL/min/1.73square meters indicate Kidney failure. The calculation forGFR is based on the CKD-EPI (2020) calculation. This formulais race indifferent and is the recommended formula for GFRby the National Kidney Foundation for Adults.The GFR will not calculate if the sex is unknown or if thepatient's age is <18 years. CREATININE (test code = CREAT) 1.04 mg/dL 0.60-1.30 N ESTIMATED CREAT CLEARANCE (test code = ECRCL) 93 mL/min >30 TOTAL PROTEIN (test code = PROT) 6.9 GM/DL 6.0-8.1 N ALBUMIN (test code = ALB) 3.2 gm/dL 3.2-4.7 N CALCIUM (test code = CA) 8.6 mg/dl 8.0-10.5 N BILIRUBIN TOTAL (test code = BILT) 0.6 mg/dl 0.0-1.0 N SGOT/AST (test code = AST) 17 Units/L 15-37 N SGPT/ALT (test code = ALT) 23 Units/L 12.0-78.0 N ALKALINE PHOSPHATASE TOTAL (test code = ALKP) 71 Units/L 50.0-136.0 N [id number] 17:15:00* Test Item Value Reference Range Interpretation Comme nts MAGNESIUM (test code = MAG) 1.3 mg/dl 1.8-2.4 L VITAMIN [id number] 17:15:00* Test Item Value Reference Range Interpretation Comme nts VITAMIN B12 (test code = VITB12) 239 pg/mL 193-986 N CBC W/AUTO [id number] 04:51:00* Test Item Value Reference Range Interpretation Comme nts WHITE BLOOD CELL (test code = WBC) 4.9 K/mm3 4.5-11.0 N RED BLOOD CELL (test code = RBC) 3.55 M/mm3 4.40-5.90 L HEMOGLOBIN (test code = HGB) 10.6 gm/dL 13.0-17.0 L HEMATOCRIT (test code = HCT) 32.7 % 36.0-48.0 L MEAN CELL VOLUME (test code = MCV) 92.1 UM3 80.0-94.0 N MEAN CELL HGB (test code = MCH) 29.9 UUG 25.5-32.5 N MEAN CELL HGB CONCETRATION (test code = MCHC) 32.4 gm/dL 29.0-35.5 N RED CELL DISTRIBUTION WIDTH (test code = RDW) 16.9 % 11.5-15.0 H RED CELL DISTRIBUTION WIDTH SD (test code = RDW-SD) 57.1 fL 34.8-50.2 H PLATELET COUNT (test code = PLT) 118 K/mm3 150-400 L MEAN PLATELET VOLUME (test c ode = MPV) 10.7 fl 7.4-10.4 H NEUTROPHIL % (test code = NT%) 75.8 % 49.0-76.0 N IMMATURE GRANULOCYTE % (test code = IG%) 0.2 % 0.0-0.4 N LYMPHOCYTE % (test code = LY%) 11.9 % 23.0-38.0 L MONOCYTE % (test code = MO%) 8.2 % 1.0-10.0 N EOSINOPHIL % (test code = EO%) 3.3 % 1.0-5.0 N BASOPHIL % (test code = BA%) 0.6 % 0.0-1.0 N NUCLEATED RBC % (test code = NRBC%) 0.0 % 0.0-0.1 N NEUTROPHIL # (test code = NT#) 3.7 K/mm3 2.4-6.3 N IMMATURE GRANULOCYTE # (test code = IG#) 0.01 x10 3/uL 0.00-0.07 N LYMPHOCYTE # (test code = LY#) 0.6 K/mm3 1.2-4.0 L MONOCYTE # (test code = MO#) 0.4 K/mm3 0.0-0.6 N EOSINOPHIL # (test code = EO#) 0.2 K/MM3 0.0-0.7 N BASOPHIL # (test code = BA#) 0.0 K/mm3 0.0-0.2 N NUCLEATED RBC # (test code = NRBC#) 0.00 X10 3uL 0.00-0.01 N COMPREHENSIVE METABOLIC [id number] 05:46:00* Test Item Value Reference Range Interpretation Comme nts SODIUM (test code = NA) 135 mmol/l 134.0-147.0 N POTASSIUM (test code = K) 3.1 mmol/L 3.6-5.2 L CHLORIDE (test code = CL) 101 mmol/l 98.0-107.0 N CARBON DIOXIDE (test code = CO2) 26.1 mmol/l 21.0-33.0 N ANION GAP (test code = GAP) 11.0 0-20 N GLUCOSE (test code = GLU) 88 mg/dl 70.0-110.0 N BLOOD UREA NITROGEN (test code = BUN) 12 mg/dl 7.0-18.0 N GLOMERULAR FILTRATION RATE (test code = GFR) 107 mL/min The Glomerular Filtration Rate is a calculated parameterbased on serum Creatinine, patient age and sex. GFR valuesless than 60 mL/min/1.73 square meters are indicative ofChronic Kidney Disease. Values less than 15 mL/min/1.73square meters indicate Kidney failure. The calculation forGFR is based on the CKD-EPI (202) calculation. This formulais race indifferent and is the recommended formula for GFRby the National Kidney Foundation for Adults.The GFR will not calculate if the sex is unknown or if thepatient's age is <18 years. CREATININE (test code = CREAT) 0.85 mg/dL 0.60-1.30 N ESTIMATED CREAT CLEARANCE (test code = ECRCL) 113 mL/min >30 TOTAL PROTEIN (test code = PROT) 6.3 GM/DL 6.0-8.1 N ALBUMIN (test code = ALB) 3.0 gm/dL 3.2-4.7 L CALCIUM (test code = CA) 7.3 mg/dl 8.0-10.5 L BILIRUBIN TOTAL (test code = BILT) 1.1 mg/dl 0.0-1.0 H SGOT/AST (test code = AST) 21 Units/L 15-37 N SGPT/ALT (test code = ALT) 21 Units/L 12.0-78.0 N ALKALINE PHOSPHATASE TOTAL (test code = ALKP) 75 Units/L 50.0-136.0 N CBC W/AUTO [id number] 04:25:00* Test Item Value Reference Range Interpretation Comme nts WHITE BLOOD CELL (test code = WBC) 3.8 K/mm3 4.5-11.0 L RED BLOOD CELL (test code = RBC) 3.52 M/mm3 4.40-5.90 L HEMOGLOBIN (test code = HGB) 10.5 gm/dL 13.0-17.0 L HEMATOCRIT (test code = HCT) 31.5 % 36.0-48.0 L MEAN CELL VOLUME (test code = MCV) 89.5 UM3 80.0-94.0 N MEAN CELL HGB (test code = MCH) 29.8 UUG 25.5-32.5 N MEAN CELL HGB CONCETRATION (test code = MCHC) 33.3 gm/dL 29.0-35.5 N RED CELL DISTRIBUTION WIDTH (test code = RDW) 17.4 % 11.5-15.0 H RED CELL DISTRIBUTION WIDTH SD (test code = RDW-SD) 56.4 fL 34.8-50.2 H PLATELET COUNT (test code = PLT) 149 K/mm3 150-400 L MEAN PLATELET VOLUME (test c ode = MPV) 11.6 fl 7.4-10.4 H NEUTROPHIL % (test code = NT%) 73.2 % 49.0-76.0 N IMMATURE GRANULOCYTE % (test code = IG%) 0.3 % 0.0-0.4 N LYMPHOCYTE % (test code = LY%) 15.6 % 23.0-38.0 L MONOCYTE % (test code = MO%) 8.1 % 1.0-10.0 N EOSINOPHIL % (test code = EO%) 2.3 % 1.0-5.0 N BASOPHIL % (test code = BA%) 0.5 % 0.0-1.0 N NUCLEATED RBC % (test code = NRBC%) 0.0 % 0.0-0.1 N NEUTROPHIL # (test code = NT#) 2.8 K/mm3 2.4-6.3 N IMMATURE GRANULOCYTE # (test code = IG#) 0.01 x10 3/uL 0.00-0.07 N LYMPHOCYTE # (test code = LY#) 0.6 K/mm3 1.2-4.0 L MONOCYTE # (test code = MO#) 0.3 K/mm3 0.0-0.6 N EOSINOPHIL # (test code = EO#) 0.1 K/MM3 0.0-0.7 N BASOPHIL # (test code = BA#) 0.0 K/mm3 0.0-0.2 N NUCLEATED RBC # (test code = NRBC#) 0.00 X10 3uL 0.00-0.01 N [id number] 20:03:00* Test Item Value Reference Range Interpretation Comme nts GLUBED (test code = GLUBED) 132 mg/dL 70-110 H DRUGS OF ABUSE SCREEN [id number] 08:40:00* Test Item Value Reference Range Interpretation Comme nts URN COCAINE (test code = COCAURN) NEGATIVE NEGATIVE Cocaine cut-off concentration: 300 ng/mL URN CANNABINOIDS (test code = CANNABURN) NEGATIVE NEGATIVE Cannabinoids c ut-off concentration: 50 ng/mL URN AMPHETAMINE (test code = AMPHETURN) NEGATIVE NEGATIVE Amphetamine cu t-off concentration: 1000 ng/mL URN BARBITURATE (test code = BARBITURN) NEGATIVE NEGATIVE Barbiturate cu t-off concentration: 200 ng/mL URN BENZODIAZEPINE (test code = BENZOURN) NEGATIVE NEGATIVE Benzodiaz epine cut-off concentration: 200 ng/mL URN OPIATES (test code = OPIATURN) NEGATIVE NEGATIVE Opiates cut-off concentration: 2000 ng/mL URN PHENCYCLIDINE (PCP) (test code = PHENCURN) NEGATIVE NEGATIVE Phencycli dine(PCP) cut-off concentration: 25 ng/ml URN METHADONE (test code = METHAURN) NEGATIVE NEGATIVE Methadone cut-o ff concentration: 300 ng/mL WHAT DRUGS HAVE BEEN TAKEN? [id number] 03:26:00* Test Item Value Reference Range Interpretation Comme nts ALCOHOL (test code = ALC) 0.47 gm/dL 0.00-0.00 HH ETHYL ALCOHOL VA LUES - INTERPRETATION: 0.050 GM/DL - NOT INTOXICATED 0.100 GM/DL - INTOXICATED 0.350-0.450 GM/DL - SEVERELY INTOXICATED 0.550 GM/DL- FATAL INTOXICATION BASIC METABOLIC [id number] 03:26:00* Test Item Value Reference Range Interpretation Comme nts SODIUM (test code = NA) 136 mmol/l 134.0-147.0 N POTASSIUM (test code = K) 4.2 mmol/L 3.6-5.2 N CHLORIDE (test code = CL) 96 mmol/l 98.0-107.0 L CARBON DIOXIDE (test code = CO2) 19.0 mmol/l 21.0-33.0 L ANION GAP (test code = GAP) 25.2 0-20 H GLUCOSE (test code = GLU) 80 mg/dl 70.0-110.0 N BLOOD UREA NITROGEN (test code = BUN) 15 mg/dl 7.0-18.0 N GLOMERULAR FILTRATION RATE (test code = GFR) 84 mL/min The Glomerular Filtration Rate is a calculated parameterbased on serum Creatinine, patient age and sex. GFR valuesless than 60 mL/min/1.73 square meters are indicative ofChronic Kidney Disease. Values less than 15 mL/min/1.73square meters indicate Kidney failure. The calculation forGFR is based on the CKD-EPI (202) calculation. This formulais race indifferent and is the recommended formula for GFRby the National Kidney Foundation for Adults.The GFR will not calculate if the sex is unknown or if thepatient's age is <18 years. CREATININE (test code = CREAT) 1.09 mg/dL 0.60-1.30 N CALCIUM (test code = CA) 7.5 mg/dl 8.0-10.5 L ESTIMATED CREAT CLEARANCE (test code = ECRCL) 88 mL/min >30 HEPATIC FUNCTION PANEL [id number] 03:26:00* Test Item Value Reference Range Interpretation Comme nts TOTAL PROTEIN (test code = PROT) 8.5 GM/DL 6.0-8.1 H ALBUMIN (test code = ALB) 3.9 gm/dL 3.2-4.7 N BILIRUBIN TOTAL (test code = BILT) 0.5 mg/dl 0.0-1.0 N BILIRUBIN DIRECT (test code = BILD) <0.1 mg/dl 0.0-0.3 N SGOT/AST (test code = AST) 45 Units/L 15-37 H SGPT/ALT (test code = ALT) 34 Units/L 12.0-78.0 N ALKALINE PHOSPHATASE TOTAL ( test code = ALKP) 118 Units/L 50.0-136.0 N [id number] 03:26:00* Test Item Value Reference Range Interpretation Comme nts LIPASE (test code = LIP) 78 Units/L 16-77 H TROP-I HIGH [id number] 03:26:00* Test Item Value Reference Range Interpretation Comme nts TROP-I HIGH SENSITIVITY (test code = TROPIHS) 29 ng/L 0-76 N CAUTION: Units o f the current TROPI-HS test methodology(ng/L) differ from the prior test methodology (ng/mL) by afactor of 1000. 99th Percentile: Females: 0 - 51 ng/L Males: 0 - 76 ng/LThese results were obtained using [facility] TnIHreagent. Results from different methodologies should not becompared to one another as quantitative results may vary bymethod. CBC W/AUTO [id number] 03:04:00* Test Item Value Reference Range Interpretation Comme nts WHITE BLOOD CELL (test code = WBC) 5.4 K/mm3 4.5-11.0 N RED BLOOD CELL (test code = RBC) 4.82 M/mm3 4.40-5.90 N HEMOGLOBIN (test code = HGB) 14.1 gm/dL 13.0-17.0 N HEMATOCRIT (test code = HCT) 42.1 % 36.0-48.0 N MEAN CELL VOLUME (test code = MCV) 87.3 UM3 80.0-94.0 N MEAN CELL HGB (test code = MCH) 29.3 UUG 25.5-32.5 N MEAN CELL HGB CONCETRATION (test code = MCHC) 33.5 gm/dL 29.0-35.5 N RED CELL DISTRIBUTION WIDTH (test code = RDW) 16.7 % 11.5-15.0 H RED CELL DISTRIBUTION WIDTH SD (test code = RDW-SD) 54.1 fL 34.8-50.2 H PLATELET COUNT (test code = PLT) 221 K/mm3 150-400 N MEAN PLATELET VOLUME (test c ode = MPV) 9.9 fl 7.4-10.4 N NEUTROPHIL % (test code = NT%) 76.7 % 49.0-76.0 H IMMATURE GRANULOCYTE % (test code = IG%) 0.2 % 0.0-0.4 N LYMPHOCYTE % (test code = LY%) 15.3 % 23.0-38.0 L MONOCYTE % (test code = MO%) 6.2 % 1.0-10.0 N EOSINOPHIL % (test code = EO%) 0.7 % 1.0-5.0 L BASOPHIL % (test code = BA%) 0.9 % 0.0-1.0 N NEUTROPHIL # (test code = NT#) 4.1 K/mm3 2.4-6.3 N IMMATURE GRANULOCYTE # (test code = IG#) 0.01 x10 3/uL 0.00-0.07 N LYMPHOCYTE # (test code = LY#) 0.8 K/mm3 1.2-4.0 L MONOCYTE # (test code = MO#) 0.3 K/mm3 0.0-0.6 N EOSINOPHIL # (test code = EO#) 0.0 K/MM3 0.0-0.7 N BASOPHIL # (test code = BA#) 0.1 K/mm3 0.0-0.2 N [id number] 02:29:00* Test Item Value Reference Range Interpretation Comme nts GLUBED (test code = GLUBED) 83 mg/dL 70-110 N
[2024-09-23] MEDS ORDERED: DIAZEPAM 10 MG/2 ML INJ SYRINGE ONE (17:40)
[2024-09-23] MEDS ORDERED: ONDANSETRON 4 MG/2 ML VIAL ONE (17:40)
[2024-09-23 18:22] LABS: PT Prothrombin Time 11.3 SECONDS (9.4-12.5); PTT, Activated Partial Thromb 30.6 SECONDS (24.3-36.9); Protime INR 1.08
[2024-09-23 18:28] LABS: Anion Gap 16.2 mEq/L (5.0-15.0)
[2024-09-23 18:29] LABS: Absolute Eosinophils 0.1 K/uL (0-0.5); MPV 7.2 fL (7.6-11.3); Nucleated Red Blood Cells % 0.1 % (0-0)
[2024-09-23 18:31] LABS: Potassium 4.2 mEq/L (3.5-5.1)
--- NOTE | 2024-09-23 18:34 | RAD REPORT ---
EXAMINATION: CT HEAD WITHOUT CONTRAST CT CERVICAL SPINE WITHOUT CONTRAST CLINICAL INDICATION: Male, 48 years old. fall, head injury, headache TECHNIQUE: Axial CT images from the skull base to the vertex without intravenous contrast. Axial CT i mages through the cervical spine were obtained without intravenous contrast. Sagittal and coronal reformatted images were created from the data set. Coronal and sagittal reformatted images were creat ed from the data set. One or more of the following dose reduction techniques were used: Automated exposure control, adjustment of the mA and/or kV according to patient size, and/or iterative reconstr uction. Unless otherwise specified, incidental findings do not require dedicated imaging follow-up. [id number]. COMPARISON: No prior exam. FINDINGS: Head: INTRACRANIAL: No acute intracranial hemorrhage. No hydrocephalus. No mass effect or midline shift. No significant white matter disease VASCULATURE: No visualized abnormalities in the arteries or dural venous sinuses. SCALP/SKULL: No significant soft tissue or osseous abnormalities. SINUSES: The visualized paranasal sinuses and mastoid air cells are predominantly clear. Cervical spine: ALIGNMENT: The cervical spine has normal alignment without scoliosis or spondylolisthesis. BONE: Vertebral body heights are maintained. No aggressive osseous lesions. DEGENERATIVE CHANGES: Cervical spondylosis which is moderate at the C5-6 and C6-7 levels where there is moderate to severe bilateral neural foraminal narrowing. SOFT TISSUE: No significant abnormalities in the soft tissue of the neck. The visualized lung apices are clear. IMPRESSION: No acute intracranial abnormality. No acute fracture or traumatic malalignment of the cervical spine.
[2024-09-23 18:35] LABS: Absolute Basophils 0.1 K/uL (0-0.5); Absolute Lymphocytes (CBC) 2.1 K/uL (0.7-4.9); Absolute Monocytes 0.5 K/uL (0.1-1.3); Absolute Neutrophil 3.9 K/uL (1.8-8.0); Basophils % 1.6 % (0-1.3); Eosinophils % 0.9 % (0-4.4); Hematocrit 43.2 % (39.6-49.0); Lymphocytes % 31.5 % (15.3-44.8); MCH 28.7 pg (27.0-35.0); MCHC 32.5 g/dL (32.0-36.0); MCV 88.5 fL (80-100); Platelets 482 thou/uL (152-406); RBC Red Blood Cell Count 4.89 M/uL (4.33-5.43); Red Cell Distribution Width 18.6 % (12.1-15.2)
--- NOTE | 2024-09-23 18:55 | ER ---
Nurse's Notes [facility] Name: Felipe Barriga Age: 48 yrs Sex: Male : 1975 Arrival Date: 09/23/2024 Time: 17:28 Bed 7 Private MD: Diagnosis: Unspecified injury of head, initial encounter;Alcohol dependence Presentation: 09/23 17:30 Chief complaint: EMS states: HEADACHE 2/2 CHRONIC ETOHISM. Coronavirus screen: At this bp time, the client does not indicate any symptoms associated with coronavirus-19. Ebola Screen: No symptoms or risks identified at this time. Initial Sepsis Screen: Does the patient meet any 2 criteria? No. Patient's initial sepsis screen is negative. Does the patient have a suspected source of infection? No. Patient's initial sepsis screen is negative. Risk Assessment: Do you want to hurt yourself or someone else? Patient reports no desire to harm self or others. Onset of symptoms is unknown. Care prior to arrival: Medication(s) given: zofran 4 mg. 17:30 Method Of Arrival: EMS: [facility] bp 17:30 Acuity: CLARITA 4 bp Triage Assessment: 17:31 Headache History: The patient has had previous headaches and this one is similar to bp previous episodes. General: Appears in no apparent distress. Behavior is cooperative, appropriate for age. Pain: Complains of pain in head Pain currently is 5 out of 10 on a pain scale. Pain began gradually, Also complains of no other associated symptoms. EENT: No deficits noted. Neuro: Level of Consciousness is awake, alert, obeys commands, Oriented to Appropriate for age Reports headache. Cardiovascular: No deficits noted. Respiratory: No deficits noted. GI: No signs and/or symptoms were reported involving the gastrointestinal system. : No signs and/or symptoms were reported regarding the genitourinary system. Derm: No deficits noted. Musculoskeletal: No deficits noted. Historical: - Allergies: 17:31 No Known Allergies; bp - PMHx: 17:31 Alcohol dependence; Anxiety; depressive disorder; Night Terrors; PTSD; bp - PSHx: 17:31 aortic root replacement; bp - Immunization history:: Adult Immunizations unknown. - Infectious Disease History:: Denies. - Social history:: Smoking status: Patient reports the use of cigarette tobacco products, unknown amount. - Family history:: not pertinent. - Hospitalizations: : No recent hospitalization is reported. Screenin:02 [facility] ED Fall Risk Assessment (Adult) History of falling in the last 3 months, ld1 including since admission No falls in past 3 months (0 pts) Confusion or Disorientation No (0 pts) Intoxicated or Sedated No (0 pts) Impaired Gait No (0 pts) Mobility Assist Device Used No (0 pt) Altered Elimination No (0 pt) Score/Fall Risk Level 0 - 2 = Low Risk Oriented to surroundings, Hourly rounding (assess needs \T\ fall precautionary measures) done. Abuse screen: Denies threats or abuse. Denies injuries from another. Nutritional screening: No deficits noted. Tuberculosis screening: No symptoms or risk factors identified. Assessment: 18:02 General: Appears in no apparent distress. comfortable, Behavior is cooperative, ld1 appropriate for age. Pain: Denies pain. Neuro: Level of Consciousness is awake, alert, obeys commands, Oriented to person, place, time, situation. Cardiovascular: Capillary refill < 3 seconds Patient's skin is warm and dry. Respiratory: Airway is patent Respiratory effort is even, unlabored. GI: Abdomen is round non-distended, Reports nausea, vomiting. : No signs and/or symptoms were reported regarding the genitourinary system. EENT: No signs and/or symptoms were reported regarding the EENT system. Derm: No signs and/or symptoms reported regarding the dermatologic system. Musculoskeletal: No signs and/or symptoms reported regarding the musculoskeletal system. 19:07 Reassessment: Patient appears in no apparent distress at this time. Patient and/or bm8 family updated on plan of care and expected duration. Pain level reassessed. Patient is alert, oriented x 3, equal unlabored respirations, skin warm/dry/pink. Patient denies pain at this time. Patient states feeling better. Patient states symptoms have improved. Vital Signs: 17:30 BP 144 / 87; Pulse 90; Resp 15; Temp 98.4; Pulse Ox 96% ; bp 17:34 BP 137 / 85; Pulse 82; Resp 18; Temp 98.1(TE); Pulse Ox 98% on R/A; Weight 99.79 kg; ld1 Height 5 ft. 10 in. ; Pain 0/10; 18:02 BP 127 / 80; Pulse 94; Resp 15; Pulse Ox 98% ; ld1 19:07 BP 116 / 58; Pulse 98; Resp 17; Temp 98.1; Pulse Ox 98% ; Pain 0/10; bm8 17:34 Body Mass Index 31.57 (99.79 kg, 177.8 cm) ld1 17:34 Pain Scale: Adult ld1 19:07 Pain Scale: Adult bm8 [place] Coma Score: 18:41 Eye Response: spontaneous(4). Motor Response: obeys commands(6). Verbal Response: rn oriented(5). Total: 15. 18:53 Eye Response: spontaneous(4). Motor Response: obeys commands(6). Verbal Response: rn oriented(5). Total: 15. 19:07 Eye Response: spontaneous(4). Motor Response: obeys commands(6). Verbal Response: bm8 oriented(5). Total: 15. ED Course: 17:29 Patient arrived in ED. bp 17:31 Triage completed. bp 17:31 Bib Prieto MD is Attending Physician. rn 17:31 Arm band placed on. bp 17:32 Richard Raman, KORIN is Primary Nurse. bp 18:02 Patient has correct armband on for positive identification. Placed in gown. Bed in low ld1 position. Call light in reach. Side rails up X2. equipment monitor phototypesetting on. Pulse ox on. NIBP on. Door closed. Noise minimized. Warm blanket given. 18:02 Initial lab(s) drawn, by me, sent to lab. Inserted saline lock: 24 gauge in left wrist, bp using aseptic technique. Blood collected. Flushed with 10 mL NS. 18:02 No provider procedures requiring assistance completed. ld1 18:18 CT Head C Spine In Process Unspecified. EDMS 19:08 Provided Education on: post er care. bm8 19:08 IV discontinued, intact, bleeding controlled, No redness/swelling at site. Pressure bm8 dressing applied. Administered Medications: 18:01 Drug: Diazepam IVP 5 mg IVP once Route: IVP; Site: left forearm; bp 19:08 Follow up: Response: No adverse reaction bm8 18:01 Drug: Ondansetron IVP 4 mg IVP once; over 2 minutes Route: IVP; Site: left forearm; bp 19:08 Follow up: Response: No adverse reaction bm8 Medication: 18:02 VIS not applicable for this client. ld1 Outcome: 18:55 Discharge ordered by . rn 19:08 Discharged to home ambulatory, bm8 19:08 Condition: stable 19:08 Discharge instructions given to patient, Instructed on discharge instructions, follow up and referral plans. Demonstrated understanding of instructions, follow-up care, Prescriptions given X 19:09 Patient left the ED. bm8 Signatures: Dispatcher [employer] EDMS Bib Prieto MD MD rn Peltier, Brian, RN RN Winnie Townsend RN RN ld1 Sher Scanlon RN RN bm8
--- NOTE | 2024-09-23 18:55 | EDPHYS ---
Physician Documentation [facility] Name: Felipe Barriga Age: 48 yrs Sex: Male : 1975 Arrival Date: 09/23/2024 Time: 17:28 Bed 7 Private MD: ED Physician Bib Prieto HPI: 09/23 18:40 This 48 yrs old Male presents to ER via EMS with complaints of Headache. rn 18:40 The patient complains of pain to the right frontal area. rn 18:41 The patient or guardian reports injury, pain. The complaints affect the right frontal rn area. Onset: The symptoms/episode began/occurred today. Associated signs and symptoms: Loss of consciousness: This patient did not experience any loss of consciousness. Pertinent positives: headache, Pertinent negatives: neck pain, seizure, shortness of breath. Severity of symptoms: At their worst the symptoms were mild, in the emergency department the symptoms are unchanged. The patient has not experienced similar symptoms in the past. Patient reports tripped earlier today, fell while walking, hit head and now has headache. Reports nausea and vomiting but also reports has been drinking. Patient is known alcoholic with recurrent withdrawal presentations. Patient reports he feels like he is withdrawing but patient smells of alcohol. Patient reports was drinking today. Patient denies pain elsewhere other than head.. Historical: - Allergies: 17:31 No Known Allergies; bp - PMHx: 17:31 Alcohol dependence; Anxiety; depressive disorder; Night Terrors; PTSD; bp - PSHx: 17:31 aortic root replacement; bp - Immunization history:: Adult Immunizations unknown. - Infectious Disease History:: Denies. - Social history:: Smoking status: Patient reports the use of cigarette tobacco products, unknown amount. - Family history:: not pertinent. - Hospitalizations: : No recent hospitalization is reported. ROS: 18:41 Constitutional: Negative for fever, chills, and weight loss, Neck: Negative for injury, rn pain, and swelling, Cardiovascular: Negative for chest pain, palpitations, and edema, Respiratory: Negative for shortness of breath, cough, wheezing, and pleuritic chest pain, Abdomen/GI: Positive for nausea Back: Negative for injury and pain, MS/Extremity: Negative for injury and deformity, Skin: Negative for injury, rash, and discoloration, Neuro: Positive for headache and generalized weakness Exam: 18:41 Constitutional: This is a well developed, well nourished patient who is awake, alert, rn and in no acute distress. Head/Face: Normocephalic, atraumatic. No sign of trauma at all Eyes: Pupils equal round and reactive to light, extra-ocular motions intact. Lids and lashes normal. Conjunctiva and sclera are non-icteric and not injected. Cornea within normal limits. Periorbital areas with no swelling, redness, or edema. Neck: Dry mucous membranes Chest/axilla: No rib tenderness or crepitus Cardiovascular: Regular rate and rhythm. No pulse deficits. Respiratory: No increased work of breathing, no retractions or nasal flaring. Abdomen/GI: Soft, non-tender Skin: No laceration Neuro: Awake and alert, GCS 15, oriented to person, place, time, and situation. Cranial nerves II-XII grossly intact. Motor strength 5/5 in all extremities. Sensory grossly intact. Slight tremor of hands. No tongue fasciculations Vital Signs: 17:30 BP 144 / 87; Pulse 90; Resp 15; Temp 98.4; Pulse Ox 96% ; bp 17:34 BP 137 / 85; Pulse 82; Resp 18; Temp 98.1(TE); Pulse Ox 98% on R/A; Weight 99.79 kg; ld1 Height 5 ft. 10 in. ; Pain 0/10; 18:02 BP 127 / 80; Pulse 94; Resp 15; Pulse Ox 98% ; ld1 19:07 BP 116 / 58; Pulse 98; Resp 17; Temp 98.1; Pulse Ox 98% ; Pain 0/10; bm8 17:34 Body Mass Index 31.57 (99.79 kg, 177.8 cm) ld1 17:34 Pain Scale: Adult ld1 19:07 Pain Scale: Adult bm8 Spofford Coma Score: 18:41 Eye Response: spontaneous(4). Motor Response: obeys commands(6). Verbal Response: rn oriented(5). Total: 15. 18:53 Eye Response: spontaneous(4). Motor Response: obeys commands(6). Verbal Response: rn oriented(5). Total: 15. 19:07 Eye Response: spontaneous(4). Motor Response: obeys commands(6). Verbal Response: bm8 oriented(5). Total: 15. MDM: 17:31 Medical Screening Exam initiated rn 18:53 Differential diagnosis: Contusion of Hematoma on Intracranial bleed- Concussion rn cerebral contusion. 18:53 Data reviewed: vital signs, nurses notes, lab test result(s), radiologic studies, CT rn scan, and as a result, I will discharge patient. 18:53 Counseling: I had a detailed discussion with the patient and/or guardian regarding the rn historical points, exam findings, and any diagnostic results supporting the discharge/admit diagnosis, lab results, radiology results, the need for outpatient follow up, to return to the emergency department if symptoms worsen or persist or if there are any questions or concerns that arise at home. Special discussion: Based on the patient's history, exam and DX evaluation, there is no indication for emergent intervention or inpatient TX. It is understood by the patient/guardian that if the SXs persist or worsen they need to return immediately for re-evaluation. I discussed with the patient/guardian in detail that at this point there is no indication for admission to the hospital. It is understood, however, that if the symptoms persist or worsen the patient needs to return immediately for re-evaluation. ED course: Patient resting comfortably, normal vital signs, patient with very mild withdrawal if anything. There were no signs of trauma to the head but patient insists that he hit his head, CT head and C-spine negative for acute traumatic findings. No indication for emergent admission at this time. Will discharge home with a ride.. 02 17:38 Order name: CBC with Diff; Complete Time: 18:38 rn 09/23 17:38 Order name: Basic Metabolic Panel; Complete Time: 18:38 rn 09/23 17:38 Order name: Protime (+inr); Complete Time: 18:38 rn 09/23 17:38 Order name: Ptt, Activated; Complete Time: 18:38 rn 09/23 17:37 Order name: CT Head C Spine; Complete Time: 18:38 rn 09/23 17:37 Order name: IV Start; Complete Time: 18:02 rn Administered Medications: 18:01 Drug: Diazepam IVP 5 mg IVP once Route: IVP; Site: left forearm; bp 19:08 Follow up: Response: No adverse reaction bm8 18:01 Drug: Ondansetron IVP 4 mg IVP once; over 2 minutes Route: IVP; Site: left forearm; bp 19:08 Follow up: Response: No adverse reaction bm8 Disposition Summary: 09/23/24 18:55 Discharge Ordered Notes: Location: Home rn Problem: new rn Symptoms: have improved rn Condition: Stable rn Diagnosis - Unspecified injury of head, initial encounter rn - Alcohol dependence rn Followup: rn - With: Private Physician - When: As needed - Reason: Recheck today's complaints, Re-evaluation by your physician Discharge Instructions: - Discharge Summary Sheet rn - Head Injury, Adult rn - Alcohol Abuse and Nutrition rn Forms: - Medication Reconciliation Form rn - Antibiotic nurse prn - Prescription Opioid Use rn - Patient Portal Instructions rn - Leadership Thank You Letter rn Signatures: Dispatcher [employer] EDBib Marroquin MD MD rn Peltier, Brian, RN RN bp McDonald, Brad RN bm8 Corrections: (The following items were deleted from the chart) 17:38 17:38 CBC+H.LAB.BRZ ordered. EDMS EDMS 17:38 17:38 BASIC METABOLIC PANEL+C.LAB.BRZ ordered. EDMS EDMS 17:38 17:38 PROTIME (+INR)+COAG.LAB.BRZ ordered. EDMS EDMS 17:38 17:38 PTT, ACTIVATED+COAG.LAB.BRZ ordered. EDMS EDMS 18:43 18:41 Patient reports tripped earlier today, fell while walking, hit head and now has rn headache. Reports nausea and vomiting but also reports has been drinking. Patient is known alcoholic with recurrent withdrawal presentations. Patient reports he feels like he is withdrawing but patient seems more intoxicated than withdrawing. Patient reports was drinking today. Patient denies pain elsewhere other than head.. rn
[2024-09-23 19:18] VITALS: TEMP 98.1; O2SAT 98
[2024-09-23 19:20] VITALS: BP 116/58
== END 2024-09-23 19:09 | disposition home or self-care (01) ==
LOC: ER 17:28
DX: S09.90XA Unspecified injury of head, initial encounter (principal); F10.20 Alcohol dependence, uncomplicated; Z72.0 Tobacco use
CPT/HCPCS: 85025; 80048; 36415; 85610; 85730; 70450; 72125; 96375; 96374; 99285; J3360; J2405

== ENCOUNTER 2024-09-30 15:37 | Inpatient (IN) | payer OTHER ==
--- OUTSIDE RECORDS SUMMARY | 2024-09-30 15:39 | XMS REPORT | Continuity of Care Document ---
Author Name Unknown Address [address] [place] [address] [facility] thconnect Address [address] [place] [address] Care Team Providers Care Florist Helper Name Role Phone Vickie Garcia Attending Clinician Unavailable Vickie Garcia Admitting Clinician Unavailable Payers Payer Name Policy Type Policy Number Effective Date Expirati on Date Source Allergies, Adverse Reactions, Alerts Allergy Name Allergy Type Status Severity Reaction(s) Onset Date Inactive Date Treating Clinician Comments Source No Known Allergie s DA Active U 03-18 00:00: 00 [facility] Encounters Start Date/Time End Date/Time Encounter Type Admission Type Attending Clinicians Care Facility Care Department Encounter ID Source 2024-03-18 03:55:00 2024-03-20 12:41:00 Inpatient EM Vickie Garcia [facility] TELE [id number] 22 [facility] Results Test Description Test Time Test Comments Results Result Co mments Source COMPREHENSIVE METABOLIC [id number] 17:15:00* Test Item Value Reference Range Interpretation [...] code = ALKP) 71 Units/L 50.0-136.0 N [id number] 17:15:00* Test Item Value Reference Range Interpretation Comme nts MAGNESIUM (test code = MAG) 1.3 mg/dl 1.8-2.4 L VITAMIN [id number] 17:15:00* Test Item Value Reference Range Interpretation Comme nts VITAMIN B12 (test code = VITB12) 239 pg/mL 193-986 N CBC W/AUTO [id number] 04:51:00* Test Item Value Reference Range Interpretation [...] 0.00 X10 3uL 0.00-0.01 N COMPREHENSIVE METABOLIC [id number] 05:46:00* Test Item Value Reference Range Interpretation [...] ALKP) 75 Units/L 50.0-136.0 N CBC W/AUTO [id number] 04:25:00* Test Item Value Reference Range Interpretation [...] = NRBC#) 0.00 X10 3uL 0.00-0.01 N [id number] 20:03:00* Test Item Value Reference Range Interpretation Comme nts GLUBED (test code = GLUBED) 132 mg/dL 70-110 H DRUGS OF ABUSE SCREEN [id number] 08:40:00* Test Item Value Reference Range Interpretation [...] 300 ng/mL WHAT DRUGS HAVE BEEN TAKEN? [id number] 03:26:00* Test Item Value Reference Range Interpretation Comme nts ALCOHOL (test code = ALC) 0.47 gm/dL 0.00-0.00 HH ETHYL ALCOHOL VA LUES - INTERPRETATION: 0.050 GM/DL - NOT INTOXICATED 0.100 GM/DL - INTOXICATED 0.350-0.450 GM/DL - SEVERELY INTOXICATED 0.550 GM/DL- FATAL INTOXICATION BASIC METABOLIC [id number] 03:26:00* Test Item Value Reference Range Interpretation [...] ECRCL) 88 mL/min >30 HEPATIC FUNCTION PANEL [id number] 03:26:00* Test Item Value Reference Range Interpretation [...] code = ALKP) 118 Units/L 50.0-136.0 N [id number] 03:26:00* Test Item Value Reference Range Interpretation Comme nts LIPASE (test code = LIP) 78 Units/L 16-77 H TROP-I HIGH [id number] 03:26:00* Test Item Value Reference Range Interpretation Comme nts TROP-I HIGH SENSITIVITY (test code = TROPIHS) 29 ng/L 0-76 N CAUTION: Units o f the current TROPI-HS test methodology(ng/L) differ from the prior test methodology (ng/mL) by afactor of 1000. 99th Percentile: Females: 0 - 51 ng/L Males: 0 - 76 ng/LThese results were obtained using [employer] TnIHreagent. Results from different methodologies should not becompared to one another as quantitative results may vary bymethod. CBC W/AUTO [id number] 03:04:00* Test Item Value Reference Range Interpretation [...] code = BA#) 0.1 K/mm3 0.0-0.2 N [id number] 02:29:00* Test Item Value Reference Range Interpretation Comme nts GLUBED (test code = GLUBED) 83 mg/dL 70-110 N
[2024-09-30] MEDS ORDERED: DIAZEPAM 10 MG/2 ML INJ SYRINGE ONE ×2 (16:39→21:50)
[2024-09-30] MEDS ORDERED: PROMETHAZINE INJ 25 MG/ML AMP ONE (16:40)
[2024-09-30] MEDS ORDERED: NA CHLORIDE 0.9% 2,000 ML ONE (18:13)
[2024-09-30 18:19] LABS: Absolute Lymphocytes (CBC) 0.8 K/uL (0.7-4.9); Absolute Monocytes 0.8 K/uL (0.1-1.3); Absolute Neutrophil 9.7 K/uL (1.8-8.0); Basophils % 0.3 % (0-1.3); Eosinophils % 0.1 % (0-4.4); Hematocrit 42.9 % (39.6-49.0); Hemoglobin 14.4 g/dL (13.6-17.9); Lymphocytes % 7.1 % (15.3-44.8); MCH 28.8 pg (27.0-35.0); MCHC 33.5 g/dL (32.0-36.0); MPV 7.3 fL (7.6-11.3); Monocytes % 7.4 % (3.3-12.3); Neutrophils % 85.1 % (41.7-73.7); Platelets 264 thou/uL (152-406); RBC Red Blood Cell Count 4.99 M/uL (4.33-5.43); Red Cell Distribution Width 18.2 % (12.1-15.2)
--- NOTE | 2024-09-30 18:35 | EDPHYS ---
Physician Documentation [facility] Name: Felipe Barriga Age: 48 yrs Sex: Male : 1975 Arrival Date: 09/30/2024 Time: 15:37 Bed 3 Private MD: ED Physician Bib Prieto HPI: 09/30 17:46 This 48 yrs old Male presents to ER via EMS with complaints of ETOH Abuse. rn 17:46 Patient reports has been blackout drunk for the last week, does not think he has had rn anything to drink in the last 24 hours and now feels like he is withdrawing. Reports nausea and vomiting and shakiness.. Onset: The symptoms/episode began/occurred today. Severity of symptoms: At their worst the symptoms were moderate in the emergency department the symptoms are unchanged. The patient has experienced similar episodes in the past. Historical: - Allergies: 16:14 No Known Allergies; jb4 - PMHx: 16:14 Alcohol dependence; Anxiety; depressive disorder; Night Terrors; PTSD; jb4 - PSHx: 16:14 aortic root replacement; jb4 - Family history:: not pertinent. ROS: 17:46 Constitutional: Negative for fever, chills, and weight loss, Neck: Negative for injury, rn pain, and swelling, Cardiovascular: Positive for heart racing Respiratory: Negative for shortness of breath, cough, wheezing, and pleuritic chest pain, Abdomen/GI: Positive for nausea and vomiting MS/Extremity: Negative for injury and deformity, Skin: Negative for injury, rash, and discoloration, Neuro: Positive for tremors and generalized weakness, negative for seizure Exam: 17:46 Constitutional: Disheveled and strong odor of urine Head/Face: Normocephalic, rn atraumatic. ENT: Dry mucous membranes Cardiovascular: Tachycardic, regular Respiratory: Mild tachypnea Abdomen/GI: Soft, nontender Neuro: Awake and alert, GCS 15 Vital Signs: 16:14 BP 162 / 97; Pulse 116; Resp 20; Temp 99(O); Pulse Ox 97% on R/A; Weight 99.79 kg (R); jb4 Height 5 ft. 11 in. ; 16:14 Body Mass Index 30.68 (99.79 kg, 180.34 cm) jb4 MDM: 16:09 Medical Screening Exam initiated rn 18:32 Differential Diagnosis Alcohol withdrawal, malnourishment, dehydration. Data reviewed: rn vital signs, nurses notes, lab test result(s), and as a result, I will admit patient. Consideration of Admission/Observation Patient was admitted/placed on observation. Escalation of care including admission/observation considered. Counseling: I had a detailed discussion with the patient and/or guardian regarding the historical points, exam findings, and any diagnostic results supporting the discharge/admit diagnosis, lab results, radiology results, the need for further work-up and treatment in the hospital. Response to treatment: There is no appreciated change of the patient's symptoms at this time, and as a result, I will admit patient. ED course: Patient not responding to fluids and Valium as he usually does, still tachycardic and hypertensive, will give more Valium and admit to hospitalist service for alcohol dependence and withdrawal.. ED course: I personally spent 35 minutes engaged in work directly related to the individual patient's care. This does not include any time spent performing procedures. The patient has been deemed critically ill because of moderate to severe alcohol withdrawal requiring multiple doses of IV benzos and fluid resuscitation as well as organization of admission to the hospital. 09/30 16:21 Order name: CBC with Diff rn 09/30 16:21 Order name: Basic Metabolic Panel; Complete Time: 18:48 rn 09/30 16:21 Order name: LFT's; Complete Time: 18:48 rn 09/30 16:21 Order name: ETOH Level; Complete Time: 18:48 rn 09/30 19:39 Order name: Urinalysis w/ reflexes EDOR 09/30 19:39 Order name: CBC with Automated Diff EDOR 09/30 19:39 Order name: CBC with Automated Diff EDOR 09/30 19:39 Order name: Comprehensive Metabolic Panel EDOR 09/30 19:39 Order name: Comprehensive Metabolic Panel EDOR 09/30 20:55 Order name: CBC Smear Scan EDOR 09/30 16:21 Order name: IV Start; Complete Time: 18:58 rn 09/30 16:22 Order name: Cardiac monitoring; Complete Time: 18:25 rn 09/30 16:22 Order name: O2 Sat Monitoring; Complete Time: 18:25 rn Administered Medications: 16:51 Not Given (Other Intervention Used): diazepam5 mg IVP once jb4 16:51 Not Given (Other Intervention Used): rlbqyjebzouw13.5 mg IVP once jb4 16:51 Drug: Promethazine IM 12.5 mg IM once Route: IM; Site: right gluteus; jb4 16:51 Drug: Diazepam IM 5 mg IM once Route: IM; Site: right deltoid; jb4 18:15 Drug: NS 0.9% IV 1000 ml IV at 1000 ml once; to be given as a bolus over 60 minutes jb4 Route: IV; Rate: 1000 ml; Site: right antecubital; 18:16 Drug: NS 0.9% IV 1000 ml IV at 1000 ml once; to be given as a bolus over 60 minutes jb4 Route: IV; Rate: 1000 ml; Site: right antecubital; 21:58 Drug: Diazepam IVP 5 mg IVP once Route: IVP; Site: right antecubital; jb4 Disposition Summary: 09/30/24 18:34 Hospitalization Ordered Notes: Hospitalization Status: Inpatient Admission rn Provider: Stepan Abarca rn Location: Telemetry/[facility] (Inpatient) rn Condition: Stable rn Problem: new rn Symptoms: have improved rn Bed/Room Type: Standard rn Room Assignment: 216(09/30/24 19:51) rv1 Diagnosis - Alcohol dependence with withdrawal, uncomplicated rn - Dehydration rn - Vomiting, unspecified rn Forms: - Medication Reconciliation Form rn - SBAR form rn - Leadership Thank You Letter rn plasma center time excluding procedures: 18:32 Critical care time: Bedside Care: 35 minutes. Total time: 35 minutes rn Signatures: Dispatcher [employer] EDBib Marroquin MD MD rn Bryson, James, RN RN jb4 Villegas, Rebecca rv1 Corrections: (The following items were deleted from the chart) 16:22 16:22 CBC+H.LAB.BRZ ordered. EDMS EDMS 16:22 16:22 BASIC METABOLIC PANEL+C.LAB.BRZ ordered. EDMS EDMS 16:22 16:22 HEPATIC FUNCTION+C.LAB.BRZ ordered. EDMS EDMS 16:22 16:22 ETHANOL+C.LAB.BRZ ordered. EDMS EDMS 19:51 18:34 rn rv1
--- NOTE | 2024-09-30 18:35 | ER ---
Nurse's Notes [facility] Name: Felipe Barriga Age: 48 yrs Sex: Male : 1975 Arrival Date: 09/30/2024 Time: 15:37 Bed 3 Private MD: Diagnosis: Alcohol dependence with withdrawal, uncomplicated;Dehydration;Vomiting, unspecified Presentation: 09/30 16:09 Chief complaint: EMS states: toned out for ETOH withdrawal, vomiting all morning, gave iw 8 Zofran PO en route to ER. Coronavirus screen: At this time, the client does not indicate any symptoms associated with coronavirus-19. Ebola Screen: No symptoms or risks identified at this time. Initial Sepsis Screen: Does the patient meet any 2 criteria? No. Patient's initial sepsis screen is negative. Does the patient have a suspected source of infection? No. Patient's initial sepsis screen is negative. Risk Assessment: Do you want to hurt yourself or someone else? Patient reports no desire to harm self or others. Onset of symptoms was September 30, 2024. 16:09 Method Of Arrival: EMS: [facility] iw 16:09 Acuity: CLARITA 3 iw Triage Assessment: 16:14 General: Appears in no apparent distress. uncomfortable, ill, Behavior is cooperative, jb4 anxious. Pain: Denies pain. EENT: No signs and/or symptoms were reported regarding the EENT system. Neuro: Level of Consciousness is awake, alert, obeys commands, Oriented to person, place, time, situation. Cardiovascular: Patient's skin is warm and dry. Respiratory: Airway is patent Respiratory effort is even, unlabored, Respiratory pattern is regular, symmetrical. GI: Abdomen is flat, non-distended, Reports nausea. Derm: Skin is intact, Skin is pink, warm \T\ dry. Musculoskeletal: Circulation, motion, and sensation intact. Range of motion: intact in all extremities. Historical: - Allergies: 16:14 No Known Allergies; jb4 - PMHx: 16:14 Alcohol dependence; Anxiety; depressive disorder; Night Terrors; PTSD; jb4 - PSHx: 16:14 aortic root replacement; jb4 - Family history:: not pertinent. Screenin:17 [facility] ED Fall Risk Assessment (Adult) History of falling in the last 3 months, jb4 including since admission Yes- fall prone (multiple falls) (3 pts) Confusion or Disorientation No (0 pts) Intoxicated or Sedated No (0 pts) Impaired Gait Yes (1 pt) Mobility Assist Device Used No (0 pt) Altered Elimination Score/Fall Risk Level 3 or more points = High Risk Oriented to surroundings, Maintained a safe environment. Abuse screen: Denies threats or abuse. Nutritional screening: No deficits noted. Tuberculosis screening: No symptoms or risk factors identified. Assessment: 16:17 Reassessment: see triage assesment. jb4 Vital Signs: 16:14 BP 162 / 97; Pulse 116; Resp 20; Temp 99(O); Pulse Ox 97% on R/A; Weight 99.79 kg (R); jb4 Height 5 ft. 11 in. ; 16:14 Body Mass Index 30.68 (99.79 kg, 180.34 cm) jb4 ED Course: 16:09 Patient arrived in ED. iw 16:09 Bib Prieto MD is Attending Physician. rn 16:10 Triage completed. iw 16:14 Vj Rizzo, RN is Primary Nurse. jb4 16:14 Arm band placed on right wrist. jb4 16:17 Patient has correct armband on for positive identification. Bed in low position. Call jb4 light in reach. Side rails up X 1. Provided Education on: plan of care. 18:34 Stepan Abarca MD is Hospitalizing Provider. rn 20:07 No provider procedures requiring assistance completed. Inserted saline lock: 20 gauge cp4 in right antecubital area, using aseptic technique. Flushed with 10 mL NS. Administered Medications: 16:51 Not Given (Other Intervention Used): diazepam5 mg IVP once jb4 16:51 Not Given (Other Intervention Used): vnrdhrubqxrg02.5 mg IVP once jb4 16:51 Drug: Promethazine IM 12.5 mg IM once Route: IM; Site: right gluteus; jb4 16:51 Drug: Diazepam IM 5 mg IM once Route: IM; Site: right deltoid; jb4 18:15 Drug: NS 0.9% IV 1000 ml IV at 1000 ml once; to be given as a bolus over 60 minutes jb4 Route: IV; Rate: 1000 ml; Site: right antecubital; 18:16 Drug: NS 0.9% IV 1000 ml IV at 1000 ml once; to be given as a bolus over 60 minutes jb4 Route: IV; Rate: 1000 ml; Site: right antecubital; 21:58 Drug: Diazepam IVP 5 mg IVP once Route: IVP; Site: right antecubital; jb4 Medication: 16:17 VIS not applicable for this client. jb4 Outcome: 18:34 Decision to Hospitalize by Provider. rn 22:36 Patient left the ED. oe Signatures: Arielle Reese RN RN iw Nieto, Roman, MD MD rn Bryson, James, RN RN jb4 Serge Anglin Christina cp4
[2024-09-30 18:43] LABS: Albumin 3.5 g/dL (3.4-5.0); Albumin/Globulin Ratio 0.8 (1.1-1.8); Anion Gap 19.7 mEq/L (5.0-15.0); Bilirubin Direct 0.2 mg/dL (0-0.2); Bilirubin Indirect, Calculated 0.5 mg/dL (0.2-0.8); Bilirubin Total 0.7 mg/dL (0.2-1.0); Globulin 4.5 g/dL (2.3-3.5); Potassium 2.7 mEq/L (3.5-5.1)
[2024-09-30] MEDS ORDERED: ACETAMINOPHEN 325 MG TABLET PO PRN (19:34)
[2024-09-30] MEDS: chlordiazePOXIDE HCl 25 MG CAP PO SCH (19:38)
--- NOTE | 2024-09-30 19:39 | P.HP ---
Certification for Inpatient Patient admitted to: Inpatient With expected LOS: >2 Midnights Practitioner: I am a practitioner with admitting privileges, knowledge of patient current condition, hospital course, and medical plan of care. Services: Services provided to patient in accordance with Admission requirements found in Title 42 Section 412.3 of the Code of Federal Regulations Patient History Date of Service: 10/01/24 Reason for admission: Alcohol Withdrawal History of Present Illness: 48 yrs old Male with past medical history of alcohol dependence, anxiety, depression, PTSD, aortic root surgery brought to ER with EtOH abuse. Patient has been drinking binge for the last 1 week and stopped drinking 24 hours ago and he feels like he is withdrawing. Associated with nausea vomiting and shakiness. Denies any chest pain or shortness of breath. No fever or chills. No nausea vomiting or diarrhea. Patient was assessed in the ER and is admitted for possible alcohol withdrawal Allergies No Known Allergies Allergy (Verified 09/30/24 22:57) Home medications list reviewed: Yes Home Medications: Buspirone HCl [Buspar] 10 mg PO TID 09/30/24 Buspirone HCl [Buspar] 15 mg PO TID 09/30/24 Multivitamin 1 tab PO DAILY 09/30/24 Quetiapine [Seroquel*] 100 mg PO BEDTIME 09/30/24 Sertraline HCl 200 mg PO DAILY 09/30/24 Trazodone HCl [Desyrel] 200 mg PO BEDTIME 09/30/24 - Past Medical/Surgical History Diabetic: No Past Medical History: Reviewed- Non-Contributory -: PTSD -: Schizoeffective anxiety -: Major Depressive disorder -: Alcohol abuse Past Surgical History: Reviewed- Non-Contributory -: Aortic root replacement -: Leg Surgery when child - Family History Family History: Reviewed- Non-Contributory - Family History Mother -: Cancer Notes: breast - Social History Smoking Status: Current some day smoker Alcohol use: Yes CD- Drugs: No Caffeine use: Yes Review of Systems 10-point ROS is otherwise unremarkable Physical Examination - Vital Signs Temperature: 98.2 F Blood Pressure: 162/98 Pulse: 116 Respirations: 20 Pulse Ox (%): 94 - Physical Exam General: Alert, Oriented x2, Mild distress HEENT: Atraumatic, Normocephalic Neck: Supple, No Thyromegaly Respiratory: Clear to auscultation bilaterally, Normal air movement Cardiovascular: Normal S1 S2, Other (Tachycardia) Capillary refill: <2 Seconds Gastrointestinal: Soft and benign, W/out hepatosplenomegaly Musculoskeletal: No clubbing, No swelling Integumentary: No rashes, No breakdown Neurological: Normal strength at 5/5 x4 extr, Cranial nerves 3-12 intact, Normal reflexes 2+ Lymphatics: No axilla or inguinal lymphadenopathy - Studies Laboratory Data (last 24 hrs) 09/30/24 09/30/24 18:09 18:09 WBC 11.40 H Hgb 14.4 Hct 42.9 Plt Count 264 Sodium 126 L Potassium 2.7 L BUN 13 Creatinine 1.07 Glucose 139 H Total Bilirubin 0.7 AST 32 ALT 30 Alkaline Phosphatase 114 Assessment and Plan - Plan Alcohol withdrawal Last alcohol intake was 24 hours Alcohol serum level noted Monitor closely under telemetry [facility] protocol Ativan as needed Started on Librium Continue with thiamine, multivitamin and folic acid Psych disorders PTSD Continue home medications and titrate as needed GI/DVT prophylaxis Advanced directive full code Discharge Plan: Home Plan to discharge in: 48 Hours - Advance Directives Does patient have a Living Will: No Does patient have a Durable POA for Healthcare: No - Code Status/Comfort Care Code Status: Full Code Time Spent Managing Pts Care (In Minutes): 48
[2024-09-30] MEDS: NA CHLORIDE 0.9% 1,000 ML IV SCH (20:00)
[2024-09-30 20:54] LABS: Platelet Estimate ADEQ; White Blood Cell Scan OK (OK)
[2024-09-30 20:55] LABS: Blood Morphology Comment NOT SEEN (NOT SEEN)
[2024-09-30] MEDS: ONDANSETRON 4 MG/2 ML VIAL IV PRN (22:52)
[2024-10-01] MEDS: LORazepam 2 MG/ML VIAL IV PRN (03:25)
[2024-10-01] MEDS: ONDANSETRON 4 MG/2 ML VIAL IV PRN (03:26)
[2024-10-01 03:56] LABS: Renal Epithelial <5 /HPF (None Seen); Specific Gravity 1.026 (1.005-1.030); Sqamous Epithelial None Seen /HPF (None Seen); Urine Bacteria None Seen /HPF (<20); Urine Bilirubin NEGATIVE (Negative); Urine Blood 1+ (Negative); Urine Clarity Turbid (Clear); Urine Color Yellow (Yellow); Urine Culture Reflex Order NOT NEEDED; Urine Glucose NEGATIVE (Negative); Urine Ketones 1+ (Negative); Urine Microscopic Reflex YN ORDER UMIC; Urine Mucus Slight /HPF (None Seen); Urine Nitrite NEGATIVE (Negative); Urine Protein 2+ (Negative); Urine RBC None Seen /HPF (None Seen); Urine Urobilinogen Normal (Normal); Urine WBC <5 /HPF (<5); Urine pH 6.5 (5.0-7.0)
[2024-10-01 04:32] LABS: Absolute Lymphocytes (CBC) 0.7 K/uL (0.7-4.9); Absolute Monocytes 0.9 K/uL (0.1-1.3); Absolute Neutrophil 7.9 K/uL (1.8-8.0); Basophils % 0.2 % (0-1.3); Eosinophils % 0.2 % (0-4.4); Hematocrit 35.2 % (39.6-49.0); MCH 29.1 pg (27.0-35.0); MCHC 34.1 g/dL (32.0-36.0); MCV 85.3 fL (80-100); MPV 7.7 fL (7.6-11.3); Monocytes % 9.9 % (3.3-12.3); Neutrophils % 82.7 % (41.7-73.7); Platelets 164 thou/uL (152-406); RBC Red Blood Cell Count 4.13 M/uL (4.33-5.43); Red Cell Distribution Width 18.4 % (12.1-15.2)
[2024-10-01 04:52] LABS: Albumin 3.2 g/dL (3.4-5.0); Albumin/Globulin Ratio 0.9 (1.1-1.8); Anion Gap 13.7 mEq/L (5.0-15.0); Bilirubin Total 1.2 mg/dL (0.2-1.0); Globulin 3.4 g/dL (2.3-3.5); Potassium 2.7 mEq/L (3.5-5.1); Protein, Total 6.6 g/dL (6.4-8.2)
[2024-10-01 05:41] LABS: Magnesium 1.2 mg/dL (1.6-2.4); Phosphorus 1.7 mg/dL (2.5-4.9)
[2024-10-01] MEDS: Magnesium Sulfate 2gm IVPB 2 G/50 ML BAG IV ONE (07:26)
[2024-10-01] MEDS: POTASS/SODIUM PHOSPHATE 1 PKT POWD.PACK PO SCH (07:51)
[2024-10-01] MEDS: MULTIVITAMIN TAB PO SCH (07:51)
[2024-10-01] MEDS: FOLIC ACID 1 MG TABLET PO SCH (07:51)
[2024-10-01] MEDS: THIAMINE 200 MG/2 ML INJ IVP SCH (07:52)
[2024-10-01] MEDS: KCL 20 MEQ/100 mL IVPB 20 MEQ/100 ML BAG IV SCH (09:21)
--- NOTE | 2024-10-01 12:55 | P.PN ---
Date of Service: 10/01/24 48 yrs old Male with past medical history of alcohol dependence, anxiety, depression, PTSD, aortic root surgery brought to ER with EtOH abuse. Patient has been drinking binge for the last 1 week and stopped drinking 24 hours ago and he feels like he is withdrawing. Associated with nausea vomiting and shakiness. Denies any chest pain or shortness of breath. No fever or chills. No nausea vomiting or diarrhea. Patient was assessed in the ER and is admitted for possible alcohol withdrawal Subjective Continue to feel shaky Review of Systems 10-point ROS is otherwise unremarkable Physical Examination - Vital Signs reviewed - Physical Exam General: Alert, Oriented x2, Mild distress HEENT: Atraumatic, Normocephalic Neck: Supple, No Thyromegaly Respiratory: Clear to auscultation bilaterally, Normal air movement Cardiovascular: Normal S1 S2, Other (Tachycardia) Capillary refill: <2 Seconds Gastrointestinal: Soft and benign, W/out hepatosplenomegaly Musculoskeletal: No clubbing, No swelling Integumentary: No rashes, No breakdown Neurological: Normal strength at 5/5 x4 extr, Cranial nerves 3-12 intact, Normal reflexes 2+ Lymphatics: No axilla or inguinal lymphadenopathy Assessment and plan ETOH dependence/withdrawal Electrolyte derangement Continue to encourage behavior today Continue to encourage follow-up/follow through Electrolyte monitoring and repletion Continue alcohol withdrawal measures with as needed lorazepam scheduled Librium Monitor closely under telemetry [facility] protocol Continue with thiamine, multivitamin and folic acid Psych disorders PTSD Continue home medications and titrate as needed GI/DVT prophylaxis Advanced directive full code Discharge Plan: Home Plan to discharge in: 48 Hours - Advance Directives Does patient have a Living Will: No Does patient have a Durable POA for Healthcare: No - Code Status/Comfort Care full
[2024-10-02 04:55] LABS: Anion Gap 7.9 mEq/L (5.0-15.0); Phosphorus 1.6 mg/dL (2.5-4.9); Potassium 2.9 mEq/L (3.5-5.1)
[2024-10-02] MEDS: KCL 20 MEQ/100 mL IVPB 20 MEQ/100 ML BAG IV SCH (09:12)
[2024-10-02] MEDS: POTASSIUM PHOS IN 0.9 % NACL 15 MMOL/250 ML BAG IV ONE (10:46)
--- NOTE | 2024-10-02 20:06 | P.PN ---
Date of Service: 10/02/24 48 yrs old Male with past medical history of alcohol dependence, anxiety, depression, PTSD, aortic root surgery brought to ER with EtOH abuse. Patient has been drinking binge for the last 1 week and stopped drinking 24 hours ago and he feels like he is withdrawing. Associated with nausea vomiting and shakiness. Denies any chest pain or shortness of breath. No fever or chills. No nausea vomiting or diarrhea. Patient was assessed in the ER and is admitted for possible alcohol withdrawal Subjective Continue to feel shaky, electrolytes improved, no further vomiting, advance diet to soft Review of Systems 10-point ROS is otherwise unremarkable Physical Examination - Vital Signs reviewed - Physical Exam General: Alert, Oriented x2 HEENT: Atraumatic, Normocephalic Neck: Supple, No Thyromegaly Respiratory: Clear to auscultation bilaterally, Normal air movement Cardiovascular: Normal S1 S2 Capillary refill: <2 Seconds Gastrointestinal: Soft and benign, W/out hepatosplenomegaly Musculoskeletal: No clubbing, No swelling Integumentary: No rashes, No breakdown Neurological: Normal strength at 5/5 x4 extr, Cranial nerves 3-12 intact, Normal reflexes 2+ Lymphatics: No axilla or inguinal lymphadenopathy Assessment and plan ETOH dependence/withdrawal Electrolyte derangement - improving Continue to encourage behavior today Continue to encourage follow-up/follow through Electrolyte monitoring and repletion Continue alcohol withdrawal measures with as needed lorazepam scheduled Librium Monitor closely under telemetry [facility] protocol Continue with thiamine, multivitamin and folic acid Psych disorders PTSD Continue home medications and titrate as needed GI/DVT prophylaxis Advanced directive full code Pt states he would like to try [facility] for rehab Discharge Plan: Home Plan to discharge in: 24 Hours - Advance Directives Does patient have a Living Will: No Does patient have a Durable POA for Healthcare: No - Code Status/Comfort Care full
[2024-10-02] MEDS: LORazepam 2 MG/ML VIAL IV PRN (22:10)
[2024-10-03 02:34] VITALS: BMI 29.7
[2024-10-03] MEDS: chlordiazePOXIDE HCl 25 MG CAP PO SCH (02:47)
[2024-10-03 04:34] LABS: Absolute Eosinophils 0.1 K/uL (0-0.5); Absolute Lymphocytes (CBC) 0.9 K/uL (0.7-4.9); Absolute Monocytes 0.6 K/uL (0.1-1.3); Absolute Neutrophil 4.8 K/uL (1.8-8.0); Basophils % 0.6 % (0-1.3); Eosinophils % 1.9 % (0-4.4); Hemoglobin 10.7 g/dL (13.6-17.9); Lymphocytes % 13.3 % (15.3-44.8); MCH 29.2 pg (27.0-35.0); MCHC 33.5 g/dL (32.0-36.0); MPV 8.5 fL (7.6-11.3); Monocytes % 9.4 % (3.3-12.3); Neutrophils % 74.8 % (41.7-73.7); Nucleated Red Blood Cells % 0.1 % (0-0); Platelets 99 thou/uL (152-406); RBC Red Blood Cell Count 3.67 M/uL (4.33-5.43); Red Cell Distribution Width 18.4 % (12.1-15.2)
[2024-10-03 04:58] LABS: Albumin 2.5 g/dL (3.4-5.0); Albumin/Globulin Ratio 0.7 (1.1-1.8); Anion Gap 7.3 mEq/L (5.0-15.0); Bilirubin Total 0.3 mg/dL (0.2-1.0); Globulin 3.5 g/dL (2.3-3.5); Potassium 3.3 mEq/L (3.5-5.1)
--- NOTE | 2024-10-03 08:35 | P.PN ---
Date of Service: 10/03/24 48 yrs old Male with past medical history of alcohol dependence, anxiety, depression, PTSD, aortic root surgery brought to ER with EtOH abuse. Patient has been drinking binge for the last 1 week and stopped drinking 24 hours ago and he feels like he is withdrawing. Associated with nausea vomiting and shakiness. Denies any chest pain or shortness of breath. No fever or chills. No nausea vomiting or diarrhea. Patient was assessed in the ER and is admitted for possible alcohol withdrawal Subjective Continue to feel shaky, electrolytes improved, no further vomiting, advance diet to soft Review of Systems 10-point ROS is otherwise unremarkable Physical Examination - Vital Signs reviewed - Physical Exam General: Alert, Oriented x3 HEENT: Atraumatic, Normocephalic Neck: Supple, No Thyromegaly Respiratory: Clear to auscultation bilaterally, Normal air movement Cardiovascular: Normal S1 S2 Capillary refill: <2 Seconds Gastrointestinal: Soft and benign, W/out hepatosplenomegaly Musculoskeletal: No clubbing, No swelling Integumentary: No rashes, No breakdown Neurological: Normal strength at 5/5 x4 extr, Cranial nerves 3-12 intact, Normal reflexes 2+, mildly tremulous Lymphatics: No axilla or inguinal lymphadenopathy Assessment and plan ETOH dependence/withdrawal Electrolyte derangement - improving Continue to encourage behavior today Continue to encourage follow-up/follow through Electrolyte monitoring and repletion Continue alcohol withdrawal measures more distantly scheduled Librium Monitor closely under telemetry [facility] protocol Continue with thiamine, multivitamin and folic acid Psych disorders PTSD Continue home medications and titrate as needed GI/DVT prophylaxis Advanced directive full code Pt states he would like to try [facility] for rehab Plan for discharge today with 2 days of librium spaced more distantly, pt states he is more comfortable with discharge in am. Will dc in am. Pt to make arrangements today with [facility]. Discharge Plan: Home Plan to discharge in: 24 Hours - Advance Directives Does patient have a Living Will: No Does patient have a Durable POA for Healthcare: No - Code Status/Comfort Care full
[2024-10-03] MEDS ORDERED: chlordiazePOXIDE HCl 25 MG CAP PO PRN ×2 (12:00)
[2024-10-03] MEDS: BUSPIRONE HCL 15 MG TABLET PO SCH (15:28)
[2024-10-03] MEDS: POTASSIUM CL SA 10 MEQ TAB PO ONE (17:34)
--- NOTE | 2024-10-03 18:04 | P.DS ---
Admission Date: 09/30/24 Discharge Date: 10/04/24 Disposition: ROUTINE DISCHARGE Discharge Condition: GOOD Reason for Admission: Alcohol Withdrawal Consultations: [employer] Attendant Brief History of Present Illness: 48 yrs old Male with past medical history of alcohol dependence, anxiety, depression, PTSD, aortic root surgery brought to ER with EtOH abuse. Patient has been drinking binge for the last 1 week and stopped drinking 24 hours ago and he feels like he is withdrawing. Associated with nausea vomiting and shakiness. Denies any chest pain or shortness of breath. No fever or chills. No nausea vomiting or diarrhea. Patient was assessed in the ER and is admitted for possible alcohol withdrawal Hospital Course: Mr. Barriga was given fluid and electrolyte replacement and has tolerated some solid food. He was given information regarding [facility] and will make arrangements to spend some time there. Vital Signs/Physical Exam: Temp Pulse Resp BP Pulse Ox 98.7 F 84 15 147/75 H 98 10/03/24 16:00 10/03/24 16:00 10/03/24 16:00 10/03/24 16:00 10/03/24 16:00 General: Alert, In no apparent distress, Oriented x3, Cooperative, Disheveled HEENT: Atraumatic, Normocephalic Neck: Supple Respiratory: Normal air movement Cardiovascular: Normal pulses, Regular rate/rhythm Capillary refill: <2 Seconds Gastrointestinal: Soft and benign Musculoskeletal: No clubbing Integumentary: No rashes Neurological: Normal speech, Normal tone, Normal affect, Other (remains a little tremorus) External genitalia: Deferred Rectal: Deferred Laboratory Data at Discharge: WBC 6.40 thou/uL (4.3-10.9) 10/03/24 04:12 Hgb 10.7 g/dL (13.6-17.9) L 10/03/24 04:12 Hct 32.0 % (39.6-49.0) L 10/03/24 04:12 Plt Count 99 thou/uL (152-406) L 10/03/24 04:12 Sodium 135 mEq/L (136-145) L D 10/03/24 04:12 Potassium 3.3 mEq/L (3.5-5.1) L 10/03/24 04:12 BUN 8 mg/dL (7-18) 10/03/24 04:12 Creatinine 0.89 mg/dL (0.70-1.30) 10/03/24 04:12 Glucose 124 mg/dL (74-106) H 10/03/24 04:12 Phosphorus 1.6 mg/dL (2.5-4.9) L 10/02/24 04:11 Magnesium 2.3 mg/dL (1.6-2.4) 10/01/24 12:59 Total Bilirubin 0.3 mg/dL (0.2-1.0) 10/03/24 04:12 AST 13 U/L (15-37) L 10/03/24 04:12 ALT 18 U/L (16-61) 10/03/24 04:12 Alkaline Phosphatase 77 U/L (45-117) 10/03/24 04:12 Home Medications: Buspirone HCl [Buspar] 10 mg PO TID 09/30/24 Buspirone HCl [Buspar] 15 mg PO TID 09/30/24 Multivitamin 1 tab PO DAILY 09/30/24 Quetiapine [Seroquel*] 100 mg PO BEDTIME 09/30/24 Sertraline HCl 200 mg PO DAILY 09/30/24 Trazodone HCl [Desyrel] 200 mg PO BEDTIME 09/30/24 Physician Discharge Instructions: Mr. Barriga was given fluid and electrolyte replacement and has tolerated some solid food. He was given information regarding [facility] and will make arrangements to spend some time there. Diet: Regular Activity: Fall precautions [facility]: [facility] [Primary Care Provider] -
[2024-10-03] MEDS: TRAZODONE 50 MG TABLET PO SCH (20:30)
[2024-10-03] MEDS: QUETIAPINE 100MG TAB PO SCH (20:30)
[2024-10-03] MEDS: TRAZODONE 150 MG TAB PO SCH (20:30)
[2024-10-03] MEDS ORDERED: HOME MED 1 EA UNK (Trazodone Hcl [Desyrel] 100 MG Tablet) PO SCH (21:00)
[2024-10-04 07:20] VITALS: O2SAT 96
[2024-10-04 08:29] VITALS: BP 128/74; TEMP 98.2
[2024-10-04] MEDS: SERTRALINE HCL 100 MG TAB PO SCH (09:00)
[2024-10-04] MEDS ORDERED: HOME MED 1 EA UNK (Multivitamin [Multivitamin] Tablet) PO SCH (09:00)
== END 2024-10-04 10:30 | disposition home or self-care (01) | DRG 897 ==
LOC: ER 15:37 → ERHOLD 19:34 → 2ND 20:33
PROVIDERS: ADMIT Family Medicine; ATTEND Internal Medicine
DX: F10.239 Alcohol dependence with withdrawal, unspecified (principal); E87.1 Hypo-osmolality and hyponatremia; E86.0 Dehydration; F43.10 Post-traumatic stress disorder, unspecified; F17.200 Nicotine dependence, unspecified, uncomplicated; Z95.2 Presence of prosthetic heart valve; Z79.899 Other long term (current) drug therapy; Y90.8 Blood alcohol level of 240 mg/100 ml or more
CPT/HCPCS: 36415; 80048; 80053; 80076; 81001; 82077; 83735; 84100; 84132; 85025; 96372; 96374; 99284; J2405; J2550; J3360; J3411; J3475; J3480; J7030

== ENCOUNTER 2024-10-11 13:10 | Inpatient (IN) | payer OTHER ==
--- OUTSIDE RECORDS SUMMARY | 2024-10-11 13:13 | XMS REPORT | Continuity of Care Document ---
Author Name Unknown Address [address] [facility] [address] [place] [address] [facility] thconnect Address [address] [facility] [address] [place] [address] Care Team Providers Care Prepper Name Role Phone Vickie Garcia Attending Clinician Unavailable Vickie Garcia Admitting Clinician Unavailable Payers Payer Name Policy Type Policy Number Effective Date Expirati on Date Source Allergies, Adverse Reactions, Alerts Allergy Name Allergy Type Status Severity Reaction(s) Onset Date Inactive Date Treating Clinician Comments Source No Known Allergie s DA Active U 03-18 00:00: 00 [facility] Encounters Start Date/Time End Date/Time Encounter Type Admission Type Attending Clinicians Care Facility Care Department Encounter ID Source 2024-03-18 03:55:00 2024-03-20 12:41:00 Inpatient EM Vickie Garcia [facility] TELE [id number] [facility] Results Test Description Test Time Test Comments Results Result Co mments Source COMPREHENSIVE METABOLIC [id number] 17:15:00* Test Item Value Reference Range Interpretation [...] code = ALKP) 71 Units/L 50.0-136.0 N [id number] 17:15:00* Test Item Value Reference Range Interpretation Comme nts MAGNESIUM (test code = MAG) 1.3 mg/dl 1.8-2.4 L VITAMIN [id number] 17:15:00* Test Item Value Reference Range Interpretation Comme nts VITAMIN B12 (test code = VITB12) 239 pg/mL 193-986 N CBC W/AUTO [id number] 04:51:00* Test Item Value Reference Range Interpretation [...] 0.00 X10 3uL 0.00-0.01 N COMPREHENSIVE METABOLIC [id number] 05:46:00* Test Item Value Reference Range Interpretation [...] ALKP) 75 Units/L 50.0-136.0 N CBC W/AUTO [id number] 04:25:00* Test Item Value Reference Range Interpretation [...] = NRBC#) 0.00 X10 3uL 0.00-0.01 N [id number] 20:03:00* Test Item Value Reference Range Interpretation Comme nts GLUBED (test code = GLUBED) 132 mg/dL 70-110 H DRUGS OF ABUSE SCREEN [id number] 08:40:00* Test Item Value Reference Range Interpretation [...] 300 ng/mL WHAT DRUGS HAVE BEEN TAKEN? [id number] 03:26:00* Test Item Value Reference Range Interpretation Comme nts ALCOHOL (test code = ALC) 0.47 gm/dL 0.00-0.00 HH ETHYL ALCOHOL VA LUES - INTERPRETATION: 0.050 GM/DL - NOT INTOXICATED 0.100 GM/DL - INTOXICATED 0.350-0.450 GM/DL - SEVERELY INTOXICATED 0.550 GM/DL- FATAL INTOXICATION BASIC METABOLIC [id number] 03:26:00* Test Item Value Reference Range Interpretation [...] ECRCL) 88 mL/min >30 HEPATIC FUNCTION PANEL [id number] 03:26:00* Test Item Value Reference Range Interpretation [...] code = ALKP) 118 Units/L 50.0-136.0 N [id number] 03:26:00* Test Item Value Reference Range Interpretation Comme nts LIPASE (test code = LIP) 78 Units/L 16-77 H TROP-I HIGH [id number] 03:26:00* Test Item Value Reference Range Interpretation Comme nts TROP-I HIGH SENSITIVITY (test code = TROPIHS) 29 ng/L 0-76 N CAUTION: Units o f the current TROPI-HS test methodology(ng/L) differ from the prior test methodology (ng/mL) by afactor of 1000. 99th Percentile: Females: 0 - 51 ng/L Males: 0 - 76 ng/LThese results were obtained using Voxbone TnIHreagent. Results from different methodologies should not becompared to one another as quantitative results may vary bymethod. CBC W/AUTO [id number] 03:04:00* Test Item Value Reference Range Interpretation [...] code = BA#) 0.1 K/mm3 0.0-0.2 N [id number] 02:29:00* Test Item Value Reference Range Interpretation Comme nts GLUBED (test code = GLUBED) 83 mg/dL 70-110 N Notes Date/Time Note Provider Source 2024-03-20 22:50:00 [facility] ([facility]) Hospitalist Discharge Summary REPORT#:[id number] REPORT STATUS: Signed REPORT INITIALIZATION DATE:03/20/24 TIME: 2249 PATIENT: TACHO LOBO UNIT #: [id number] ROOM/BED: [place] [address] : 75 AGE: 48 SEX: M ATTEND: Vickie Garcia MD ADM AUTHOR: Jesus Lopez REPT SERVICE DT/TIME: 03/20/242249 * ALL edits or amendments must be made on the electronic/computer document * General Information Date of admission: Observation Start Date: Date of admission: 03/18/24 Discharge date: 03/20/24 Admission diagnosis: ETOH withdrawal Discharge diagnosis: Same Hospital course: 48-year-old patient with known history of PTSD, schizoaffective, anxiety, prior history of open heart surgery Presented to the hospital with alcohol withdrawal. Patient reports he started having nausea vomiting and could not drink his usual whiskey. Last drink was 1 day ago. He started having withdrawals anxiety and presented to ER. Patient in ER was tachycardic hypertensive. He had seizure-like activity and was given IV Ativan. Now he is awake oriented x 3. Labs unremarkable lipase normal urine drug screen negative Pt. condition on discharge: improved, stable Free Text DxA P Notes Free text DxA P notes: Alcohol withdrawal syndrome DTs --- CIWA protocol Thiamine, folic acid As needed IV Ativan Monitor electrolytes Beta-dinah if needed IV fluids --> No tremors at this time. Contiue with current plan Alcoholic gastritis IV PPI Anxiety, PTSD, schizoaffective Continue home meds Outpatient psych follow-up needed Alcoholism Counseled to quit Monitor in CCU for severe withdrawal Hypokalemia -Replace Ok to transfer to floor, anticipate DC in am Med Rec Med Rec Discharge meds: Continue taking these medications: PRAZOSIN (MINIPRESS) 2 MG CAP 2 MILLIGRAM ORAL BEDTIME. Qty = 30 This prescription has been renewed QUEtiapine (SEROquel) 50 MG TAB 50 MILLIGRAM ORAL DAILY AT 0800. Qty = 30 This prescription has been renewed QUEtiapine (SEROquel) 100 MG TAB 100 MILLIGRAM ORAL BEDTIME. Qty = 30 This prescription has been renewed busPIRone (BUSPIRONE) 10 MG TAB 20 MILLIGRAM ORAL TWICE DAILY. Qty = 60 This prescription has been renewed Start taking the following new medications: PANTOPRAZOLE DR (PROTONIX) 40 MG TAB.DR 40 MILLIGRAM ORAL EVERY 12 HOURS. Qty = 60 No Refills [THERAGRAN] 1 TABLET ORAL TWICE DAILY. No Refills FOLIC ACID (FOLIC ACID) 1 MG TAB 1 MILLIGRAM ORAL DAILY. Qty = 30 No Refills THIAMINE (VITAMIN B-1) 100 MG TAB 100 MILLIGRAM ORAL DAILY. Qty = 30 No Refills chlordiazePOXIDE (LIBRIUM) 10 MG CAP 10 MILLIGRAM ORAL THREE TIMES A DAY. Qty = 15 No Refills The following medications have been changed: Old: traZODone (DESYREL) 50 MG TAB 250 MILLIGRAM BEDTIME. New: traZODone (DESYREL) 50 MG TAB 250 MILLIGRAM ORAL BEDTIME. Qty = 30 Objective VS/I O Last Documented: Result Date Time Pulse Ox 96 03/20 1138 B/P 135/78 03/20 1138 B/P Mean 96.9 03/20 1138 Temp 97.5 03/20 1138 Pulse 110 03/20 1138 Resp 18 03/20 1138 O2 Delivery Room air 03/20 0758 O2 Flow Rate 2 03/19 1350 24 hour I O ending at 0700: 03/20 0700 03/19 1900 Intake Total 1100.00 450.00 Output Total 1200 Balance 1100.00 -750.00 Intake, IV 600.00 450.00 Intake, Oral 500 Number Voids 5 Output, Urine 1200 Results Findings/Data: Laboratory Tests: 03/20 0410 Chemistry Sodium (134.0 - 147.0 mmol/l) 136 Potassium (3.6 - 5.2 mmol/L) 3.8 Chloride (98.0 - 107.0 mmol/l) 102 Carbon Dioxide (21.0 - 33.0 mmol/l) 26.1 Anion Gap (0 - 20) 11.7 BUN (7.0 - 18.0 mg/dl) 6 L Creatinine (0.60 - 1.30 mg/dL) 1.04 Estimated Creat Clear (>30 mL/min) 93 Glomerular Filtr Rate (mL/min) 89 Glucose (70.0 - 110.0 mg/dl) 152 H Calcium (8.0 - 10.5 mg/dl) 8.6 Magnesium (1.8 - 2.4 mg/dl) 1.3 L Total Bilirubin (0.0 - 1.0 mg/dl) 0.6 AST (15 - 37 Units/L) 17 ALT (12.0 - 78.0 Units/L) 23 Total Alk Phosphatase (50.0 - 136.0 Units/L) 71 Total Protein (6.0 - 8.1 GM/DL) 6.9 Albumin (3.2 - 4.7 gm/dL) 3.2 Vitamin B12 (193 - 986 pg/mL) 239 Hematology WBC (4.5 - 11.0 K/mm3) 4.9 RBC (4.40 - 5.90 M/mm3) 3.55 L Hgb (13.0 - 17.0 gm/dL) 10.6 L Hct (36.0 - 48.0 %) 32.7 L MCV (80.0 - 94.0 UM3) 92.1 MCH (25.5 - 32.5 UUG) 29.9 MCHC (29.0 - 35.5 gm/dL) 32.4 RDW (11.5 - 15.0 %) 16.9 H Plt Count (150 - 400 K/mm3) 118 L MPV (7.4 - 10.4 fl) 10.7 H Neut % (Auto) (49.0 - 76.0 %) 75.8 Lymph % (Auto) (23.0 - 38.0 %) 11.9 L [place] % (Auto) (1.0 - 10.0 %) 8.2 Eos % (Auto) (1.0 - 5.0 %) 3.3 Baso % (Auto) (0.0 - 1.0 %) 0.6 Neut # (Auto) (2.4 - 6.3 K/mm3) 3.7 Lymph # (Auto) (1.2 - 4.0 K/mm3) 0.6 L [place] # (Auto) (0.0 - 0.6 K/mm3) 0.4 Eos # (Auto) (0.0 - 0.7 K/MM3) 0.2 Baso # (Auto) (0.0 - 0.2 K/mm3) 0.0 Absolute Nucleated RBC (0.00 - 0.01 X10 3uL) 0.00 Immature Gran % (0.0 - 0.4 %) 0.2 Nucleated RBC % (0.0 - 0.1 %) 0.0 Immature Gran # (0.00 - 0.07 x10 3/uL) 0.01 Free Text Obj Notes Free Text Obj Notes: PHYSICAL EXAMINATION General appearance: alert, awake, Appears much older than documented age Head/Eyes: atraumatic, normocephalic, PERRL, EOMI ENT: normal ear left, normal ear right, normal nose, normal pharynx Neck: full range of motion, supple/no meningismus Cardiovascular: normal S1/S2, regular rate rhythm Respiratory/chest: good breath sounds, symmetric expansion, no distress Abdomen: soft, epigastric tenderness, normal bowel sounds Genitourinary: deferred Extremities: moves all, no clubbing, no cyanosis, no edema Musculoskeletal: full range of motion, normal inspection Neuro/SOLAR PHOTOVOLTAIC INSTALLER alert, oriented X 3, CNII-XII intact Skin: dry, intact Psychiatry: normal affect, normal judgment/insight, normal mood Discharge Instructions PCP PCP follow-up: PCP: No Primary or Family Physician Discharge to: Home/Self Care Additional Discharge Routines: PCP Follow-Up Diet: Resume Home Diet/Feeds Activity: As Tolerated Discharge management: greater than 30 mins, face to face encounter Follow-up Appointments PCP follow-up: PCP: No Primary or Family Physician PCP follow up timeframe: In 1-2 weeks at 2252 at 1445 RPT #:[id number] END OF REPORT [facility] 2024-03-19 14:41:00 [facility] Pulmonology Progress Note REPORT#:[id number] REPORT STATUS: Signed REPORT INITIALIZATION DATE:03/19/24 TIME: 144 PATIENT: TACHO LOBO UNIT #: [id number] ROOM/BED: [place] [id number] : 75 AGE: 48 SEX: M ATTEND: Vickie Garcia MD ADM AUTHOR: Rylan Vaughn MD REPT SERVICE DT/TIME: 03/19/24 1441 * ALL edits or amendments must be made on the electronic/computer document * Subjective Chief complaint: SOB Comments: more awake tolerating po ROS: no n/v/cp Objective General VS/I O: Last Documented: Result Date Time O2 Delivery Nasal cannula 03/19 1350 O2 Flow Rate 2 03/19 1350 Temp 98.3 03/19 1350 Pulse Ox 94 03/19 1300 Pulse 104 03/19 1300 Resp 21 03/19 1300 B/P 143/69 03/19 1000 B/P Mean 96 03/19 1000 24 hour I O ending at 0700: 03/18 1900 03/19 0700 Intake Total 1425.00 Output Total 350 1175 Balance -350 250.00 Intake, IV 825.00 Intake, Oral 600 Output, Urine 350 1175 PATIENT WEIGHT: Weight (lb): Weight (oz): Weight (kg): 90.909 Physical Exam General appearance: chronically ill appearing Head/eyes: atraumatic, normocephalic, PERRL, EOMI, clear cornea, normal conjunctiva/sclera, normal fundi, normal eyelids/periorb. ENT: ENT: normal dentition, normal ear left, normal ear right, normal nose, normal pharynx, normal sinus Neck: full range of motion, non-tender, normal thyroid, supple/no meningismus, no bruit/NL carotids, no JVD, no lymphadenopathy, no masses or swelling Cardiovascular: regular rate rhythm Respiratory/chest: clear to auscultation, no distress, no tenderness Abdomen: soft, non-tender, no distention, no guarding, no mass/organomegaly, no rebound Extremities: moves all, normal capillary refill, no edema Musculoskeletal: full range of motion, normal inspection Neuro/SOLAR PHOTOVOLTAIC INSTALLER: alert, oriented X 3 Skin: dry, intact Lymphatics: axilla normal, inguinal normal, neck normal, no lymphadenopathy Psychiatry: normal affect, normal judgment/insight, normal mood, not homicidal, not suicidal, no hallucinations Results Findings/Data: Laboratory Tests 03/19/24317: [Embedded Image Not Available] Laboratory Tests 03/18 Chemistry Sodium (134.0 - 147.0 mmol/l) 135 Potassium (3.6 - 5.2 mmol/L) 3.1 L Chloride (98.0 - 107.0 mmol/l) 101 Carbon Dioxide (21.0 - 33.0 mmol/l) 26.1 Anion Gap (0 - 20) 11.0 BUN (7.0 - 18.0 mg/dl) 12 Creatinine (0.60 - 1.30 mg/dL) 0.85 Estimated Creat Clear (>30 mL/min) 113 Glomerular Filtr Rate (mL/min) 107 Glucose (70.0 - 110.0 mg/dl) 88 POC Glucose (70 - 110 mg/dL) 132 H Calcium (8.0 - 10.5 mg/dl) 7.3 L Total Bilirubin (0.0 - 1.0 mg/dl) 1.1 H AST (15 - 37 Units/L) 21 ALT (12.0 - 78.0 Units/L) 21 Total Alk Phosphatase (50.0 - 136.0 Units/L) 75 Total Protein (6.0 - 8.1 GM/DL) 6.3 Albumin (3.2 - 4.7 gm/dL) 3.0 L Laboratory Tests 03/19 0318 Hematology WBC (4.5 - 11.0 K/mm3) 3.8 L RBC (4.40 - 5.90 M/mm3) 3.52 L Hgb (13.0 - 17.0 gm/dL) 10.5 L Hct (36.0 - 48.0 %) 31.5 L MCV (80.0 - 94.0 UM3) 89.5 MCH (25.5 - 32.5 UUG) 29.8 MCHC (29.0 - 35.5 gm/dL) 33.3 RDW (11.5 - 15.0 %) 17.4 H Plt Count (150 - 400 K/mm3) 149 L MPV (7.4 - 10.4 fl) 11.6 H Neut % (Auto) (49.0 - 76.0 %) 73.2 Lymph % (Auto) (23.0 - 38.0 %) 15.6 L [place] % (Auto) (1.0 - 10.0 %) 8.1 Eos % (Auto) (1.0 - 5.0 %) 2.3 Baso % (Auto) (0.0 - 1.0 %) 0.5 Neut # (Auto) (2.4 - 6.3 K/mm3) 2.8 Lymph # (Auto) (1.2 - 4.0 K/mm3) 0.6 L [place] # (Auto) (0.0 - 0.6 K/mm3) 0.3 Eos # (Auto) (0.0 - 0.7 K/MM3) 0.1 Baso # (Auto) (0.0 - 0.2 K/mm3) 0.0 Absolute Nucleated RBC (0.00 - 0.01 X10 3uL) 0.00 Immature Gran % (0.0 - 0.4 %) 0.3 Nucleated RBC % (0.0 - 0.1 %) 0.0 Immature Gran # (0.00 - 0.07 x10 3/uL) 0.01 Diagnosis, Assessment Plan Free Text A P: 1. Alcohol withdrawal Markedly elevated alcohol level on arrival Thiamine Multivitamin Follow labs CIWA protocol 2. Metabolic acidosis Likely alcoholic ketoacidosis Monitor Repeat BMP Monitor for weight refeeding syndrome 3. Acute intoxication resolved significant improvement okay to floor will sign off at 1443 RPT #:[id number] END OF REPORT [facility] 2024-03-19 09:54:00 [facility] ([facility]) Hospitalist Progress Note REPORT#:[id number] REPORT STATUS: Signed REPORT INITIALIZATION DATE:03/19/24 TIME: 953 PATIENT: TACHO LOBO UNIT #: [id number] ROOM/BED: [place] [address] : 75 AGE: 48 SEX: M ATTEND: Vickie Garcia MD ADM AUTHOR: Jesus Lopez REPT SERVICE DT/TIME: 03/19/24 0954 * ALL edits or amendments must be made on the electronic/computer document * Subjective Chief complaint: Alcohol withdrawal HPI: 48-year-old patient with known history of PTSD, schizoaffective, anxiety, prior history of open heart surgery Presented to the hospital with alcohol withdrawal. Patient reports he started having nausea vomiting and could not drink his usual whiskey. Last drink was 1 day ago. He started having withdrawals anxiety and presented to ER. Patient in ER was tachycardic hypertensive. He had seizure-like activity and was given IV Ativan. Now he is awake oriented x 3. Labs unremarkable lipase normal urine drug screen negative Patient reports: Yes: resting comfortably. No: abdominal pain, chest pain, chills, cough, diarrhea, dizziness, fever, headache, nausea, shortness of breath, vomiting. Review of Systems Free Text ROS Notes Free Text ROS Notes: 14 point reviewed found to be negative except as mentioned in HPI Objective General VS/I O: Vital Signs: Date Time Temp Pulse Resp B/P B/P Pulse O2 O2 Flow FiO2 Mean Ox Delivery Rate 03/19 0756 97 Room air 03/19 0600 82 16 128/63 89 95 03/19 0500 85 15 132/64 90 97 03/19 0400 99.0 82 15 137/63 87 98 Nasal 2 cannula 03/19 0400 82 15 137/63 90 98 03/19 0300 90 16 129/60 86 96 03/19 0200 92 17 129/67 90 97 03/19 0100 97 15 128/65 88 97 03/19 0000 98.8 104 15 132/66 88 95 Nasal 2 cannula 03/19 0000 104 15 132/66 90 95 03/18 2300 108 17 133/67 93 97 03/18 2200 95 18 144/83 106 97 03/18 2100 97 21 135/72 97 96 03/18 2001 105 25 148/76 104 97 03/18 2000 Nasal 2 cannula 03/18 2000 98.2 104 26 146/91 109 97 Nasal 2 cannula 03/18 2000 104 26 146/91 103 97 03/18 1903 110 23 144/66 95 95 03/18 1901 115 22 162/83 112 96 03/18 1826 94 Nasal 2 cannula 03/18 1600 98.0 100 22 131/67 88 92 Nasal 2 cannula 03/18 1522 94 Nasal 1.5 cannula 03/18 1105 Nasal 2 cannula 03/18 1105 98.1 112 13 134/69 90 98 Nasal 2 cannula 03/18 1030 111 20 132/63 90 94 03/18 1000 111 22 130/60 87 93 24 hour I O ending at 0700: 03/19 0700 03/18 1900 Intake Total 1425.00 Output Total 1175 350 Balance 250.00 -350 Intake, IV 825.00 Intake, Oral 600 Output, Urine 1175 350 PATIENT WEIGHT: Weight (lb): Weight (oz): Weight (kg): 90.909 Medications: Active Meds + DC'd Last 24 Hrs Potassium Chloride (POTASSIUM CHLORIDE 20 MEQ TAB.ER) 40 MEQ ONCE ONE PO (DC) Quetiapine Fumarate (QUETIAPINE FUMARATE) 50 MG DAILY@0800 PO Buspirone HCl (BUSPAR) 20 MG BID PO Multivitamins Therapeutic (THERAGRAN) 1 TAB BID PO (CKD) Mupirocin (BACTROBAN 2% 22 GM OINT) 1 APPLIC BID NASAL Prazosin HCl (MINIPRESS) 2 MG BEDTIME PO Quetiapine Fumarate (SeroqueL) 100 MG BEDTIME PO Trazodone HCl (DESYREL) 250 MG BEDTIME PO Lorazepam (ATIVAN) 1 MG ONCE ONE IV (DC) Sterile Water (WATER FOR INJECTION) 10 ML ASDIR PRN IV Hydrocodone Bitart/Acetaminophen (NORCO 5/325 TABLET) 1 TAB Q4H PRN PRN PO Sodium Chloride (SODIUM CHLORIDE 0.9%) 1,000 ML .[id number] IV Enoxaparin Sodium (LOVENOX) 40 MG Q24H SUBQ Pantoprazole (PROTONIX 40MG INJ) 40 MG Q12HR IV Sodium Chloride (SODIUM CHLORIDE 0.9% 10ML) 10 ML ASDIR PRN IV Thiamine HCl (THIAMINE HCL) 100 MG DAILY IV Chlordiazepoxide HCl (LIBRIUM) 25 MG Q8H PO Ondansetron HCl (ZOFRAN 2ML) 4 MG Q4H PRN PRN IV Hydralazine HCl (APRESOLINE) 10 MG Q2H PRN PRN IV (DC) Lorazepam (ATIVAN) 1 MG Q4H PRN PRN IV Lorazepam (ATIVAN) 2 MG Q4H PRN PRN IV Ondansetron HCl (ZOFRAN 2ML) 4 MG Q6H PRN PRN IV (DC) Sodium Chloride (SODIUM CHLORIDE 0.9%) 1,000 ML ONCE ONE IV (DC) Sterile Water (WATER FOR INJECTION) 1 ML ASDIR PRN IV Sterile Water (WATER FOR INJECTION) 2 ML ASDIR PRN IV Sodium Chloride (SODIUM CHLORIDE 0.9%) 1,000 ML X1ED IV Sterile Water (WATER FOR INJECTION) 10 ML ASDIR PRN IV Dietitian nutrition assessment The data set between the solid lines has been imported from the dietitian's assessment. BMI Calculated: 28.0 Nutrition related diagnosis: Nutrition diagnosis details: Nutrition problem: Nutrition etiology: Nutrition signs and symptoms: Nutrition prescription: Dietitian name: Assessment completed: Results Findings/Data: Laboratory Tests 03/19 1949 Chemistry Sodium (134.0 - 147.0 mmol/l) 135 Potassium (3.6 - 5.2 mmol/L) 3.1 L Chloride (98.0 - 107.0 mmol/l) 101 Carbon Dioxide (21.0 - 33.0 mmol/l) 26.1 Anion Gap (0 - 20) 11.0 BUN (7.0 - 18.0 mg/dl) 12 Creatinine (0.60 - 1.30 mg/dL) 0.85 Estimated Creat Clear (>30 mL/min) 113 Glomerular Filtr Rate (mL/min) 107 Glucose (70.0 - 110.0 mg/dl) 88 POC Glucose (70 - 110 mg/dL) 132 H Calcium (8.0 - 10.5 mg/dl) 7.3 L Total Bilirubin (0.0 - 1.0 mg/dl) 1.1 H AST (15 - 37 Units/L) 21 ALT (12.0 - 78.0 Units/L) 21 Total Alk Phosphatase (50.0 - 136.0 Units/L) 75 Total Protein (6.0 - 8.1 GM/DL) 6.3 Albumin (3.2 - 4.7 gm/dL) 3.0 L Laboratory Tests 03/19 318 Hematology WBC (4.5 - 11.0 K/mm3) 3.8 L RBC (4.40 - 5.90 M/mm3) 3.52 L Hgb (13.0 - 17.0 gm/dL) 10.5 L Hct (36.0 - 48.0 %) 31.5 L MCV (80.0 - 94.0 UM3) 89.5 MCH (25.5 - 32.5 UUG) 29.8 MCHC (29.0 - 35.5 gm/dL) 33.3 RDW (11.5 - 15.0 %) 17.4 H Plt Count (150 - 400 K/mm3) 149 L MPV (7.4 - 10.4 fl) 11.6 H Neut % (Auto) (49.0 - 76.0 %) 73.2 Lymph % (Auto) (23.0 - 38.0 %) 15.6 L [place] % (Auto) (1.0 - 10.0 %) 8.1 Eos % (Auto) (1.0 - 5.0 %) 2.3 Baso % (Auto) (0.0 - 1.0 %) 0.5 Neut # (Auto) (2.4 - 6.3 K/mm3) 2.8 Lymph # (Auto) (1.2 - 4.0 K/mm3) 0.6 L [place] # (Auto) (0.0 - 0.6 K/mm3) 0.3 Eos # (Auto) (0.0 - 0.7 K/MM3) 0.1 Baso # (Auto) (0.0 - 0.2 K/mm3) 0.0 Absolute Nucleated RBC (0.00 - 0.01 X10 3uL) 0.00 Immature Gran % (0.0 - 0.4 %) 0.3 Nucleated RBC % (0.0 - 0.1 %) 0.0 Immature Gran # (0.00 - 0.07 x10 3/uL) 0.01 Free Text Obj Notes Free Text Obj Notes: PHYSICAL EXAMINATION General appearance: alert, awake, Appears much older than documented age Head/Eyes: atraumatic, normocephalic, PERRL, EOMI ENT: normal ear left, normal ear right, normal nose, normal pharynx Neck: full range of motion, supple/no meningismus Cardiovascular: normal S1/S2, regular rate rhythm Respiratory/chest: good breath sounds, symmetric expansion, no distress Abdomen: soft, epigastric tenderness, normal bowel sounds Genitourinary: deferred Extremities: moves all, no clubbing, no cyanosis, no edema Musculoskeletal: full range of motion, normal inspection Neuro/SOLAR PHOTOVOLTAIC INSTALLER alert, oriented X 3, CNII-XII intact Skin: dry, intact Psychiatry: normal affect, normal judgment/insight, normal mood Diagnosis, Assessment Plan Plan discussed with: patient, nurse Free Text DxA P Notes Free text DxA P notes: Alcohol withdrawal syndrome DTs --- CIWA protocol Thiamine, folic acid As needed IV Ativan Monitor electrolytes Beta-dinah if needed IV fluids --> No tremors at this time. Contiue with current plan Alcoholic gastritis IV PPI Anxiety, PTSD, schizoaffective Continue home meds Outpatient psych follow-up needed Alcoholism Counseled to quit Monitor in CCU for severe withdrawal Hypokalemia -Replace Ok to transfer to floor, anticipate DC in am at 0957 at 1444 RPT #:[id number] END OF REPORT [facility] 2024-03-18 09:09:00 [facility] ([facility]) Hospitalist History Physical REPORT#:[id number] REPORT STATUS: Signed REPORT INITIALIZATION DATE:03/18/24 TIME: 908 PATIENT: TACHO LOBO UNIT #: [id number] ROOM/BED: [place] [address] : 75 AGE: 48 SEX: M ATTEND: Vickie Garcia MD ADM AUTHOR: Clara Hirsch MD REPT SERVICE DT/TIME: 03/18/24908 * ALL edits or amendments must be made on the electronic/computer document * See Addendum History of Present Illness HPI Chief complaint: Alcohol withdrawal PCP: PCP: No Primary or Family Physician HPI: 48-year-old patient with known history of PTSD, schizoaffective, anxiety, prior history of open heart surgery Presented to the hospital with alcohol withdrawal. Patient reports he started having nausea vomiting and could not drink his usual whiskey. Last drink was 1 day ago. He started having withdrawals anxiety and presented to ER. Patient in ER was tachycardic hypertensive. He had seizure-like activity and was given IV Ativan. Now he is awake oriented x 3. Labs unremarkable lipase normal urine drug screen negative History Past Medical Surgical Hx Additional medical history: Previous pancreatitis Alcoholism Open heart surgery Family History Additional family history: Noncontributory Social History Alcohol use: Alcohol use Drug use: Denies recreational drugs Smoking status for patients 13 years old or older: Former Smoker Medication/Allergy-Vaccine Hx Allergies: Coded Allergies: No Known Allergies (03/18/24) Review of Systems Free Text ROS Notes Free Text ROS Notes: 14 point reviewed found to be negative except as mentioned in HPI OBJECTIVE VS/I O: Vital Signs Date Temp Pulse Resp B/P B/P Mean Pulse Ox FiO2 03/18 36.3 90-108 8-24 104-157/55-96 75-116 92-99 Last Documented: Result Date Time Pulse Ox 93 03/18 0903 B/P 136/67 03/18 0900 B/P Mean 96 03/18 09 Pulse 106 03/18 0900 Resp 20 03/18 09 O2 Delivery Room air 03/18 207 Temp 36.3 03/18 207 24 hour I O ending at 0700: 03/17 1900 03/18 07 Intake Total Output Total Balance Output, Emesis Patient 90.909 kg Weight Weight Stated/Reported Measurement Method Patient Weight and BMI Weight (kg): 90.909 BMI: 28.0 Results Findings/Data: Laboratory Tests: 03/18 03/18 03/18 0216 7 7 Chemistry Sodium (134.0 - 147.0 mmol/l) 136 Potassium (3.6 - 5.2 mmol/L) 4.2 Chloride (98.0 - 107.0 mmol/l) 96 L Carbon Dioxide (21.0 - 33.0 mmol/l) 19.0 L Anion Gap (0 - 20) 25.2 H BUN (7.0 - 18.0 mg/dl) 15 Creatinine (0.60 - 1.30 mg/dL) 1.09 Estimated Creat Clear (>30 mL/min) 88 Glomerular Filtr Rate (mL/min) 84 Glucose (70.0 - 110.0 mg/dl) 80 POC Glucose (70 - 110 mg/dL) 83 Calcium (8.0 - 10.5 mg/dl) 7.5 L Total Bilirubin (0.0 - 1.0 mg/dl) 0.5 Direct Bilirubin (0.0 - 0.3 mg/dl) <0.1 AST (15 - 37 Units/L) 45 H ALT (12.0 - 78.0 Units/L) 34 Total Alk Phosphatase (50.0 - 136.0 Units/L) 118 Troponin I High Sens (0 - 76 ng/L) 29 Total Protein (6.0 - 8.1 GM/DL) 8.5 H Albumin (3.2 - 4.7 gm/dL) 3.9 Lipase (16 - 77 Units/L) 78 H Hematology WBC (4.5 - 11.0 K/mm3) 5.4 RBC (4.40 - 5.90 M/mm3) 4.82 Hgb (13.0 - 17.0 gm/dL) 14.1 Hct (36.0 - 48.0 %) 42.1 MCV (80.0 - 94.0 UM3) 87.3 MCH (25.5 - 32.5 UUG) 29.3 MCHC (29.0 - 35.5 gm/dL) 33.5 RDW (11.5 - 15.0 %) 16.7 H Plt Count (150 - 400 K/mm3) 221 MPV (7.4 - 10.4 fl) 9.9 Neut % (Auto) (49.0 - 76.0 %) 76.7 H Lymph % (Auto) (23.0 - 38.0 %) 15.3 L [place] % (Auto) (1.0 - 10.0 %) 6.2 Eos % (Auto) (1.0 - 5.0 %) 0.7 L Baso % (Auto) (0.0 - 1.0 %) 0.9 Neut # (Auto) (2.4 - 6.3 K/mm3) 4.1 Lymph # (Auto) (1.2 - 4.0 K/mm3) 0.8 L [place] # (Auto) (0.0 - 0.6 K/mm3) 0.3 Eos # (Auto) (0.0 - 0.7 K/MM3) 0.0 Baso # (Auto) (0.0 - 0.2 K/mm3) 0.1 Immature Gran % (0.0 - 0.4 %) 0.2 Immature Gran # (0.00 - 0.07 x10 3/uL) 0.01 Toxicology Urine Opiates Screen (NEGATIVE) NEGATIVE Urine Methadone Screen (NEGATIVE) NEGATIVE Urine Barbiturates (NEGATIVE) NEGATIVE Ur Phencyclidine Scrn (NEGATIVE) NEGATIVE Ur Amphetamines Screen (NEGATIVE) NEGATIVE U Benzodiazepines Scrn (NEGATIVE) NEGATIVE Urine Cocaine Screen (NEGATIVE) NEGATIVE Urine Cannabinoids (NEGATIVE) NEGATIVE Ethyl Alcohol (0.00 - 0.00 gm/dL) 0.47 *H Laboratory Tests 03/18/24 0227: [Embedded Image Not Available] Free Text PE Notes Free Text PE Notes: PHYSICAL EXAMINATION General appearance: alert, awake, shaky Head/Eyes: atraumatic, normocephalic, PERRL, EOMI ENT: normal ear left, normal ear right, normal nose, normal pharynx Neck: full range of motion, supple/no meningismus Cardiovascular: normal S1/S2, regular rate rhythm Respiratory/chest: good breath sounds, symmetric expansion, no distress Abdomen: soft, epigastric tenderness, normal bowel sounds Genitourinary: deferred Extremities: moves all, no clubbing, no cyanosis, no edema Musculoskeletal: full range of motion, normal inspection Neuro/SOLAR [employer]OV[employer]ST[employer]ER alert, oriented X 3, CNII-XII intact Skin: dry, intact Psychiatry: normal affect, normal judgment/insight, normal mood Diagnosis, Assessment Plan Free Text A P: Alcohol withdrawal syndrome DTs --- CIWA protocol Thiamine, folic acid As needed IV Ativan Monitor electrolytes Beta-dinah if needed IV fluids Alcoholic gastritis IV PPI Anxiety, PTSD, schizoaffective Continue home meds Outpatient psych follow-up needed Alcoholism Counseled to quit Monitor in CCU for severe withdrawal - at 1002 Addendum 1: 03/18/24 1002 by Clara Hirsch MD Alcohol withdrawal seizure IV Ativan Metabolic acidosis positive anion gap Alcoholic ketosis Continue aggressive IV hydration BMP in a.m. at 1003 RPT #:[id number] END OF REPORT [facility] 2024-03-18 07:56:00 [facility] ([facility] Pulmonary Consultation Note REPORT#:[id number] REPORT STATUS: Signed REPORT INITIALIZATION DATE:03/18/24 TIME: 755 PATIENT: TACHO LOBO UNIT #: [id number] ROOM/BED: [place] [id number] : 75 AGE: 48 SEX: M ATTEND: Vickie Garcia MD ADM AUTHOR: Rylan Vaughn MD REPT SERVICE DT/TIME: 03/18/24 0756 * ALL edits or amendments must be made on the electronic/computer document * History of Present Illness HPI Requesting clinician: YO Reason for consult: SOB Chief complaint: SOB HPI: This patient is a 48-year-old white male with past medical history of schizoaffective disorder and alcohol abuse presenting with possible alcohol withdrawal. The patient has very heavy alcohol use. He drinks a few liters of liquor per day. He has had history of withdrawal in the past. The patient states he stopped drinking yesterday. He then started having withdrawal type symptoms including tremors and anxiety. In the emergency room He had a workup which showed alcohol level of 0.47. He was said to have mild acidosis. The patient was assessed and found to be tachycardic. He was started on CIWA protocol and admitted to the ICU for further care. Past medical history Alcohol abuse History of pancreatitis Aortic root PTSD Schizoaffective disorder Past surgical history Open heart surgery Social history Alcohol as above Family history Reviewed and noncontributory REVIEW OF SYSTEMS: GENERAL: Denies fevers. EYES: Denies acute visual changes. ENT: Denies odynophagia. CV: Denies chest pain. RESPIRATORY: As above. GI: Denies nausea or vomiting. : Denies dysuria. LYMPH: Denies lymphadenopathy. HEME: Denies easy bleeding or bruising. NEUROLOGIC: Denies numbness or weakness. PSYCH: Denies anxiety or depression. SKIN: Denies jaundice or rashes. EXTREMITIES: Denies joint pain. ENDOCRINE: Denies hypo or hyperthyroidism. PHYSICAL EXAMINATION: GENERAL: Supine, comfortable, in no acute respiratory distress. EYES: Pupils reactive, lids without pallor. ENT: Oropharynx is clear. Mallampati is 1. Nasal turbinates are clear. CV: S1 and S2. Regular rate and rhythm. No peripheral edema. RESPIRATORY: Decreased breath sounds bilaterally. Respiratory effort is normal. GI: Soft, nontender, and nondistended. No hepatosplenomegaly. : Deferred. NEURO: Alert and responsive. Cranial nerves II through XII intact. Sensation intact to light touch. PSYCH: Normal mood, affect, judgment, and insight. SKIN: No jaundice or rashes. Skin turgor is normal. EXTREMITIES: No clubbing or cyanosis. Joints are normal. History - Adult longitudinal Additional medical history: Previous pancreatitis Smoking status for patients 13 years old or older: Unknown,if ever smoked Allergies: Coded Allergies: No Known Allergies (03/18/24) Objective Physical Exam Vitals: Last Documented: Result Date Time O2 Delivery Nasal cannula 03/18 1105 O2 Flow Rate 2 03/18 1105 Pulse Ox 98 03/18 1105 B/P 134/69 03/18 1105 B/P Mean 90 03/18 1105 Temp 98.1 03/18 1105 Pulse 112 03/18 1105 Resp 13 03/18 1105 Results Findings/Data: Laboratory Tests 03/18/24226: [Embedded Image Not Available] Laboratory Tests 03/18 Chemistry Sodium (134.0 - 147.0 mmol/l) 136 Potassium (3.6 - 5.2 mmol/L) 4.2 Chloride (98.0 - 107.0 mmol/l) 96 L Carbon Dioxide (21.0 - 33.0 mmol/l) 19.0 L Anion Gap (0 - 20) 25.2 H BUN (7.0 - 18.0 mg/dl) 15 Creatinine (0.60 - 1.30 mg/dL) 1.09 Estimated Creat Clear (>30 mL/min) 88 Glomerular Filtr Rate (mL/min) 84 Glucose (70.0 - 110.0 mg/dl) 80 POC Glucose (70 - 110 mg/dL) 83 Calcium (8.0 - 10.5 mg/dl) 7.5 L Total Bilirubin (0.0 - 1.0 mg/dl) 0.5 Direct Bilirubin (0.0 - 0.3 mg/dl) <0.1 AST (15 - 37 Units/L) 45 H ALT (12.0 - 78.0 Units/L) 34 Total Alk Phosphatase (50.0 - 136.0 Units/L) 118 Troponin I High Sens (0 - 76 ng/L) 29 Total Protein (6.0 - 8.1 GM/DL) 8.5 H Albumin (3.2 - 4.7 gm/dL) 3.9 Lipase (16 - 77 Units/L) 78 H Laboratory Tests 03/18 227 Hematology WBC (4.5 - 11.0 K/mm3) 5.4 RBC (4.40 - 5.90 M/mm3) 4.82 Hgb (13.0 - 17.0 gm/dL) 14.1 Hct (36.0 - 48.0 %) 42.1 MCV (80.0 - 94.0 UM3) 87.3 MCH (25.5 - 32.5 UUG) 29.3 MCHC (29.0 - 35.5 gm/dL) 33.5 RDW (11.5 - 15.0 %) 16.7 H Plt Count (150 - 400 K/mm3) 221 MPV (7.4 - 10.4 fl) 9.9 Neut % (Auto) (49.0 - 76.0 %) 76.7 H Lymph % (Auto) (23.0 - 38.0 %) 15.3 L [place] % (Auto) (1.0 - 10.0 %) 6.2 Eos % (Auto) (1.0 - 5.0 %) 0.7 L Baso % (Auto) (0.0 - 1.0 %) 0.9 Neut # (Auto) (2.4 - 6.3 K/mm3) 4.1 Lymph # (Auto) (1.2 - 4.0 K/mm3) 0.8 L [place] # (Auto) (0.0 - 0.6 K/mm3) 0.3 Eos # (Auto) (0.0 - 0.7 K/MM3) 0.0 Baso # (Auto) (0.0 - 0.2 K/mm3) 0.1 Immature Gran % (0.0 - 0.4 %) 0.2 Immature Gran # (0.00 - 0.07 x10 3/uL) 0.01 Laboratory Tests 03/18 03/18 0227 0227 Toxicology Urine Opiates Screen (NEGATIVE) NEGATIVE Urine Methadone Screen (NEGATIVE) NEGATIVE Urine Barbiturates (NEGATIVE) NEGATIVE Ur Phencyclidine Scrn (NEGATIVE) NEGATIVE Ur Amphetamines Screen (NEGATIVE) NEGATIVE U Benzodiazepines Scrn (NEGATIVE) NEGATIVE Urine Cocaine Screen (NEGATIVE) NEGATIVE Urine Cannabinoids (NEGATIVE) NEGATIVE Ethyl Alcohol (0.00 - 0.00 gm/dL) 0.47 *H Diagnosis, Assessment Plan Free Text DxA P Notes Free Text DxA P Notes: 1. Alcohol withdrawal Markedly elevated alcohol level on arrival IV fluids Thiamine Banana bag Multivitamin Follow labs [place] protocol 2. Metabolic acidosis Likely alcoholic ketoacidosis Monitor Repeat BMP Monitor for weight refeeding syndrome 3. Acute intoxication Continue IV fluids At risk for deterioration at 1242 RPT #:[id number] END OF REPORT [facility] 2024-03-18 03:52:00 [facility] ([facility]) EMERGENCY PROVIDER REPORT REPORT#:[id number] REPORT STATUS: Signed DATE:03/18/24 TIME: 351 PATIENT: TACHO LOBO UNIT #: [id number] ROOM/BED: [place] AGE: 48 SEX: M PCP PHYS: No Primary or Family Physician SERVICE AUTHOR: Theodore Gonsalves MD * ALL edits or amendments must be made on the electronic/computer document * HPI-Overdose/Alcohol Tox Free Text HPI Notes Free Text HPI Notes 48-year-old male with history of severeAlcohol abuse, drinks approximately 2 L of whiskey daily, patient stopped drinking yesterday,States he is feeling tremulous, shaky. Patient has reported history of alcohol withdrawal seizures and DTs. General Initial Greet Date/Time 03/18/24 0204 Presentation Chief Complaint Intoxicated, alcohol Review of Systems Free Text ROS Notes Free Text ROS Notes Review of systems -Constitutional: No fever, chills, fatigue -EENT: No runny nose, sore throat -Cardiovascular: No chest pain, palpitations, syncope -Respiratory: No shortness of breath, cough, wheezing -GI: No abdominal pain, nausea, vomiting, diarrhea -Musculoskeletal: Shaky Past Medical History - Adult Stated Complaint ALCOHOL WITHDRAWLS Allergies Coded Allergies: No Known Allergies (03/18/24) Calculated Suicide Risk (nurs) No risk Pt reports no significant: Past surgical history, Family history Additional Medical History Previous pancreatitis Smoking status for patients 13 years old or older: Unknown,if ever smoked Physical Exam Vital Signs Vital Signs First Documented: Result Date Time Pulse Ox 98 03/18 0207 B/P 157/96 03/18 0207 B/P Mean 116 03/18 0207 O2 Delivery Room air 03/18 207 Temp 36.3 03/18 020 Pulse 100 03/18 0207 Resp 16 03/187 Last Documented: Result Date Time Pulse Ox 99 03/18 0330 B/P 122/76 03/18 0330 B/P Mean 94 03/18 0330 Pulse 98 03/18 0330 Resp 22 03/18 0330 O2 Delivery Room air 03/18 207 Temp 36.3 03/18 0207 Review of Vital Signs Reviewed Free Text PE Notes Free Text PE Notes Physical exam -General: Awake, alert,Disheveled, appears older than stated age -EENT: PERRLA, EOMI -Neck: Supple, full range of motion, no meningismus -Respiratory: No respiratory distress, clear to auscultation bilaterally, no wheezing or rhonchi -Cardiovascular: Heart rate normal, regular rhythm, normal heart sounds -Abdomen: Soft, nontender, nondistended, no rebound or guarding -Skin: Color normal, no rash, warm, dry Interpretation Diagnostics Lab Results Interpretation Results Laboratory Tests 03/18/247: [Embedded Image Not Available] Laboratory Tests: 03/186 Chemistry Sodium (134.0 - 147.0 mmol/l) 136 Potassium (3.6 - 5.2 mmol/L) 4.2 Chloride (98.0 - 107.0 mmol/l) 96 L Carbon Dioxide (21.0 - 33.0 mmol/l) 19.0 L Anion Gap (0 - 20) 25.2 H BUN (7.0 - 18.0 mg/dl) 15 Creatinine (0.60 - 1.30 mg/dL) 1.09 Estimated Creat Clear (>30 mL/min) 88 Glomerular Filtr Rate (mL/min) 84 Glucose (70.0 - 110.0 mg/dl) 80 POC Glucose (70 - 110 mg/dL) 83 Calcium (8.0 - 10.5 mg/dl) 7.5 L Total Bilirubin (0.0 - 1.0 mg/dl) 0.5 Direct Bilirubin (0.0 - 0.3 mg/dl) <0.1 AST (15 - 37 Units/L) 45 H ALT (12.0 - 78.0 Units/L) 34 Total Alk Phosphatase (50.0 - 136.0 Units/L) 118 Troponin I High Sens (0 - 76 ng/L) 29 Total Protein (6.0 - 8.1 GM/DL) 8.5 H Albumin (3.2 - 4.7 gm/dL) 3.9 Lipase (16 - 77 Units/L) 78 H Hematology WBC (4.5 - 11.0 K/mm3) 5.4 RBC (4.40 - 5.90 M/mm3) 4.82 Hgb (13.0 - 17.0 gm/dL) 14.1 Hct (36.0 - 48.0 %) 42.1 MCV (80.0 - 94.0 UM3) 87.3 MCH (25.5 - 32.5 UUG) 29.3 MCHC (29.0 - 35.5 gm/dL) 33.5 RDW (11.5 - 15.0 %) 16.7 H Plt Count (150 - 400 K/mm3) 221 MPV (7.4 - 10.4 fl) 9.9 Neut % (Auto) (49.0 - 76.0 %) 76.7 H Lymph % (Auto) (23.0 - 38.0 %) 15.3 L [place] % (Auto) (1.0 - 10.0 %) 6.2 Eos % (Auto) (1.0 - 5.0 %) 0.7 L Baso % (Auto) (0.0 - 1.0 %) 0.9 Neut # (Auto) (2.4 - 6.3 K/mm3) 4.1 Lymph # (Auto) (1.2 - 4.0 K/mm3) 0.8 L [place] # (Auto) (0.0 - 0.6 K/mm3) 0.3 Eos # (Auto) (0.0 - 0.7 K/MM3) 0.0 Baso # (Auto) (0.0 - 0.2 K/mm3) 0.1 Immature Gran % (0.0 - 0.4 %) 0.2 Immature Gran # (0.00 - 0.07 x10 3/uL) 0.01 Toxicology Ethyl Alcohol (0.00 - 0.00 gm/dL) 0.47 *H Lab Imaging Statement Laboratory radiographic studies reviewed and considered in the medical decision-making. ECG #1 Interpretation Text/Dict Note Interpreted by myself Date03/18/24 Time 0220 95 bpm NSR Normal axis, normal intervals, no acute ST-T changes, no STEMI Re-Evaluation MDM Free Text MDM Notes Free Text MDM Notes DDx includes alcohol withdrawal, electrolyte abnormality, )( Re-Evaluation/Progress #1 Text/Dict Note alcohol significantly elevated, patient be started on CIWA protocol be admitted to the ICU for close monitoring, ED Course Medication(s) Ordered Medication(s) Ordered: Cardiovascular Drugs Sig/Jennifer Start time Last Medication Dose Route Stop Time Status Admin Hydralazine HCl 10 MG Q2H PRN PRN 03/18 0400 AC IV 03/19 0254 Central Nervous System Agents Sig/Jennifer Start time Last Medication Dose Route Stop Time Status Admin Magnesium Sulfate/ 100 ML ONCE ONE 03/18 0500 DC 03/18 Dextrose IV 03/18 0559 0419 Lorazepam 1 MG Q4H PRN PRN 03/18 0400 AC IV 06/16 0359 Lorazepam 2 MG Q4H PRN PRN 03/18 0400 AC IV 06/16 0359 Lorazepam 1 MG X1ED STA 03/18 0217 DC 03/18 IV 03/18 0218 0250 Electrolytic, Caloric, And Bryan Sig/Jennifer Start time Last Medication Dose Route Stop Time Status Admin Sodium Chloride 1,000 ML ONCE ONE 03/18 0400 AC 03/18 IV 03/18 1359 0420 Sodium Chloride 1,000 ML X1ED 03/18 0230 AC 03/18 IV 06/16 0229 0246 Gastrointestinal Drugs Sig/Jennifer Start time Last Medication Dose Route Stop Time Status Admin Ondansetron HCl 4 MG Q6H PRN PRN 03/18 0400 AC IV 03/19 0254 Ondansetron HCl 4 MG ONCE ONE 03/18 0230 DC 03/18 IV 03/18 0231 0247 Pharmaceutical Aids Sig/Jennifer Start time Last Medication Dose Route Stop Time Status Admin Sterile Water 1 ML ASDIR PRN 03/18 0400 AC IV 06/16 0359 Sterile Water 2 ML ASDIR PRN 03/18 0400 AC IV 06/16 0359 Sterile Water 10 ML ASDIR PRN 03/18 0230 AC 03/18 IV 06/16 0229 0248 Vitamins Sig/Jennifer Start time Last Medication Dose Route Stop Time Status Admin Thiamine HCl 100 MG DAILY 03/18 0900 AC IV 03/23 0859 Folic Acid 1 MG X1ED STA 03/18 0217 DC 03/18 Sodium Chloride 50 ML IV 03/18 0246 0310 Thiamine HCl 100 MG X1ED STA 03/18 0217 DC 03/18 IV 03/18 0218 0248 Patient Discharge Departure Vital Signs/Condition Vital Signs First Documented: Result Date Time Pulse Ox 98 03/18 0207 B/P 157/96 03/18 0207 B/P Mean 116 03/18 0207 O2 Delivery Room air 03/18 0207 Temp 36.3 03/18 0207 Pulse 100 03/18 0207 Resp 16 03/18 0207 Last Documented: Result Date Time Pulse Ox 99 03/18 0330 B/P 122/76 03/18 0330 B/P Mean 94 03/18 0330 Pulse 98 03/18 0330 Resp 22 03/18 0330 O2 Delivery Room air 03/18 0207 Temp 36.3 03/18 0207 All vital signs available at the time of this entry have been reviewed. Clinical Impression Clinical Impression Primary Impression: Alcohol withdrawal Disposition Decision Hospitalize Hosp Physician Name Vickie Garcia MD [facility] Physician Hospitalist Request Time 035 Request Date 03/18/24 )( Accepts Hospitalization Yes )( Reason for Hospitalization ALCOHOL WITHDRAWAL )( Accepted Time 035 Discharge/Care Plan Counseled Regarding Diagnosis, Lab results Critical Care Time Spent (minutes): 35 Services Performed Patient management by me, Time spent at bedside, Reviewing test results, Reviewing imaging, Discussing patient care, Documentation in record, Time with fam/surrogate Separately billable procedures excluded from time. Patient was critically ill due to: ALCOHOL WITHDRAWAL My treatment and management were: Multiple doses of IV Ativan, IV fluids, ICU consult admission CC Note 1 Total critical care time [35] minutes. Total critical care time documented does not include time spent on separately billed procedures or the services of residents, students, nurses or physician assistants. I personally saw and examined the patient. I have reviewed all diagnostic interpretations and treatment plans as written. I was present for the wern portions of any procedures performed and the inclusive time noted in any critical care statement. Critical care time includes patient management by me, time spent at the patients bedside, time to review lab and imaging results, discussing patient care, documentation in the medical record, and time spent with the family or caregiver. at 0615 [facility] #:[id number] END OF REPORT [facility]
[2024-10-11] MEDS ORDERED: DIAZEPAM 10 MG/2 ML INJ SYRINGE ONE ×4 (13:44→19:20)
[2024-10-11] MEDS ORDERED: ONDANSETRON 4 MG/2 ML VIAL ONE ×2 (13:44→19:20)
[2024-10-11] MEDS ORDERED: NA CHLORIDE 0.9% 1,000 ML ONE ×3 (13:44→21:26)
--- NOTE | 2024-10-11 14:15 | RAD REPORT ---
EXAMINATION: ONE VIEW CHEST XR CLINICAL INDICATION: vomiting TECHNIQUE: Frontal chest projection is submitted. Examination is limited by patient positioning and t echnique. COMPARISON: 08/14/2024 FINDINGS: The lungs are well inflated and clear. The heart is normal in size. No displaced fractures identified . Sternotomy wires. Left inferior rib hardware. IMPRESSION: No acute intrathoracic abnormalities.
[2024-10-11 14:19] LABS: ALT/SGPT 34 U/L (16-61); AST/SGOT 43 U/L (15-37); Albumin 3.8 g/dL (3.4-5.0); Albumin/Globulin Ratio 0.8 (1.1-1.8); Alkaline Phosphatase 104 U/L (45-117); Anion Gap 17.7 mEq/L (5.0-15.0); BUN Blood Urea Nitrogen 26 mg/dL (7-18); Bicarbonate 21 mEq/L (21-32); Bilirubin Direct 0.3 mg/dL (0-0.2); Bilirubin Indirect, Calculated 1.1 mg/dL (0.2-0.8); Bilirubin Total 1.4 mg/dL (0.2-1.0); Globulin 4.7 g/dL (2.3-3.5); Glomerular Filtration Rate 52 ml/min (=/>90); Glucose Level 132 mg/dL (74-106); Potassium 3.7 mEq/L (3.5-5.1); Protein, Total 8.5 g/dL (6.4-8.2); Sodium Level 127 mEq/L (136-145); Troponin High Sensitivity 21.7 pg/mL (<58.9)
[2024-10-11 14:21] LABS: Absolute Lymphocytes (CBC) 0.6 K/uL (0.7-4.9); Absolute Monocytes 1.2 K/uL (0.1-1.3); Basophils % 0.3 % (0-1.3); Eosinophils % 0.1 % (0-4.4); Hematocrit 37.1 % (39.6-49.0); Hemoglobin 12.5 g/dL (13.6-17.9); Lymphocytes % 6.3 % (15.3-44.8); MCH 28.8 pg (27.0-35.0); MCHC 33.8 g/dL (32.0-36.0); MCV 85.3 fL (80-100); MPV 7.5 fL (7.6-11.3); Monocytes % 13.6 % (3.3-12.3); Neutrophils % 79.7 % (41.7-73.7); Nucleated Red Blood Cells % 0.1 % (0-0); Platelets 317 thou/uL (152-406); RBC Red Blood Cell Count 4.36 M/uL (4.33-5.43); Red Cell Distribution Width 18.9 % (12.1-15.2)
[2024-10-11 14:22] LABS: Magnesium 0.9 mg/dL (1.6-2.4)
[2024-10-11 14:24] LABS: PT Prothrombin Time 12.1 SECONDS (9.4-12.5); PTT, Activated Partial Thromb 16.6 SECONDS (24.3-36.9); Protime INR 1.15
--- NOTE | 2024-10-11 15:04 | RAD REPORT ---
EXAMINATION: CT ABDOMEN AND PELVIS WITHOUT CONTRAST CLINICAL INDICATION: abdominal pain TECHNIQUE: CT abdomen and pelvis was performed, without IV contrast, as per department protocol. Axia l, sagittal and coronal reconstructions were obtained. One or more of the following dose reduction techniques were used: Automated exposure control, adjustment of the mA and kV according to the patien t size, and iterative reconstruction. Unless otherwise specified, incidental findings do not require dedicated imaging follow-up. COMPARISON: No prior exam. FINDINGS: The lack of intravenous contrast limits the sensitivity of this exam for evaluation of solid visceral organs, vascular structures, and retroperitoneum. LOWER CHEST: The visualized lung bases are clear. Small hiatal hernia. LIVER:Normal in size and contour. No focal lesion. Grossly unremarkable gallbladder. SPLEEN: Normal size. No focal lesion. PANCREAS: No mass, ductal dilation, or nilton-pancreatic fluid. ADRENALS: Normal; no mass. KIDNEYS AND URETERS: Normal size and contour. No hydronephrosis. URINARY BLADDER: Small calculus suspected measuring 4 mm in the left UVJ, may be a recently passed st one. GASTROINTESTINAL TRACT: No evidence of bowel obstruction, significant free fluid, free air or abscess . Moderate stool is retained throughout the colon. APPENDIX: Normal appendix. LYMPH NODES: No lymphadenopathy. MUSCULOSKELETAL: No acute or suspicious osseous abnormality. IMPRESSION: 4 mm stone in the urinary bladder near the left UVJ may be recently passed stone.
[2024-10-11 15:08] LABS: Barbiturates NEGATIVE (NEGATIVE); Benzodiazepines POSITIVE (NEGATIVE); Cocaine NEGATIVE (NEGATIVE); METHAMPHETAM NEGATIVE (NEGATIVE); Methadone NEGATIVE (NEGATIVE); Opiates NEGATIVE (NEGATIVE); Phencyclidine NEGATIVE (NEGATIVE); Specific Gravity > 1.030 (1.005-1.030); Sqamous Epithelial <5 /HPF (None Seen); THC Cannibis POSITIVE (NEGATIVE); Urine Bacteria None Seen /HPF (<20); Urine Bilirubin NEGATIVE (Negative); Urine Blood Trace (Negative); Urine Clarity Turbid (Clear); Urine Color Yellow (Yellow); Urine Culture Reflex Order NOT NEEDED; Urine Glucose TRACE (Negative); Urine Ketones 1+ (Negative); Urine Microscopic Reflex YN ORDER UMIC; Urine Mucus 3+ /HPF (None Seen); Urine Nitrite NEGATIVE (Negative); Urine Protein 2+ (Negative); Urine Urobilinogen 1+ (Normal); Urine WBC <5 /HPF (<5); Urine WBC Clump Rare /HPF (None Seen); Urine Yeast (Budding) Trace /HPF (None Seen); Urine pH 6.5 (5.0-7.0)
[2024-10-11] MEDS ORDERED: PANTOPRAZOLE 40 MG INJ ONE (15:23)
[2024-10-11] MEDS ORDERED: METOCLOPRAMIDE 10 MG/2mL INJ ONE (15:23)
[2024-10-11] MEDS ORDERED: MULTIVITAMINS 10 ML VIAL (INJ) IV ONE (15:24)
--- NOTE | 2024-10-11 15:39 | EDPHYS ---
Physician Documentation [facility] Name: Felipe Brariga Age: 48 yrs Sex: Male : 1975 Arrival Date: 10/11/2024 Time: 13:10 Bed 5 Private MD: ED Physician Minda Chacon HPI: 10/11 13:40 This 48 yrs old Male presents to ER via EMS with complaints of Alcohol Withdrawal. cp 13:40 The patient presents to the emergency department with a history of substance abuse, cp Type: whisky, patient reports "a lot". Associated signs and symptoms: Pertinent positives; abdominal pain, nausea, vomiting. Severity of symptoms: in the emergency department the symptoms are unchanged despite home interventions. Patient reports last drink of alcohol was 2 days ago. Historical: - Allergies: 13:33 No Known Allergies; aa5 - PMHx: 13:32 Alcohol dependence; Anxiety; depressive disorder; Night Terrors; PTSD; aa5 - PSHx: 13:32 aortic root replacement; aa5 - Immunization history:: Adult Immunizations up to date. - Infectious Disease History:: Denies. - Social history:: Smoking status: Patient reports the use of cigarette tobacco products, unknown amount. ROS: 13:45 Constitutional: Positive for poor PO intake, Negative for body aches, chills, fever, cp 13:45 Cardiovascular: Negative for chest pain, edema, cp 13:45 Respiratory: Negative for cough, wheezing, 13:45 Abdomen/GI: Positive for abdominal pain, nausea and vomiting, Negative for diarrhea, constipation, 13:45 : Negative for urinary symptoms, testicular pain 13:45 Neuro: Negative for altered mental status, seizure activity, syncope, near syncope, Exam: 13:50 Constitutional: The patient appears in no acute distress, alert, awake, non-toxic, well cp developed, well nourished, 13:50 Head/Face: Normocephalic, atraumatic. cp 13:50 Eyes: Periorbital structures: appear normal, Pupils: equal, round, and reactive to light and accomodation, Extraocular movements: intact throughout, Sclera: no appreciated abnormality, Lids and lashes: appear normal, bilaterally, 13:50 ENT: External ear(s): are unremarkable, Nose: is normal, Mouth: Lips: moist, Oral mucosa: moist, Posterior pharynx: Airway: no evidence of obstruction, patent, 13:50 Neck: ROM/movement: is normal, is supple, without pain, no range of motions limitations, no meningismus, no nuchal rigidity, 13:50 Chest/axilla: Inspection: normal, 13:50 Cardiovascular: Rate: tachycardic, Rhythm: regular, Edema: is not appreciated, JVD: is not appreciated, 13:50 Respiratory: the patient does not display signs of respiratory distress, Respirations: normal, no use of accessory muscles, no retractions, labored breathing, is not present, Breath sounds: are clear throughout, no decreased breath sounds, no stridor, no wheezing, 13:50 Abdomen/GI: Inspection: abdomen appears normal, Bowel sounds: active, all quadrants, Palpation: soft, in all quadrants, moderate abdominal tenderness, in the epigastric area, 13:50 Back: CVA tenderness, is absent, 13:50 Neuro: Orientation: to person, place \\T\\ time. Mentation: is normal, Motor: moves all fours, no focal deficits, 14:49 ECG was reviewed by the Attending Physician. Vital Signs: 13:30 BP 140 / 95; Pulse 122; Resp 26 S; Temp 98.3(O); Pulse Ox 99% on R/A; aa5 14:00 BP 144 / 97; Pulse 121; Resp 25 S; Pulse Ox 99% on R/A; aa5 15:39 BP 138 / 86; Pulse 115; Resp 20 S; Pulse Ox 100% on R/A; aa5 16:41 BP 117 / 78; Pulse 105; Resp 16 S; Pulse Ox 99% on R/A; aa5 17:49 BP 122 / 66; Pulse 112; Resp 18 S; Pulse Ox 97% on R/A; aa5 MDM: 14:00 Differential diagnosis: drug withdrawal. acute psychotic break, psychosis secondary to cp non-compliance. 15:38 Medical Screening Exam initiated 18:55 Data reviewed: vital signs, nurses notes, lab test result(s), EKG, radiologic studies, cp CT scan, plain films. 18:55 Management of patient was discussed with the following: accepting physician at [facility] in [place], DR Awa Stevens will accept patient as transfer after discussion. 18:55 Independent interpretation of the following test(s) in the Emergency Department EKG: cp See my EKG interpretation above. 18:55 Counseling: I had a detailed discussion with the patient and/or guardian regarding the historical points, exam findings, and any diagnostic results supporting the discharge/admit diagnosis, lab results, radiology results. Response to treatment: the patient's symptoms have mildly improved after treatment. 19:12 ED course: Discussed acceptance of transfer to [place] with patient who refuses transfer at this time and requests to be admitted at this hospital. Consult with DR Yu, hospitalist, who will see patient. 10/11 13:35 Order name: Acetaminophen; Complete Time: 14:32 cp 10/11 13:35 Order name: Basic Metabolic Panel; Complete Time: 14:32 cp 10/11 14:33 Interpretation: Normal except: NA 127; CL 92; ANION GAP 17.7; GLUC 132; BUN 26; CRE cp 1.61; GFR 52; CA 8.3. 10/11 13:35 Order name: CBC with Diff; Complete Time: 14:32 cp 10/11 14:33 Interpretation: Normal except: HGB 12.5; HCT 37.1; RDW 18.9; MPV 7.5; VIBHA% 79.7; LYM% cp 6.3; MN% 13.6; LYMA 0.6. 10/11 13:35 Order name: ETOH Level; Complete Time: 14:16 cp 10/11 14:16 Interpretation: ETOH < 10; Reviewed. 10/11 13:35 Order name: Hepatic Function; Complete Time: 14:32 cp 10/11 13:35 Order name: PT-INR; Complete Time: 14:32 cp 10/11 13:35 Order name: Ptt, Activated; Complete Time: 14:32 cp 10/11 13:35 Order name: Salicylate; Complete Time: 15:25 cp 10/11 13:35 Order name: Urinalysis w/ reflexes; Complete Time: 15:25 cp 10/11 13:35 Order name: Urine Drug Screen; Complete Time: 15:25 cp 10/11 13:35 Order name: Magnesium; Complete Time: 14:32 cp 10/11 13:35 Order name: Troponin HS; Complete Time: 14:32 cp 10/11 13:35 Order name: XRAY Chest (1 view); Complete Time: 14:32 cp 10/11 14:36 Order name: CT Abd/Pelvis - Without Contrast; Complete Time: 15:25 cp 10/11 15:25 Interpretation: Report reviewed. cp 10/11 13:35 Order name: EKG; Complete Time: 13:36 cp 10/11 13:35 Order name: EKG - Nurse/Tech; Complete Time: 14:58 cp 10/11 13:35 Order name: IV Saline Lock; Complete Time: 14:14 cp 10/11 13:35 Order name: Labs collected and sent; Complete Time: 14:14 cp 10/11 13:35 Order name: Suicide Screening ([place]); Complete Time: 14:07 cp 10/11 13:35 Order name: Cardiac monitoring; Complete Time: 14:07 cp 10/11 13:35 Order name: O2 Per Protocol; Complete Time: 14:07 cp 10/11 13:35 Order name: O2 Sat Monitoring; Complete Time: 14:07 cp EC:49 Rate is 114 beats/min. Rhythm is regular. NC interval is normal. QRS interval is cp normal. QT interval is normal. T waves are Inverted in lead aVR. Interpreted by me. Reviewed by me. Administered Medications: 14:19 Drug: Ondansetron IVP 4 mg IVP once; over 2 minutes Route: IVP; Site: left hand; bp 14:30 Follow up: Response: No adverse reaction aa5 14:19 Drug: Diazepam IVP 5 mg IVP once Route: IVP; Site: left hand; bp 14:30 Follow up: Response: No adverse reaction aa5 14:19 Drug: NS 0.9% IV 1000 ml IV at 1 bolus Per protocol; to be given as a bolus over 60 bp minutes Route: IV; Rate: 1 bolus; Site: left hand; 15:19 Follow up: IV Status: Completed infusion; IV Intake: 1000ml aa5 15:37 Drug: Banana Bag - (Multivitamin IV 1 amp, NS 0.9% IV 1000 ml, Thiamine IV 100 mg, aa5 foLIC Acid IVPB 1 mg) IV at 250 ml/hr once Route: IV; Rate: 250 ml/hr; Site: left hand; 22:56 Follow up: IV Status: Completed infusion; IV Intake: 1000ml ay 15:37 Drug: Diazepam IVP 5 mg IVP once Route: IVP; Site: left hand; aa5 15:45 Follow up: Response: No adverse reaction aa5 22:56 Follow up: Response: No adverse reaction ay 15:37 Drug: metoCLOPramide IVP 10 mg IVP once; over 1 to 2 minutes Route: IVP; Site: left aa5 hand; 15:45 Follow up: Response: No adverse reaction aa5 22:56 Follow up: Response: No adverse reaction ay 15:38 Drug: Pantoprazole IVP 40 mg IVP once Route: IVP; Site: left hand; aa5 15:45 Follow up: Response: No adverse reaction aa5 17:28 Drug: Diazepam IVP 10 mg IVP once Route: IVP; Site: left hand; bp 22:55 Follow up: Response: No adverse reaction ay 19:30 Drug: Ondansetron IVP 4 mg IVP once; over 2 minutes Route: IVP; Site: left hand; ay 22:55 Follow up: Response: No adverse reaction ay 19:30 Drug: Diazepam IVP 5 mg IVP once Route: IVP; Site: left hand; ay 22:55 Follow up: Response: No adverse reaction ay Disposition: 10/12 21:01 Chart complete. cp Disposition Summary: 10/11/24 19:21 Hospitalization Ordered Notes: Hospitalization Status: Inpatient Admission cp Provider: Theodore Yu cp Location: Intensive Care Unit cp Condition: Stable(10/11/24 19:21) cp Problem: new(10/11/24 19:21) cp Symptoms: have improved(10/11/24 19:21) cp Bed/Room Type: Standard cp Room Assignment: 6-(10/11/24 19:54) cg Diagnosis - Alcohol dependence with withdrawal cp - Other injury of unspecified kidney, initial encounter cp - Nausea with vomiting, unspecified cp - Hypo-osmolality and hyponatremia cp Forms: - Medication Reconciliation Form cp - SBAR form cp - Leadership Thank You Letter cp Signatures: Dispatcher [employer] EDMS Leny Younger RN RN aa5 Chuck Koch PA PA cp Albertina Oscar, RN RN cg Richard Raman, KORIN RN Earl Almeida RN RN ay Corrections: (The following items were deleted from the chart) 10/11 13:36 13:36 Chest Single View+RAD.RAD.BRZ ordered. EDMS EDMS 14:36 14:36 Abdomen Pelvis Wo Con+CT.RAD.BRZ ordered. EDMS EDMS 19:20 15:38 doctor cp cp 19:20 15:38 's Administration System cp cp 19:20 15:38 Higher level of care cp cp 19:20 15:38 Stable cp cp 19:20 15:38 new cp cp 19:20 15:38 have improved cp cp 19:20 15:38 Alcohol dependence with withdrawal, unspecified cp cp 19:54 19:21 cp cg
--- NOTE | 2024-10-11 15:39 | ER ---
Nurse's Notes [facility] Name: Felipe Barriga Age: 48 yrs Sex: Male : 1975 Arrival Date: 10/11/2024 Time: 13:10 Bed 5 Private MD: Diagnosis: Alcohol dependence with withdrawal;Other injury of unspecified kidney, initial encounter;Nausea with vomiting, unspecified;Hypo-osmolality and hyponatremia Presentation: 10/11 13:30 Chief complaint: EMS states: alcohol withdrawals. Pt reports he's been binge drinking aa5 "whiskey for about 5 or 6 days, there are bottles everywhere in my RV and I started throwing up today". 13:30 Coronavirus screen: At this time, the client does not indicate any symptoms associated aa5 with coronavirus-19. Ebola Screen: Patient denies travel to an Ebola-affected area in the 21 days before illness onset. Risk Assessment: Do you want to hurt yourself or someone else? Patient reports no desire to harm self or others. Onset of symptoms was September 2024. 13:30 Acuity: CLARITA 2 aa5 13:30 Method Of Arrival: EMS: [facility] aa5 13:30 Initial Sepsis Screen: Does the patient meet any 2 criteria? RR > 20 per min. HR > 90 aa5 bpm. Does the patient have a suspected source of infection? No. Patient's initial sepsis screen is negative. Triage Assessment: 13:30 General: Appears distressed, obese, unkempt, Behavior is cooperative, appropriate for bp age, agitated. Pain: Denies pain. EENT: No deficits noted. Neuro: Level of Consciousness is awake, alert, obeys commands, Oriented to Appropriate for age. Cardiovascular: No deficits noted. Respiratory: No deficits noted. GI: Reports nausea, vomiting. : No signs and/or symptoms were reported regarding the genitourinary system. Derm: No deficits noted. Musculoskeletal: TREMULOUS. Historical: - Allergies: 13:33 No Known Allergies; aa5 - PMHx: 13:32 Alcohol dependence; Anxiety; depressive disorder; Night Terrors; PTSD; aa5 - PSHx: 13:32 aortic root replacement; aa5 - Immunization history:: Adult Immunizations up to date. - Infectious Disease History:: Denies. - Social history:: Smoking status: Patient reports the use of cigarette tobacco products, unknown amount. Screenin:30 [facility] ED Fall Risk Assessment (Adult) History of falling in the last 3 months, bp including since admission No falls in past 3 months (0 pts) Confusion or Disorientation No (0 pts) Intoxicated or Sedated No (0 pts) Impaired Gait Yes (1 pt) Mobility Assist Device Used No (0 pt) Altered Elimination No (0 pt) Score/Fall Risk Level 0 - 2 = Low Risk Oriented to surroundings. 13:30 Abuse screen: Denies threats or abuse. Nutritional screening: Pt reports has not eaten aa5 in 2 days . Tuberculosis screening: No symptoms or risk factors identified. 21:32 [facility] Withdrawal Assessment for Alcohol, revised (CIWA-Ar): ay Nausea/Vomitin - Intermittent nausea with dry heaves Headache: 1 - Very mild Paroxysmal Sweats: 0 - No sweats visible Anxiety: 4 - Moderately anxious, guarded Agitation: 0 - Normal actiivty Tremor: 4 - Moderate when client's hands extended Auditory Disturbances: 2 - Mild harshness or ability to frighten Visual Disturbances: 1 - Very mild photosensitivity Tactile Disturbances: 0 - None Orientation and Clouding of Sensorium: 0 - Oriented and can do serial additions Total Score: 16 to 20: Modest Withdrawal. Assessment: 13:30 General: Appears distressed, obese, unkempt, Behavior is cooperative, appropriate for bp age, agitated. 15:10 Reassessment: Patient is alert, oriented x 3, equal unlabored respirations, skin aa5 warm/dry/pink. Pt requesting more sedatives and antinausea medication, provider notified. . 16:10 General: Appears comfortable, Behavior is calm, sleeping . Respiratory: Airway is aa5 patent Respiratory effort is even, unlabored, Respiratory pattern is regular, symmetrical. Derm: Skin is pink, warm \\T\\ dry. 20:59 General: ICU receiving RN to call back for a report. ay 21:16 General: RN to RN report given to Sabiha Snyder RN. ay Overdose: 21:19 [place] Suicide Severity Screening: "In the past month, have you wished you were al5 or wished you could go to sleep and not wake up?" Patient responds "yes." Based off client's responses, additional C-SSRS screening questions required. Vital Signs: 13:30 BP 140 / 95; Pulse 122; Resp 26 S; Temp 98.3(O); Pulse Ox 99% on R/A; aa5 14:00 BP 144 / 97; Pulse 121; Resp 25 S; Pulse Ox 99% on R/A; aa5 15:39 BP 138 / 86; Pulse 115; Resp 20 S; Pulse Ox 100% on R/A; aa5 16:41 BP 117 / 78; Pulse 105; Resp 16 S; Pulse Ox 99% on R/A; aa5 17:49 BP 122 / 66; Pulse 112; Resp 18 S; Pulse Ox 97% on R/A; aa5 ED Course: 13:25 Patient arrived in ED. ll1 13:25 Arm band placed on Patient placed in an exam room, on a stretcher. ll1 13:29 Chuck Koch PA is PHCP. cp 13:29 Minda Chacon MD is Attending Physician. cp 13:30 Patient has correct armband on for positive identification. bp 13:33 Triage completed. aa5 14:04 XRAY Chest (1 view) In Process Unspecified. EDMS 14:14 Initial lab(s) drawn, by me, sent to lab. Inserted saline lock: 22 gauge in left hand, zm using aseptic technique. Blood collected. Flushed with 10 mL NS. 14:51 CT Abd/Pelvis - Without Contrast In Process Unspecified. EDMS 15:40 [facility] 15:41 No provider procedures requiring assistance completed. aa5 18:22 spoke with Regine Cannon for an update on transfer,she informed me she would check with [facility] the physicians and call back. 19:20 Theodore Yu MD is Hospitalizing Provider. cp 22:52 Patient admitted, IV remains in place. ay Administered Medications: 14:19 Drug: Ondansetron IVP 4 mg IVP once; over 2 minutes Route: IVP; Site: left hand; bp 14:30 Follow up: Response: No adverse reaction aa5 14:19 Drug: Diazepam IVP 5 mg IVP once Route: IVP; Site: left hand; bp 14:30 Follow up: Response: No adverse reaction aa5 14:19 Drug: NS 0.9% IV 1000 ml IV at 1 bolus Per protocol; to be given as a bolus over 60 bp minutes Route: IV; Rate: 1 bolus; Site: left hand; 15:19 Follow up: IV Status: Completed infusion; IV Intake: 1000ml aa5 15:37 Drug: Banana Bag - (Multivitamin IV 1 amp, NS 0.9% IV 1000 ml, Thiamine IV 100 mg, aa5 foLIC Acid IVPB 1 mg) IV at 250 ml/hr once Route: IV; Rate: 250 ml/hr; Site: left hand; 22:56 Follow up: IV Status: Completed infusion; IV Intake: 1000ml ay 15:37 Drug: Diazepam IVP 5 mg IVP once Route: IVP; Site: left hand; aa5 15:45 Follow up: Response: No adverse reaction aa5 22:56 Follow up: Response: No adverse reaction ay 15:37 Drug: metoCLOPramide IVP 10 mg IVP once; over 1 to 2 minutes Route: IVP; Site: left aa5 hand; 15:45 Follow up: Response: No adverse reaction aa5 22:56 Follow up: Response: No adverse reaction ay 15:38 Drug: Pantoprazole IVP 40 mg IVP once Route: IVP; Site: left hand; aa5 15:45 Follow up: Response: No adverse reaction aa5 17:28 Drug: Diazepam IVP 10 mg IVP once Route: IVP; Site: left hand; bp 22:55 Follow up: Response: No adverse reaction ay 19:30 Drug: Ondansetron IVP 4 mg IVP once; over 2 minutes Route: IVP; Site: left hand; ay 22:55 Follow up: Response: No adverse reaction ay 19:30 Drug: Diazepam IVP 5 mg IVP once Route: IVP; Site: left hand; ay 22:55 Follow up: Response: No adverse reaction ay Medication: 13:30 VIS not applicable for this client. bp Intake: 15:19 IV: 1000ml; Total: 1000ml. aa5 22:56 IV: 1000ml; Total: 2000ml. ay Outcome: 15:38 ER care complete, transfer ordered by MD. cp 19:21 Decision to Hospitalize by Provider. cp 22:52 Admitted to ICU accompanied by nurse, ay 22:52 Condition: stable 22:52 Instructed on the need for admit, Demonstrated understanding of instructions, 22:55 Patient left the ED. ay Signatures: Dispatcher [employer] EDLeyn Sutton, RN RN aa5 Chuck Koch PA PA cp Peltier, Brian, RN RN bp Anshu Stahl RN RN ll1 Alena Roberto Breana [facility] Abbie Romo RN RN al5 Earl Avila RN RN ay Corrections: (The following items were deleted from the chart) 15:37 15:37 metoCLOPramide IVP 10 mg IVP in left wrist 5 15:40 13:31 Leny Younger, RN is Primary Nurse. 5 15:50 13:30 Chief complaint: EMS states: alcohol withdrawals aa5
--- NOTE | 2024-10-11 19:24 | P.HP ---
Certification for Inpatient Patient admitted to: Inpatient With expected LOS: >2 Midnights Practitioner: I am a practitioner with admitting privileges, knowledge of patient current condition, hospital course, and medical plan of care. Services: Services provided to patient in accordance with Admission requirements found in Title 42 Section 412.3 of the Code of Federal Regulations Patient History Date of Service: 10/11/24 Reason for admission: etoh use History of Present Illness: 48-year-old male presents to the ER with complaints of abdominal pain nausea vomiting and tremors. He reports that he has history of significant alcohol use. Last drink 2 days ago. He states that he did have vomiting. And concern for some blood-tinged vomitus. He has had withdrawal in the past. He states he recently moved to [place] from [place]. In the ER he was noted to be tachycardic. He denies any fevers, chills, cough. Allergies No Known Allergies Allergy (Verified 09/30/24 22:57) Home Medications: Buspirone HCl [Buspar] 10 mg PO TID 09/30/24 Buspirone HCl [Buspar] 15 mg PO TID 09/30/24 Multivitamin 1 tab PO DAILY 09/30/24 Quetiapine [Seroquel*] 100 mg PO BEDTIME 09/30/24 Sertraline HCl 200 mg PO DAILY 09/30/24 Trazodone HCl [Desyrel] 200 mg PO BEDTIME 09/30/24 - Past Medical/Surgical History Diabetic: No -: PTSD -: Schizoeffective anxiety -: Major Depressive disorder -: Alcohol abuse -: Aortic root replacement -: Leg Surgery when child - Family History Mother -: Cancer Notes: breast - Social History Alcohol use: Yes CD- Drugs: No Caffeine use: Yes Review of Systems 10-point ROS is otherwise unremarkable Physical Examination - Physical Exam General: Oriented x3, Disheveled HEENT: Normocephalic Respiratory: Clear to auscultation bilaterally, Normal air movement Cardiovascular: Other (tachycardia) Gastrointestinal: Non-distended, Tenderness (mild epigastric, greatest RLQ) Integumentary: No rashes, No breakdown Neurological: Normal speech, Other (tremor) - Studies Laboratory Data (last 24 hrs) 10/11/24 10/11/24 10/11/24 14:10 13:50 13:50 WBC 8.80 Hgb 12.5 L Hct 37.1 L Plt Count 317 PT 12.1 INR 1.15 APTT 16.6 L Sodium 127 L Potassium 3.7 BUN 26 H Creatinine 1.61 H Glucose 132 H Magnesium 0.9 L* Total Bilirubin 1.4 H AST 43 H ALT 34 Alkaline Phosphatase 104 Assessment and Plan - Problems (Diagnosis) (1) DINORA (acute kidney injury) Current Visit: No Status: Acute (2) ETOH abuse Current Visit: No Status: Acute (3) Hyponatremia Current Visit: No Status: Acute (4) Nausea & vomiting Current Visit: No Status: Acute - Plan Alcohol use Tachycardia Hyponatremia Hypomagnesemia Substance use Elevated bilirubin anxiety Acute kidney injury Plan: Admit to ICU. Continue IV fluids. Placed on CIWA protocol. vitamin replacement. As needed Ativan. Magnesium was been replaced. Repeat labs. Await home medication reconciliation. case management consult - Advance Directives Does patient have a Living Will: No Does patient have a Durable POA for Healthcare: No
[2024-10-11] MEDS ORDERED: ONDANSETRON 4 MG/2 ML VIAL IV PRN (19:37)
[2024-10-11] MEDS ORDERED: LORAZEPAM 1 MG TABLET PO PRN (19:37)
[2024-10-11] MEDS: NA CHLORIDE 0.9% 1,000 ML IV SCH ×2 (20:00→23:54)
[2024-10-11] MEDS: LORAZEPAM 1 MG TABLET PO SCH (20:00)
[2024-10-11] MEDS ORDERED: LORAZEPAM 1 MG TABLET ONE (21:26)
[2024-10-11] MEDS ORDERED: LORazepam 2 MG/ML VIAL IV PRN (22:52)
[2024-10-11] MEDS: LORazepam 2 MG/ML VIAL IV SCH (23:44)
[2024-10-12] MEDS: LORazepam 2 MG/ML VIAL IV PRN (00:30)
[2024-10-12 06:08] LABS: Albumin/Globulin Ratio 0.8 (1.1-1.8); Anion Gap 8.1 mEq/L (5.0-15.0); Globulin 3.7 g/dL (2.3-3.5); Magnesium 1.3 mg/dL (1.6-2.4); Potassium 3.1 mEq/L (3.5-5.1); Protein, Total 6.7 g/dL (6.4-8.2)
[2024-10-12] MEDS: FOLIC ACID 1 MG TABLET PO SCH (08:36)
[2024-10-12] MEDS: Magnesium Sulfate 2gm IVPB 2 G/50 ML BAG IV ONE (08:36)
[2024-10-12] MEDS: KCL 20 MEQ/100 mL IVPB 20 MEQ/100 ML BAG IV SCH (08:36)
[2024-10-12] MEDS: chlordiazePOXIDE HCl 25 MG CAP PO SCH (08:36)
[2024-10-12] MEDS: THIAMINE HCL 100 MG TABLET PO SCH (08:37)
[2024-10-12] MEDS: MULTIVITAMIN TAB PO SCH (08:55)
--- NOTE | 2024-10-12 09:55 | P.PN ---
Date of Service: 10/12/24 Subjective: Patient seen resting in bed. continues to have tremors. He states he feels like he is improved. Has now had anything to eat. His pain as a 6 out of 10. Denies fevers and chills. discussed with nurse at bedside Review of Systems 10-point ROS is otherwise unremarkable Physical Examination - Physical Exam General: Oriented x3, Disheveled HEENT: Normocephalic Respiratory: Clear to auscultation bilaterally, Normal air movement Cardiovascular: Other (tachycardia) Gastrointestinal: Non-distended, Tenderness (mild epigastric, greatest RLQ) Integumentary: No rashes, No breakdown Neurological: Normal speech, Other (tremor) - Studies Laboratory Data (last 24 hrs) 10/11/24 10/11/24 10/11/24 14:10 13:50 13:50 WBC 8.80 Hgb 12.5 L Hct 37.1 L Plt Count 317 PT 12.1 INR 1.15 APTT 16.6 L Sodium 127 L Potassium 3.7 BUN 26 H Creatinine 1.61 H Glucose 132 H Magnesium 0.9 L* Total Bilirubin 1.4 H AST 43 H ALT 34 Alkaline Phosphatase 104 Assessment and Plan Alcohol use Tachycardia Hyponatremia Hypomagnesemia Substance use Elevated bilirubin Anxiety Acute kidney injury hypomagnesemia hypokalemia elevated bilirubin resolved hypocalcemia Plan: Improving sodium improved advance to clear liquid diet Continue IV fluids. Placed on CIWA protocol. add Librium vitamin replacement. As needed Ativan. replace magnesium replace k Repeat labs. meds reconciled case management consult - Advance Directives Does patient have a Living Will: No Does patient have a Durable POA for Healthcare: No
[2024-10-12] MEDS: ACETAMINOPHEN 325 MG TABLET PO PRN (20:04)
[2024-10-12] MEDS: BUSPIRONE HCL 15 MG TABLET PO SCH (21:31)
[2024-10-12] MEDS: TRAZODONE 50 MG TABLET PO SCH (21:31)
[2024-10-13 05:50] LABS: Absolute Basophils 0.1 K/uL (0-0.5); Absolute Eosinophils 0.1 K/uL (0-0.5); Absolute Lymphocytes (CBC) 0.7 K/uL (0.7-4.9); Absolute Monocytes 0.4 K/uL (0.1-1.3); Absolute Neutrophil 4.2 K/uL (1.8-8.0); Eosinophils % 1.7 % (0-4.4); Hematocrit 29.4 % (39.6-49.0); Hemoglobin 9.8 g/dL (13.6-17.9); Lymphocytes % 12.9 % (15.3-44.8); MCH 29.1 pg (27.0-35.0); MCHC 33.3 g/dL (32.0-36.0); MCV 87.2 fL (80-100); MPV 7.5 fL (7.6-11.3); Monocytes % 6.9 % (3.3-12.3); Neutrophils % 77.5 % (41.7-73.7); Nucleated Red Blood Cells % 0.1 % (0-0); Platelets 178 thou/uL (152-406); RBC Red Blood Cell Count 3.37 M/uL (4.33-5.43); Red Cell Distribution Width 18.1 % (12.1-15.2)
[2024-10-13 06:20] LABS: Albumin 2.5 g/dL (3.4-5.0); Albumin/Globulin Ratio 0.7 (1.1-1.8); Anion Gap 10.4 mEq/L (5.0-15.0); Bilirubin Total 0.3 mg/dL (0.2-1.0); Globulin 3.6 g/dL (2.3-3.5); Magnesium 1.7 mg/dL (1.6-2.4); Potassium 3.4 mEq/L (3.5-5.1); Protein, Total 6.1 g/dL (6.4-8.2)
[2024-10-13] MEDS: POTASSIUM CL SA 10 MEQ TAB PO ONE (08:48)
[2024-10-13] MEDS: MAGNESIUM SULFATE 1 gm IVPB 1 GM/100 ML BAG IV ONE (08:51)
--- NOTE | 2024-10-13 09:36 | P.PN ---
Subjective Date of Service: 10/13/24 Chief Complaint: etoh use Improving. Seen resting comfortably in bed. States he has some left knee pain. Per nursing staff he continues to have mild tremors. He denies any chest pain, fever, chills. He states he has been eating but not as much as he would wish. He still has some inflammation in the stomach. He is urinating. Review of Systems 10-point ROS is otherwise unremarkable Physical Examination - Vital Signs Temperature: 98.7 F Blood Pressure: 110/61 Pulse: 98 Respirations: 26 Pulse Ox (%): 98 - Physical Exam General: Alert, In no apparent distress, Oriented x3 HEENT: Atraumatic, Normocephalic Neck: Supple Respiratory: Clear to auscultation bilaterally Cardiovascular: No edema Capillary refill: <2 Seconds Gastrointestinal: Normal bowel sounds Musculoskeletal: No clubbing Neurological: Normal gait Assessment And Plan - Plan Alcohol dependence Tachycardia Substance use Anxiety hypokalemia hypocalcemia Hyponatremia resolved Hypomagnesemia resolved Acute kidney injury resolved Bilirubinemia resolved Plan: Improving, transferred to the floor later today Drop in hemoglobin likely dilutional sodium improved Advance diet as tolerated Encouraged to drink protein shakes, add high-calorie / high-protein diet Continue IV fluids. Placed on CIWA protocol. add Librium vitamin replacement. As needed Ativan. replace magnesium Replace potassium Repeat labs. Needs psychiatric evaluation as outpatient UDS positive for THC and benzos - Advance Directives Does patient have a Living Will: No Does patient have a Durable POA for Healthcare: No
[2024-10-13] MEDS: TRAMADOL HCL 50 MG TAB PO PRN (13:28)
--- NOTE | 2024-10-13 15:21 | RAD REPORT ---
EXAMINATION: US LEFT LOWER EXTREMITY VENOUS DOPPLER CLINICAL INDICATION: [facility] MA[facility] Knee r/o DVT Pain behind left knee Y TECHNIQUE: Complete bilateral duplex sonography of the LEFT lower extremity veins was performed. The examination included compression for vein patency, color Doppler imaging and flow augmentation in response to distal compression of the distal external iliac, common femoral, femoral, popliteal, tibi al, and great and small saphenous veins. COMPARISON: No prior exam. FINDINGS: Duplex sonography testing of the veins of the LEFT lower extremity was performed. Color flow imaging shows all veins to be compressible with [id number] color filling. Pulsatile and phasic flow is present within all lower extremity deep and superficial veins examined. IMPRESSION: No evidence of deep venous thrombosis.
[2024-10-13] MEDS ORDERED: LORAZEPAM 1 MG TABLET PO SCH (20:00)
[2024-10-13 20:36] VITALS: O2SAT 99
[2024-10-13 22:12] VITALS: BMI 33.1
[2024-10-13] MEDS ORDERED: LORazepam 2 MG/ML VIAL IV SCH (23:00)
[2024-10-14 05:26] LABS: Hematocrit 29.3 % (39.6-49.0); Hemoglobin 9.8 g/dL (13.6-17.9); Lymphocytes % 13.9 % (15.3-44.8); MCH 29.1 pg (27.0-35.0); MCHC 33.3 g/dL (32.0-36.0); MCV 87.5 fL (80-100); MPV 7.9 fL (7.6-11.3); Neutrophils % 75.4 % (41.7-73.7); Platelets 203 thou/uL (152-406); RBC Red Blood Cell Count 3.35 M/uL (4.33-5.43); Red Cell Distribution Width 17.8 % (12.1-15.2)
[2024-10-14 05:27] LABS: Absolute Basophils 0.1 K/uL (0-0.5); Absolute Eosinophils 0.1 K/uL (0-0.5); Absolute Lymphocytes (CBC) 0.8 K/uL (0.7-4.9); Absolute Monocytes 0.4 K/uL (0.1-1.3); Absolute Neutrophil 4.3 K/uL (1.8-8.0); Basophils % 1.1 % (0-1.3); Monocytes % 7.6 % (3.3-12.3)
[2024-10-14 05:35] LABS: Anion Gap 11.6 mEq/L (5.0-15.0); Magnesium 1.7 mg/dL (1.6-2.4); Potassium 3.6 mEq/L (3.5-5.1)
[2024-10-14] MEDS: POTASSIUM CL SA 10 MEQ TAB PO ONE (06:11)
[2024-10-14] MEDS: MAGNESIUM SULFATE 1 gm IVPB 1 GM/100 ML BAG IV ONE (06:12)
--- NOTE | 2024-10-14 10:42 | P.PN ---
Subjective: Seen resting in bed. States the left knee pain is slightly better. He states he had horrible sleep last night due to PTSD. Discussed transitioning to the floor later today. He denies fevers and chills Review of Systems 10-point ROS is otherwise unremarkable Physical Examination - Physical Exam General: Oriented x3, Disheveled HEENT: Normocephalic Respiratory: Clear to auscultation bilaterally, Normal air movement Cardiovascular: Other (tachycardia) Gastrointestinal: Non-distended, Tenderness (mild epigastric, greatest RLQ) Integumentary: No rashes, No breakdown Neurological: Normal speech, Other (tremor) - Studies Laboratory Data (last 24 hrs) 10/11/24 10/11/24 10/11/24 14:10 13:50 13:50 WBC 8.80 Hgb 12.5 L Hct 37.1 L Plt Count 317 PT 12.1 INR 1.15 APTT 16.6 L Sodium 127 L Potassium 3.7 BUN 26 H Creatinine 1.61 H Glucose 132 H Magnesium 0.9 L* Total Bilirubin 1.4 H AST 43 H ALT 34 Alkaline Phosphatase 104 Assessment and Plan Alcohol withdrawal Left knee pain Substance use Anxiety hypocalcemia Hyponatremia resolved Hyperbilirubinemia resolved Hypokalemia resolved Hypomagnesemia resolved Plan: Left knee ultrasound reviewed. No abnormalities sodium improved Advance diet as tolerated CIWA protocol, Librium vitamin replacement. Continue Seroquel, trazodone, BuSpar vp marketing services and skin and psychiatric follow up - Advance Directives Does patient have a Living Will: No Does patient have a Durable POA for Healthcare: No
[2024-10-14] MEDS: QUETIAPINE 25 MG TAB PO SCH (13:49)
[2024-10-14] MEDS: QUETIAPINE 100MG TAB PO SCH (21:46)
[2024-10-15 06:18] LABS: Anion Gap 11.7 mEq/L (5.0-15.0); Magnesium 1.7 mg/dL (1.6-2.4); Potassium 3.7 mEq/L (3.5-5.1)
[2024-10-15 08:48] VITALS: BP 117/66; TEMP 98.3
[2024-10-15] MEDS: MAGNESIUM SULFATE 1 gm IVPB 1 GM/100 ML BAG IV ONE (09:00)
[2024-10-15] MEDS: POTASSIUM CL SA 10 MEQ TAB PO ONE (09:11)
--- NOTE | 2024-10-15 09:13 | P.DS ---
Admission Date: 10/11/24 Discharge Date: 10/15/24 Disposition: ROUTINE DISCHARGE Discharge Condition: GOOD Reason for Admission: etoh use Hospital Course: 48-year-old male with a history of alcoholism, schizoaffective anxiety, major de pressive disorder, PTSD who presented with significant alcohol use was found to have acute kidney injury alongside hyponatremia and hypomagnesemia. He was admitted to the intensive care unit and started on IV fluids, vitamins, and CIWA protocol. His clinical condition improved over the course of his stay. His electrolytes were replaced and he was transferred to the floor. He is now tolerating a diet. He did have some left knee pain and ultrasound of the left knee did not show any abnormalities. He has a follow-up with his PCP and recommended psychiatrist upon discharge. He is medically optimized for discharge Vital Signs/Physical Exam: Temp Pulse Resp BP Pulse Ox 98.3 F 92 H 16 117/66 99 10/15/24 08:00 10/15/24 08:00 10/15/24 08:00 10/15/24 08:00 10/15/24 08:00 General: Alert, In no apparent distress HEENT: Atraumatic, Normocephalic Neck: Supple, 2+ carotid pulse no bruit Respiratory: Clear to auscultation bilaterally, Normal air movement Cardiovascular: No edema, Normal pulses Gastrointestinal: Normal bowel sounds, Hypoactive Musculoskeletal: No clubbing, No swelling Integumentary: No rashes, No breakdown Neurological: Normal gait, Normal speech Lymphatics: No axilla or inguinal lymphadenopathy External genitalia: No edema Laboratory Data at Discharge: WBC 5.70 thou/uL (4.3-10.9) 10/14/24 04:59 Hgb 9.8 g/dL (13.6-17.9) L 10/14/24 04:59 Hct 29.3 % (39.6-49.0) L 10/14/24 04:59 Plt Count 203 thou/uL (152-406) 10/14/24 04:59 PT 12.1 SECONDS (9.4-12.5) 10/11/24 13:50 INR 1.15 10/11/24 13:50 APTT 16.6 SECONDS (24.3-36.9) L 10/11/24 13:50 Sodium Cancelled 10/15/24 08:00 Potassium Cancelled 10/15/24 08:00 BUN Cancelled 10/15/24 08:00 Creatinine Cancelled 10/15/24 08:00 Glucose Cancelled 10/15/24 08:00 Magnesium Cancelled 10/15/24 08:00 Total Bilirubin 0.3 mg/dL (0.2-1.0) 10/13/24 05:20 AST 20 U/L (15-37) 10/13/24 05:20 ALT 22 U/L (16-61) 10/13/24 05:20 Alkaline Phosphatase 75 U/L (45-117) 10/13/24 05:20 Home Medications: Buspirone HCl [Buspar] 15 mg PO BID 09/30/24 Multivitamin 1 tab PO DAILY 09/30/24 Quetiapine [Seroquel*] 100 mg PO BEDTIME 09/30/24 Sertraline HCl 200 mg PO DAILY 09/30/24 Trazodone HCl [Desyrel] 200 mg PO BEDTIME 09/30/24 Quetiapine [Seroquel*] 50 mg PO DAILY 10/11/24 [facility] [Primary [facility] Provider] - 1-2 Weeks
--- NOTE | 2024-10-15 11:58 | EKG ---
Test Date: 2024-10-14 Test Time: 12:01:06 Weed Cutter: YAMILE MEASUREMENT RESULTS: Intervals: Rate: 85 NC: 174 QRSD: 80 QT: 372 QTc: 442 Sunol: P: 42 NC: 174 QRS: -6 T: 12 INTERPRETIVE STATEMENTS: Normal sinus rhythm Normal ECG Compared to ECG 10/11/2024 14:43:47 Sinus tachycardia no longer present Electronically Signed On 10-15-24 11:57:54 SEED DISTRICT SALES MANAGER by Bernard Whitmore
--- NOTE | 2024-10-15 12:16 | EKG ---
Test Date: 2024-10-11 Test Time: 14:43:47 Fishing Rod Mechanic: ÁNGELA MEASUREMENT RESULTS: Intervals: Rate: 114 ID: [id number] QRSD: 74 QT: 356 QTc: 490 Barling: P: 65 ID: [id number] QRS: 37 T: 52 INTERPRETIVE STATEMENTS: Sinus tachycardia Otherwise normal ECG Compared to ECG 08/14/2024 17:37:34 Myocardial infarct finding no longer present Electronically Signed On 10-15-24 12:12:01 INSURANCE WRITER by Bernard Whitmore
[2024-10-15] MEDS ORDERED: QUETIAPINE 25 MG TAB PO SCH (13:00)
== END 2024-10-15 11:25 | disposition home or self-care (01) | DRG 683 ==
LOC: ER 13:10 → ERHOLD 19:31 → 3RD-ICU 22:09 → UNDODISIN 10-14 13:39 → 2ND 10-14 13:56
PROVIDERS: ADMIT Internal Medicine; ATTEND Family Medicine
DX: N17.9 Acute kidney failure, unspecified (principal); E87.1 Hypo-osmolality and hyponatremia; F10.239 Alcohol dependence with withdrawal, unspecified; E83.42 Hypomagnesemia; E83.51 Hypocalcemia; E87.6 Hypokalemia; F41.9 Anxiety disorder, unspecified; F43.10 Post-traumatic stress disorder, unspecified; M25.562 Pain in left knee; F17.210 Nicotine dependence, cigarettes, uncomplicated; R00.0 Tachycardia, unspecified; Z95.2 Presence of prosthetic heart valve; Z79.899 Other long term (current) drug therapy; Y90.0 Blood alcohol level of less than 20 mg/100 ml
CPT/HCPCS: 36415; 71045; 74176; 80048; 80053; 80076; 80143; 80179; 80307; 81001; 82077; 83735; 84132; 84484; 85025; 85610; 85730; 93005; 93971; 96361; 96365; 96366; 96375; 97116; 97161; 99285; J2405; J2470; J2765; J3360; J3475; J3480; J7030

== ENCOUNTER 2024-10-28 19:48 | Emergency (ER) | payer OTHER ==
--- OUTSIDE RECORDS SUMMARY | 2024-10-28 19:51 | XMS REPORT | Continuity of Care Document ---
Author Name Unknown Address [address] [facility] [address] [place] [address] [facility] Address [address] [facility] [place] [address] Care Team Providers Care Machine Feller Name Role Phone Vickie Garcia Attending Clinician Unavailable Vickie Garcia Admitting Clinician Unavailable Payers Payer Name Policy Type Policy Number Effective Date Expirati on Date Source Allergies, Adverse Reactions, Alerts Allergy Name Allergy Type Status Severity Reaction(s) Onset Date Inactive Date Treating Clinician Comments Source No Known Allergie s DA Active U 03-18 00:00: 00 [facility] Encounters Start Date/Time End Date/Time Encounter Type Admission Type Attending Clinicians Care Facility Care Department Encounter ID Source 2024-03-18 03:55:00 2024-03-20 12:41:00 Inpatient EM Vickie Garcia [facility] TELE [id number] 22 [facility] Results Test Description Test Time Test Comments Results Result Co mments Source COMPREHENSIVE METABOLIC [id number] 17:15:00* Test Item Value Reference Range Interpretation [...] code = ALKP) 71 Units/L 50.0-136.0 N [id number] 17:15:00* Test Item Value Reference Range Interpretation Comme nts MAGNESIUM (test code = MAG) 1.3 mg/dl 1.8-2.4 L VITAMIN [id number] 17:15:00* Test Item Value Reference Range Interpretation Comme nts VITAMIN B12 (test code = VITB12) 239 pg/mL 193-986 N CBC W/AUTO [id number] 04:51:00* Test Item Value Reference Range Interpretation [...] 0.00 X10 3uL 0.00-0.01 N COMPREHENSIVE METABOLIC [id number] 05:46:00* Test Item Value Reference Range Interpretation [...] ALKP) 75 Units/L 50.0-136.0 N CBC W/AUTO [id number] 04:25:00* Test Item Value Reference Range Interpretation [...] = NRBC#) 0.00 X10 3uL 0.00-0.01 N [id number] 20:03:00* Test Item Value Reference Range Interpretation Comme nts GLUBED (test code = GLUBED) 132 mg/dL 70-110 H DRUGS OF ABUSE SCREEN [id number] 08:40:00* Test Item Value Reference Range Interpretation [...] 300 ng/mL WHAT DRUGS HAVE BEEN TAKEN? [id number] 03:26:00* Test Item Value Reference Range Interpretation Comme nts ALCOHOL (test code = ALC) 0.47 gm/dL 0.00-0.00 HH ETHYL ALCOHOL VA LUES - INTERPRETATION: 0.050 GM/DL - NOT INTOXICATED 0.100 GM/DL - INTOXICATED 0.350-0.450 GM/DL - SEVERELY INTOXICATED 0.550 GM/DL- FATAL INTOXICATION BASIC METABOLIC [id number] 03:26:00* Test Item Value Reference Range Interpretation [...] ECRCL) 88 mL/min >30 HEPATIC FUNCTION PANEL [id number] 03:26:00* Test Item Value Reference Range Interpretation [...] code = ALKP) 118 Units/L 50.0-136.0 N [id number] 03:26:00* Test Item Value Reference Range Interpretation Comme nts LIPASE (test code = LIP) 78 Units/L 16-77 H TROP-I HIGH [id number] 03:26:00* Test Item Value Reference Range Interpretation Comme nts TROP-I HIGH SENSITIVITY (test code = TROPIHS) 29 ng/L 0-76 N CAUTION: Units o f the current TROPI-HS test methodology(ng/L) differ from the prior test methodology (ng/mL) by afactor of 1000. 99th Percentile: Females: 0 - 51 ng/L Males: 0 - 76 ng/LThese results were obtained using [employer] TnIHreagent. Results from different methodologies should not becompared to one another as quantitative results may vary bymethod. CBC W/AUTO [id number] 03:04:00* Test Item Value Reference Range Interpretation [...] code = BA#) 0.1 K/mm3 0.0-0.2 N [id number] 02:29:00* Test Item Value Reference Range Interpretation Comme nts GLUBED (test code = GLUBED) 83 mg/dL 70-110 N Notes Date/Time Note Provider Source 2024-03-20 22:50:00 [facility] ([facility]) Hospitalist Discharge Summary REPORT#:[id number] REPORT STATUS: Signed REPORT INITIALIZATION DATE:03/20/24 TIME: 2249 PATIENT: TACHO LOBO UNIT #: [id number] ROOM/BED: [place] [address] : 75 AGE: 48 SEX: M ATTEND: [...] (Auto) (23.0 - 38.0 %) 11.9 L Steuben % (Auto) (1.0 - 10.0 %) 8.2 Eos % (Auto) (1.0 - 5.0 %) 3.3 Baso % (Auto) (0.0 - 1.0 %) 0.6 Neut # (Auto) (2.4 - 6.3 K/mm3) 3.7 Lymph # (Auto) (1.2 - 4.0 K/mm3) 0.6 L Ste[place] # (Auto) (0.0 - 0.6 K/mm3) 0.4 [...] Musculoskeletal: full range of motion, normal inspection Neuro/PARACHUTE INSPECTOR alert, oriented X 3, CNII-XII intact Skin: [...] 1-2 weeks at 2252 at 1445 RPT #:[id number] END OF REPORT [facility] 2024-03-19 14:41:00 [facility]) Pulmonology Progress Note REPORT#:[id number] REPORT STATUS: Signed REPORT INITIALIZATION DATE:03/19/24 TIME: 144 PATIENT: TACHO LOBO UNIT #: [id number] ROOM/BED: [place] [id number] : 75 AGE: 48 SEX: M ATTEND: [...] Musculoskeletal: full range of motion, normal inspection Neuro/PARACHUTE INSPECTOR: alert, oriented X 3 Skin: dry, intact Lymphatics: axilla normal, inguinal normal, neck normal, no lymphadenopathy Psychiatry: normal affect, normal judgment/insight, normal mood, not homicidal, not suicidal, no hallucinations Results Findings/Data: Laboratory Tests 03/19/248: [Embedded Image Not Available] Laboratory Tests 03/18 [...] (Auto) (23.0 - 38.0 %) 15.6 L Steuben % (Auto) (1.0 - 10.0 %) 8.1 Eos % (Auto) (1.0 - 5.0 %) 2.3 Baso % (Auto) (0.0 - 1.0 %) 0.5 Neut # (Auto) (2.4 - 6.3 K/mm3) 2.8 Lymph # (Auto) (1.2 - 4.0 K/mm3) 0.6 L Steuben # (Auto) (0.0 - 0.6 K/mm3) 0.3 [...] floor will sign off at 1443 RPT #:[id number] END OF REPORT [facility] 2024-03-19 09:54:00 [facility] ([facility]) Hospitalist Progress Note REPORT#:[id number] REPORT STATUS: Signed REPORT INITIALIZATION DATE:03/19/24 TIME: 953 PATIENT: TACHO LOBO UNIT #: [id number] ROOM/BED: [place] [address] : 75 AGE: 48 SEX: M ATTEND: [...] Sodium Chloride (SODIUM CHLORIDE 0.9%) 1,000 ML .[id number] IV Enoxaparin Sodium (LOVENOX) 40 MG Q24H [...] (Auto) (23.0 - 38.0 %) 15.6 L Steuben % (Auto) (1.0 - 10.0 %) 8.1 Eos % (Auto) (1.0 - 5.0 %) 2.3 Baso % (Auto) (0.0 - 1.0 %) 0.5 Neut # (Auto) (2.4 - 6.3 K/mm3) 2.8 Lymph # (Auto) (1.2 - 4.0 K/mm3) 0.6 L [place] # (Auto) (0.0 - 0.6 K/mm3) 0.3 [...] Musculoskeletal: full range of motion, normal inspection Neuro/PARACHUTE INSPECTOR alert, oriented X 3, CNII-XII intact Skin: [...] in am at 0957 at 1444 RPT #:[id number] END OF REPORT [facility] 2024-03-18 09:09:00 [facility] ([facility]) Hospitalist History Physical REPORT#:[id number] REPORT STATUS: Signed REPORT INITIALIZATION DATE:03/18/24 TIME: 908 PATIENT: TACHO LOBO UNIT #: [id number] ROOM/BED: [place] [address] : 75 AGE: 48 SEX: M ATTEND: [...] O ending at 0700: 03/17 1900 03/18 700 Intake Total Output Total Balance Output, Emesis Patient 90.909 kg Weight Weight Stated/Reported Measurement Method Patient Weight and BMI Weight (kg): 90.909 BMI: 28.0 Results Findings/Data: Laboratory Tests: 03/186 7 0227 Chemistry Sodium (134.0 - 147.0 mmol/l) 136 [...] (Auto) (23.0 - 38.0 %) 15.3 L Steuben % (Auto) (1.0 - 10.0 %) 6.2 Eos % (Auto) (1.0 - 5.0 %) 0.7 L Baso % (Auto) (0.0 - 1.0 %) 0.9 Neut # (Auto) (2.4 - 6.3 K/mm3) 4.1 Lymph # (Auto) (1.2 - 4.0 K/mm3) 0.8 L Steuben # (Auto) (0.0 - 0.6 K/mm3) 0.3 [...] Musculoskeletal: full range of motion, normal inspection Neuro/PARACHUTE INSPECTOR alert, oriented X 3, CNII-XII intact Skin: [...] hydration BMP in a.m. at 1003 RPT #:[id number] END OF REPORT [facility] 2024-03-18 07:56:00 [facility] ([facility]) Pulmonary Consultation Note REPORT#:[id number] REPORT STATUS: Signed REPORT INITIALIZATION DATE:03/18/24 TIME: 755 PATIENT: TACHO LOBO UNIT #: [id number] ROOM/BED: [place] [address] : 75 AGE: 48 SEX: M ATTEND: Vickie aGrcia MD ADM AUTHOR: Rylan Vaughn MD REPT [...] Date Time O2 Delivery Nasal cannula 03/18 110 O2 Flow Rate 2 03/18 1105 Pulse Ox 98 03/18 1105 B/P 134/69 03/18 1105 B/P Mean 90 03/18 1105 Temp 98.1 03/18 1105 Pulse 112 03/18 1105 Resp 13 03/18 1105 Results Findings/Data: Laboratory Tests 03/18/24 0227: [Embedded Image Not Available] Laboratory Tests 03/186 0227 Chemistry Sodium (134.0 - 147.0 mmol/l) 136 [...] (Auto) (23.0 - 38.0 %) 15.3 L Steuben % (Auto) (1.0 - 10.0 %) 6.2 Eos % (Auto) (1.0 - 5.0 %) 0.7 L Baso % (Auto) (0.0 - 1.0 %) 0.9 Neut # (Auto) (2.4 - 6.3 K/mm3) 4.1 Lymph # (Auto) (1.2 - 4.0 K/mm3) 0.8 L Steuben # (Auto) (0.0 - 0.6 K/mm3) 0.3 [...] At risk for deterioration at 1242 RPT #:[id number] END OF REPORT [facility] 2024-03-18 03:52:00 [facility] ([facility] REPORT REPORT#:[id number] REPORT STATUS: Signed DATE:03/18/24 TIME: 351 PATIENT: TACHO LOBO UNIT #: [id number] ROOM/BED: [place] AGE: 48 SEX: M PCP PHYS: No [...] 020 Pulse 100 03/18 0207 Resp 16 03/18 207 Last Documented: Result Date Time Pulse Ox 99 03/18 0330 B/P 122/76 03/18 0330 B/P Mean 94 03/18 0330 Pulse 98 03/18 0330 Resp 22 03/18 0330 O2 Delivery Room air 03/18 207 Temp 36.3 03/18 020 Review of Vital Signs Reviewed Free Text [...] Diagnostics Lab Results Interpretation Results Laboratory Tests 03/18/24226: [Embedded Image Not Available] Laboratory Tests: 03/186 [...] (Auto) (23.0 - 38.0 %) 15.3 L Steuben % (Auto) (1.0 - 10.0 %) 6.2 Eos % (Auto) (1.0 - 5.0 %) 0.7 L Baso % (Auto) (0.0 - 1.0 %) 0.9 Neut # (Auto) (2.4 - 6.3 K/mm3) 4.1 Lymph # (Auto) (1.2 - 4.0 K/mm3) 0.8 L Steuben # (Auto) (0.0 - 0.6 K/mm3) 0.3 [...] 03/18 0500 DC 03/18 Dextrose IV 03/18 4359 0419 Lorazepam 1 MG Q4H PRN PRN [...] 4 MG Q6H PRN PRN 03/18 0400 IV 03/19 0254 Ondansetron HCl 4 MG ONCE ONE 03/18 0230 DC 03/18 IV 03/18 0231 0247 Pharmaceutical Aids Sig/Jennifer Start time Last Medication Dose Route Stop Time Status Admin Sterile Water 1 ML ASDIR PRN 03/18 0400 IV 06/16 0359 Sterile Water 2 ML ASDIR PRN 03/18 0400 IV 06/16 0359 Sterile Water 10 ML ASDIR PRN 03/18 0230 AC 03/18 IV 06/16 0229 0248 Vitamins Sig/Jennifer Start time Last Medication Dose Route Stop Time Status Admin Thiamine HCl 100 MG DAILY 03/18 0900 IV 03/23 0859 Folic Acid 1 MG [...] air 03/18 207 Temp 36.3 03/18 207 All vital signs available at the time of this entry have been reviewed. Clinical Impression Clinical Impression Primary Impression: Alcohol withdrawal Disposition Decision Hospitalize Hosp Physician Name Vickie Garcia MD [facility] Physician Hospitalist Request Time 354 Request Date 03/18/24 )( Accepts Hospitalization Yes )( Reason for Hospitalization ALCOHOL WITHDRAWAL )( Accepted Time 354 Discharge/Care Plan Counseled Regarding Diagnosis, Lab results [...] as written. I was present for the wren portions of any procedures performed and the inclusive time noted in any critical care statement. Critical care time includes patient management by me, time spent at the patients bedside, time to review lab and imaging results, discussing patient care, documentation in the medical record, and time spent with the family or caregiver. at 0615 [facility] #:[id number] END OF REPORT [facility]
--- NOTE | 2024-10-28 20:50 | RAD REPORT ---
Procedure: Chest Single View HISTORY: Chest pain COMPARISON: September 2024 FINDINGS: The lungs appear clear of acute infiltrate. No significant pleural effusion noted.. Post surgical changes involve the chest. The heart is normal size. IMPRESSION: No acute abnormality is displayed.
[2024-10-28] MEDS ORDERED: LORazepam 2 MG/ML VIAL ONE (20:58)
[2024-10-28] MEDS ORDERED: LIDOCAINE VISCOUS 2% 10ML ORAL SOLN ONE (21:23)
[2024-10-28] MEDS ORDERED: PANTOPRAZOLE 40 MG INJ ONE (21:23)
[2024-10-28] MEDS ORDERED: MAGNES/ALUMIN/SIMET 30ML UCUP ONE (21:23)
[2024-10-28] MEDS ORDERED: FAMOTIDINE 20 MG/2 ML VIAL IV ONE (21:24)
[2024-10-28] MEDS ORDERED: NA CHLORIDE 0.9% 0 ML ONE (21:24)
[2024-10-28] MEDS ORDERED: FAMOTIDINE 20 MG TAB ONE (21:37)
[2024-10-28 21:43] LABS: Absolute Basophils 0.1 K/uL (0-0.5); Absolute Eosinophils 0.1 K/uL (0-0.5); Absolute Lymphocytes (CBC) 2.1 K/uL (0.7-4.9); Absolute Monocytes 0.4 K/uL (0.1-1.3); Eosinophils % 1.7 % (0-4.4); Hematocrit 37.3 % (39.6-49.0); Hemoglobin 12.1 g/dL (13.6-17.9); Lymphocytes % 36.8 % (15.3-44.8); MCH 28.5 pg (27.0-35.0); MCHC 32.4 g/dL (32.0-36.0); MCV 88.1 fL (80-100); MPV 7.3 fL (7.6-11.3); Monocytes % 7.2 % (3.3-12.3); Neutrophils % 53.3 % (41.7-73.7); Nucleated Red Blood Cells % 0.1 % (0-0); Platelets 325 thou/uL (152-406); RBC Red Blood Cell Count 4.23 M/uL (4.33-5.43); Red Cell Distribution Width 19.7 % (12.1-15.2)
[2024-10-28 22:03] LABS: ALT/SGPT 23 U/L (16-61); Albumin 3.5 g/dL (3.4-5.0); Albumin/Globulin Ratio 0.8 (1.1-1.8); Alkaline Phosphatase 84 U/L (45-117); Anion Gap 10.5 mEq/L (5.0-15.0); BUN Blood Urea Nitrogen 9 mg/dL (7-18); Bicarbonate 29 mEq/L (21-32); Bilirubin Total 0.2 mg/dL (0.2-1.0); Creatine Phosphokinase 127 U/L (39-308); Globulin 4.5 g/dL (2.3-3.5); Glomerular Filtration Rate 99 ml/min (=/>90); Glucose Level 103 mg/dL (74-106); Lipase 62 U/L (13-75); Sodium Level 144 mEq/L (136-145); Troponin High Sensitivity 32.6 pg/mL (<58.9)
[2024-10-28 22:04] LABS: AST/SGOT 20 U/L (15-37); Bilirubin Direct < 0.2 mg/dL (0-0.2); Potassium 3.5 mEq/L (3.5-5.1)
--- NOTE | 2024-10-28 22:09 | ER ---
Nurse's Notes [facility] Name: Felipe Barriga Age: 48 yrs Sex: Male : 1975 Arrival Date: 10/28/2024 Time: 19:48 Bed 25 Private MD: Diagnosis: Alcohol abuse Presentation: 10/28 19:54 Chief complaint: EMS states: EMS was called for welfare check. Neighbor reports seeing jb4 him look pale and his eyes role to the back of his head. Pt was A\T\Ox4 on scene reporting nausea and vomiting. Was given 4mg sublingual and 4mg IM. Coronavirus screen: At this time, the client does not indicate any symptoms associated with coronavirus-19. Ebola Screen: No symptoms or risks identified at this time. Initial Sepsis Screen: Does the patient meet any 2 criteria? No. Patient's initial sepsis screen is negative. Does the patient have a suspected source of infection? No. Patient's initial sepsis screen is negative. Risk Assessment: Do you want to hurt yourself or someone else? Patient reports no desire to harm self or others. Onset of symptoms was October 28, 2024. Transition of care: patient was not received from another setting of care. 19:54 Method Of Arrival: EMS: [facility] jb4 19:54 Acuity: [facility] 2 jb4 Historical: - Allergies: 19:56 No Known Allergies; jb4 - PMHx: 19:56 Alcohol dependence; Anxiety; depressive disorder; Night Terrors; PTSD; jb4 - PSHx: 19:56 aortic root replacement; jb4 - Family history:: not pertinent. Screenin:30 [facility] ED Fall Risk Assessment (Adult) History of falling in the last 3 months, jb4 including since admission No falls in past 3 months (0 pts) Confusion or Disorientation No (0 pts) Intoxicated or Sedated No (0 pts) Impaired Gait No (0 pts) Mobility Assist Device Used No (0 pt) Altered Elimination Yes (1 pt) Score/Fall Risk Level 0 - 2 = Low Risk Oriented to surroundings, Maintained a safe environment. Abuse screen: Denies threats or abuse. Nutritional screening: No deficits noted. Tuberculosis screening: No symptoms or risk factors identified. Assessment: 20:00 General: Appears in no apparent distress. comfortable, Behavior is calm, cooperative, jb4 appropriate for age. Pain: Denies pain. Neuro: Level of Consciousness is awake, alert, obeys commands, Oriented to person, place, time, situation. Cardiovascular: Patient's skin is warm and dry. Respiratory: Airway is patent Respiratory effort is even, unlabored, Respiratory pattern is regular, symmetrical. Derm: Skin is intact, Skin is pink, warm \T\ dry. Musculoskeletal: Circulation, motion, and sensation intact. Range of motion: intact in all extremities. 21:00 Reassessment: Patient appears in no apparent distress at this time. Patient and/or jb4 family updated on plan of care and expected duration. Pain level reassessed. Patient is alert, oriented x 3, equal unlabored respirations, skin warm/dry/pink. 22:47 Reassessment: Patient appears in no apparent distress at this time. Patient is alert, jb4 oriented x 3, equal unlabored respirations, skin warm/dry/pink. Patient is alert/active/playful, equal unlabored respirations, skin warm/dry/pink. Vital Signs: 20:19 BP 125 / 72; Pulse 94; Resp 16; Temp 98.1(O); Pulse Ox 98% ; Weight 97.52 kg; Height 5 jb4 ft. 11 in. ; 21:30 BP 123 / 80; Pulse 94; Resp 16; Pulse Ox 97% on R/A; jb4 22:47 BP 122 / 75; Pulse 95; Resp 16; Pulse Ox 96% on R/A; jb4 20:19 Body Mass Index 29.99 (97.52 kg, 180.34 cm) jb4 ED Course: 19:49 Patient arrived in ED. jb4 19:49 Yazan Sharma MD is Attending Physician. rt 19:54 Vj Rizzo, KORIN is Primary Nurse. jb4 19:56 Triage completed. jb4 20:20 Arm band placed on right wrist. jb4 20:30 Missed attempt(s): 22 gauge in left antecubital area. upper arm. Bleeding controlled, jb4 band aid applied, catheter tip intact. 20:32 XRAY Chest (1 view) In Process Unspecified. EDMS 20:35 Missed attempt(s): 22 gauge in right antecubital area. Bleeding controlled, band aid jb4 applied, catheter tip intact. 21:12 Inserted saline lock: 20 gauge in right Blood collected. Flushed with 10 mL NS. vc1 21:30 Patient has correct armband on for positive identification. Bed in low position. Call jb4 light in reach. Side rails up X 1. Provided Education on: plan of care. 21:40 No provider procedures requiring assistance completed. IV discontinued, intact, jb4 bleeding controlled, No redness/swelling at site. Pressure dressing applied. Administered Medications: 21:01 Drug: LORazepam IM 2 mg IM once Route: IM; Site: left deltoid; jb4 21:43 Follow up: Response: No adverse reaction; Marked relief of symptoms jb4 21:19 Not Given (given 8mg by EMS PTAa): ondansetron 4 mg IVP once; over 2 minutes jb4 21:32 Not Given (Other Intervention Used): [id number] mg IVP once; dilute with 10 mL 0.9% jb4 NaCl; give over 2 minutes 21:32 Drug: Pantoprazole IVP 40 mg IVP once Route: IVP; Site: right upper arm; jb4 22:47 Follow up: Response: No adverse reaction; Marked relief of symptoms jb4 21:32 Drug: GI Cocktail without - (Maalox PO 30 ml, Lidocaine Mucous Membrane 2 % 15 jb4 ml) PO once Route: PO; 22:47 Follow up: Response: No adverse reaction; Marked relief of symptoms jb4 21:32 Not Given (Physician Discretion; Ultrasound IV infiltratedd): ns 0.9% 1000 ml IV at 1 jb4 bolus Per protocol; to be given as a bolus over 60 minutes 21:40 Drug: Famotidine PO 20 mg PO once Route: PO; jb4 22:47 Follow up: Response: No adverse reaction; Marked relief of symptoms jb4 Medication: 21:30 VIS not applicable for this client. jb4 Outcome: 22:08 Discharge ordered by . rt 22:48 Discharged to home ambulatory, jb4 22:48 Condition: stable 22:48 Discharge instructions given to patient, Instructed on discharge instructions, follow up and referral plans. Demonstrated understanding of instructions, follow-up care, 22:48 Patient left the ED. jb4 Signatures: Dispatcher [employer] EDMS Vj Rizzo RN RN jb4 Peri Cosme RN RN vc1 Yazan Sharma MD MD rt
--- NOTE | 2024-10-28 22:09 | EDPHYS ---
Physician Documentation [facility] Name: Felipe Barriga Age: 48 yrs Sex: Male : 1975 Arrival Date: 10/28/2024 Time: 19:48 Bed 25 Private MD: ED Physician Yazan Sharma HPI: 10/28 20:51 This 48 yrs old Male presents to ER via EMS with complaints of Alcohol Withdrawal. rt 20:51 Patient with history of alcohol abuse with withdrawals presents to the ED with reported rt alcohol withdrawals, EMS was called for a welfare check, states he has been drawn with nausea, vomiting, epigastric pain. Denies other acute complaints at this time, symptoms are moderate in severity, no other aggravating or alleviating factors.. Historical: - Allergies: 19:56 No Known Allergies; jb4 - PMHx: 19:56 Alcohol dependence; Anxiety; depressive disorder; Night Terrors; PTSD; jb4 - PSHx: 19:56 aortic root replacement; jb4 - Family history:: not pertinent. ROS: 20:51 Constitutional: Negative for fever, chills, and weight loss, Cardiovascular: Negative rt for chest pain, palpitations, and edema, Respiratory: Negative for shortness of breath, cough, wheezing, and pleuritic chest pain, MS/Extremity: Negative for injury and deformity, Skin: Negative for injury, rash, and discoloration, Neuro: Negative for headache, weakness, numbness, tingling, and seizure, 20:51 Abdomen/GI: Positive for nausea and vomiting, Exam: 20:51 Constitutional: This is a well developed, well nourished patient who is awake, alert, rt and in no acute distress. Head/Face: Normocephalic, atraumatic. Chest/axilla: Normal chest wall appearance and motion. Nontender with no deformity. No lesions are appreciated. Cardiovascular: Regular rate and rhythm with a normal S1 and S2. No gallops, murmurs, or rubs. Normal PMI, no JVD. No pulse deficits. Respiratory: Lungs have equal breath sounds bilaterally, clear to auscultation and percussion. No rales, rhonchi or wheezes noted. No increased work of breathing, no retractions or nasal flaring. Abdomen/GI: Soft, non-tender, with normal bowel sounds. No distension or tympany. No guarding or rebound. No evidence of tenderness throughout. MS/ Extremity: Pulses equal, no cyanosis. Neurovascular intact. Full, normal range of motion. Neuro: Awake and alert, GCS 15, oriented to person, place, time, and situation. Cranial nerves II-XII grossly intact. Motor strength 5/5 in all extremities. Sensory grossly intact. Cerebellar exam normal. Normal gait. 20:51 ECG was reviewed by the Attending Physician. Vital Signs: 20:19 BP 125 / 72; Pulse 94; Resp 16; Temp 98.1(O); Pulse Ox 98% ; Weight 97.52 kg; Height 5 jb4 ft. 11 in. ; 21:30 BP 123 / 80; Pulse 94; Resp 16; Pulse Ox 97% on R/A; jb4 22:47 BP 122 / 75; Pulse 95; Resp 16; Pulse Ox 96% on R/A; jb4 20:19 Body Mass Index 29.99 (97.52 kg, 180.34 cm) jb4 MDM: 19:57 Medical Screening Exam initiated rt 22:58 Differential Diagnosis Alcohol abuse, alcohol intoxication, withdrawal syndrome, rt pancreatitis. Data reviewed: vital signs, nurses notes, lab test result(s), EKG, radiologic studies. I considered the following discharge prescriptions or medication management in the emergency department Medications were administered in the Emergency Department. See MAR. Independent interpretation of the following test(s) in the Emergency Department X-Ray: My interpretation is No infiltrate seen on my interpretation of x-ray images. Care significantly affected by the following Social Determinants of Health: Misuse of alcohol and/or drugs. Counseling: I had a detailed discussion with the patient and/or guardian regarding the historical points, exam findings, and any diagnostic results supporting the discharge/admit diagnosis, lab results, radiology results, the need for outpatient follow up, to return to the emergency department if symptoms worsen or persist or if there are any questions or concerns that arise at home. Response to treatment: the patient's symptoms have markedly improved after treatment. 10/28 20:01 Order name: Basic Metabolic Panel; Complete Time: 22:05 rt 10/28 20: Order name: CBC with Diff; Complete Time: 22:05 rt 10/28 20: Order name: LFT's; Complete Time: 22:05 rt 10/28 20:01 Order name: Troponin HS; Complete Time: 22:05 rt 10/28 20:01 Order name: Lipase; Complete Time: 22:05 rt 10/28 20:08 Order name: ETOH Level; Complete Time: 22:05 rt 10/28 21:37 Order name: Creatine Phosphokinase; Complete Time: 22:05 EDMS 10/28 20:01 Order name: XRAY Chest (1 view); Complete Time: 20:51 rt 10/28 20:01 Order name: EKG; Complete Time: 20:02 rt 10/28 20:01 Order name: Cardiac monitoring; Complete Time: 21:00 rt 10/28 20:01 Order name: EKG - Nurse/Tech; Complete Time: 21:00 rt 10/28 20:01 Order name: IV Saline Lock; Complete Time: 21:19 rt 10/28 20:01 Order name: Labs collected and sent; Complete Time: 21:19 rt 10/28 20:01 Order name: O2 Per Protocol; Complete Time: 21:00 rt 10/28 20:01 Order name: O2 Sat Monitoring; Complete Time: 21:00 rt EC:51 Rate is 94 beats/min. Rhythm is regular, Normal Sinus Rhythm with No ectopy. QRS [place] rt is Normal. TN interval is normal. QRS interval is normal. QT interval is normal. No Q waves. T waves are Normal. No ST changes noted. Interpreted by me. Administered Medications: 21:01 Drug: LORazepam IM 2 mg IM once Route: IM; Site: left deltoid; jb4 21:43 Follow up: Response: No adverse reaction; Marked relief of symptoms jb4 21:19 Not Given (given 8mg by EMS PTAa): ondansetron 4 mg IVP once; over 2 minutes jb4 21:32 Not Given (Other Intervention Used): ajatocgdpx31 mg IVP once; dilute with 10 mL 0.9% jb4 NaCl; give over 2 minutes 21:32 Drug: Pantoprazole IVP 40 mg IVP once Route: IVP; Site: right upper arm; jb4 22:47 Follow up: Response: No adverse reaction; Marked relief of symptoms jb4 21:32 Drug: GI Cocktail without - (Maalox PO 30 ml, Lidocaine Mucous Membrane 2 % 15 jb4 ml) PO once Route: PO; 22:47 Follow up: Response: No adverse reaction; Marked relief of symptoms jb4 21:32 Not Given (Physician Discretion; Ultrasound IV infiltratedd): ns 0.9% 1000 ml IV at 1 jb4 bolus Per protocol; to be given as a bolus over 60 minutes 21:40 Drug: Famotidine PO 20 mg PO once Route: PO; jb4 22:47 Follow up: Response: No adverse reaction; Marked relief of symptoms jb4 Disposition Summary: 10/28/24 22:08 Discharge Ordered Notes: Location: Home rt Problem: new rt Symptoms: have improved rt Condition: Stable rt Diagnosis - Alcohol abuse rt Followup: rt - With: Private Physician - When: 2 - 3 days - Reason: Discharge Instructions: - Discharge Summary Sheet rt - Alcohol Use Disorder rt Forms: - Medication Reconciliation Form rt - Antibiotic Education rt - Prescription Opioid Use rt - Patient Portal Instructions rt - Leadership Thank You Letter rt Signatures: Dispatcher [employer] Vj Amanda RN RN jb4 Yazan Sharma MD MD rt Corrections: (The following items were deleted from the chart) 21:37 20:08 CREATINE PHOSPHOKINASE+C.LAB.BRZ ordered. BRANDEE IRVIN
[2024-10-28 23:09] VITALS: TEMP 98.1
[2024-10-28 23:12] VITALS: BP 122/75; O2SAT 96
--- NOTE | 2024-10-30 11:03 | EKG ---
Test Date: 2024-10-28 Test Time: 19:50:04 Customer Account Technician: ISAC MEASUREMENT RESULTS: Intervals: Rate: 94 [place]: 162 QRSD: 82 QT: 360 QTc: 450 [place]: P: 58 [place]: 162 QRS: 13 T: 57 INTERPRETIVE STATEMENTS: Normal sinus rhythm Low voltage QRS Borderline ECG Compared to ECG 10/14/2024 12:01:06 Low QRS voltage now present Electronically Signed On 10-30-24 10:59:01 CDT by Bernard Whitmore
== END 2024-10-28 22:48 | disposition home or self-care (01) ==
LOC: ER 19:48
DX: F10.20 Alcohol dependence, uncomplicated (principal)
CPT/HCPCS: 93005; 85025; 80048; 36415; 82550; 80076; 84484; 83690; 71045; 96372; 96374; 99284; 82077; J2470; J7030

== ENCOUNTER 2024-10-29 21:17 | Emergency (ER) | payer OTHER ==
--- OUTSIDE RECORDS SUMMARY | 2024-10-29 21:21 | XMS REPORT | Continuity of Care Document ---
Author Name Unknown Address [address] [place] [address] [facility] Address [address] [place] [address] Care Team Providers Care Estimator Project Manager Name Role Phone Vickie Garcia Attending Clinician Unavailable Vickie Garcia Admitting Clinician Unavailable Payers Payer Name Policy Type Policy Number Effective Date Expirati on Date Source Allergies, Adverse Reactions, Alerts Allergy Name Allergy Type Status Severity Reaction(s) Onset Date Inactive Date Treating Clinician Comments Source No Known Allergie s DA Active U 03-18 00:00: 00 [facility] Encounters Start Date/Time End Date/Time Encounter Type Admission Type Attending Clinicians Care Facility Care Department Encounter ID Source 2024-03-18 03:55:00 2024-03-20 12:41:00 Inpatient EM Vickie Garcia [facility] TELE [id number] 22 [facility] Results Test Description Test Time Test Comments Results Result Co mments Source COMPREHENSIVE METABOLIC [id number] 17:15:00* Test Item Value Reference Range Interpretation [...] code = ALKP) 71 Units/L 50.0-136.0 N [id number] 17:15:00* Test Item Value Reference Range Interpretation Comme nts MAGNESIUM (test code = MAG) 1.3 mg/dl 1.8-2.4 L VITAMIN [id number] 17:15:00* Test Item Value Reference Range Interpretation Comme nts VITAMIN B12 (test code = VITB12) 239 pg/mL 193-986 N CBC W/AUTO [id number] 04:51:00* Test Item Value Reference Range Interpretation [...] 0.00 X10 3uL 0.00-0.01 N COMPREHENSIVE METABOLIC [id number] 05:46:00* Test Item Value Reference Range Interpretation [...] ALKP) 75 Units/L 50.0-136.0 N CBC W/AUTO [id number] 04:25:00* Test Item Value Reference Range Interpretation [...] = NRBC#) 0.00 X10 3uL 0.00-0.01 N [id number] 20:03:00* Test Item Value Reference Range Interpretation Comme nts GLUBED (test code = GLUBED) 132 mg/dL 70-110 H DRUGS OF ABUSE SCREEN [id number] 08:40:00* Test Item Value Reference Range Interpretation [...] 300 ng/mL WHAT DRUGS HAVE BEEN TAKEN? [id number] 03:26:00* Test Item Value Reference Range Interpretation Comme nts ALCOHOL (test code = ALC) 0.47 gm/dL 0.00-0.00 HH ETHYL ALCOHOL VA LUES - INTERPRETATION: 0.050 GM/DL - NOT INTOXICATED 0.100 GM/DL - INTOXICATED 0.350-0.450 GM/DL - SEVERELY INTOXICATED 0.550 GM/DL- FATAL INTOXICATION BASIC METABOLIC [id number] 03:26:00* Test Item Value Reference Range Interpretation [...] ECRCL) 88 mL/min >30 HEPATIC FUNCTION PANEL [id number] 03:26:00* Test Item Value Reference Range Interpretation [...] code = ALKP) 118 Units/L 50.0-136.0 N [id number] 03:26:00* Test Item Value Reference Range Interpretation Comme nts LIPASE (test code = LIP) 78 Units/L 16-77 H TROP-I HIGH [id number] 03:26:00* Test Item Value Reference Range Interpretation Comme nts TROP-I HIGH SENSITIVITY (test code = TROPIHS) 29 ng/L 0-76 N CAUTION: Units o f the current TROPI-HS test methodology(ng/L) differ from the prior test methodology (ng/mL) by afactor of 1000. 99th Percentile: Females: 0 - 51 ng/L Males: 0 - 76 ng/LThese results were obtained using [employer]ep[employer] TnIHreagent. Results from different methodologies should not becompared to one another as quantitative results may vary bymethod. CBC W/AUTO [id number] 03:04:00* Test Item Value Reference Range Interpretation [...] code = BA#) 0.1 K/mm3 0.0-0.2 N [id number] 02:29:00* Test Item Value Reference Range Interpretation Comme nts GLUBED (test code = GLUBED) 83 mg/dL 70-110 N Notes Date/Time Note Provider Source 2024-03-20 22:50:00 [facility] ([facility]) Hospitalist Discharge Summary REPORT#:[id number] REPORT STATUS: Signed REPORT INITIALIZATION DATE:03/20/24 TIME: 2249 PATIENT: TACHO LOBO UNIT #: [id number] ROOM/BED: [place] [id number] : 75 AGE: 48 SEX: M ATTEND: [...] (Auto) (23.0 - 38.0 %) 11.9 L [place] % (Auto) (1.0 - 10.0 %) 8.2 Eos % (Auto) (1.0 - 5.0 %) 3.3 Baso % (Auto) (0.0 - 1.0 %) 0.6 Neut # (Auto) (2.4 - 6.3 K/mm3) 3.7 Lymph # (Auto) (1.2 - 4.0 K/mm3) 0.6 L [place] # (Auto) (0.0 - 0.6 K/mm3) 0.4 [...] Musculoskeletal: full range of motion, normal inspection Neuro/MACHINE CLOTH TRIMMER alert, oriented X 3, CNII-XII intact Skin: [...] 1-2 weeks at 2252 at 1445 RPT #:[id number] END OF REPORT [facility] 2024-03-19 14:41:00 [facility] Pulmonology Progress Note REPORT#:[id number] REPORT STATUS: Signed REPORT INITIALIZATION DATE:03/19/24 TIME: 144 PATIENT: TACHO LOBO UNIT #: [id number] ROOM/BED: [place] [id number] : 75 AGE: 48 SEX: M ATTEND: [...] Musculoskeletal: full range of motion, normal inspection Neuro/MACHINE CLOTH TRIMMER: alert, oriented X 3 Skin: dry, intact [...] (Auto) (23.0 - 38.0 %) 15.6 L [place] % (Auto) (1.0 - 10.0 %) 8.1 Eos % (Auto) (1.0 - 5.0 %) 2.3 Baso % (Auto) (0.0 - 1.0 %) 0.5 Neut # (Auto) (2.4 - 6.3 K/mm3) 2.8 Lymph # (Auto) (1.2 - 4.0 K/mm3) 0.6 L [place] # (Auto) (0.0 - 0.6 K/mm3) 0.3 [...] floor will sign off at 1443 RPT #:[id number] END OF REPORT [facility] 2024-03-19 09:54:00 [facility] ([facility] Hospitalist Progress Note REPORT#:[id number] REPORT STATUS: Signed REPORT INITIALIZATION DATE:03/19/24 TIME: 953 PATIENT: TACHO LOBO UNIT #: [id number] ROOM/BED: [place] [id number] : 75 AGE: 48 SEX: M ATTEND: [...] Sodium Chloride (SODIUM CHLORIDE 0.9%) 1,000 ML .[id number] IV Enoxaparin Sodium (LOVENOX) 40 MG Q24H [...] (Auto) (23.0 - 38.0 %) 15.6 L [place] % (Auto) (1.0 - 10.0 %) 8.1 Eos % (Auto) (1.0 - 5.0 %) 2.3 Baso % (Auto) (0.0 - 1.0 %) 0.5 Neut # (Auto) (2.4 - 6.3 K/mm3) 2.8 Lymph # (Auto) (1.2 - 4.0 K/mm3) 0.6 L [place] # (Auto) (0.0 - 0.6 K/mm3) 0.3 [...] Musculoskeletal: full range of motion, normal inspection Neuro/MACHINE CLOTH TRIMMER alert, oriented X 3, CNII-XII intact Skin: [...] DC in am at 0957 at 1444 [facility] #:[id number] END OF REPORT [facility] 2024-03-18 09:09:00 [facility] ([facility]) Hospitalist History Physical REPORT#:[id number] REPORT STATUS: Signed REPORT INITIALIZATION DATE:03/18/24 TIME: 908 PATIENT: TACHO LOBO UNIT #: [id number] ROOM/BED: [place] [id number] : 75 AGE: 48 SEX: M ATTEND: [...] (Auto) (23.0 - 38.0 %) 15.3 L [place] % (Auto) (1.0 - 10.0 %) 6.2 Eos % (Auto) (1.0 - 5.0 %) 0.7 L Baso % (Auto) (0.0 - 1.0 %) 0.9 Neut # (Auto) (2.4 - 6.3 K/mm3) 4.1 Lymph # (Auto) (1.2 - 4.0 K/mm3) 0.8 L [place] # (Auto) (0.0 - 0.6 K/mm3) 0.3 [...] Musculoskeletal: full range of motion, normal inspection Neuro/MACHINE CLOTH TRIMMER alert, oriented X 3, CNII-XII intact Skin: [...] hydration BMP in a.m. at 1003 RPT #:[id number] END OF REPORT [facility] 2024-03-18 07:56:00 [facility] ([facility] Pulmonary Consultation Note REPORT#:[id number] REPORT STATUS: Signed REPORT INITIALIZATION DATE:03/18/24 TIME: 755 PATIENT: TACHO LOBO UNIT #: [id number] ROOM/BED: [place] [address] : 75 AGE: 48 SEX: M ATTEND: [...] (Auto) (23.0 - 38.0 %) 15.3 L [place] % (Auto) (1.0 - 10.0 %) 6.2 Eos % (Auto) (1.0 - 5.0 %) 0.7 L Baso % (Auto) (0.0 - 1.0 %) 0.9 Neut # (Auto) (2.4 - 6.3 K/mm3) 4.1 Lymph # (Auto) (1.2 - 4.0 K/mm3) 0.8 L [place] # (Auto) (0.0 - 0.6 K/mm3) 0.3 [...] At risk for deterioration at 1242 RPT #:[id number] END OF REPORT [facility] 2024-03-18 03:52:00 [facility] ([facility]) EMERGENCY PROVIDER REPORT REPORT#:[id number] REPORT STATUS: Signed DATE:03/18/24 TIME: 351 PATIENT: TACHO LOBO UNIT #: [id number] ROOM/BED: [place] AGE: 48 SEX: M PCP [...] (Auto) (23.0 - 38.0 %) 15.3 L [place] % (Auto) (1.0 - 10.0 %) 6.2 Eos % (Auto) (1.0 - 5.0 %) 0.7 L Baso % (Auto) (0.0 - 1.0 %) 0.9 Neut # (Auto) (2.4 - 6.3 K/mm3) 4.1 Lymph # (Auto) (1.2 - 4.0 K/mm3) 0.8 L [place] # (Auto) (0.0 - 0.6 K/mm3) 0.3 [...] 03/18 0330 O2 Delivery Room air 03/18 020 Temp 36.3 03/18 0207 All vital signs available at the time of this entry have been reviewed. Clinical Impression Clinical Impression Primary Impression: Alcohol withdrawal Disposition Decision Hospitalize Hosp Physician Name Vickie Garcia MD [facility] Physician Hospitalist Request Time 035 Request [...] with the family or caregiver. at 0615 [facility] #:[phone] END OF REPORT [facility]
[2024-10-29] MEDS ORDERED: FAMOTIDINE 20 MG/2 ML VIAL IV ONE (22:26)
[2024-10-29] MEDS ORDERED: PANTOPRAZOLE 40 MG INJ ONE (22:26)
[2024-10-29] MEDS ORDERED: NA CHLORIDE 0.9% 1,000 ML ONE (22:26)
[2024-10-29 22:38] LABS: Absolute Basophils 0.1 K/uL (0-0.5); Absolute Eosinophils 0.1 K/uL (0-0.5); Absolute Lymphocytes (CBC) 1.9 K/uL (0.7-4.9); Absolute Monocytes 0.4 K/uL (0.1-1.3); Absolute Neutrophil 2.8 K/uL (1.8-8.0); Albumin 3.3 g/dL (3.4-5.0); Albumin/Globulin Ratio 0.7 (1.1-1.8); Anion Gap 12.3 mEq/L (5.0-15.0); Basophils % 1.8 % (0-1.3); Bilirubin Total 0.3 mg/dL (0.2-1.0); Eosinophils % 1.1 % (0-4.4); Globulin 4.5 g/dL (2.3-3.5); Hematocrit 36.6 % (39.6-49.0); Hemoglobin 11.9 g/dL (13.6-17.9); Lymphocytes % 35.3 % (15.3-44.8); MCH 28.3 pg (27.0-35.0); MCHC 32.5 g/dL (32.0-36.0); MPV 7.2 fL (7.6-11.3); Monocytes % 7.9 % (3.3-12.3); Neutrophils % 53.9 % (41.7-73.7); Nucleated Red Blood Cells % 0.1 % (0-0); Platelets 286 thou/uL (152-406); Potassium 3.3 mEq/L (3.5-5.1); Protein, Total 7.8 g/dL (6.4-8.2); RBC Red Blood Cell Count 4.21 M/uL (4.33-5.43); Red Cell Distribution Width 18.8 % (12.1-15.2)
[2024-10-29 22:43] LABS: PT Prothrombin Time 11.6 SECONDS (10-13.0); Protime INR 1.02
--- NOTE | 2024-10-30 00:47 | RAD REPORT ---
Clinical Indication: Abdominal pain Comparison: October 11, 2024. TECHNIQUE: Helical imaging was performed from diaphragm through the pelvis after IV contrast administ ration with multiplanar reformations obtained. Coronal and sagittal reformats were performed and provided as separate series. IV CONTRAST: 100mL ISOVUE 370. GI CONTRAST: GI contrast was not administered CT Radiation Dose: DLP = 1244.8 mGy-cm All CT scans at this location are performed using dose optimization techniques as appropriate to perf orm the study. Radiation dose reduction technique was utilized including one or more of the following: Automated exp osure control, adjustment of the mA and/or kV according to patient size and use of iterative reconstruction technique. FINDINGS: LOWER CHEST: The visualized lung bases are clear. LIVER: Unremarkable. GALLBLADDER: Unremarkable. INTRAHEPATIC BILE DUCT AND EXTRAHEPATIC BILE DUCT: Unremarkable. PANCREAS: Unremarkable. SPLEEN: Unremarkable. ADRENALS: Unremarkable. KIDNEYS AND URETERS: The renal contours are normal. There is no hydronephrosis. No calcified johnathon l stones are noted. No surrounding fat stranding is noted. STOMACH: Evaluation of the stomach and bowel is limited due to lack of oral contrast. No gross abno rmalities of the stomach are noted. Small hiatal hernia is noted. BOWEL: The small bowel loops in the abdomen and pelvis appear unremarkable. A few scattered diverticu li are noted in the descending colon. No surrounding inflammatory changes are noted. Thickening of the proximal colonic wall may be due to underdistention. There is mild submucosal fat deposition in t he cecum and ascending colon. This is also noted in the transverse colon. This could be consistent with chronic inflammation. APPENDIX: The appendix is normal in caliber without surrounding inflammatory changes. PERITONEUM AND RETROPERITONEUM: No ascites or free air. No loculated fluid collection is noted. The re is no aortic aneurysm or dissection. PELVIS: The prostate is unremarkable. BLADDER: 4 mm stone in the left posterior urinary bladder is again noted. This is located in the blad yaritza at the ureterovesical junction. LYMPH NODES: Unremarkable. OSSEOUS STRUCTURES: No acute abnormality seen. SOFT TISSUES: Unremarkable. IMPRESSION: 1. Findings consistent with chronic inflammation involving the proximal colon. 2. Mild diverticulosis of the descending colon. 3. Small hiatal hernia. 4. 4 mm urinary bladder stone is unchanged compared to October 11, 2024. Electronically signed by: Amilcar Duenas MD 10/29/2024 11:39 PM CDT RP Due to temporary technical issues with the PACS/Cabeo reporting system, reports are being chevy d by the in-house radiologist without review as a courtesy to ensure prompt reporting the interpreting radiologist is fully responsible for the content of the report. Transcribed Date/Time: 10/30/2024 12:47 AM
--- NOTE | 2024-10-30 01:03 | EDPHYS ---
Physician Documentation [facility] Name: Felipe Barriga Age: 48 yrs Sex: Male : 1975 Arrival Date: 10/29/2024 Time: 21:17 Bed 26 Private MD: ED Physician Yazan Sharma HPI: 10/29 21:42 This 48 yrs old Male presents to ER via EMS with complaints of hematemesis. rt 21:42 Patient with well-established history of alcohol abuse presents to the ED with rt abdominal pain, or distention and hematemesis, states that he was vomiting straight blood several episodes today. Denies other acute complaints at this time, symptoms are moderate in severity, no other aggravating or alleviating factors.. Historical: - Allergies: 21:28 No Known Allergies; jb4 - PMHx: 21:28 Anxiety; Alcohol dependence; Night Terrors; depressive disorder; PTSD; jb4 - PSHx: 21:28 aortic root replacement; jb4 - Immunization history:: Adult Immunizations not up to date. - Infectious Disease History:: Denies. - Social history:: Smoking status: Patient denies any tobacco usage or history of. Patient uses alcohol, on a daily basis. - Family history:: not pertinent. ROS: 21:42 Constitutional: Negative for fever, chills, and weight loss, Cardiovascular: Negative rt for chest pain, palpitations, and edema, Respiratory: Negative for shortness of breath, cough, wheezing, and pleuritic chest pain, MS/Extremity: Negative for injury and deformity, Skin: Negative for injury, rash, and discoloration, 21:42 Abdomen/GI: Positive for abdominal pain, nausea and vomiting, hematemesis, Exam: 21:42 Constitutional: This is a well developed, well nourished patient who is awake, alert, rt and in no acute distress. Head/Face: Normocephalic, atraumatic. Chest/axilla: Normal chest wall appearance and motion. Nontender with no deformity. No lesions are appreciated. Cardiovascular: Regular rate and rhythm with a normal S1 and S2. No gallops, murmurs, or rubs. Normal PMI, no JVD. No pulse deficits. Respiratory: Lungs have equal breath sounds bilaterally, clear to auscultation and percussion. No rales, rhonchi or wheezes noted. No increased work of breathing, no retractions or nasal flaring. Abdomen/GI: Soft, non-tender, with normal bowel sounds. No distension or tympany. No guarding or rebound. No evidence of tenderness throughout. MS/ Extremity: Pulses equal, no cyanosis. Neurovascular intact. Full, normal range of motion. Neuro: Awake and alert, GCS 15, oriented to person, place, time, and situation. Cranial nerves II-XII grossly intact. Motor strength 5/5 in all extremities. Sensory grossly intact. Cerebellar exam normal. Normal gait. 21:42 ECG was reviewed by the Attending Physician. 21:42 Abdomen/GI: Mild distention, tenderness diffuse, Vital Signs: 21:27 BP 126 / 85; Pulse 94; Resp 20; Temp 98.1(O); Pulse Ox 96% on R/A; Weight 99.79 kg (R); jb4 Height 5 ft. 11 in. (R); Pain 8/10; 22:52 BP 115 / 75; Pulse 94; Resp 15; Pulse Ox 100% on R/A; jb4 23:35 BP 121 / 85; Pulse 93; Resp 21; Pulse Ox 98% on R/A; 4 10/30 01:00 BP 144 / 84; Pulse 84; Resp 19; Pulse Ox 100% on R/A; jb4 02:00 BP 110 / 79; Pulse 92; Resp 18; Pulse Ox 97% on R/A; jb4 02:58 BP 121 / 77; Pulse 89; Resp 16; Pulse Ox 99% on R/A; jb4 10/29 21:27 Body Mass Index 30.68 (99.79 kg, 180.34 cm) banner 10/29 21:27 Pain Scale: Adult jb4 MDM: 10/29 21:32 Medical Screening Exam initiated rt 10/30 03:20 Differential Diagnosis Upper GI bleed, gastritis, Deepika-Zhu tear, esophageal rt varices. Data reviewed: vital signs, nurses notes, lab test result(s), EKG, radiologic studies. Consideration of Admission/Observation Escalation of care including admission/observation considered. Patient requires transfer due to being a primary [facility]. I considered the following discharge prescriptions or medication management in the emergency department Medications were administered in the Emergency Department. See MAR. Independent interpretation of the following test(s) in the Emergency Department CT Scan: My interpretation is No bowel obstruction seen on interpretation of CT scan images. Care significantly affected by the following Social Determinants of Health: Misuse of alcohol and/or drugs. Counseling: I had a detailed discussion with the patient and/or guardian regarding the historical points, exam findings, and any diagnostic results supporting the discharge/admit diagnosis, lab results, radiology results, the need to transfer to another facility. Response to treatment: the patient's symptoms have mildly improved after treatment. 10/29 21:40 Order name: CBC with Diff; Complete Time: 23:13 rt 10/29 21:40 Order name: CMP; Complete Time: 23:13 rt 10/29 21:40 Order name: Lipase; Complete Time: 23:13 rt 10/29 21:40 Order name: Type And Screen; Complete Time: 23:13 rt 10/29 21:40 Order name: PT-INR; Complete Time: 23:13 rt 10/29 21:40 Order name: ETOH Level; Complete Time: 23:13 rt 10/29 23:09 Order name: ABO/RH no charge; Complete Time: 23:13 EDMS 10/29 21:40 Order name: CT Abd/Pelvis - IV Contrast Only; Complete Time: 00:48 rt 10/29 21:40 Order name: IV Saline Lock; Complete Time: 22:16 rt 10/29 21:40 Order name: Labs collected and sent; Complete Time: 22:16 rt EC/10 21:42 Rate is 90 beats/min. Rhythm is regular, Normal Sinus Rhythm with No ectopy. QRS Forbes rt is Normal. CA interval is normal. QRS interval is normal. QT interval is normal. No Q waves. T waves are Normal. No ST changes noted. Interpreted by me. Administered Medications: 22:55 Drug: Famotidine IVP 20 mg IVP once; dilute with 10 mL 0.9% NaCl; give over 2 minutes jb4 Route: IVP; Site: left forearm; 10/30 01:35 Follow up: Response: No adverse reaction jb4 10/29 22:55 Drug: NS 0.9% IV 1000 ml IV at 1 bolus Per protocol; to be given as a bolus over 60 jb4 minutes Route: IV; Rate: 1 bolus; Site: left forearm; 10/30 00:00 Follow up: Response: No adverse reaction; IV Status: Completed infusion; IV Intake: jb4 1000ml 10/29 22:55 Drug: Pantoprazole IVP 80 mg IVP once Route: IVP; Site: left forearm; jb4 10/30 01:35 Follow up: Response: No adverse reaction jb4 01:33 Drug: Ativan IVP 2 mg IVP once Route: IVP; Site: left forearm; jb4 02:13 Follow up: Response: No adverse reaction; Marked relief of symptoms jb4 Disposition Summary: 10/30/24 01:02 Transfer Ordered Notes: Transfer Location: [facility] rt Reason: Higher level of care rt Condition: Stable rt Problem: new rt Symptoms: have improved rt Accepting Physician: (10/30/24 03:50) lg3 Diagnosis - Hematemesis rt - Alcohol abuse rt Discharge Instructions: - Discharge Summary Sheet rv1 Forms: - Medication Reconciliation Form rt - SBAR form rv1 Signatures: Dispatcher [employer] Vj Amanda RN RN jb4 Rhonda Spears RN RN lg3 Yazan Sharma MD MD rt Corrections: (The following items were deleted from the chart) 03:50 01:02 rt lg3
--- NOTE | 2024-10-30 01:03 | ER ---
Nurse's Notes [facility] Name: Felipe Barriga Age: 48 yrs Sex: Male : 1975 Arrival Date: 10/29/2024 Time: 21:17 Bed 26 Private MD: Diagnosis: Hematemesis;Alcohol abuse Presentation: 10/29 21:27 Chief complaint: EMS states: Pt reports vomiting blood with abdominal pain , and chest jb4 pain. Reports last drink was yesterday. reports that could be incorrect and could have had more but he does not remember. Coronavirus screen: At this time, the client does not indicate any symptoms associated with coronavirus-19. Ebola Screen: No symptoms or risks identified at this time. Initial Sepsis Screen: Does the patient meet any 2 criteria? HR > 90 bpm. Yes Does the patient have a suspected source of infection? No. Patient's initial sepsis screen is negative. Risk Assessment: Do you want to hurt yourself or someone else? Patient reports no desire to harm self or others. Onset of symptoms was October 29, 2024. Transition of care: patient was not received from another setting of care. 21:27 Method Of Arrival: EMS: [facility] jb4 21:27 Acuity: CLARITA 3 jb4 Historical: - Allergies: 21:28 No Known Allergies; jb4 - PMHx: 21:28 Anxiety; Alcohol dependence; Night Terrors; depressive disorder; PTSD; jb4 - PSHx: 21:28 aortic root replacement; jb4 - Immunization history:: Adult Immunizations not up to date. - Infectious Disease History:: Denies. - Social history:: Smoking status: Patient denies any tobacco usage or history of. Patient uses alcohol, on a daily basis. - Family history:: not pertinent. Screenin:29 [facility] ED Fall Risk Assessment (Adult) History of falling in the last 3 months, jb4 including since admission No falls in past 3 months (0 pts) Confusion or Disorientation No (0 pts) Intoxicated or Sedated Yes (3 pts) Impaired Gait Yes (1 pt) Mobility Assist Device Used No (0 pt) Altered Elimination No (0 pt) Score/Fall Risk Level 3 or more points = High Risk Oriented to surroundings, Maintained a safe environment. Abuse screen: Denies threats or abuse. Nutritional screening: No deficits noted. Tuberculosis screening: No symptoms or risk factors identified. Assessment: 21:29 General: Appears in no apparent distress. uncomfortable, Behavior is calm, cooperative, jb4 appropriate for age. Pain: Complains of pain in chest and abdomen Pain does not radiate. Pain currently is 8 out of 10 on a pain scale. Neuro: Level of Consciousness is awake, alert, obeys commands, Oriented to person, place, time, situation. Cardiovascular: Patient's skin is warm and dry. Rhythm is sinus rhythm. Respiratory: Airway is patent Respiratory effort is even, unlabored, Respiratory pattern is regular, symmetrical. GI: Abdomen is round distended, Reports lower abdominal pain, upper abdominal pain, nausea, vomiting. Derm: Skin is intact, Skin is pink, warm \T\ dry. Musculoskeletal: Circulation, motion, and sensation intact. Range of motion: intact in all extremities. 22:48 Reassessment: Patient appears in no apparent distress at this time. Patient and/or jb4 family updated on plan of care and expected duration. Pain level reassessed. Patient is alert, oriented x 3, equal unlabored respirations, skin warm/dry/pink. 23:35 Reassessment: Pt resting in bed with eyes closed, respirations are even and unlabored jb4 with no s/s of pain or distress noted. 10/30 01:00 Reassessment: Patient appears in no apparent distress at this time. Patient and/or jb4 family updated on plan of care and expected duration. Pain level reassessed. Patient is alert, oriented x 3, equal unlabored respirations, skin warm/dry/pink. 02:00 Reassessment: Patient appears in no apparent distress at this time. Patient and/or jb4 family updated on plan of care and expected duration. Pain level reassessed. Patient is alert, oriented x 3, equal unlabored respirations, skin warm/dry/pink. 02:58 Reassessment: Patient appears in no apparent distress at this time. Patient and/or jb4 family updated on plan of care and expected duration. Pain level reassessed. Patient is alert, oriented x 3, equal unlabored respirations, skin warm/dry/pink. Vital Signs: 10/29 21:27 BP 126 / 85; Pulse 94; Resp 20; Temp 98.1(O); Pulse Ox 96% on R/A; Weight 99.79 kg (R); jb4 Height 5 ft. 11 in. (R); Pain 03/31; 22:52 BP 115 / 75; Pulse 94; Resp 15; Pulse Ox 100% on R/A; jb4 23:35 BP 121 / 85; Pulse 93; Resp 21; Pulse Ox 98% on R/A; jb4 10/30 01:00 BP 144 / 84; Pulse 84; Resp 19; Pulse Ox 100% on R/A; jb4 02:00 BP 110 / 79; Pulse 92; Resp 18; Pulse Ox 97% on R/A; jb4 02:58 BP 121 / 77; Pulse 89; Resp 16; Pulse Ox 99% on R/A; jb4 10/29 21:27 Body Mass Index 30.68 (99.79 kg, 180.34 cm) jb4 10/29 21:27 Pain Scale: Adult jb4 Vitals: 10/29 22:52 Cardiac Rhythm Assessment Sinus rhythm. jb4 ED Course: 21:23 Patient arrived in ED. lg3 21:23 Yazan Sharma MD is Attending Physician. rt 21:26 Vj Rizoz, KORIN is Primary Nurse. jb4 21:28 Triage completed. jb4 21:28 Arm band placed on right wrist. EKG completed in triage. Results shown to MD. jb4 21:29 Patient has correct armband on for positive identification. Bed in low position. Call jb4 light in reach. Side rails up X 1. Provided Education on: plan of care. 21:29 No provider procedures requiring assistance completed. jb4 22:16 ETOH Level Sent. jb4 22:16 PT-INR Sent. jb4 22:16 Type And Screen Sent. jb4 22:16 CBC with Diff Sent. jb4 22:16 CMP Sent. jb4 22:16 Lipase Sent. jb4 23:15 CT Abd/Pelvis - IV Contrast Only In Process Unspecified. EDMS 10/30 00:18 Initiated transfer with Katie at [facility]. rv1 02:[address] Merida to [facility] ER. rv1 03:15 Report received from Geoff Rizzo RN. lg3 03:49 Patient transferred, IV remains in place. lg3 Administered Medications: 10/29 22:55 Drug: Famotidine IVP 20 mg IVP once; dilute with 10 mL 0.9% NaCl; give over 2 minutes jb4 Route: IVP; Site: left forearm; 10/30 01:35 Follow up: Response: No adverse reaction jb4 10/29 22:55 Drug: NS 0.9% IV 1000 ml IV at 1 bolus Per protocol; to be given as a bolus over 60 jb4 minutes Route: IV; Rate: 1 bolus; Site: left forearm; 10/30 00:00 Follow up: Response: No adverse reaction; IV Status: Completed infusion; IV Intake: jb4 1000ml 10/29 22:55 Drug: Pantoprazole IVP 80 mg IVP once Route: IVP; Site: left forearm; jb4 10/30 01:35 Follow up: Response: No adverse reaction jb4 01:33 Drug: Ativan IVP 2 mg IVP once Route: IVP; Site: left forearm; jb4 02:13 Follow up: Response: No adverse reaction; Marked relief of symptoms jb4 Medication: 03:49 VIS not applicable for this client. lg3 Intake: 00:00 IV: 1000ml; Total: 1000ml. jb4 Outcome: 01:02 ER care complete, transfer ordered by . rt 03:49 Transferred by ground EMS to [facility] Transfer form completed. lg3 X-rays sent w/ patient. 03:49 Condition: stable 03:49 Instructed on the need for transfer, Demonstrated understanding of instructions, 03:50 Patient left the ED. lg3 Signatures: Dispatcher [employer] EDVj Danielson RN RN jb4 Rhonda Spears RN RN lg3 Yazan Sharma MD MD rt Sharda Morillo rv1 Corrections: (The following items were deleted from the chart) 02:14 02:00 BP 110 / 79; Pulse 92bpm; Resp 26bpm; Pulse Ox 97% RA; jb4 jb4 03:50 03:50 Report received from Geoff Rizzo RN lg3 lg3
[2024-10-30] MEDS ORDERED: LORazepam 2 MG/ML VIAL ONE (01:30)
[2024-10-30 03:54] VITALS: TEMP 98.1
[2024-10-30 04:01] VITALS: BP 121/77; O2SAT 99
--- NOTE | 2024-10-30 10:57 | EKG ---
Test Date: 2024-10-29 Test Time: 21:22:11 Cafe Team Member: ISAC MEASUREMENT RESULTS: Intervals: Rate: 90 [place]: 164 QRSD: 82 QT: 378 QTc: 462 [place]: P: 99 [place]: 164 QRS: 2 T: 62 INTERPRETIVE STATEMENTS: Normal sinus rhythm Low voltage QRS Borderline ECG Compared to ECG 10/28/2024 19:50:04 No significant changes Electronically Signed On 10-30-24 10:56:02 CDT by Bernard Whitmore
== END 2024-10-30 03:50 ==
LOC: ER 21:17
DX: K92.0 Hematemesis (principal); F10.20 Alcohol dependence, uncomplicated
CPT/HCPCS: 96361; 93005; 85025; 36415; 86900; 86850; 85610; 86901; 83690; 80053; 74177; 96375; 96374; 99285; 82077; Q9967; J2470; J7030

== ENCOUNTER 2025-01-11 17:13 | Emergency (ER) | payer OTHER ==
--- OUTSIDE RECORDS SUMMARY | 2025-01-11 17:17 | XMS REPORT | Continuity of Care Document ---
Author Name Unknown Address [address] [facility] [address] [place] [address] [facility] Address [address] [facility] [place] [address] Care Team Providers Care Combination Technician Name Role Phone Vickie Garcia Attending Clinician Unavailable Vickie Garcia Admitting Clinician Unavailable Payers Payer Name Policy Type Policy Number Effective Date Expirati on Date Source Allergies, Adverse Reactions, Alerts Allergy Name Allergy Type Status Severity Reaction(s) Onset Date Inactive Date Treating Clinician Comments Source No Known Allergie s DA Active U 03-18 00:00: 00 [facility] Encounters Start Date/Time End Date/Time Encounter Type Admission Type Attending Clinicians Care Facility Care Department Encounter ID Source 2024-03-18 03:55:00 2024-03-20 12:41:00 Inpatient EM Vickie Garcia [facility] TELE [id number] 22 [facility] Results Test Description Test Time Test Comments Results Result Co mments Source COMPREHENSIVE METABOLIC [id number] 17:15:00* Test Item Value Reference Range Interpretation [...] code = ALKP) 71 Units/L 50.0-136.0 N [id number] 17:15:00* Test Item Value Reference Range Interpretation Comme nts MAGNESIUM (test code = MAG) 1.3 mg/dl 1.8-2.4 L VITAMIN [id number] 17:15:00* Test Item Value Reference Range Interpretation Comme nts VITAMIN B12 (test code = VITB12) 239 pg/mL 193-986 N CBC W/AUTO [id number] 04:51:00* Test Item Value Reference Range Interpretation [...] 0.00 X10 3uL 0.00-0.01 N COMPREHENSIVE METABOLIC [id number] 05:46:00* Test Item Value Reference Range Interpretation [...] ALKP) 75 Units/L 50.0-136.0 N CBC W/AUTO [id number] 04:25:00* Test Item Value Reference Range Interpretation [...] = NRBC#) 0.00 X10 3uL 0.00-0.01 N [id number] 20:03:00* Test Item Value Reference Range Interpretation Comme nts GLUBED (test code = GLUBED) 132 mg/dL 70-110 H DRUGS OF ABUSE SCREEN [id number] 08:40:00* Test Item Value Reference Range Interpretation [...] 300 ng/mL WHAT DRUGS HAVE BEEN TAKEN? [id number] 03:26:00* Test Item Value Reference Range Interpretation Comme nts ALCOHOL (test code = ALC) 0.47 gm/dL 0.00-0.00 HH ETHYL ALCOHOL VA LUES - INTERPRETATION: 0.050 GM/DL - NOT INTOXICATED 0.100 GM/DL - INTOXICATED 0.350-0.450 GM/DL - SEVERELY INTOXICATED 0.550 GM/DL- FATAL INTOXICATION BASIC METABOLIC [id number] 03:26:00* Test Item Value Reference Range Interpretation [...] ECRCL) 88 mL/min >30 HEPATIC FUNCTION PANEL [id number] 03:26:00* Test Item Value Reference Range Interpretation [...] code = ALKP) 118 Units/L 50.0-136.0 N [id number] 03:26:00* Test Item Value Reference Range Interpretation Comme nts LIPASE (test code = LIP) 78 Units/L 16-77 H TROP-I HIGH [id number] 03:26:00* Test Item Value Reference Range Interpretation Comme nts TROP-I HIGH SENSITIVITY (test code = TROPIHS) 29 ng/L 0-76 N CAUTION: Units o f the current TROPI-HS test methodology(ng/L) differ from the prior test methodology (ng/mL) by afactor of 1000. 99th Percentile: Females: 0 - 51 ng/L Males: 0 - 76 ng/LThese results were obtained using Mashalot TnIHreagent. Results from different methodologies should not becompared to one another as quantitative results may vary bymethod. CBC W/AUTO [id number] 03:04:00* Test Item Value Reference Range Interpretation [...] code = BA#) 0.1 K/mm3 0.0-0.2 N [id number] 02:29:00* Test Item Value Reference Range Interpretation Comme nts GLUBED (test code = GLUBED) 83 mg/dL 70-110 N Notes Date/Time Note Provider Source 2024-03-20 22:50:00 [facility] (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, oriented X 3, CNII-XII intact Skin: [...] 1-2 weeks at 2252 at 1445 RPT #:[id number] END OF REPORT [facility] 2024-03-19 14:41:00 [facility] Pulmonology Progress Note REPORT#:[id number] REPORT STATUS: Signed REPORT INITIALIZATION DATE:03/19/24 TIME: 144 PATIENT: TACHO LOBO UNIT #: [id number] ROOM/BED: [place] [id number] : [birth year] AGE: 48 SEX: M ATTEND: [...] Musculoskeletal: full range of motion, normal inspection Neuro/ASSAULT 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: alert, oriented X 3 Skin: dry, intact [...] (Auto) (23.0 - 38.0 %) 15.6 L [place] % (Auto) (1.0 - 10.0 %) 8.1 Eos % (Auto) (1.0 - 5.0 %) 2.3 Baso % (Auto) (0.0 - 1.0 %) 0.5 Neut # (Auto) (2.4 - 6.3 K/mm3) 2.8 Lymph # (Auto) (1.2 - 4.0 K/mm3) 0.6 L [place] # (Auto) (0.0 - 0.6 K/mm3) 0.3 [...] floor will sign off at 1443 RPT #:[id number] END OF REPORT [facility] 2024-03-19 09:54:00 [facility] ([facility] Hospitalist Progress Note REPORT#:[id number] REPORT STATUS: Signed REPORT INITIALIZATION DATE:03/19/24 TIME: 953 PATIENT: TACHO LOBO UNIT #: [id number] ROOM/BED: [place] [address] : 75 AGE: 48 SEX: M ATTEND: [...] Sodium Chloride (SODIUM CHLORIDE 0.9%) 1,000 ML .[id number] IV Enoxaparin Sodium (LOVENOX) 40 MG Q24H [...] (Auto) (23.0 - 38.0 %) 15.6 L [place] % (Auto) (1.0 - 10.0 %) 8.1 Eos % (Auto) (1.0 - 5.0 %) 2.3 Baso % (Auto) (0.0 - 1.0 %) 0.5 Neut # (Auto) (2.4 - 6.3 K/mm3) 2.8 Lymph # (Auto) (1.2 - 4.0 K/mm3) 0.6 L [place] # (Auto) (0.0 - 0.6 K/mm3) 0.3 [...] Musculoskeletal: full range of motion, normal inspection 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 #:[id number] END OF REPORT [facility] 2024-03-18 09:09:00 [facility] (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 at 1003 RPT #:[id number] END OF REPORT [facility] 2024-03-18 07:56:00 [facility] ([facility] Pulmonary Consultation Note REPORT#:[id number] REPORT STATUS: Signed REPORT INITIALIZATION DATE:03/18/24 TIME: 755 PATIENT: TACHO LOBO UNIT #: [id number] ROOM/BED: [place] [address] : 75 AGE: 48 SEX: M ATTEND: [...] (Auto) (23.0 - 38.0 %) 15.3 L [place] % (Auto) (1.0 - 10.0 %) 6.2 Eos % (Auto) (1.0 - 5.0 %) 0.7 L Baso % (Auto) (0.0 - 1.0 %) 0.9 Neut # (Auto) (2.4 - 6.3 K/mm3) 4.1 Lymph # (Auto) (1.2 - 4.0 K/mm3) 0.8 L [place] # (Auto) (0.0 - 0.6 K/mm3) 0.3 [...] At risk for deterioration at 1242 RPT #:[id number] END OF REPORT [facility] 2024-03-18 03:52:00 [facility] ([facility]) EMERGENCY PROVIDER REPORT REPORT#:[id number] REPORT STATUS: Signed DATE:03/18/24 TIME: 351 PATIENT: TACHO LOBO UNIT #: [id number] ROOM/BED: [place] AGE: 48 SEX: M PCP [...] (Auto) (23.0 - 38.0 %) 15.3 L [place] % (Auto) (1.0 - 10.0 %) 6.2 Eos % (Auto) (1.0 - 5.0 %) 0.7 L Baso % (Auto) (0.0 - 1.0 %) 0.9 Neut # (Auto) (2.4 - 6.3 K/mm3) 4.1 Lymph # (Auto) (1.2 - 4.0 K/mm3) 0.8 L [place] # (Auto) (0.0 - 0.6 K/mm3) 0.3 [...] Hospitalize Hosp Physician Name Vickie Garcia MD [facility] Physician Hospitalist Request Time 035 Request Date [...] with the family or caregiver. at 06[address] [facility] #:[id number] END OF REPORT [facility]
[2025-01-11 17:41] LABS: Absolute Lymphocytes (CBC) 1.8 K/uL (0.7-4.9); Absolute Monocytes 0.5 K/uL (0.1-1.3); Absolute Neutrophil 4.5 K/uL (1.8-8.0); Basophils % 0.6 % (0-1.3); Eosinophils % 0.4 % (0-4.4); Hematocrit 31.3 % (39.6-49.0); Hemoglobin 10.4 g/dL (13.6-17.9); Lymphocytes % 26.3 % (15.3-44.8); MCH 25.5 pg (27.0-35.0); MCHC 33.1 g/dL (32.0-36.0); MCV 76.9 fL (80-100); MPV 7.4 fL (7.6-11.3); Neutrophils % 65.7 % (41.7-73.7); Nucleated Red Blood Cells % 0.1 % (0-0); Platelets 196 thou/uL (152-406); RBC Red Blood Cell Count 4.07 M/uL (4.33-5.43); Red Cell Distribution Width 19.4 % (12.1-15.2)
[2025-01-11] MEDS ORDERED: FOLIC ACID 5 MG/ML VIAL ONE (17:51)
[2025-01-11] MEDS ORDERED: MULTIVITAMINS 10 ML VIAL (INJ) IV ONE (17:51)
[2025-01-11] MEDS ORDERED: THIAMINE 200 MG/2 ML INJ ONE (17:51)
[2025-01-11] MEDS ORDERED: NA CHLORIDE 0.9% 2,000 ML ONE (17:52)
[2025-01-11 18:09] LABS: ALT/SGPT 28 U/L (16-61); AST/SGOT 24 U/L (15-37); Albumin 3.7 g/dL (3.4-5.0); Albumin/Globulin Ratio 0.9 (1.1-1.8); Alkaline Phosphatase 78 U/L (45-117); Anion Gap 16.2 mEq/L (5.0-15.0); BUN Blood Urea Nitrogen 12 mg/dL (7-18); Bicarbonate 23 mEq/L (21-32); Bilirubin Total 0.5 mg/dL (0.2-1.0); Creatine Phosphokinase 371 U/L (39-308); Globulin 4.1 g/dL (2.3-3.5); Glomerular Filtration Rate 87 ml/min (=/>90); Glucose Level 106 mg/dL (74-106); Potassium 3.2 mEq/L (3.5-5.1); Protein, Total 7.8 g/dL (6.4-8.2); Sodium Level 141 mEq/L (136-145)
[2025-01-11 18:10] LABS: Bilirubin Direct < 0.2 mg/dL (0-0.2); Bilirubin Indirect, Calculated 0.3 mg/dL (0.2-0.8)
[2025-01-11 18:12] LABS: PT Prothrombin Time 11.2 SECONDS (10-13.0); PTT, Activated Partial Thromb 28.2 SECONDS (27.2-37.4); Protime INR 0.98
[2025-01-11 18:48] LABS: Barbiturates NEGATIVE (NEGATIVE); Benzodiazepines NEGATIVE (NEGATIVE); Cocaine NEGATIVE (NEGATIVE); METHAMPHETAM NEGATIVE (NEGATIVE); Methadone NEGATIVE (NEGATIVE); Opiates NEGATIVE (NEGATIVE); Phencyclidine NEGATIVE (NEGATIVE); THC Cannibis NEGATIVE (NEGATIVE)
[2025-01-11] MEDS ORDERED: POTASSIUM 25 MEQ EFFERV TAB ONE (21:19)
[2025-01-11 22:45] LABS: Anion Gap 13.4 mEq/L (5.0-15.0); Potassium 3.4 mEq/L (3.5-5.1)
[2025-01-12] MEDS ORDERED: MULTIVITAMINS 10 ML VIAL (INJ) IV ONE (07:24)
[2025-01-12] MEDS ORDERED: THIAMINE 200 MG/2 ML INJ ONE (07:24)
[2025-01-12] MEDS ORDERED: FOLIC ACID 5 MG/ML VIAL ONE (07:25)
[2025-01-12] MEDS ORDERED: NA CHLORIDE 0.9% 1,000 ML ONE (07:25)
--- NOTE | 2025-01-12 08:32 | EDPHYS ---
Physician Documentation [facility] Name: Felipe Barriga Age: 49 yrs Sex: Male : 1975 Arrival Date: 01/11/2025 Time: 17:13 Bed 20 Private MD: ED Physician Chuck Shine HPI: 01/11 17:18 This 49 yrs old Male presents to ER via Unassigned with complaints of alcohol abuse. sb4 17:18 neighbor was doing a wellness check as they hadnt heard from him and he was found in sb4 his trailer highly intoxicated, disheveled, sitting in his feces. unable to provide any history. Historical: - Allergies: 17:21 No Known Allergies; ld1 - PMHx: 17:21 Alcohol dependence; Anxiety; depressive disorder; Night Terrors; PTSD; ld1 - PSHx: 17:21 aortic root replacement; ld1 - Immunization history:: Adult Immunizations up to date. - Infectious Disease History:: Denies. - Social history:: Smoking status: Patient denies any tobacco usage or history of. Patient uses alcohol, on a daily basis. ROS: 17:18 Unable to obtain ROS due to altered mental status, sb4 Exam: 17:18 Head/Face: Normocephalic, atraumatic. Eyes: Extra-ocular motions intact. Periorbital sb4 areas with no swelling, redness, or edema. Respiratory: No increased work of breathing, no retractions or nasal flaring. Abdomen/GI: Soft, non-tender, no distension. 17:18 Constitutional: The patient appears alert, awake, unkempt, intoxicated 17:18 Cardiovascular: Rate: tachycardic, Rhythm: regular, Vital Signs: 17:27 BP 130 / 83; Pulse 91; Resp 18; Temp 98.6; Pulse Ox 95% ; Weight 81.65 kg; Height 5 ft. me1 11 in. ; Pain 6/10; 18:00 BP 101 / 79; Pulse 84; Resp 18; Pulse Ox 94% on 2 lpm NC; me1 19:00 BP 126 / 78; Pulse 86; Resp 17; Pulse Ox 91% on 2 lpm NC; me1 20:00 BP 123 / 76; Pulse 78; Resp 18; Pulse Ox 100% on 2 lpm NC; me1 20:30 BP 154 / 95; Pulse 98; Resp 18; Pulse Ox 97% on 2 lpm NC; me1 21:30 BP 146 / 90; Pulse 89; Resp 17; Pulse Ox 96% on 2 lpm NC; me1 22:15 BP 122 / 75; Pulse 94; Resp 18; Pulse Ox 97% on 2 lpm NC; cp4 23:33 BP 122 / 80; Pulse 95; Resp 18; Pulse Ox 96% on 2 lpm NC; cp4 01/12 00:30 BP 108 / 79; Pulse 91; Resp 18; Pulse Ox 97% on 2 lpm NC; cp4 01:16 BP 113 / 73; Pulse 92; Resp 18; Pulse Ox 96% on 2 lpm NC; cp4 02:20 BP 115 / 75; Pulse 82; Resp 18; Pulse Ox 96% on 2 lpm NC; cp4 03:44 BP 112 / 80; Pulse 86; Resp 18; Pulse Ox 97% on 2 lpm NC; cp4 05:00 BP 119 / 77; Pulse 72; Resp 16; Pulse Ox 98% on R/A; jr13 06:00 BP 129 / 83; Pulse 75; Resp 17; Pulse Ox 100% on R/A; jr13 06:58 BP 128 / 85; Pulse 76; Resp 17; Pulse Ox 100% on R/A; jr13 09:34 BP 124 / 82; Pulse 70; Resp 18; Pulse Ox 100% on R/A; mb9 01/11 17:27 Body Mass Index 25.10 (81.65 kg, 180.34 cm) ca1 01/11 17:27 Pain Scale: Adult [facility] [place] MDM: 01/11 17:15 Medical Screening Exam initiated sb4 17:31 Differential Diagnosis altered mental status, etoh abuse, drug abuse, dehydration, sb4 rhabdomyolysis. 18:58 Data reviewed: vital signs, nurses notes, EMS record, lab test result(s), EKG, and as a sb4 result, I will continue to observe the patient. 18:58 ED course: Patient's serum etoh is at 486. Will continue to monitor and discharge home sb4 when clinically sober. 01/11 17:16 Order name: Acetaminophen; Complete Time: 18:15 sb4 01/11 17:16 Order name: Basic Metabolic Panel; Complete Time: 18:15 sb4 01/11 17:16 Order name: CBC with Diff; Complete Time: 18:09 sb4 01/11 17:16 Order name: ETOH Level; Complete Time: 18:15 sb4 01/11 17:16 Order name: Hepatic Function; Complete Time: 18:15 sb4 01/11 17:16 Order name: PT-INR; Complete Time: 18:15 sb4 01/11 17:16 Order name: Ptt, Activated; Complete Time: 18:15 sb4 01/11 17:16 Order name: Salicylate; Complete Time: 18:17 sb4 01/11 17:16 Order name: Urine Drug Screen; Complete Time: 18:50 sb4 01/11 17:41 Order name: Creatine Phosphokinase; Complete Time: 18:15 EDMS 01/11 22:08 Order name: BMP; Complete Time: 23:02 sb4 01/11 22:08 Order name: ETOH Level; Complete Time: 23:03 sb4 01/11 17:16 Order name: EKG - Nurse/Tech; Complete Time: 18:30 sb4 01/11 17:16 Order name: IV Saline Lock; Complete Time: 17:36 sb4 01/11 17:16 Order name: Labs collected and sent; Complete Time: 17:34 sb4 01/11 17:16 Order name: Suicide Screening ([place]); Complete Time: 17:34 sb4 EC:41 Rate is 87 beats/min. Rhythm is regular, Normal Sinus Rhythm. OR interval is normal at sb4 168 msec. QRS interval is normal at 88 msec. QT interval is prolonged at 402 msec. No Q waves. T waves are Normal. No ST changes noted. Clinical impression: No evidence of ischemia. Interpreted by me. Reviewed by me. Administered Medications: 18:32 Drug: NS 0.9% IV 1000 ml IV at 1 bolus Per protocol; to be given as a bolus over 60 me1 minutes Route: IV; Rate: 1 bolus; Site: right antecubital; 21:22 Follow up: Response: No adverse reaction; IV Status: Completed infusion; IV Intake: me1 1000ml 18:32 Drug: Banana Bag - (Multivitamin IV 1 amp, NS 0.9% IV 1000 ml, Thiamine IV 100 mg, me1 foLIC Acid IVPB 1 mg) IV at calculated rate once Route: IV; Rate: calculated rate; Site: right antecubital; 21:22 Follow up: Response: No adverse reaction; IV Status: Completed infusion; IV Intake: me1 1000ml 21:21 Drug: Potassium PO Effervescent Tablet 50 mEq PO once; dissolve in 4 ounces of water or me1 juice Route: PO; 21:43 Follow up: Response: No adverse reaction me1 01/12 07:30 Drug: Banana Bag - (Multivitamin IV 1 amp, NS 0.9% IV 1000 ml, Thiamine IV 100 mg, mb9 foLIC Acid IVPB 1 mg) IV at 200 ml/hr once Route: IV; Rate: 200 ml/hr; Site: right antecubital; 09:33 Follow up: Response: No adverse reaction; IV Status: Completed infusion mb9 Disposition: 01/11 19:18 I was immediately available on-site in the Emergency Department for consultation in the ms3 care of the patient. 01/12 17:32 Chart complete. sb4 Disposition Summary: 01/12/25 08:31 Discharge Ordered Notes: Location: Home briana Problem: new briana Symptoms: have improved briana Condition: Stable briana Diagnosis - Alcohol abuse briana - Alcohol dependence with intoxication, unspecified briana - Hypokalemia briana Followup: briana - With: Private Physician - When: 2 - 3 days - Reason: Recheck today's complaints, Continuance of care, Re-evaluation by your physician Followup: briana - With: Amilcar Veloz MD - When: 2 - 3 days - Reason: Recheck today's complaints, Re-evaluation by your physician Discharge Instructions: - Discharge Summary Sheet briana - Alcohol Intoxication briana - Potassium Content of Foods briana - Alcohol Intoxication, Qzes-iz-Lfix briana - Hypokalemia briana - Alcohol Abuse and Dependence Information, Adult briana Forms: - Medication Reconciliation Form briana - Antibiotic Education briana - Prescription Opioid Use briana - Patient Portal Instructions briana - Leadership Thank You Letter briana Signatures: Dispatcher [employer] EDMS Chuck Shine MD MD cha Sims, Marcus, DO DO ms3 Winnie Silverman, KORIN RN ld1 Neisha Candelario PA-C PA-C sb4 Leonela Drew RN RN mb9 Cesilia Sims RN RN me1 Corrections: (The following items were deleted from the chart) 01/11 17:41 17:22 CREATINE PHOSPHOKINASE+C.LAB.BRZ ordered. EDMS EDMS
--- NOTE | 2025-01-12 08:32 | ER ---
Nurse's Notes [facility] Name: Felipe Barriga Age: 49 yrs Sex: Male : 1975 Arrival Date: 01/11/2025 Time: 17:13 Bed 20 Private MD: Diagnosis: Alcohol abuse;Alcohol dependence with intoxication, unspecified;Hypokalemia Presentation: 01/11 17:21 Chief complaint: EMS states: toned out to patient home being found drunk in recliner ld1 naked and unable to move by friend checking in. Coronavirus screen: At this time, the client does not indicate any symptoms associated with coronavirus-19. Ebola Screen: No symptoms or risks identified at this time. Risk Assessment: Do you want to hurt yourself or someone else? Patient reports no desire to harm self or others. Onset of symptoms was January 11, 2025. 17:21 Method Of Arrival: EMS: [facility] ld1 17:21 Acuity: CLARITA 3 ld1 Triage Assessment: 17:21 General: Appears in no apparent distress. comfortable, Behavior is calm, cooperative. ld1 Pain: Denies pain. EENT: No signs and/or symptoms were reported regarding the EENT system. Neuro: Level of Consciousness is awake, alert, obeys commands, Oriented to person, place, time, situation. Cardiovascular: Capillary refill < 3 seconds Patient's skin is warm and dry. Respiratory: Airway is patent Respiratory effort is even, unlabored. GI: Abdomen is round non-distended. : No signs and/or symptoms were reported regarding the genitourinary system. Derm: No signs and/or symptoms reported regarding the dermatologic system. Musculoskeletal: No signs and/or symptoms reported regarding the musculoskeletal system. Historical: - Allergies: 17:21 No Known Allergies; ld1 - PMHx: 17:21 Alcohol dependence; Anxiety; depressive disorder; Night Terrors; PTSD; ld1 - PSHx: 17:21 aortic root replacement; ld1 - Immunization history:: Adult Immunizations up to date. - Infectious Disease History:: Denies. - Social history:: Smoking status: Patient denies any tobacco usage or history of. Patient uses alcohol, on a daily basis. Screenin:22 [facility] ED Fall Risk Assessment (Adult) History of falling in the last 3 months, ld1 including since admission No falls in past 3 months (0 pts) Confusion or Disorientation Yes (5 pts) Intoxicated or Sedated Yes (3 pts) Impaired Gait Yes (1 pt) Mobility Assist Device Used No (0 pt) Altered Elimination No (0 pt) Score/Fall Risk Level 3 or more points = High Risk Oriented to surroundings, Hourly rounding (assess needs \T\ fall precautionary measures) done. Abuse screen: Denies threats or abuse. Denies injuries from another. Nutritional screening: No deficits noted. Tuberculosis screening: No symptoms or risk factors identified. Assessment: 17:22 Reassessment: See triage assessment. ld1 17:29 General: Appears ill, unkempt, Behavior is calm, cooperative, appropriate for age. me1 Pain: Complains of pain in buttocks Pain does not radiate. Pain currently is 6 out of 10 on a pain scale. Quality of pain is described as aching, Pain began gradually, Is continuous. 17:29 Neuro: Level of Consciousness is awake, alert, obeys commands, lethargic, Oriented to me1 person, situation. Cardiovascular: Patient's skin is warm and dry. Respiratory: Airway is patent Respiratory effort is even, unlabored, Respiratory pattern is regular, symmetrical. GI: Reports nausea, vomiting. : No signs and/or symptoms were reported regarding the genitourinary system. EENT: No signs and/or symptoms were reported regarding the EENT system. Derm: Wound noted right elbow, right toes Wound is abrasion. Musculoskeletal: Reports pain in buttocks. 22:15 Reassessment: Patient appears in no apparent distress at this time. No changes from cp4 previously documented assessment. Patient and/or family updated on plan of care and expected duration. Pain level reassessed. Patient is alert, oriented x 3, equal unlabored respirations, skin warm/dry/pink. 23:34 Reassessment: Patient appears in no apparent distress at this time. Patient and/or cp4 family updated on plan of care and expected duration. Pain level reassessed. Patient is alert, oriented x 3, equal unlabored respirations, skin warm/dry/pink. 01/12 01:15 Reassessment: Patient appears in no apparent distress at this time. Patient and/or cp4 family updated on plan of care and expected duration. Pain level reassessed. Patient is alert, oriented x 3, equal unlabored respirations, skin warm/dry/pink. 02:20 Reassessment: Patient appears in no apparent distress at this time. Patient and/or cp4 family updated on plan of care and expected duration. Pain level reassessed. Patient is alert, oriented x 3, equal unlabored respirations, skin warm/dry/pink. 03:40 Reassessment: Patient appears in no apparent distress at this time. Patient and/or cp4 family updated on plan of care and expected duration. Pain level reassessed. Patient is alert, oriented x 3, equal unlabored respirations, skin warm/dry/pink. 07:39 Reassessment: Patient and/or family updated on plan of care and expected duration. Pain mb9 level reassessed. Patient is alert, oriented x 3, equal unlabored respirations, skin warm/dry/pink. Patient states feeling better. Patient states symptoms have improved. 08:45 Reassessment: D/C pending IV fluids. mb9 09:34 Reassessment: Patient and/or family updated on plan of care and expected duration. Pain mb9 level reassessed. Patient is alert, oriented x 3, equal unlabored respirations, skin warm/dry/pink. Vital Signs: 01/11 17:27 BP 130 / 83; Pulse 91; Resp 18; Temp 98.6; Pulse Ox 95% ; Weight 81.65 kg; Height 5 ft. me1 11 in. ; Pain 6/10; 18:00 BP 101 / 79; Pulse 84; Resp 18; Pulse Ox 94% on 2 lpm NC; me1 19:00 BP 126 / 78; Pulse 86; Resp 17; Pulse Ox 91% on 2 lpm NC; me1 20:00 BP 123 / 76; Pulse 78; Resp 18; Pulse Ox 100% on 2 lpm NC; me1 20:30 BP 154 / 95; Pulse 98; Resp 18; Pulse Ox 97% on 2 lpm NC; me1 21:30 BP 146 / 90; Pulse 89; Resp 17; Pulse Ox 96% on 2 lpm NC; me1 22:15 BP 122 / 75; Pulse 94; Resp 18; Pulse Ox 97% on 2 lpm NC; cp4 23:33 BP 122 / 80; Pulse 95; Resp 18; Pulse Ox 96% on 2 lpm NC; cp4 01/12 00:30 BP 108 / 79; Pulse 91; Resp 18; Pulse Ox 97% on 2 lpm NC; cp4 01:16 BP 113 / 73; Pulse 92; Resp 18; Pulse Ox 96% on 2 lpm NC; cp4 02:20 BP 115 / 75; Pulse 82; Resp 18; Pulse Ox 96% on 2 lpm NC; cp4 03:44 BP 112 / 80; Pulse 86; Resp 18; Pulse Ox 97% on 2 lpm NC; cp4 05:00 BP 119 / 77; Pulse 72; Resp 16; Pulse Ox 98% on R/A; jr13 06:00 BP 129 / 83; Pulse 75; Resp 17; Pulse Ox 100% on R/A; jr13 06:58 BP 128 / 85; Pulse 76; Resp 17; Pulse Ox 100% on R/A; jr13 09:34 BP 124 / 82; Pulse 70; Resp 18; Pulse Ox 100% on R/A; mb9 01/11 17:27 Body Mass Index 25.10 (81.65 kg, 180.34 cm) [facility] [place] [place] 01/11 17:27 Pain Scale: Adult [facility] ED Course: 01/11 17:15 Patient arrived in ED. sb4 17:15 Neisha Candelario PA-C is PHCP. sb4 17:15 Gaston Silverman DO is Attending Physician. sb4 17:21 Triage completed. ld1 17:21 Arm band placed on right wrist. ld1 17:22 Patient has correct armband on for positive identification. Placed in gown. Bed in low ld1 position. Call light in reach. Side rails up X2. Pulse ox on. NIBP on. Door closed. Noise minimized. Warm blanket given. 17:27 Cesilia Sims, RN is Primary Nurse. ia1 17:29 Provided Education on: POC. Verbalized understanding.. ia1 17:29 No provider procedures requiring assistance completed. me1 17:36 Acetaminophen Sent. bc6 17:36 Basic Metabolic Panel Sent. bc6 17:36 CBC with Diff Sent. bc6 17:36 ETOH Level Sent. bc6 17:36 Hepatic Function Sent. bc6 17:36 PT-INR Sent. bc6 17:36 Ptt, Activated Sent. bc6 17:36 Salicylate Sent. bc6 17:37 Initial lab(s) drawn, by ia, sent to lab. Inserted saline lock: 20 gauge in right 6 antecubital area, using aseptic technique. Blood collected. Flushed with 10 mL NS. 18:30 Urine Drug Screen Sent. [facility] 01/12 07:18 Attending Physician role handed off by Gaston Silverman DO briana 07:18 Chuck Shine MD is Attending Physician. briana 07:19 Attending Physician role handed off by Chuck Shine MD sp4 07:19 Maximino Dunbar MD is Attending Physician. sp4 08:31 Attending Physician role handed off by Maximino Dunbar MD briana 08:31 Chuck Shine MD is Attending Physician. briana 08:31 Amilcar Veloz MD is Referral Physician. briana 09:34 IV discontinued, intact, bleeding controlled, No redness/swelling at site. Pressure mb9 dressing applied. Administered Medications: 01/11 18:32 Drug: NS 0.9% IV 1000 ml IV at 1 bolus Per protocol; to be given as a bolus over 60 me1 minutes Route: IV; Rate: 1 bolus; Site: right antecubital; 21:22 Follow up: Response: No adverse reaction; IV Status: Completed infusion; IV Intake: me1 1000ml 18:32 Drug: Banana Bag - (Multivitamin IV 1 amp, NS 0.9% IV 1000 ml, Thiamine IV 100 mg, me1 foLIC Acid IVPB 1 mg) IV at calculated rate once Route: IV; Rate: calculated rate; Site: right antecubital; 21:22 Follow up: Response: No adverse reaction; IV Status: Completed infusion; IV Intake: me1 1000ml 21:21 Drug: Potassium PO Effervescent Tablet 50 mEq PO once; dissolve in 4 ounces of water or me1 juice Route: PO; 21:43 Follow up: Response: No adverse reaction [facility] [place] 01/12 07:30 Drug: Banana Bag - (Multivitamin IV 1 amp, NS 0.9% IV 1000 ml, Thiamine IV 100 mg, mb9 foLIC Acid IVPB 1 mg) IV at 200 ml/hr once Route: IV; Rate: 200 ml/hr; Site: right antecubital; 09:33 Follow up: Response: No adverse reaction; IV Status: Completed infusion mb9 Medication: 01/11 17:22 VIS not applicable for this client. ld1 Intake: 21:22 IV: 1000ml; Total: 1000ml. me1 21:22 IV: 1000ml; Total: 2000ml. me1 Outcome: 01/12 08:31 Discharge ordered by . briana 09:35 Discharged to home via wheelchair, irish 09:35 Condition: stable 09:35 Discharge instructions given to patient, Instructed on discharge instructions, follow up and referral plans. Demonstrated understanding of instructions, follow-up care, 09:35 Patient left the ED. mb9 Signatures: Chuck Shine MD MD cha Sims, Lauren, RN RN ld1 Neisha Candelario, PA-C PA-C sb4 Rajendra, Leonela Mills RN RN mb9 Paula Whitfield 6 Maximino Dunbar MD MD sp4 Cesilia Sims RN RN me1 Mary Jane Moraes 4 Karen Ramirez, RN RN [id number] Corrections: (The following items were deleted from the chart) 01/11 17:33 17:29 Pain: Complains of pain in buttocks Pain does not radiate. Pain ia1 ia1 17:41 17:36 CREATINE PHOSPHOKINASE+C.LAB.BRZ drawn and sent. bc6 EDMS 21:42 20:30 BP 154 / 95; Pulse 98bpm; Resp 18bpm; Pulse Ox 97%; me1 me1 21:42 21:30 BP 146 / 90; Pulse 89bpm; Resp 17bpm; Pulse Ox 96%; me1 me1
[2025-01-12 09:39] VITALS: TEMP 98.6
[2025-01-12 10:02] VITALS: O2SAT 100
[2025-01-12 10:06] VITALS: BP 124/82
--- NOTE | 2025-01-15 12:30 | EKG ---
Test Date: 2025-01-11 Test Time: 18:28:30 Tours Hostess: SAEID MEASUREMENT RESULTS: Intervals: Rate: 87 MD: 168 QRSD: 88 QT: 402 QTc: 483 [place]: P: 58 MD: 168 QRS: 21 T: 55 INTERPRETIVE STATEMENTS: Normal sinus rhythm Prolonged QT Abnormal ECG Compared to ECG 10/29/2024 21:22:11 Prolonged QT interval now present Electronically Signed On 01-15-25 12:22:21 CDT by Bernard Whitmore
== END 2025-01-12 09:35 | disposition home or self-care (01) ==
LOC: ER 17:13
DX: F10.229 Alcohol dependence with intoxication, unspecified (principal); E87.6 Hypokalemia
CPT/HCPCS: 96365; 93005; 85025; 80048 ×2; 36415; 82550; 85610; 80076; 85730; 80307; 99285; 96366; 80143; 80179; 82077 ×2; J3411 ×2; J7030 ×2

== ENCOUNTER 2025-01-13 16:34 | Emergency (ER) | payer OTHER ==
--- OUTSIDE RECORDS SUMMARY | 2025-01-13 16:38 | XMS REPORT | Continuity of Care Document ---
Author Name Unknown Address [address] [facility] [address] [place] [address] [facility] Address [address] [facility] [place] [address] Care Team Providers Care Disability Representative Name Role Phone Vickie Garcia Attending Clinician Unavailable Vickie Garcia Admitting Clinician Unavailable Payers Payer Name Policy Type Policy Number Effective Date Expirati on Date Source Allergies, Adverse Reactions, Alerts Allergy Name Allergy Type Status Severity Reaction(s) Onset Date Inactive Date Treating Clinician Comments Source No Known Allergie s DA Active U 03-18 00:00: 00 [facility] Encounters Start Date/Time End Date/Time Encounter Type Admission Type Attending Clinicians Care Facility Care Department Encounter ID Source 2024-03-18 03:55:00 2024-03-20 12:41:00 Inpatient EM Vickie Garcia [facility] TELE [id number] 22 [facility] Results Test Description Test Time Test Comments Results Result Co mments Source COMPREHENSIVE METABOLIC [id number] 17:15:00* Test Item Value Reference Range Interpretation [...] code = ALKP) 71 Units/L 50.0-136.0 N [id number] 17:15:00* Test Item Value Reference Range Interpretation Comme nts MAGNESIUM (test code = MAG) 1.3 mg/dl 1.8-2.4 L VITAMIN [id number] 17:15:00* Test Item Value Reference Range Interpretation Comme nts VITAMIN B12 (test code = VITB12) 239 pg/mL 193-986 N CBC W/AUTO [id number] 04:51:00* Test Item Value Reference Range Interpretation [...] 0.00 X10 3uL 0.00-0.01 N COMPREHENSIVE METABOLIC [id number] 05:46:00* Test Item Value Reference Range Interpretation [...] ALKP) 75 Units/L 50.0-136.0 N CBC W/AUTO [id number] 04:25:00* Test Item Value Reference Range Interpretation [...] = NRBC#) 0.00 X10 3uL 0.00-0.01 N [id number] 20:03:00* Test Item Value Reference Range Interpretation Comme nts GLUBED (test code = GLUBED) 132 mg/dL 70-110 H DRUGS OF ABUSE SCREEN [id number] 08:40:00* Test Item Value Reference Range Interpretation [...] 300 ng/mL WHAT DRUGS HAVE BEEN TAKEN? [id number] 03:26:00* Test Item Value Reference Range Interpretation Comme nts ALCOHOL (test code = ALC) 0.47 gm/dL 0.00-0.00 HH ETHYL ALCOHOL VA LUES - INTERPRETATION: 0.050 GM/DL - NOT INTOXICATED 0.100 GM/DL - INTOXICATED 0.350-0.450 GM/DL - SEVERELY INTOXICATED 0.550 GM/DL- FATAL INTOXICATION BASIC METABOLIC [id number] 03:26:00* Test Item Value Reference Range Interpretation [...] ECRCL) 88 mL/min >30 HEPATIC FUNCTION PANEL [id number] 03:26:00* Test Item Value Reference Range Interpretation [...] code = ALKP) 118 Units/L 50.0-136.0 N [id number] 03:26:00* Test Item Value Reference Range Interpretation Comme nts LIPASE (test code = LIP) 78 Units/L 16-77 H TROP-I HIGH [id number] 03:26:00* Test Item Value Reference Range Interpretation Comme nts TROP-I HIGH SENSITIVITY (test code = TROPIHS) 29 ng/L 0-76 N CAUTION: Units o f the current TROPI-HS test methodology(ng/L) differ from the prior test methodology (ng/mL) by afactor of 1000. 99th Percentile: Females: 0 - 51 ng/L Males: 0 - 76 ng/LThese results were obtained using Ultralife TnIHreagent. Results from different methodologies should not becompared to one another as quantitative results may vary bymethod. CBC W/AUTO [id number] 03:04:00* Test Item Value Reference Range Interpretation [...] code = BA#) 0.1 K/mm3 0.0-0.2 N [id number] 02:29:00* Test Item Value Reference Range Interpretation Comme nts GLUBED (test code = GLUBED) 83 mg/dL 70-110 N Notes Date/Time Note Provider Source 2024-03-20 22:50:00 [facility] ([facility]) Hospitalist Discharge Summary REPORT#:[id number] REPORT STATUS: Signed REPORT INITIALIZATION DATE:03/20/24 TIME: 2249 PATIENT: TACHO LOBO UNIT #: [id number] ROOM/BED: [place] [id number] : 75 AGE: 48 SEX: M ATTEND: [...] (Auto) (23.0 - 38.0 %) 11.9 L [place] % (Auto) (1.0 - 10.0 %) 8.2 Eos % (Auto) (1.0 - 5.0 %) 3.3 Baso % (Auto) (0.0 - 1.0 %) 0.6 Neut # (Auto) (2.4 - 6.3 K/mm3) 3.7 Lymph # (Auto) (1.2 - 4.0 K/mm3) 0.6 L [place] # (Auto) (0.0 - 0.6 K/mm3) 0.4 [...] Musculoskeletal: full range of motion, normal inspection Neuro/DRIVABILITY TECHNICIAN alert, oriented X 3, CNII-XII intact Skin: [...] 1-2 weeks at 2252 at 1445 RPT #:[id number] END OF REPORT [facility] 2024-03-19 14:41:00 [facility] Pulmonology Progress Note REPORT#:[id number] REPORT STATUS: Signed REPORT INITIALIZATION DATE:03/19/24 TIME: 144 PATIENT: TACHO LOBO UNIT #: [id number] ROOM/BED: [place] [address] : 75 AGE: 48 SEX: M ATTEND: [...] Musculoskeletal: full range of motion, normal inspection Neuro/DRIVABILITY TECHNICIAN: alert, oriented X 3 Skin: dry, intact [...] (Auto) (23.0 - 38.0 %) 15.6 L [place] % (Auto) (1.0 - 10.0 %) 8.1 Eos % (Auto) (1.0 - 5.0 %) 2.3 Baso % (Auto) (0.0 - 1.0 %) 0.5 Neut # (Auto) (2.4 - 6.3 K/mm3) 2.8 Lymph # (Auto) (1.2 - 4.0 K/mm3) 0.6 L [place] # (Auto) (0.0 - 0.6 K/mm3) 0.3 [...] floor will sign off at 1443 RPT #:[id number] END OF REPORT [facility] 2024-03-19 09:54:00 [facility] ([facility] Hospitalist Progress Note REPORT#:[id number] REPORT STATUS: Signed REPORT INITIALIZATION DATE:03/19/24 TIME: 953 PATIENT: TACHO LOBO UNIT #: [id number] ROOM/BED: [place] [address] : 75 AGE: 48 SEX: M ATTEND: [...] Sodium Chloride (SODIUM CHLORIDE 0.9%) 1,000 ML .[id number] IV Enoxaparin Sodium (LOVENOX) 40 MG Q24H [...] (Auto) (23.0 - 38.0 %) 15.6 L [place] % (Auto) (1.0 - 10.0 %) 8.1 Eos % (Auto) (1.0 - 5.0 %) 2.3 Baso % (Auto) (0.0 - 1.0 %) 0.5 Neut # (Auto) (2.4 - 6.3 K/mm3) 2.8 Lymph # (Auto) (1.2 - 4.0 K/mm3) 0.6 L [place] # (Auto) (0.0 - 0.6 K/mm3) 0.3 [...] Musculoskeletal: full range of motion, normal inspection Neuro/DRIVABILITY TECHNICIAN alert, oriented X 3, CNII-XII intact Skin: [...] DC in am at 0957 at 1444 [facility] #:[id number] END OF REPORT [facility] 2024-03-18 09:09:00 [facility] ([facility]) Hospitalist History Physical REPORT#:[id number] REPORT STATUS: Signed REPORT INITIALIZATION DATE:03/18/24 TIME: 908 PATIENT: TACHO LOBO UNIT #: [id number] ROOM/BED: [place] [address] : 75 AGE: 48 SEX: M ATTEND: [...] (Auto) (23.0 - 38.0 %) 15.3 L [place] % (Auto) (1.0 - 10.0 %) 6.2 Eos % (Auto) (1.0 - 5.0 %) 0.7 L Baso % (Auto) (0.0 - 1.0 %) 0.9 Neut # (Auto) (2.4 - 6.3 K/mm3) 4.1 Lymph # (Auto) (1.2 - 4.0 K/mm3) 0.8 L [place] # (Auto) (0.0 - 0.6 K/mm3) 0.3 [...] Musculoskeletal: full range of motion, normal inspection Neuro/DRIVABILITY TECHNICIAN alert, oriented X 3, CNII-XII intact Skin: [...] hydration BMP in a.m. at 1003 RPT #:[id number] END OF REPORT [facility] 2024-03-18 07:56:00 [facility] ([facility] Pulmonary Consultation Note REPORT#:[id number] REPORT STATUS: Signed REPORT INITIALIZATION DATE:03/18/24 TIME: 755 PATIENT: TACHO LOBO UNIT #: [id number] ROOM/BED: [place] [address] : 75 AGE: 48 SEX: M ATTEND: [...] (Auto) (23.0 - 38.0 %) 15.3 L [place] % (Auto) (1.0 - 10.0 %) 6.2 Eos % (Auto) (1.0 - 5.0 %) 0.7 L Baso % (Auto) (0.0 - 1.0 %) 0.9 Neut # (Auto) (2.4 - 6.3 K/mm3) 4.1 Lymph # (Auto) (1.2 - 4.0 K/mm3) 0.8 L [place] # (Auto) (0.0 - 0.6 K/mm3) 0.3 [...] At risk for deterioration at 1242 RPT #:[id number] END OF REPORT [facility] 2024-03-18 03:52:00 [facility] ([facility]) EMERGENCY PROVIDER REPORT REPORT#:[id number] REPORT STATUS: Signed DATE:03/18/24 TIME: 351 PATIENT: TACHO LOBO UNIT #: [id number] ROOM/BED: [place] AGE: 48 SEX: M PCP [...] (Auto) (23.0 - 38.0 %) 15.3 L [place] % (Auto) (1.0 - 10.0 %) 6.2 Eos % (Auto) (1.0 - 5.0 %) 0.7 L Baso % (Auto) (0.0 - 1.0 %) 0.9 Neut # (Auto) (2.4 - 6.3 K/mm3) 4.1 Lymph # (Auto) (1.2 - 4.0 K/mm3) 0.8 L [place] # (Auto) (0.0 - 0.6 K/mm3) 0.3 [...] Hospitalize Hosp Physician Name Vickie Garcia MD [facility] Physician Hospitalist Request Time 035 [...] with the family or caregiver. at 0615 [facility] #:[id number] END OF REPORT [facility]
[2025-01-13] MEDS ORDERED: LORazepam 2 MG/ML VIAL ONE (18:05)
[2025-01-13] MEDS ORDERED: NA CHLORIDE 0.9% 1,000 ML ONE (18:05)
[2025-01-13 18:08] LABS: Absolute Eosinophils 0.1 K/uL (0-0.5); Absolute Lymphocytes (CBC) 1.1 K/uL (0.7-4.9); Absolute Monocytes 0.5 K/uL (0.1-1.3); Absolute Neutrophil 5.9 K/uL (1.8-8.0); Basophils % 0.4 % (0-1.3); Eosinophils % 0.8 % (0-4.4); Hematocrit 32.7 % (39.6-49.0); Hemoglobin 10.7 g/dL (13.6-17.9); Lymphocytes % 14.7 % (15.3-44.8); MCH 25.5 pg (27.0-35.0); MCHC 32.7 g/dL (32.0-36.0); MCV 77.9 fL (80-100); MPV 7.5 fL (7.6-11.3); Neutrophils % 78.1 % (41.7-73.7); Platelets 149 thou/uL (152-406); Red Cell Distribution Width 19.9 % (12.1-15.2)
[2025-01-13 19:02] LABS: Bilirubin Direct 0.1 mg/dL (0-0.2); Bilirubin Indirect, Calculated 0.3 mg/dL (0.2-0.8); Bilirubin Total 0.4 mg/dL (0.2-1.0); Potassium 3.7 mEq/L (3.5-5.1)
[2025-01-13 19:03] LABS: Albumin 3.9 g/dL (3.4-5.0); Globulin 4.1 g/dL (2.3-3.5)
--- NOTE | 2025-01-13 19:03 | RAD REPORT ---
EXAM: CT brain without contrast HISTORY: TRAUMA COMPARISON: 09/23/2024 TECHNIQUE: Multiple contiguous axial images were obtained and a CT of the brain without contrast. Sag ittal and coronal reformats were performed. FINDINGS: No evidence of hydrocephalus, intracranial hemorrhage, or extra-axial fluid collection. The brain is normal in morphology. The calvarium is intact. The visualized paranasal sinuses and mastoid air cells are essentially clear . IMPRESSION: No evidence of acute intracranial abnormality. EXAM: CT of the cervical spine without contrast HISTORY: TRAUMA COMPARISON: None TECHNIQUE: Multiple contiguous axial images were obtained in a CT of the cervical spine without contr ast. Sagittal and coronal reformats were performed. FINDINGS: The vertebral bodies demonstrate normal height and alignment. No evidence of acute fracture or subluxation.. Moderate multilevel degenerative changes with up to moderate degrees of neural foraminal narrowing at C5-6 and C6-7 bilaterally, most table. No prevertebral soft tissue swelling i s seen. The posterior facets are well aligned. Normal alignment of the skull base with the cervical spine is seen. The lung apices are unremarkable. IMPRESSION: No evidence of acute osseous abnormality of the cervical spine. Stable multilevel degenerative change s as above
[2025-01-13 19:05] LABS: Anion Gap 18.7 mEq/L (5.0-15.0)
--- NOTE | 2025-01-13 19:22 | RAD REPORT ---
EXAM: CT CHEST, ABDOMEN AND PELVIS WITHOUT CONTRAST CLINICAL INDICATION: Male, 49 years old. [facility] Name: 14 TECHNIQUE: CT chest, abdomen and pelvis was performed, without IV contrast, as per department protoco l. Axial, sagittal and coronal reconstructions were obtained. One or more of the following dose reduction techniques were used: Automated exposure control, adjustment of the mA and/or kV according to the patient size, and/or iterative reconstruction. Unless otherwise specified, incidental findings do not require dedicated imaging follow-up. COMPARISON: 10/11/2024 CT abdomen and pelvis FINDINGS: The lack of intravenous contrast limits the sensitivity of this exam for evaluation of solid visceral organs, vascular structures, and retroperitoneum. Chest: LOWER NECK/CHEST WALL: Visualized thyroid gland and soft tissues are normal. LUNGS AND AIRWAYS: Central airways are patent. Confluent left lower lobe irregular nodules with adjac ent groundglass opacification, largest measuring 1 cm. Mild central micronodularity in the right lower lobe with tree-in-bud opacities. PLEURA: No pleural effusion. No pneumothorax. Hemidiaphragms are normally positioned. MEDIASTINUM AND LYMPH NODES: No mediastinal mass or fluid collection. Normal size mediastinal, hilar, and axillary lymph nodes. THORACIC AORTA: Normal caliber and configuration. PULMONARY ARTERIES: Normal caliber. HEART: Unremarkable. Abdomen/Pelvis LIVER: Normal in size and contour. Diffuse parenchymal hypoattenuation suggesting steatosis. No focal lesion. GALLBLADDER/BILE DUCTS: No biliary ductal dilatation. PANCREAS: No mass, ductal dilation, or nilton-pancreatic fluid. SPLEEN: Normal size. No focal lesion. ADRENALS: Normal; no mass. KIDNEYS AND URETERS: Normal size and contour. No hydronephrosis. GASTROINTESTINAL TRACT: Stomach is non-dilated. Small bowel has normal course and caliber. No colonic wall thickening or pericolonic inflammatory changes. PERITONEUM: No free fluid. LYMPH NODES: No lymphadenopathy. ABDOMINAL AORTA AND OTHER VESSELS: Normal caliber aorta and IVC. URINARY BLADDER: Normal contour. REPRODUCTIVE ORGANS: No pathologic process. MUSCULOSKELETAL: No acute or suspicious osseous abnormality. Sequelae of prior left lower rib fractur es, with ADDITIONAL FINDINGS: None IMPRESSION: Bilateral lower lobe nodular lung opacities as above, favoring an infectious or inflammatory process such as pneumonitis. Follow-up CT in 1-3 months or after resolution of any acute findings is recommended to ensure appropriate imaging resolution. Other incidental findings including diffuse hepatic steatosis.
--- NOTE | 2025-01-13 19:54 | RAD REPORT ---
EXAMINATION: XR Femur Left CLINICAL INDICATION: Male, 49 years old. PAIN TECHNIQUE: 2 view radiograph of the left femur were obtained. COMPARISON: No prior exam. FINDINGS: No evidence of fracture or dislocation. Normal alignment. No evidence of arthropathy or oth er focal bone lesion. Soft tissues are unremarkable. IMPRESSION: No acute or significant abnormalities.
[2025-01-13] MEDS ORDERED: NA CHLORIDE 0.9% 250 ML ONE (21:01)
[2025-01-13] MEDS ORDERED: AZITHROMYCIN 500 MG INJ IVPB ONE (21:01)
[2025-01-13] MEDS ORDERED: CEFTRIAXONE 1000 MG/VIAL ONE (21:01)
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
[2025-01-14 01:11] LABS: Barbiturates NEGATIVE (NEGATIVE); Benzodiazepines NEGATIVE (NEGATIVE); Cocaine NEGATIVE (NEGATIVE); METHAMPHETAM NEGATIVE (NEGATIVE); Methadone NEGATIVE (NEGATIVE); Opiates NEGATIVE (NEGATIVE); Phencyclidine NEGATIVE (NEGATIVE); THC Cannibis NEGATIVE (NEGATIVE)
== END 2025-01-14 01:28 | disposition home or self-care (01) ==
LOC: ER 16:34
DX: F10.20 Alcohol dependence, uncomplicated (principal); M79.652 Pain in left thigh; J18.9 Pneumonia, unspecified organism; V03.10XA Pedestrian on foot injured in collision with car, pick-up truck or van in traffic accident, initial encounter
CPT/HCPCS: 96365; 96361; 96368; 85025; 80048; 36415; 80076; 80307; 70450; 71250; 72125; 74176; 73552; 96375; 99284; 96366; 82077; J0456; J7050; J7030; J0696

== ENCOUNTER 2025-01-15 11:11 | Emergency (ER) | payer OTHER ==
--- OUTSIDE RECORDS SUMMARY | 2025-01-15 11:15 | XMS REPORT | Continuity of Care Document ---
Author Name Unknown Address [address] [facility] [address] [place] [address] [facility] Address [address] [facility] [place] [address] Care Team Providers Care Tone Artist Apprentice Name Role Phone Vickie Garcia Attending Clinician Unavailable Vickie Garcia Admitting Clinician Unavailable Payers Payer Name Policy Type Policy Number Effective Date Expirati on Date Source Allergies, Adverse Reactions, Alerts Allergy Name Allergy Type Status Severity Reaction(s) Onset Date Inactive Date Treating Clinician Comments Source No Known Allergie s DA Active U 03-18 00:00: 00 [facility] Encounters Start Date/Time End Date/Time Encounter Type Admission Type Attending Clinicians Care Facility Care Department Encounter ID Source 2024-03-18 03:55:00 2024-03-20 12:41:00 Inpatient EM Vickie Garcia [facility] TELE [id number] 22 [facility] Results Test Description Test Time Test Comments Results Result Co mments Source COMPREHENSIVE METABOLIC [id number] 17:15:00* Test Item Value Reference Range Interpretation [...] code = ALKP) 71 Units/L 50.0-136.0 N [id number] 17:15:00* Test Item Value Reference Range Interpretation Comme nts MAGNESIUM (test code = MAG) 1.3 mg/dl 1.8-2.4 L VITAMIN [id number] 17:15:00* Test Item Value Reference Range Interpretation Comme nts VITAMIN B12 (test code = VITB12) 239 pg/mL 193-986 N CBC W/AUTO [id number] 04:51:00* Test Item Value Reference Range Interpretation [...] 0.00 X10 3uL 0.00-0.01 N COMPREHENSIVE METABOLIC [id number] 05:46:00* Test Item Value Reference Range Interpretation [...] ALKP) 75 Units/L 50.0-136.0 N CBC W/AUTO [id number] 04:25:00* Test Item Value Reference Range Interpretation [...] = NRBC#) 0.00 X10 3uL 0.00-0.01 N [id number] 20:03:00* Test Item Value Reference Range Interpretation Comme nts GLUBED (test code = GLUBED) 132 mg/dL 70-110 H DRUGS OF ABUSE SCREEN [id number] 08:40:00* Test Item Value Reference Range Interpretation [...] 300 ng/mL WHAT DRUGS HAVE BEEN TAKEN? [id number] 03:26:00* Test Item Value Reference Range Interpretation Comme nts ALCOHOL (test code = ALC) 0.47 gm/dL 0.00-0.00 HH ETHYL ALCOHOL VA LUES - INTERPRETATION: 0.050 GM/DL - NOT INTOXICATED 0.100 GM/DL - INTOXICATED 0.350-0.450 GM/DL - SEVERELY INTOXICATED 0.550 GM/DL- FATAL INTOXICATION BASIC METABOLIC [id number] 03:26:00* Test Item Value Reference Range Interpretation [...] ECRCL) 88 mL/min >30 HEPATIC FUNCTION PANEL [id number] 03:26:00* Test Item Value Reference Range Interpretation [...] code = ALKP) 118 Units/L 50.0-136.0 N [id number] 03:26:00* Test Item Value Reference Range Interpretation Comme nts LIPASE (test code = LIP) 78 Units/L 16-77 H TROP-I HIGH [id number] 03:26:00* Test Item Value Reference Range Interpretation Comme nts TROP-I HIGH SENSITIVITY (test code = TROPIHS) 29 ng/L 0-76 N CAUTION: Units o f the current TROPI-HS test methodology(ng/L) differ from the prior test methodology (ng/mL) by afactor of 1000. 99th Percentile: Females: 0 - 51 ng/L Males: 0 - 76 ng/LThese results were obtained using Qbaka TnIHreagent. Results from different methodologies should not becompared to one another as quantitative results may vary bymethod. CBC W/AUTO [id number] 03:04:00* Test Item Value Reference Range Interpretation [...] code = BA#) 0.1 K/mm3 0.0-0.2 N [id number] 02:29:00* Test Item Value Reference Range Interpretation Comme nts GLUBED (test code = GLUBED) 83 mg/dL 70-110 N Notes Date/Time Note Provider Source 2024-03-20 22:50:00 [facility] ([facility]) Hospitalist Discharge Summary REPORT#:[id number] REPORT STATUS: Signed REPORT INITIALIZATION DATE:03/20/24 TIME: 2249 PATIENT: TACHO LOBO UNIT #: [id number] ROOM/BED: [place] [id number] : 75 AGE: 48 SEX: M ATTEND: [...] (Auto) (23.0 - 38.0 %) 11.9 L [place] % (Auto) (1.0 - 10.0 %) 8.2 Eos % (Auto) (1.0 - 5.0 %) 3.3 Baso % (Auto) (0.0 - 1.0 %) 0.6 Neut # (Auto) (2.4 - 6.3 K/mm3) 3.7 Lymph # (Auto) (1.2 - 4.0 K/mm3) 0.6 L [place] # (Auto) (0.0 - 0.6 K/mm3) 0.4 [...] Musculoskeletal: full range of motion, normal inspection Neuro/ANIMAL TREATMENT INVESTIGATOR alert, oriented X 3, CNII-XII intact Skin: [...] 1-2 weeks at 2252 at 1445 RPT #:[id number] END OF REPORT [facility] 2024-03-19 14:41:00 [facility] Pulmonology Progress Note REPORT#:[id number] REPORT STATUS: Signed REPORT INITIALIZATION DATE:03/19/24 TIME: 144 PATIENT: TACHO LOBO UNIT #: [id number] ROOM/BED: [place] [id number] : 75 AGE: 48 SEX: M ATTEND: [...] Musculoskeletal: full range of motion, normal inspection Neuro/ANIMAL TREATMENT INVESTIGATOR: alert, oriented X 3 Skin: dry, intact [...] (Auto) (23.0 - 38.0 %) 15.6 L [place] % (Auto) (1.0 - 10.0 %) 8.1 Eos % (Auto) (1.0 - 5.0 %) 2.3 Baso % (Auto) (0.0 - 1.0 %) 0.5 Neut # (Auto) (2.4 - 6.3 K/mm3) 2.8 Lymph # (Auto) (1.2 - 4.0 K/mm3) 0.6 L [place] # (Auto) (0.0 - 0.6 K/mm3) 0.3 [...] floor will sign off at 1443 RPT #:[id number] END OF REPORT [facility] 2024-03-19 09:54:00 [facility] ([facility] Hospitalist Progress Note REPORT#:[id number] REPORT STATUS: Signed REPORT INITIALIZATION DATE:03/19/24 TIME: 953 PATIENT: TACHO LOBO UNIT #: [id number] ROOM/BED: [place] [address] : 75 AGE: 48 SEX: M ATTEND: [...] Sodium Chloride (SODIUM CHLORIDE 0.9%) 1,000 ML .[id number] IV Enoxaparin Sodium (LOVENOX) 40 MG Q24H [...] (Auto) (23.0 - 38.0 %) 15.6 L [place] % (Auto) (1.0 - 10.0 %) 8.1 Eos % (Auto) (1.0 - 5.0 %) 2.3 Baso % (Auto) (0.0 - 1.0 %) 0.5 Neut # (Auto) (2.4 - 6.3 K/mm3) 2.8 Lymph # (Auto) (1.2 - 4.0 K/mm3) 0.6 L [place] # (Auto) (0.0 - 0.6 K/mm3) 0.3 [...] Musculoskeletal: full range of motion, normal inspection Neuro/ANIMAL TREATMENT INVESTIGATOR alert, oriented X 3, CNII-XII intact Skin: [...] DC in am at 0957 at 1444 [facility] #:[id number] END OF REPORT [facility] 2024-03-18 09:09:00 [facility] ([facility]) Hospitalist History Physical REPORT#:[id number] REPORT STATUS: Signed REPORT INITIALIZATION DATE:03/18/24 TIME: 908 PATIENT: TACHO LOBO UNIT #: [id number] ROOM/BED: [place] [address] : 75 AGE: 48 SEX: M ATTEND: [...] (Auto) (23.0 - 38.0 %) 15.3 L [place] % (Auto) (1.0 - 10.0 %) 6.2 Eos % (Auto) (1.0 - 5.0 %) 0.7 L Baso % (Auto) (0.0 - 1.0 %) 0.9 Neut # (Auto) (2.4 - 6.3 K/mm3) 4.1 Lymph # (Auto) (1.2 - 4.0 K/mm3) 0.8 L [place] # (Auto) (0.0 - 0.6 K/mm3) 0.3 [...] Musculoskeletal: full range of motion, normal inspection Neuro/ANIMAL TREATMENT INVESTIGATOR alert, oriented X 3, CNII-XII intact Skin: [...] hydration BMP in a.m. at 1003 RPT #:[id number] END OF REPORT [facility] 2024-03-18 07:56:00 [facility] ([facility] Pulmonary Consultation Note REPORT#:[id number] REPORT STATUS: Signed REPORT INITIALIZATION DATE:03/18/24 TIME: 755 PATIENT: TACHO LOBO UNIT #: [id number] ROOM/BED: [place] [id number] : 75 AGE: 48 SEX: M ATTEND: Vickie Garcai MD ADM AUTHOR: Rylan Vaughn MD REPT [...] (Auto) (23.0 - 38.0 %) 15.3 L [place] % (Auto) (1.0 - 10.0 %) 6.2 Eos % (Auto) (1.0 - 5.0 %) 0.7 L Baso % (Auto) (0.0 - 1.0 %) 0.9 Neut # (Auto) (2.4 - 6.3 K/mm3) 4.1 Lymph # (Auto) (1.2 - 4.0 K/mm3) 0.8 L [place] # (Auto) (0.0 - 0.6 K/mm3) 0.3 [...] At risk for deterioration at 1242 RPT #:[id number] END OF REPORT [facility] 2024-03-18 03:52:00 [facility] ([facility]) EMERGENCY PROVIDER REPORT REPORT#:[id number] REPORT STATUS: Signed DATE:03/18/24 TIME: 351 PATIENT: TACHO LOBO UNIT #: [id number] ROOM/BED: [place] AGE: 48 SEX: M PCP [...] (Auto) (23.0 - 38.0 %) 15.3 L [place] % (Auto) (1.0 - 10.0 %) 6.2 Eos % (Auto) (1.0 - 5.0 %) 0.7 L Baso % (Auto) (0.0 - 1.0 %) 0.9 Neut # (Auto) (2.4 - 6.3 K/mm3) 4.1 Lymph # (Auto) (1.2 - 4.0 K/mm3) 0.8 L [place] # (Auto) (0.0 - 0.6 K/mm3) 0.3 [...] Hospitalize Hosp Physician Name Vickie Garcia MD [facility] Physician Hospitalist Request Time 035 Request [...] with the family or caregiver. at 0615 [facility] #:[id number] END OF REPORT [facility]
[2025-01-15] MEDS ORDERED: NA CHLORIDE 0.9% 1,000 ML ONE (11:39)
[2025-01-15 11:51] LABS: Absolute Eosinophils 0.1 K/uL (0-0.5); Absolute Lymphocytes (CBC) 1.1 K/uL (0.7-4.9); Absolute Monocytes 0.3 K/uL (0.1-1.3); Absolute Neutrophil 3.5 K/uL (1.8-8.0); Basophils % 0.5 % (0-1.3); Eosinophils % 2.5 % (0-4.4); Hematocrit 32.4 % (39.6-49.0); Hemoglobin 10.6 g/dL (13.6-17.9); Lymphocytes % 20.9 % (15.3-44.8); MCH 25.4 pg (27.0-35.0); MCHC 32.6 g/dL (32.0-36.0); MCV 78.1 fL (80-100); MPV 7.7 fL (7.6-11.3); Monocytes % 6.8 % (3.3-12.3); Neutrophils % 69.3 % (41.7-73.7); Nucleated Red Blood Cells % 0.1 % (0-0); Platelets 135 thou/uL (152-406); RBC Red Blood Cell Count 4.15 M/uL (4.33-5.43); Red Cell Distribution Width 19.7 % (12.1-15.2)
[2025-01-15 12:11] LABS: Albumin 3.6 g/dL (3.4-5.0); Albumin/Globulin Ratio 0.9 (1.1-1.8); Anion Gap 14.3 mEq/L (5.0-15.0); Bilirubin Total 0.4 mg/dL (0.2-1.0); Potassium 3.3 mEq/L (3.5-5.1); Protein, Total 7.6 g/dL (6.4-8.2)
--- NOTE | 2025-01-15 12:30 | ER ---
Nurse's Notes [facility] Name: Felipe Barriga Age: 49 yrs Sex: Male : 1975 Arrival Date: 01/15/2025 Time: 11:11 Bed 17 Private MD: Diagnosis: Alcohol abuse Presentation: 01/15 11:15 Chief complaint: Patient states: Asked for help at the liquor store for ETOH abuse, ll1 [place] complaint: EMS states: VSS FS 131. Coronavirus screen: Client denies travel out of the [place] in the last 14 days. At this time, the client does not indicate any symptoms associated with coronavirus-19. Ebola Screen: Patient denies travel to an Ebola-affected area in the 21 days before illness onset. Initial Sepsis Screen: Does the patient meet any 2 criteria? No. Patient's initial sepsis screen is negative. Does the patient have a suspected source of infection? No. Patient's initial sepsis screen is negative. Risk Assessment: Do you want to hurt yourself or someone else? Patient reports no desire to harm self or others. Onset of symptoms was January 15, 2025. 11:15 Method Of Arrival: EMS ll1 11:15 Acuity: CLARITA 3 ll1 Triage Assessment: 11:17 General: Appears distressed, uncomfortable, Behavior is calm, cooperative, appropriate ll1 for age, Reports fatigue for. Pain: Complains of pain in back. Neuro: Reports headache weakness shaky. GI: Reports nausea. Historical: - Allergies: 11:16 No Known Allergies; ll1 - PMHx: 11:16 Alcohol dependence; Anxiety; depressive disorder; Night Terrors; PTSD; ll1 - PSHx: 11:16 aortic root replacement; ll1 - Immunization history:: Adult Immunizations up to date. - Social history:: Smoking status: Reported history of juuling and/or vaping. - Family history:: not pertinent. Screenin:50 [facility] ED Fall Risk Assessment (Adult) History of falling in the last 3 months, db including since admission No falls in past 3 months (0 pts) Confusion or Disorientation No (0 pts) Intoxicated or Sedated No (0 pts) Impaired Gait No (0 pts) Mobility Assist Device Used No (0 pt) Altered Elimination No (0 pt) Score/Fall Risk Level 0 - 2 = Low Risk Oriented to surroundings, Maintained a safe environment. Abuse screen: Denies threats or abuse. Denies injuries from another. Nutritional screening: No deficits noted. Tuberculosis screening: No symptoms or risk factors identified. Assessment: 11:49 Reassessment: Patient appears in no apparent distress at this time. Patient and/or db family updated on plan of care and expected duration. Pain level reassessed. Patient is alert, oriented x 3, equal unlabored respirations, skin warm/dry/pink. General: Appears in no apparent distress. comfortable, Behavior is calm, cooperative. Psych: 12:49 [place] Suicide Severity Screening: In the past month, have you wished you were dd2 or wished you could go to sleep and not wake up? Patient responds "No." "In the past month, have you actually had any thoughts of killing yourself?" Patient responds "no." "In your lifetime, have you ever done anything, started to do anything, or prepared to do anything to end your life?" Patient responds "no.". Subjective: Delusions are denied, Hallucinations are denied WNL. Objective: Patient is cooperative, Speech is normal, Affect is appropriate. Patient uses. Vital Signs: 11:15 BP 120 / 76; Pulse 94; Resp 18; Temp 97.8; Pulse Ox 99% on R/A; Weight 99.79 kg; Height ll1 5 ft. 11 in. ; Pain 8/10; 12:48 BP 119 / 81; Pulse 81; Resp 17; Temp 98.1; Pulse Ox 99% on R/A; dd2 11:15 Body Mass Index 30.68 (99.79 kg, 180.34 cm) ll1 11:15 Pain Scale: Adult ll1 ED Course: 11:15 Patient arrived in ED. ll1 11:15 Yazan Sharma MD is Attending Physician. rt 11:16 Triage completed. ll1 11:17 Arm band placed on Patient placed in an exam room, on a stretcher. ll1 11:35 Missed attempt(s): 20 gauge in right antecubital area. Bleeding controlled, band aid db applied, catheter tip intact. 11:42 Initial lab(s) drawn, by me, sent to lab. Inserted saline lock: 22 gauge in right db antecubital area, using aseptic technique. Blood collected. Flushed with 10 mL NS. 12:47 FADY SOW, RN is Primary Nurse. dd2 12:48 Patient has correct armband on for positive identification. Provided Education on: D/C dd2 EDUCATION. 12:48 No provider procedures requiring assistance completed. IV discontinued, intact, dd2 bleeding controlled, No redness/swelling at site. Pressure dressing applied. Administered Medications: 11:50 Drug: NS 0.9% IV 1000 ml IV at 1000 ml once; to be given as a bolus over 60 minutes db Route: IV; Rate: 1000 ml; Site: right antecubital; 12:51 Follow up: IV Status: Completed infusion dd2 Medication: 11:50 VIS not applicable for this client. db Outcome: 12:29 Discharge ordered by . rt 12:48 Discharged to home ambulatory, dd2 12:48 Condition: stable 12:48 Discharge instructions given to patient, Instructed on discharge instructions, follow up and referral plans. Demonstrated understanding of instructions, follow-up care, 12:50 Patient left the ED. dd2 Signatures: Anshu Stahl RN RN ll1 Pauly Nunez RN RN db Yazan Sharma MD MD rt FADY SOW, RN RN dd2
--- NOTE | 2025-01-15 12:30 | EDPHYS ---
Physician Documentation [facility] Name: Felipe Barriga Age: 49 yrs Sex: Male : 1975 Arrival Date: 01/15/2025 Time: 11:11 Bed 17 Private MD: ED Physician Yazan Sharma HPI: 01/15 12:06 This 49 yrs old Male presents to ER via EMS with complaints of ETOH Abuse. rt 12:06 Patient with well-established history of alcohol abuse presents to the ED after rt drinking all day yesterday. [place] Denies other acute complaints at this time, symptoms are moderate in severity, no other aggravating or alleviating factors.. Historical: - Allergies: 11:16 No Known Allergies; ll1 - PMHx: 11:16 Alcohol dependence; Anxiety; depressive disorder; Night Terrors; PTSD; ll1 - PSHx: 11:16 aortic root replacement; ll1 - Immunization history:: Adult Immunizations up to date. - Social history:: Smoking status: Reported history of juuling and/or vaping. - Family history:: not pertinent. ROS: 12:06 Constitutional: Negative for fever, chills, and weight loss, Cardiovascular: Negative rt for chest pain, palpitations, and edema, Respiratory: Negative for shortness of breath, cough, wheezing, and pleuritic chest pain, Abdomen/GI: Negative for abdominal pain, nausea, vomiting, diarrhea, and constipation, MS/Extremity: Negative for injury and deformity, Skin: Negative for injury, rash, and discoloration, Neuro: Negative for headache, weakness, numbness, tingling, and seizure, Exam: 12:06 Head/Face: Normocephalic, atraumatic. Chest/axilla: Normal chest wall appearance and rt motion. Nontender with no deformity. No lesions are appreciated. Cardiovascular: Regular rate and rhythm with a normal S1 and S2. No gallops, murmurs, or rubs. Normal PMI, no JVD. No pulse deficits. Respiratory: Lungs have equal breath sounds bilaterally, clear to auscultation and percussion. No rales, rhonchi or wheezes noted. No increased work of breathing, no retractions or nasal flaring. Abdomen/GI: Soft, non-tender, with normal bowel sounds. No distension or tympany. No guarding or rebound. No evidence of tenderness throughout. Skin: Warm, dry with normal turgor. Normal color with no rashes, no lesions, and no evidence of cellulitis. MS/ Extremity: Pulses equal, no cyanosis. Neurovascular intact. Full, normal range of motion. 12:06 Constitutional: The patient appears Appears intoxicated 12:06 ECG was reviewed by the Attending Physician. Vital Signs: 11:15 BP 120 / 76; Pulse 94; Resp 18; Temp 97.8; Pulse Ox 99% on R/A; Weight 99.79 kg; Height ll1 5 ft. 11 in. ; Pain 8/10; 12:48 BP 119 / 81; Pulse 81; Resp 17; Temp 98.1; Pulse Ox 99% on R/A; dd2 11:15 Body Mass Index 30.68 (99.79 kg, 180.34 cm) ll1 11:15 Pain Scale: Adult ll1 MDM: 11:21 Medical Screening Exam initiated rt 15:37 Differential Diagnosis Alcohol intoxication, rhabdomyolysis, electrolyte disturbance. rt 15:37 Data reviewed: vital signs, nurses notes, lab test result(s), EKG. Consideration of rt Admission/Observation Escalation of care including admission/observation considered. Labs benign save for elevated alcohol, no hyponatremia, rhabdomyolysis, stable for outpatient care.. Care significantly affected by the following Social Determinants of Health: Misuse of alcohol and/or drugs. Counseling: I had a detailed discussion with the patient and/or guardian regarding the historical points, exam findings, and any diagnostic results supporting the discharge/admit diagnosis, lab results, the need for outpatient follow up. Response to treatment: There is no appreciated change of the patient's symptoms at this time. 01/15 11: Order name: CBC with Diff; Complete Time: 12:21 rt 01/15 11:25 Order name: CMP; Complete Time: 12:21 rt 01/15 11:25 Order name: ETOH Level; Complete Time: 12:21 rt 01/15 11:25 Order name: CPK; Complete Time: 12:21 rt 01/15 11:25 Order name: EKG - Nurse/Tech; Complete Time: 11:59 rt EC:06 Rate is 91 beats/min. Rhythm is regular, Normal Sinus Rhythm with No ectopy. QRS [place] rt is Normal. RI interval is normal. QRS interval is normal. QT interval is normal. No Q waves. No ST changes noted. Interpreted by me. Administered Medications: 11:50 Drug: NS 0.9% IV 1000 ml IV at 1000 ml once; to be given as a bolus over 60 minutes db Route: IV; Rate: 1000 ml; Site: right antecubital; 12:51 Follow up: IV Status: Completed infusion dd2 Disposition Summary: 01/15/25 12:29 Discharge Ordered Notes: Location: Home rt Problem: an ongoing problem rt Symptoms: are unchanged rt Condition: Stable rt Diagnosis - Alcohol abuse rt Followup: rt - With: Private Physician - When: 2 - 3 days - Reason: Discharge Instructions: - Discharge Summary Sheet rt - Alcohol Use Disorder rt Forms: - Medication Reconciliation Form rt - Antibiotic Education rt - Prescription Opioid Use rt - Patient Portal Instructions rt - Leadership Thank You Letter rt Signatures: Dispatcher [employer] Anshu Choudhary RN RN ll1 Pauly Nunez RN RN db Yazan Sharma MD MD rt FADY SOW RN dd2 Corrections: (The following items were deleted from the chart) 11:25 11:25 CBC+H.LAB.BRZ ordered. EDMS EDMS 11:25 11:25 COMPREHENSIVE METABOLIC PANEL+C.LAB.BRZ ordered. EDMS EDMS 11:25 11:25 ETHANOL+C.LAB.BRZ ordered. EDMS EDMS 11:25 11:25 CREATINE PHOSPHOKINASE+C.LAB.BRZ ordered. EDMS EDMS
[2025-01-15 12:54] VITALS: O2SAT 99
[2025-01-15 12:56] VITALS: BP 119/81; TEMP 98.1
--- NOTE | 2025-01-16 11:15 | EKG ---
Test Date: 2025-01-15 Test Time: 11:56:14 Trench Shovel Operator: LAY MEASUREMENT RESULTS: Intervals: Rate: 91 UT: 160 QRSD: 86 QT: 394 QTc: 484 [place]: P: 44 UT: 160 QRS: 2 T: 46 INTERPRETIVE STATEMENTS: Normal sinus rhythm Cannot rule out Anterior infarct, age undetermined Abnormal ECG Compared to ECG 01/11/2025 18:28:30 Myocardial infarct finding now present Prolonged QT interval no longer present Electronically Signed On 01-16-25 11:13:31 CDT by Bernard Whitmore
== END 2025-01-15 12:50 | disposition home or self-care (01) ==
LOC: ER 11:11
DX: F10.20 Alcohol dependence, uncomplicated (principal)
CPT/HCPCS: 93005; 85025; 36415; 82550; 80053; 96360; 99284; 82077; J7030

== ENCOUNTER 2025-04-19 10:51 | Inpatient (IN) | payer OTHER ==
--- OUTSIDE RECORDS SUMMARY | 2025-04-19 10:55 | XMS REPORT | Continuity of Care Document ---
Author Name Unknown Address [address] [place] [address] Organization [facility] Address [address] [place] [address] Care Team Providers Care Marketing Operations Intern Name Role Phone Vickie Garcia Attending Clinician Unavailable Vickie Garcia Admitting Clinician Unavailable Payers Payer Name Policy Type Policy Number Effective Date Expirati on Date Source Allergies, Adverse Reactions, Alerts Allergy Name Allergy Type Status Severity Reaction(s) Onset Date Inactive Date Treating Clinician Comments Source No Known Allergie s DA Active U 03-18 00:00: 00 [facility] Encounters Start Date/Time End Date/Time Encounter Type Admission Type Attending Clinicians Care Facility Care Department Encounter ID Source 2025-02-26 21:46:16 Emergency HFD HFD [id number] [facility] Depart ent 2024-03-18 03:55:00 2024-03-20 12:41:00 Inpatient EM Vickie Garcia [facility] TELE [id number] 22 [facility] Results Test Description Test Time Test Comments Results Result Co mments Source COMPREHENSIVE METABOLIC [id number] 17:15:00* Test Item Value Reference Range Interpretation [...] code = ALKP) 71 Units/L 50.0-136.0 N [id number] 17:15:00* Test Item Value Reference Range Interpretation Comme nts MAGNESIUM (test code = MAG) 1.3 mg/dl 1.8-2.4 L VITAMIN [id number] 17:15:00* Test Item Value Reference Range Interpretation Comme nts VITAMIN B12 (test code = VITB12) 239 pg/mL 193-986 N CBC W/AUTO [id number] 04:51:00* Test Item Value Reference Range Interpretation [...] 0.00 X10 3uL 0.00-0.01 N COMPREHENSIVE METABOLIC [id number] 05:46:00* Test Item Value Reference Range Interpretation [...] ALKP) 75 Units/L 50.0-136.0 N CBC W/AUTO [id number] 04:25:00* Test Item Value Reference Range Interpretation [...] = NRBC#) 0.00 X10 3uL 0.00-0.01 N [id number] 20:03:00* Test Item Value Reference Range Interpretation Comme nts GLUBED (test code = GLUBED) 132 mg/dL 70-110 H DRUGS OF ABUSE SCREEN [id number] 08:40:00* Test Item Value Reference Range Interpretation [...] 300 ng/mL WHAT DRUGS HAVE BEEN TAKEN? [id number] 03:26:00* Test Item Value Reference Range Interpretation Comme nts ALCOHOL (test code = ALC) 0.47 gm/dL 0.00-0.00 HH ETHYL ALCOHOL VA LUES - INTERPRETATION: 0.050 GM/DL - NOT INTOXICATED 0.100 GM/DL - INTOXICATED 0.350-0.450 GM/DL - SEVERELY INTOXICATED 0.550 GM/DL- FATAL INTOXICATION BASIC METABOLIC [id number] 03:26:00* Test Item Value Reference Range Interpretation [...] ECRCL) 88 mL/min >30 HEPATIC FUNCTION PANEL [id number] 03:26:00* Test Item Value Reference Range Interpretation [...] code = ALKP) 118 Units/L 50.0-136.0 N [id number] 03:26:00* Test Item Value Reference Range Interpretation Comme nts LIPASE (test code = LIP) 78 Units/L 16-77 H TROP-I HIGH [id number] 03:26:00* Test Item Value Reference Range Interpretation Comme nts TROP-I HIGH SENSITIVITY (test code = TROPIHS) 29 ng/L 0-76 N CAUTION: Units o f the current TROPI-HS test methodology(ng/L) differ from the prior test methodology (ng/mL) by afactor of 1000. 99th Percentile: Females: 0 - 51 ng/L Males: 0 - 76 ng/LThese results were obtained using CFBank TnIHreagent. Results from different methodologies should not becompared to one another as quantitative results may vary bymethod. CBC W/AUTO [id number] 03:04:00* Test Item Value Reference Range Interpretation [...] code = BA#) 0.1 K/mm3 0.0-0.2 N [id number] 02:29:00* Test Item Value Reference Range Interpretation Comme nts GLUBED (test code = GLUBED) 83 mg/dL 70-110 N Notes Date/Time Note Provider Source 2024-03-20 22:50:00 [facility] ([facility]) Hospitalist Discharge Summary REPORT#:[id number] REPORT STATUS: Signed REPORT INITIALIZATION DATE:03/20/24 TIME: 2249 PATIENT: TACHO LOBO UNIT #: [id number] ROOM/BED: [place] [address] : 75 AGE: 48 SEX: M ATTEND: [...] (Auto) (23.0 - 38.0 %) 11.9 L [place] % (Auto) (1.0 - 10.0 %) 8.2 Eos % (Auto) (1.0 - 5.0 %) 3.3 Baso % (Auto) (0.0 - 1.0 %) 0.6 Neut # (Auto) (2.4 - 6.3 K/mm3) 3.7 Lymph # (Auto) (1.2 - 4.0 K/mm3) 0.6 L [place] # (Auto) (0.0 - 0.6 K/mm3) 0.4 [...] Musculoskeletal: full range of motion, normal inspection Neuro/HYDROGRAPHIC SURVEYOR alert, oriented X 3, CNII-XII intact Skin: [...] 1-2 weeks at 2252 at 1445 RPT #:[id number] END OF REPORT [facility] 2024-03-19 14:41:00 [facility] ([facility] Pulmonology Progress Note REPORT#:[id number] REPORT STATUS: Signed REPORT INITIALIZATION DATE:03/19/24 TIME: 1440 PATIENT: TACHO LOBO UNIT #: [id number] ROOM/BED: [place] [address] : 75 AGE: 48 SEX: M ATTEND: [...] 24 hour I O ending at 0700: 07/28 1900 03/19 0700 Intake Total 1425.00 Output [...] Musculoskeletal: full range of motion, normal inspection Neuro/HYDROGRAPHIC SURVEYOR: alert, oriented X 3 Skin: dry, intact [...] (Auto) (23.0 - 38.0 %) 15.6 L [place] % (Auto) (1.0 - 10.0 %) 8.1 Eos % (Auto) (1.0 - 5.0 %) 2.3 Baso % (Auto) (0.0 - 1.0 %) 0.5 Neut # (Auto) (2.4 - 6.3 K/mm3) 2.8 Lymph # (Auto) (1.2 - 4.0 K/mm3) 0.6 L [place] # (Auto) (0.0 - 0.6 K/mm3) 0.3 [...] level on arrival Thiamine Multivitamin Follow labs [place] protocol 2. Metabolic acidosis Likely alcoholic ketoacidosis Monitor Repeat BMP Monitor for weight refeeding syndrome 3. Acute intoxication resolved significant improvement okay to floor will sign off at 1443 RPT #:[id number] END OF REPORT [facility] 2024-03-19 09:54:00 [facility] ([facility]) Hospitalist Progress Note REPORT#:[id number] REPORT STATUS: Signed REPORT INITIALIZATION DATE:03/19/24 TIME: 953 PATIENT: TACHO LOBO UNIT #: [id number] ROOM/BED: [place] [address] : 75 AGE: 48 SEX: M ATTEND: [...] Sodium Chloride (SODIUM CHLORIDE 0.9%) 1,000 ML .[id number] IV Enoxaparin Sodium (LOVENOX) 40 MG Q24H [...] Assessment completed: Results Findings/Data: Laboratory Tests 03/19 Chemistry Sodium (134.0 - 147.0 mmol/l) 135 [...] (Auto) (23.0 - 38.0 %) 15.6 L [place] % (Auto) (1.0 - 10.0 %) 8.1 Eos % (Auto) (1.0 - 5.0 %) 2.3 Baso % (Auto) (0.0 - 1.0 %) 0.5 Neut # (Auto) (2.4 - 6.3 K/mm3) 2.8 Lymph # (Auto) (1.2 - 4.0 K/mm3) 0.6 L [place] # (Auto) (0.0 - 0.6 K/mm3) 0.3 [...] Musculoskeletal: full range of motion, normal inspection Neuro/HYDROGRAPHIC SURVEYOR alert, oriented X 3, CNII-XII intact Skin: [...] in am at 0957 at 1444 RPT #:[id number] END OF REPORT [facility] 2024-03-18 09:09:00 [facility] ([facility]) Hospitalist History Physical REPORT#:[id number] REPORT STATUS: Signed REPORT INITIALIZATION DATE:03/18/24 TIME: 908 PATIENT: TACHO LOBO UNIT #: [id number] ROOM/BED: [place] [address] : 75 AGE: 48 SEX: M ATTEND: Vickie Garcia MD ADM AUTHOR: Clara Hirsch MD REPT SERVICE DT/TIME: 03/18/24 0909 * ALL edits or amendments must be [...] 136/67 03/18 0900 B/P Mean 96 03/18 0900 Pulse 106 03/18 0900 Resp 20 03/18 0900 O2 Delivery Room air 03/18 0207 Temp 36.3 03/18 0207 24 hour I O ending at 0700: [...] (Auto) (23.0 - 38.0 %) 15.3 L [place] % (Auto) (1.0 - 10.0 %) 6.2 Eos % (Auto) (1.0 - 5.0 %) 0.7 L Baso % (Auto) (0.0 - 1.0 %) 0.9 Neut # (Auto) (2.4 - 6.3 K/mm3) 4.1 Lymph # (Auto) (1.2 - 4.0 K/mm3) 0.8 L [place] # (Auto) (0.0 - 0.6 K/mm3) 0.3 [...] Musculoskeletal: full range of motion, normal inspection Neuro/HYDROGRAPHIC SURVEYOR alert, oriented X 3, CNII-XII intact Skin: [...] hydration BMP in a.m. at 1003 RPT #:[id number] END OF REPORT [facility] 2024-03-18 07:56:00 [facility] ([facility]) Pulmonary Consultation Note REPORT#:[id number] REPORT STATUS: Signed REPORT INITIALIZATION DATE:03/18/24 TIME: 755 PATIENT: TACHO LOBO UNIT #: [id number] ROOM[address]BED: [address] : [address] AGE: 48 SEX: M ATTEND: Vickie Garcia MD ADM AUTHOR: Rylan Vaughn MD REPT SERVICE DT/TIME: 03/18/24 0756 * ALL edits or amendments must be made on the electronic/computer document * History of Present Illness HPI Requesting clinician: [facility] Reason for consult: SOB Chief complaint: SOB [...] 134/69 03/18 1105 B/P Mean 90 03/18 110 Temp 98.1 03/18 110 Pulse 112 03/18 110 Resp 13 03/18 110 Results Findings/Data: Laboratory Tests 03/18/24226: [Embedded Image [...] (Auto) (23.0 - 38.0 %) 15.3 L [place] % (Auto) (1.0 - 10.0 %) 6.2 Eos % (Auto) (1.0 - 5.0 %) 0.7 L Baso % (Auto) (0.0 - 1.0 %) 0.9 Neut # (Auto) (2.4 - 6.3 K/mm3) 4.1 Lymph # (Auto) (1.2 - 4.0 K/mm3) 0.8 L [place] # (Auto) (0.0 - 0.6 K/mm3) 0.3 [...] At risk for deterioration at 1242 RPT #:[id number] END OF REPORT [facility] 2024-03-18 03:52:00 [facility] ([facility]) EMERGENCY PROVIDER REPORT REPORT#:[id number] REPORT STATUS: Signed DATE:03/18/24 TIME: 351 PATIENT: TACHO LOBO UNIT #: [id number] ROOM/BED: [place] [address] AGE: 48 SEX: M PCP PHYS: No [...] and DTs. General Initial Greet Date/Time 03/18/24 020 Presentation Chief Complaint Intoxicated, alcohol Review of [...] 03/18 0207 O2 Delivery Room air 03/18 020 Temp 36.3 03/18 0207 Pulse 100 03/18 [...] 03/18/24226: [Embedded Image Not Available] Laboratory Tests: 03/18 Chemistry Sodium (134.0 - 147.0 mmol/l) [...] (Auto) (23.0 - 38.0 %) 15.3 L [place] % (Auto) (1.0 - 10.0 %) 6.2 Eos % (Auto) (1.0 - 5.0 %) 0.7 L Baso % (Auto) (0.0 - 1.0 %) 0.9 Neut # (Auto) (2.4 - 6.3 K/mm3) 4.1 Lymph # (Auto) (1.2 - 4.0 K/mm3) 0.8 L [place] # (Auto) (0.0 - 0.6 K/mm3) 0.3 [...] withdrawal Disposition Decision Hospitalize Hosp Physician Name JoseVickie [facility] Physician Hospitalist Request Time 035 Request [...] the family or caregiver. at 0615 [facility] #:[id number] END OF REPORT [facility]
[2025-04-19] MEDS ORDERED: NA CHLORIDE 0.9% 500 ML ONE (11:25)
[2025-04-19] MEDS ORDERED: DIAZEPAM 10 MG/2 ML INJ SYRINGE ONE ×3 (11:25→19:21)
[2025-04-19 12:04] LABS: Absolute Lymphocytes (CBC) 1.0 K/uL (0.7-4.9); Hematocrit 36.5 % (39.6-49.0); Hemoglobin 11.2 g/dL (13.6-17.9); MCH 22.9 pg (27.0-35.0); MCHC 30.8 g/dL (32.0-36.0); MCV 74.4 fL (80-100); MPV 7.8 fL (7.6-11.3); Nucleated RBC Absolute Count 0.0 (0-0); Nucleated Red Blood Cells % 0.1 % (0-0); RBC Red Blood Cell Count 4.90 M/uL (4.33-5.43); White Blood Count 10.40 thou/uL (4.3-10.9)
[2025-04-19 12:16] LABS: ALT/SGPT 35.0 U/L (16-61); AST/SGOT 26.0 U/L (15-37); Albumin 4.3 g/dL (3.4-5.0); Albumin/Globulin Ratio 1.0 (1.1-1.8); Alkaline Phosphatase 86.0 U/L (45-117); Anion Gap 17.0 mEq/L (5.0-15.0); BUN Blood Urea Nitrogen 20.0 mg/dL (7-18); Bilirubin Indirect, Calculated 0.4 mg/dL (0.2-0.8); Globulin 4.3 g/dL (2.3-3.5); Glucose Level 93.0 mg/dL (74-106); Potassium 4.0 mEq/L (3.5-5.1)
[2025-04-19 13:08] LABS: Anisocytosis 2+; Blood Morphology Comment NOTED (NOT SEEN); Macrocytosis SLIGHT; Microcytosis 1+; White Blood Cell Scan OK (OK)
[2025-04-19 13:09] LABS: Ovalocytes SLIGHT
--- NOTE | 2025-04-19 14:56 | EDPHYS ---
Physician Documentation [facility] Name: Felipe Barriga Age: 49 yrs Sex: Male : 1975 Arrival Date: 04/19/2025 Time: 10:51 Bed 16 Private MD: ED Physician Bib Prieto HPI: 04/19 14:48 This 49 yrs old Male presents to ER via EMS with complaints of Alcohol Withdrawal. rn 14:48 Patient reports alcohol withdrawal again. Patient has been to detox facilities and rn started drinking again. Last drink was last night per patient. Symptoms identical to previous withdrawal presentations.. Historical: - Allergies: 11:16 No Known Allergies; cm10 - PMHx: 11:16 Alcohol dependence; Anxiety; depressive disorder; Night Terrors; PTSD; cm10 - PSHx: 11:16 aortic root replacement; cm10 - Immunization history:: Adult Immunizations up to date. - Infectious Disease History:: Denies. - Social history:: Smoking status: unknown Patient uses alcohol, on a daily basis. - Family history:: not pertinent. - Hospitalizations: : No recent hospitalization is reported. ROS: 14:48 Constitutional: Negative for fever, chills, and weight loss, Cardiovascular: Negative rn for chest pain, palpitations, and edema, Respiratory: Negative for shortness of breath, cough, wheezing, and pleuritic chest pain, Abdomen/GI: Negative for abdominal pain, nausea, vomiting, diarrhea, and constipation, MS/Extremity: Negative for injury and deformity, Skin: Negative for injury, rash, and discoloration, Neuro: Positive for generalized weakness Exam: 14:48 Constitutional: This is a well developed, well nourished patient who is awake, alert, rn and in no acute distress. Cardiovascular: Tachycardic, regular Respiratory: No increased work of breathing, no retractions or nasal flaring. Abdomen/GI: Soft, non-tender MS/ Extremity: Coarse upper extremity tremor bilaterally Neuro: Tongue fasciculations present. 17:50 ECG was reviewed by the Attending Physician. rn Vital Signs: 11:15 BP 142 / 91; Pulse 108; Resp 18; Temp 97.5(O); Pulse Ox 99% on R/A; Weight 95.25 kg; cm10 Height 5 ft. 11 in. ; Pain 5/10; 11:45 BP 128 / 87; Pulse 108; Resp 15; Pulse Ox 97% on R/A; cm10 12:00 BP 138 / 89; Pulse 110; Resp 19; Pulse Ox 97% on R/A; cm10 12:15 BP 146 / 95; Pulse 109; Resp 20; Pulse Ox 97% on R/A; cm10 13:45 BP 140 / 86; Pulse 108; Resp 18; Pulse Ox 100% on R/A; kj2 14:42 BP 123 / 58; Pulse 108; Resp 18; Pulse Ox 97% ; kj2 15:45 BP 113 / 65; Pulse 109; Resp 20; Pulse Ox 100% on R/A; kj2 17:00 BP 115 / 68; Pulse 108; Resp 20; Pulse Ox 100% on R/A; kj2 18:58 BP 135 / 83; Pulse 111; Resp 20; Pulse Ox 99% on R/A; kj2 19:56 BP 133 / 68; Pulse 102; Resp 18; Pulse Ox 100% on R/A; kj2 20:43 BP 133 / 68; Pulse 103; Resp 18; Pulse Ox 99% on R/A; Pain 0/10; tb4 11:15 Body Mass Index 29.29 (95.25 kg, 180.34 cm) cm10 11:15 Pain Scale: Adult cm10 20:43 Pain Scale: Adult tb4 MDM: 10:53 Medical Screening Exam initiated rn 14:48 Differential Diagnosis Alcohol withdrawal, uncomplicated, dehydration. Data reviewed: rn vital signs, nurses notes, lab test result(s), EKG, and as a result, I will discharge patient. Consideration of Admission/Observation Escalation of care including admission/observation considered. Counseling: I had a detailed discussion with the patient and/or guardian regarding the historical points, exam findings, and any diagnostic results supporting the discharge/admit diagnosis, lab results, the need for outpatient follow up, to return to the emergency department if symptoms worsen or persist or if there are any questions or concerns that arise at home. Response to treatment: the patient's symptoms have markedly improved after treatment, Patient has been sleeping comfortably for 4 hours status post treatment. Improvement in vital signs. Normalization of blood pressure. Will discharge home as uncomplicated alcohol withdrawal. Patient has been admitted before as well as tried detox facilities and continues to drink. Recommend cessation of drinking slowly and taper.. 14:48 Special discussion: I discussed with the patient/guardian in detail that at this point rn there is no indication for admission to the hospital. It is understood, however, that if the symptoms persist or worsen the patient needs to return immediately for re-evaluation. 18:46 ED course: Patient reevaluated, now that his alcohol level has dropped probably down to rn 0 patient's withdrawal is worse, canceled the discharge as patient is now more diaphoretic, persistently tachycardic and shaking. Will remedicated and admit to the hospital. A long conversation with patient regarding alcohol withdrawal and his need to stop drinking in the long-term and that we cannot keep doing this each visit and then he goes home to drink once again. Patient states he understands and will do his best to quit drinking. 04/19 10:56 Order name: CBC with Diff; Complete Time: 14:09 rn 04/19 10:56 Order name: Basic Metabolic Panel; Complete Time: 14:09 rn 04/19 10:56 Order name: ETOH Level; Complete Time: 14:09 rn 04/19 10:56 Order name: LFT's; Complete Time: 14:09 rn 04/19 12:09 Order name: CBC Smear Scan; Complete Time: 14:09 EDMS 04/19 10:56 Order name: EKG; Complete Time: 10:56 rn 04/19 10:56 Order name: IV Start; Complete Time: 11:49 rn 04/19 10:56 Order name: Cardiac monitoring; Complete Time: 11:15 rn 04/19 10:56 Order name: EKG - Nurse/Tech; Complete Time: 11:15 rn EC:50 Rate is 107 beats/min. Rhythm is regular. QRS [place] is Normal. [place] interval is normal. rn QRS interval is normal. QT interval is normal. No Q waves. T waves are Normal. No ST changes noted. Clinical impression: Sinus tachycardia. Interpreted by me. Reviewed by me. Administered Medications: 11:50 Drug: Diazepam IVP 5 mg IVP once Route: IVP; Site: Other; cm10 12:28 Follow up: Response: No adverse reaction cm10 11:50 Drug: NS 0.9% IV 500 ml 500 ml IV at 1 bolus once; to be given as a bolus over 30 cm10 minutes Volume: 500 ml; Route: IV; Rate: 1 bolus; Site: Other; 12:28 Follow up: Response: No adverse reaction; IV Status: Completed infusion; IV Intake: cm10 500ml 15:31 Drug: Diazepam IVP 5 mg IVP once Route: IVP; Site: Other; kj2 19:31 Follow up: Response: No adverse reaction kj2 17:39 Drug: Ondansetron IVP 4 mg IVP once; over 2 minutes Route: IVP; Site: Other; kj2 19:31 Follow up: Response: No adverse reaction kj2 19:30 Drug: NS 0.9% IV 1000 ml IV at 1000 ml once; to be given as a bolus over 60 minutes kj2 Route: IV; Rate: 1000 ml; Site: Other; 20:54 Follow up: Response: No adverse reaction; IV Status: Completed infusion tb4 19:31 Drug: Diazepam IVP 5 mg IVP once Route: IVP; Site: Other; kj2 20:54 Follow up: Response: No adverse reaction tb4 20:55 Follow up: Response: Anxiety decreased; RASS: Alert and Calm (0) tb4 Disposition Summary: 04/19/25 18:47 Hospitalization Ordered Notes: Hospitalization Status: Inpatient Admission rn Provider: Claudio Chandler rn Location: Intensive Care Unit(04/19/25 18:47) rn Condition: Stable(04/19/25 18:47) rn Problem: new(04/19/25 18:47) rn Symptoms: are unchanged(04/19/25 18:47) rn Bed/Room Type: Standard rn Room Assignment: 4-(04/19/25 20:18) vk Diagnosis - Alcohol dependence with withdrawal delirium rn Forms: - Medication Reconciliation Form rn - SBAR form rn - Leadership Thank You Letter culinary intern time excluding procedures: 14:48 Critical care time: Bedside Care: 35 minutes. Total time: 35 minutes rn Signatures: Dispatcher [employer] Bib Perry MD MD rn Martinez, Clarissa RN RN Deidra Luz Krystal, RN RN rony2 Suzie Candelario RN tb4 Corrections: (The following items were deleted from the chart) 18:45 14:55 Home rn rn 18:45 14:55 new rn rn 18:45 14:55 have improved rn rn 18:45 14:55 Stable rn rn 18:45 14:55 Alcohol dependence with withdrawal, uncomplicated rn rn 20:18 18:47 rn vk
--- NOTE | 2025-04-19 14:56 | ER ---
Nurse's Notes [facility] Name: Felipe Barriga Age: 49 yrs Sex: Male : 1975 Arrival Date: 04/19/2025 Time: 10:51 Bed 16 Private MD: Diagnosis: Alcohol dependence with withdrawal delirium Presentation: 04/19 10:54 Chief complaint: EMS states: Toned out to patient's home due to patient detoxing from cm10 alcohol. Last drink was 1.5 days ago. Usually drinks 1 handle per day. Coronavirus screen: Client denies travel out of the [place] in the last 14 days. Ebola Screen: Patient denies travel to an Ebola-affected area in the 21 days before illness onset. Onset of symptoms was April 19, 2025. 10:54 Method Of Arrival: EMS: [facility] 11:15 Initial Sepsis Screen: Does the patient meet any 2 criteria? HR > 90 bpm. Does the cm10 patient have a suspected source of infection? No. Patient's initial sepsis screen is negative. Risk Assessment: Do you want to hurt yourself or someone else? Patient reports no desire to harm self or others. 11:15 Acuity: CLARITA 3 cm10 Triage Assessment: 11:17 General: Appears in no apparent distress. Behavior is cooperative. Pain: Complains of cm10 pain in back Pain currently is 5 out of 10 on a pain scale. Neuro: No deficits noted. Level of Consciousness is awake, alert, obeys commands, Oriented to person, place, time, situation, Appropriate for age. Respiratory: No deficits noted. Airway is patent Respiratory effort is even, unlabored, Respiratory pattern is regular, symmetrical. Historical: - Allergies: 11:16 No Known Allergies; cm10 - PMHx: 11:16 Alcohol dependence; Anxiety; depressive disorder; Night Terrors; PTSD; cm10 - PSHx: 11:16 aortic root replacement; cm10 - Immunization history:: Adult Immunizations up to date. - Infectious Disease History:: Denies. - Social history:: Smoking status: unknown Patient uses alcohol, on a daily basis. - Family history:: not pertinent. - Hospitalizations: : No recent hospitalization is reported. Screenin:51 Clinical [place] Withdrawal Assessment for Alcohol, revised (CIWA-Ar): cm10 Nausea/Vomitin - Intermittent nausea with dry heaves Headache: 2 - Mild Paroxysmal Sweats: 0 - No sweats visible Anxiety: 4 - Moderately anxious, guarded Agitation: 0 - Normal actiivty Tremor: 4 - Moderate when client's hands extended Auditory Disturbances: 0 - Not present Visual Disturbances: 0 - Not present Tactile Disturbances: 0 - None Orientation and Clouding of Sensorium: 0 - Oriented and can do serial additions Total Score: 10 to 15: Mild Withdrawal. 13:45 [place] [facility] Fall Risk Assessment (Adult) History of falling in the last 3 months, kj2 including since admission No falls in past 3 months (0 pts) Confusion or Disorientation No (0 pts) Intoxicated or Sedated No (0 pts) Impaired Gait No (0 pts) Mobility Assist Device Used No (0 pt) Altered Elimination No (0 pt) Score/Fall Risk Level 0 - 2 = Low Risk Maintained a safe environment, Hourly rounding (assess needs \T\ fall precautionary measures) done. Abuse screen: Denies threats or abuse. Denies injuries from another. Nutritional screening: No deficits noted. Tuberculosis screening: No symptoms or risk factors identified. 20:46 Clinical [place] Withdrawal Assessment for Alcohol, revised (CIWA-Ar): tb4 Nausea/Vomitin - Intermittent nausea with dry heaves Headache: 2 - Mild Paroxysmal Sweats: 0 - No sweats visible Anxiety: 4 - Moderately anxious, guarded Agitation: 0 - Normal actiivty Tremor: 4 - Moderate when client's hands extended Auditory Disturbances: 0 - Not present Visual Disturbances: 0 - Not present Tactile Disturbances: 0 - None Orientation and Clouding of Sensorium: 0 - Oriented and can do serial additions. [place] [facility] Fall Risk Assessment (Adult) History of falling in the last 3 months, including since admission No falls in past 3 months (0 pts) Confusion or Disorientation No (0 pts) Intoxicated or Sedated No (0 pts) Impaired Gait No (0 pts) Mobility Assist Device Used No (0 pt) Altered Elimination No (0 pt) Score/Fall Risk Level 0 - 2 = Low Risk Maintained a safe environment. Abuse screen: Denies threats or abuse. Denies injuries from another. Nutritional screening: No deficits noted. Tuberculosis screening: No symptoms or risk factors identified. Assessment: 12:28 Reassessment: Patient appears in no apparent distress at this time. Patient and/or cm10 family updated on plan of care and expected duration. Pain level reassessed. Patient is alert, oriented x 3, equal unlabored respirations, skin warm/dry/pink. 13:59 Reassessment: Patient appears in no apparent distress at this time. Patient and/or kj2 family updated on plan of care and expected duration. Pain level reassessed. Patient is alert, oriented x 3, equal unlabored respirations, skin warm/dry/pink. 14:42 Reassessment: Patient appears in no apparent distress at this time. Patient and/or kj2 family updated on plan of care and expected duration. Pain level reassessed. Patient is alert, oriented x 3, equal unlabored respirations, skin warm/dry/pink. 15:23 Reassessment: patient will not discharge at this time. Will receive diazepam per MD kj2 orders. 16:25 Reassessment: Patient appears in no apparent distress at this time. Patient and/or kj2 family updated on plan of care and expected duration. Pain level reassessed. Patient is alert, oriented x 3, equal unlabored respirations, skin warm/dry/pink. 17:41 Reassessment: pt nauseated. kj2 18:35 Reassessment: patient wants to speak with MD. MD notified. kj2 18:50 Reassessment: Patient appears in no apparent distress at this time. Patient and/or kj2 family updated on plan of care and expected duration. Pain level reassessed. Patient is alert, oriented x 3, equal unlabored respirations, skin warm/dry/pink. 19:56 Reassessment: Patient appears in no apparent distress at this time. Patient and/or kj2 family updated on plan of care and expected duration. Pain level reassessed. Patient is alert, oriented x 3, equal unlabored respirations, skin warm/dry/pink. 20:44 Reassessment: I attempted to call report and was told to call back in 30 mins. tb4 20:46 Reassessment: Patient is alert, oriented x 3, equal unlabored respirations, skin tb4 warm/dry/pink. Patient denies pain at this time. General: Appears in no apparent distress. Behavior is calm, cooperative. Pain: Denies pain. Neuro: Level of Consciousness is awake, alert, obeys commands, Oriented to person, place, time, situation, Sr. Consultant are equal bilaterally Moves all extremities. Full function Gait is unsteady, ataxic, Speech is normal, Facial symmetry appears normal. Respiratory: Airway is patent Respiratory effort is even, unlabored, Respiratory pattern is regular, symmetrical. GI: No signs and/or symptoms were reported involving the gastrointestinal system. 21:19 Reassessment: Report given to Sharda LANGLEY. tb4 Vital Signs: 11:15 BP 142 / 91; Pulse 108; Resp 18; Temp 97.5(O); Pulse Ox 99% on R/A; Weight 95.25 kg; cm10 Height 5 ft. 11 in. ; Pain 5/10; 11:45 BP 128 / 87; Pulse 108; Resp 15; Pulse Ox 97% on R/A; cm10 12:00 BP 138 / 89; Pulse 110; Resp 19; Pulse Ox 97% on R/A; cm10 12:15 BP 146 / 95; Pulse 109; Resp 20; Pulse Ox 97% on R/A; cm10 13:45 BP 140 / 86; Pulse 108; Resp 18; Pulse Ox 100% on R/A; kj2 14:42 BP 123 / 58; Pulse 108; Resp 18; Pulse Ox 97% ; kj2 15:45 BP 113 / 65; Pulse 109; Resp 20; Pulse Ox 100% on R/A; kj2 17:00 BP 115 / 68; Pulse 108; Resp 20; Pulse Ox 100% on R/A; kj2 18:58 BP 135 / 83; Pulse 111; Resp 20; Pulse Ox 99% on R/A; kj2 19:56 BP 133 / 68; Pulse 102; Resp 18; Pulse Ox 100% on R/A; kj2 20:43 BP 133 / 68; Pulse 103; Resp 18; Pulse Ox 99% on R/A; Pain 0/10; tb4 11:15 Body Mass Index 29.29 (95.25 kg, 180.34 cm) cm10 11:15 Pain Scale: Adult cm10 20:43 Pain Scale: Adult tb4 ED Course: 10:53 Patient arrived in ED. cm10 10:53 Liliana Roberto, RN is Primary Nurse. cm10 10:53 Bib Prieto MD is Attending Physician. rn 11:16 Triage completed. cm10 11:16 EKG done, by ED staff, reviewed by Bib Prieto MD. pm7 11:16 Arm band placed on right wrist. Patient placed in an exam room, on a stretcher. cm10 11:20 Patient has correct armband on for positive identification. Bed in low position. Call cm10 light in reach. Side rails up X2. 11:20 Client placed on continuous cardiac and pulse oximetry monitoring. NIBP monitoring cm10 applied. residential monitor on. 11:51 Initial lab(s) drawn, by me, sent to lab. Inserted saline lock: 20 gauge in right cm10 ,using aseptic technique. foot Blood collected. Flushed with 10 mL NS. 13:45 Provided Education on: call light. kj2 13:49 Report given to KORIN Hollingsworth. cm10 13:59 Edel Murphy RN is Primary Nurse. kj2 13:59 Report received from KORIN Ford. kj2 15:03 No provider procedures requiring assistance completed. IV discontinued, intact, kj2 bleeding controlled, No redness/swelling at site. Pressure dressing applied. 18:47 Claudio Chandler RN is Hospitalizing Provider. rn 18:55 Report given to KORIN Larsen. kj2 19:02 Inserted saline lock: 20 gauge in left ,using aseptic technique. foot Flushed with 10 ts3 mL NS. 20:46 Patient has correct armband on for positive identification. Bed in low position. Call tb4 light in reach. Client placed on continuous cardiac and pulse oximetry monitoring. NIBP monitoring applied. residential monitor on. Door closed. Administered Medications: 11:50 Drug: Diazepam IVP 5 mg IVP once Route: IVP; Site: Other; cm10 12:28 Follow up: Response: No adverse reaction cm10 11:50 Drug: NS 0.9% IV 500 ml 500 ml IV at 1 bolus once; to be given as a bolus over 30 cm10 minutes Volume: 500 ml; Route: IV; Rate: 1 bolus; Site: Other; 12:28 Follow up: Response: No adverse reaction; IV Status: Completed infusion; IV Intake: cm10 500ml 15:31 Drug: Diazepam IVP 5 mg IVP once Route: IVP; Site: Other; kj2 19:31 Follow up: Response: No adverse reaction kj2 17:39 Drug: Ondansetron IVP 4 mg IVP once; over 2 minutes Route: IVP; Site: Other; kj2 19:31 Follow up: Response: No adverse reaction kj2 19:30 Drug: NS 0.9% IV 1000 ml IV at 1000 ml once; to be given as a bolus over 60 minutes kj2 Route: IV; Rate: 1000 ml; Site: Other; 20:54 Follow up: Response: No adverse reaction; IV Status: Completed infusion tb4 19:31 Drug: Diazepam IVP 5 mg IVP once Route: IVP; Site: Other; kj2 20:54 Follow up: Response: No adverse reaction tb4 20:55 Follow up: Response: Anxiety decreased; RASS: Alert and Calm (0) tb4 Medication: 15:02 VIS not applicable for this client. kj2 Intake: 12:28 IV: 500ml; Total: 500ml. 10 Outcome: 14:55 Discharge ordered by MD. rn 15:03 Discharged to home ambulatory, kj2 15:03 Condition: stable 15:03 Discharge instructions given to patient, Instructed on discharge instructions, follow up and referral plans. Demonstrated understanding of instructions, follow-up care, 18:47 Decision to Hospitalize by Provider. rn 21:48 Patient left the ED. tb4 Signatures: Bib Prieto MD MD rn Martinez, Clarissa RN RN cm10 Edel Murphy RN RN rony2 Suzie Candelario RN RN tb4 Nicolle Reyes ts3 Monique Pang pm7 Corrections: (The following items were deleted from the chart) 17:39 16:25 Reassessment: blood transfusion started kj2 kj2 17:41 16:25 BP 136 / 65; Pulse 94bpm; Resp 18bpm; Pulse Ox 100% RA; Temp 98.3F; kj2 kj2
[2025-04-19] MEDS ORDERED: ONDANSETRON 4 MG/2 ML VIAL ONE (17:35)
[2025-04-19] MEDS ORDERED: NA CHLORIDE 0.9% 1,000 ML ONE (19:21)
[2025-04-19] MEDS ORDERED: LORazepam 2 MG/ML VIAL IV PRN (20:02)
[2025-04-19] MEDS ORDERED: DEXMEDETOMIDINE HCL 200 MCG in NA CHLORIDE 0.9% 98 ML IV SCH (22:00)
[2025-04-19] MEDS: TRAZODONE 150 MG TAB PO SCH (22:01)
[2025-04-19] MEDS: LORazepam 2 MG/ML VIAL IV ONE (22:01)
[2025-04-19] MEDS: BUSPIRONE HCL 5 MG TABLET PO SCH (22:01)
[2025-04-19] MEDS: THIAMINE 200 MG/2 ML INJ IVP ONE (22:01)
[2025-04-19] MEDS: QUETIAPINE 100MG TAB PO SCH (22:01)
[2025-04-19] MEDS: FOLIC ACID 1 MG TABLET PO ONE (22:02)
--- NOTE | 2025-04-19 22:07 | P.HP ---
Certification for Inpatient Patient admitted to: Inpatient With expected LOS: >2 Midnights Patient will require the following post-hospital care: None Practitioner: I am a practitioner with admitting privileges, knowledge of patient current condition, hospital course, and medical plan of care. Services: Services provided to patient in accordance with Admission requirements found in Title 42 Section 412.3 of the Code of Federal Regulations Patient History Date of Service: 04/19/25 Reason for admission: Alcohol use disorder and withdrawal. History of Present Illness: Patient is a 49-year-old male with past medical history of alcohol use disorder, anxiety, depressive disorder, night tremors, PTSD, schizoaffective anxiety, patient reports to ER complaining of alcohol withdrawal symptoms. Patient states he drinks whiskey daily, states he has been trying to detox at home, states he stopped drinking alcohol approximately 1 and a half day prior to his arrival to the ER. Patient states today started getting tremulous, anxiety, tachycardia, and diaphoretic which then prompted him to report to the ER. Patient states he has been through withdrawal before but cannot give details on the event. States he has been through detox center before, but unfortunately he started drinking again when he came out. Patient states he is willing to go back to detox center. Patient denies having associated headache, nausea or vomiting, chest pain, abdominal pain. On admission assessment, patien in withdrawal, tremulous, diaphoretic, tachycardic, anxiety. Patient serum alcohol was 179. Allergies No Known Allergies Allergy (Verified 09/30/24 22:57) Home Medications: Buspirone HCl [Buspar] 15 mg PO BID 09/30/24 Multivitamin 1 tab PO DAILY 09/30/24 Quetiapine [Seroquel*] 100 mg PO BEDTIME 09/30/24 Sertraline HCl 200 mg PO DAILY 09/30/24 Trazodone HCl [Desyrel] 200 mg PO BEDTIME 09/30/24 Quetiapine [Seroquel*] 50 mg PO DAILY 10/11/24 - Past Medical/Surgical History Diabetic: No -: PTSD -: Schizoeffective anxiety -: Major Depressive disorder -: Alcohol use disorder. -: Psoriasis. -: Aortic root replacement, valve replaced -: Leg Surgery when child - Family History Mother -: Cancer Notes: breast x2 - Social History Smoking Status: Never smoker (Patient states he does not smoke cigarettes but he vapes.) Alcohol use: Yes CD- Drugs: No Caffeine use: Yes Place of Residence: Home Review of Systems 10-point ROS is otherwise unremarkable General: Other (Symptoms of alcohol withdrawal, including anxiety, tremulous, diaphoretic, tachycardia.) Physical Examination - Physical Exam General: Alert, Oriented x3, Cooperative HEENT: Atraumatic, Normocephalic, PERRLA, Mucous membr. moist/pink, Sclerae nonicteric Neck: Supple, 2+ carotid pulse no bruit, JVD not distended, No LAD, Without JVD or thyroid abnormality Respiratory: Clear to auscultation bilaterally, Normal air movement Cardiovascular: No edema, Normal pulses, Regular rate/rhythm, Normal S1 S2, No gallops, No rubs, No murmurs Capillary refill: <2 Seconds Gastrointestinal: Normal bowel sounds, Soft and benign, Non-distended, W/out hepatomegaly, No ascites, No tenderness, No masses, No rebound, No guarding Musculoskeletal: No clubbing, No swelling, No contractures, No erythema, No tenderness, No warmth Integumentary: No rashes, No breakdown, No significant lesion, No tenderness/swelling, No erythema, No warmth, No cyanosis Neurological: Normal gait, Normal speech, Normal strength at 5/5 x4 extr, Normal tone, Sensation intact, Cranial nerves 3-12 intact, Normal reflexes 2+, Normal affect Lymphatics: No axilla or inguinal lymphadenopathy External genitalia: Non-tender (Stated by patient.) - Studies Laboratory Data (last 24 hrs) 04/19/25 04/19/25 11:46 11:46 WBC 10.40 Hgb 11.2 L Hct 36.5 L Plt Count 458 H Sodium 142 Potassium 4.0 BUN 20 H Creatinine 1.36 H Glucose 93 Total Bilirubin 0.6 AST 26 ALT 35 Alkaline Phosphatase 86 Male Exam - Male Exam Inguinal exam: No hernias Assessment and Plan - Plan Patient admitted to ICU for alcohol withdrawal. With the onset, and progression of patient withdrawal, I deem it appropriate to have patient admitted to ICU in case patient might need to be put on Precedex infusion. (1)Alcohol use disorder and withdrawal. -Order one-time dose of Librium 50 mg p.o. x 1, and Ativan 2 mg IV x 1 while patient was in ER. Patient was very diaphoretic, tremulous, anxiety, tachycardia. Goal is to prevent patient from worsening exacerbation of withdrawal. -Ativan 2 mg IV as needed every 4 hours. -Librium 25 mg p.o. every 6 hours. Patient dose might need to be optimized based on CIWA score. -Order for CIWA score every 2 hours and change of condition, nurse to notify provider. -Order Thiamine 100 mg IV x 1, follow with 100 mg p.o. daily starting tomorrow. -Folic acid 1 mg p.o. daily. -Order for Precedex infusion standby if needed based on patient CIWA's score, or worsening withdrawal symptoms. (2)Chronic PTSD, anxiety, depressive disorder, and schizoaffective. -Continue home medication Zoloft 200 mg p.o. daily. -Continue BuSpar 20 mg p.o. twice daily. -Continue Seroquel 200 mg p.o. at bedtime. -Continue trazodone 150 mg p.o. nightly. (3)Explained the entire treatment plan to the patient, solicit questions answered and voiced understanding. Discharge Plan: Home Plan to discharge in: Greater than 2 days - Advance Directives Does patient have a Living Will: No Does patient have a Durable POA for Healthcare: No - Code Status/Comfort Care Code Status Assessed: Yes Code Status: Full Code Critical Care: Yes Time Spent Managing Pts Care (In Minutes): 55
[2025-04-19 22:22] VITALS: BMI 30.8
[2025-04-20 06:54] LABS: Absolute Lymphocytes (CBC) 1.6 K/uL (0.7-4.9); Hematocrit 28.3 % (39.6-49.0); Hemoglobin 9.3 g/dL (13.6-17.9); MCH 24.3 pg (27.0-35.0); MCHC 32.9 g/dL (32.0-36.0); MCV 74.1 fL (80-100); MPV 7.9 fL (7.6-11.3); Nucleated RBC Absolute Count 0.0 (0-0); Nucleated Red Blood Cells % 0.1 % (0-0); RBC Red Blood Cell Count 3.81 M/uL (4.33-5.43); White Blood Count 5.90 thou/uL (4.3-10.9)
[2025-04-20 07:08] LABS: ALT/SGPT 27.0 U/L (16-61); AST/SGOT 30.0 U/L (15-37); Albumin 3.4 g/dL (3.4-5.0); Alkaline Phosphatase 79.0 U/L (45-117); Anion Gap 11.3 mEq/L (5.0-15.0); BUN Blood Urea Nitrogen 19.0 mg/dL (7-18); Globulin 3.3 g/dL (2.3-3.5); Glucose Level 85.0 mg/dL (74-106); Potassium 3.3 mEq/L (3.5-5.1)
[2025-04-20 07:09] LABS: Albumin/Globulin Ratio 1.0 (1.1-1.8); Magnesium 1.6 mg/dL (1.6-2.4)
--- NOTE | 2025-04-20 07:39 | P.PN ---
Date of Service: 04/20/25 Subjective Seen on morning rounds, drowsy but arouses to speak Reassessed this afternoon, more Awake and conversing well BP stable and will downgrade to the flow to continue scheduled librium ROS 10 point ROS as noted above, otherwise negative Physical Exam General: AAO x3, Cooperative HEENT: Atraumatic, Normocephalic Neck: Supple Respiratory: Clear to auscultation bilaterally, Normal air movement Cardiovascular: Normal pulses, mild tachycardia Capillary refill: <2 Seconds Gastrointestinal: Normal bowel sounds, Soft and benign on palpation Musculoskeletal: No clubbing, No swelling Integumentary: No rashes, No breakdown Neurological: Normal gait, Normal speech Vitals Reviewed Problem list Alcohol abuse and withdrawal PTSD Anxiety Depressive disorder schizoaffective Assessment and Plan Alcohol abuse and withdrawal -Reports going to a facility in the past and was unsuccessful with cessation -will request social work to provide community resources -librium scheduled -ativan PRN -CIWA score Q2hr -thiamine, folic acid, mutlivitamin -stopped Precedex gtt, has not needed and will downgrade to the floor PTSD Anxiety Depressive disorder schizoaffective - continue home medications DVT ppx lovenox Full code LOS 2-3 days Time Spent Managing Pts Care (In Minutes): 35
[2025-04-20] MEDS: SERTRALINE HCL 100 MG TAB PO SCH (08:36)
[2025-04-20] MEDS: POTASSIUM CL SA 10 MEQ TAB PO ONE (08:37)
[2025-04-20] MEDS: THIAMINE HCL 100 MG TABLET PO SCH (08:37)
[2025-04-20] MEDS: FOLIC ACID 1 MG TABLET PO SCH (08:37)
[2025-04-20] MEDS: ENOXAPARIN 40 MG/0.4 ML SQ SCH (08:38)
[2025-04-20] MEDS: MAGNESIUM SULFATE 1 gm IVPB 1 GM/100 ML BAG IV ONE (08:39)
[2025-04-20] MEDS: ACETAMINOPHEN 500 MG TAB PO ONE (09:55)
[2025-04-20 11:42] LABS: Anisocytosis 1+; Blood Morphology Comment NOTED (NOT SEEN); Microcytosis 1+; Ovalocytes SLIGHT; White Blood Cell Scan OK (OK)
[2025-04-20] MEDS: ACETAMINOPHEN 325 MG TABLET PO PRN (20:04)
[2025-04-21 05:57] LABS: Absolute Lymphocytes (CBC) 1.3 K/uL (0.7-4.9); Hematocrit 30.2 % (39.6-49.0); Hemoglobin 9.6 g/dL (13.6-17.9); MCH 23.9 pg (27.0-35.0); MCHC 31.9 g/dL (32.0-36.0); MCV 74.8 fL (80-100); MPV 8.2 fL (7.6-11.3); Nucleated RBC Absolute Count 0.0 (0-0); Nucleated Red Blood Cells % 0.1 % (0-0); RBC Red Blood Cell Count 4.04 M/uL (4.33-5.43); White Blood Count 5.80 thou/uL (4.3-10.9)
[2025-04-21 06:01] LABS: ALT/SGPT 24.0 U/L (16-61); Albumin 3.4 g/dL (3.4-5.0); Albumin/Globulin Ratio 0.9 (1.1-1.8); Alkaline Phosphatase 77.0 U/L (45-117); Anion Gap 8.6 mEq/L (5.0-15.0); BUN Blood Urea Nitrogen 14.0 mg/dL (7-18); Globulin 3.6 g/dL (2.3-3.5); Glucose Level 101.0 mg/dL (74-106)
[2025-04-21 06:03] LABS: AST/SGOT 30.0 U/L (15-37); Magnesium 1.8 mg/dL (1.6-2.4); Potassium 3.6 mEq/L (3.5-5.1)
[2025-04-21] MEDS: POTASSIUM CL SA 10 MEQ TAB PO ONE (09:37)
--- NOTE | 2025-04-21 17:36 | P.PN ---
Date of Service: 04/21/25 Subjective He has been drowsy all day, reduce Librium dose to twice daily and reduce trazodone for bedtime We will reevaluate for discharge in the a.m. ROS 10 point ROS as noted above, otherwise negative Physical Exam General: AAO x3, NAD HEENT: Atraumatic, Normocephalic Respiratory: Nonlabored breathing, on room air Cardiovascular: Normal pulses, mild tachycardia Gastrointestinal: Soft on palpation Musculoskeletal: No clubbing, No swelling Integumentary: No rashes, No breakdown Neurological: Normal gait, Normal speech Vitals Reviewed Problem list Alcohol abuse and withdrawal PTSD Anxiety Depressive disorder schizoaffective Assessment and Plan Alcohol abuse and withdrawal -Reports going to a facility in the past and was unsuccessful with cessation -will request social work to provide community resources -librium scheduled -ativan PRN -CIWA score Q2hr -thiamine, folic acid, mutlivitamin -stopped Precedex gtt, has not needed and will downgrade to the floor PTSD Anxiety Depressive disorder schizoaffective - continue home medications DVT ppx lovenox Full code LOS 2-3 days Time Spent Managing Pts Care (In Minutes): 38
[2025-04-21] MEDS: TRAZODONE 50 MG TABLET PO SCH (20:25)
[2025-04-22 07:02] LABS: ALT/SGPT 26.0 U/L (16-61); AST/SGOT 21.0 U/L (15-37); Albumin 3.4 g/dL (3.4-5.0); Albumin/Globulin Ratio 0.9 (1.1-1.8); Alkaline Phosphatase 68.0 U/L (45-117); Anion Gap 8.4 mEq/L (5.0-15.0); BUN Blood Urea Nitrogen 14.0 mg/dL (7-18); Globulin 3.8 g/dL (2.3-3.5); Glucose Level 107.0 mg/dL (74-106); Magnesium 1.8 mg/dL (1.6-2.4); Potassium 3.4 mEq/L (3.5-5.1)
[2025-04-22 07:07] LABS: Absolute Lymphocytes (CBC) 1.2 K/uL (0.7-4.9); Hematocrit 30.8 % (39.6-49.0); Hemoglobin 9.8 g/dL (13.6-17.9); MCH 23.9 pg (27.0-35.0); MCHC 31.9 g/dL (32.0-36.0); MCV 74.9 fL (80-100); MPV 8.3 fL (7.6-11.3); Nucleated RBC Absolute Count 0.0 (0-0); Nucleated Red Blood Cells % 0.1 % (0-0); RBC Red Blood Cell Count 4.11 M/uL (4.33-5.43); White Blood Count 6.60 thou/uL (4.3-10.9)
[2025-04-22 07:14] LABS: Anisocytosis 1+; Blood Morphology Comment NOTED (NOT SEEN); White Blood Cell Scan OK (OK)
[2025-04-22 09:16] VITALS: BP 149/65; TEMP 97.5
--- NOTE | 2025-04-22 11:06 | P.DS ---
Admission Date: 04/19/25 Discharge Date: 04/22/25 Disposition: ROUTINE DISCHARGE Discharge Condition: GOOD Reason for Admission: Alcohol use disorder and withdrawal. Vital Signs/Physical Exam: Temp Pulse Resp BP Pulse Ox 97.5 F 85 18 149/65 H 96 04/22/25 08:00 04/22/25 08:00 04/22/25 08:00 04/22/25 08:00 04/22/25 08:00 Laboratory Data at Discharge: WBC 6.60 thou/uL (4.3-10.9) 04/22/25 06:35 Hgb 9.8 g/dL (13.6-17.9) L 04/22/25 06:35 Hct 30.8 % (39.6-49.0) L 04/22/25 06:35 Plt Count 263 thou/uL (152-406) 04/22/25 06:35 Sodium 140 mEq/L (136-145) 04/22/25 06:35 Potassium 3.4 mEq/L (3.5-5.1) L 04/22/25 06:35 BUN 14 mg/dL (7-18) 04/22/25 06:35 Creatinine 0.89 mg/dL (0.70-1.30) 04/22/25 06:35 Glucose 107 mg/dL (74-106) H 04/22/25 06:35 Magnesium 1.8 mg/dL (1.6-2.4) 04/22/25 06:35 Total Bilirubin 0.4 mg/dL (0.2-1.0) 04/22/25 06:35 AST 21 U/L (15-37) 04/22/25 06:35 ALT 26 U/L (16-61) 04/22/25 06:35 Alkaline Phosphatase 68 U/L (45-117) 04/22/25 06:35 Home Medications: Buspirone HCl [Buspar] 15 mg PO BID 09/30/24 Multivitamin 1 tab PO DAILY 09/30/24 Quetiapine [Seroquel*] 100 mg PO BEDTIME 09/30/24 Sertraline HCl 200 mg PO DAILY 09/30/24 Trazodone HCl [Desyrel] 200 mg PO BEDTIME 09/30/24 Quetiapine [Seroquel*] 50 mg PO DAILY 10/11/24 Physician Discharge Instructions: Patient was admitted for alcohol withdrawl, He has tolerated Librium, was in ICU on precedex and improved, BP stable. Will discharge without librium, he tolerated decrease in dosing yesterday. He will need to follow up with his PCP and community resources for better cessation opportunities. Regular diet Avoid all alcoholic beverages at this time Attend AAA in our community No acitive restrictions Return to the ED if needed No new medications continue medications as prescribed by outside providers. Diet: Regular Activity: Fall precautions [facility]: [facility] [Primary Care Provider] -
[2025-04-22 11:45] VITALS: O2SAT 100
== END 2025-04-22 15:02 | disposition home or self-care (01) | DRG 897 ==
LOC: ER 10:51 → ERHOLD 19:56 → 3RD-ICU 21:56 → 4TH 04-20 14:58
PROVIDERS: ADMIT Hospitalist; ATTEND Hospitalist
DX: F10.231 Alcohol dependence with withdrawal delirium (principal); F32.A Depression, unspecified; F41.9 Anxiety disorder, unspecified; F25.9 Schizoaffective disorder, unspecified; F43.10 Post-traumatic stress disorder, unspecified; R00.0 Tachycardia, unspecified; Y90.6 Blood alcohol level of 120-199 mg/100 ml
CPT/HCPCS: 36415; 80048; 80053; 80076; 82077; 83735; 84132; 85025; 93005; 96361; 96374; 96375; 99285; J1650; J2405; J3360; J3411; J3475; J7030; J7040

== ENCOUNTER 2025-05-28 10:35 | Emergency (ER) | payer OTHER ==
--- OUTSIDE RECORDS SUMMARY | 2025-05-28 10:39 | XMS REPORT | Continuity of Care Document ---
Author Name Unknown Address [address] [place] [address] [facility] Address [address] [place] [address] Care Team Providers Care Financial Sales Representative Name Role Phone Vickie Garcia Attending Clinician Unavailable Vickie Garcia Admitting Clinician Unavailable Payers Payer Name Policy Type Policy Number Effective Date Expirati on Date Source Allergies, Adverse Reactions, Alerts Allergy Name Allergy Type Status Severity Reaction(s) Onset Date Inactive Date Treating Clinician Comments Source No Known Allergie s DA Active U 03-18 00:00: 00 [facility] Encounters Start Date/Time End Date/Time Encounter Type Admission Type Attending Clinicians Care Facility Care Department Encounter ID Source 2025-02-26 21:46:16 Emergency HFD HFD [id number] [facility] Depart ent 2024-03-18 03:55:00 2024-03-20 12:41:00 Inpatient EM Vickie Garcia [facility] [id number] [facility] Results Test Description Test Time Test Comments Results Result Co mments Source COMPREHENSIVE METABOLIC [id number] 17:15:00* Test Item Value Reference Range Interpretation [...] code = ALKP) 71 Units/L 50.0-136.0 N [id number] 17:15:00* Test Item Value Reference Range Interpretation Comme nts MAGNESIUM (test code = MAG) 1.3 mg/dl 1.8-2.4 L VITAMIN [id number] 17:15:00* Test Item Value Reference Range Interpretation Comme nts VITAMIN B12 (test code = VITB12) 239 pg/mL 193-986 N CBC W/AUTO [id number] 04:51:00* Test Item Value Reference Range Interpretation [...] 0.00 X10 3uL 0.00-0.01 N COMPREHENSIVE METABOLIC [id number] 05:46:00* Test Item Value Reference Range Interpretation [...] ALKP) 75 Units/L 50.0-136.0 N CBC W/AUTO [id number] 04:25:00* Test Item Value Reference Range Interpretation [...] = NRBC#) 0.00 X10 3uL 0.00-0.01 N [id number] 20:03:00* Test Item Value Reference Range Interpretation Comme nts GLUBED (test code = GLUBED) 132 mg/dL 70-110 H DRUGS OF ABUSE SCREEN [id number] 08:40:00* Test Item Value Reference Range Interpretation [...] 300 ng/mL WHAT DRUGS HAVE BEEN TAKEN? [id number] 03:26:00* Test Item Value Reference Range Interpretation Comme nts ALCOHOL (test code = ALC) 0.47 gm/dL 0.00-0.00 HH ETHYL ALCOHOL VA LUES - INTERPRETATION: 0.050 GM/DL - NOT INTOXICATED 0.100 GM/DL - INTOXICATED 0.350-0.450 GM/DL - SEVERELY INTOXICATED 0.550 GM/DL- FATAL INTOXICATION BASIC METABOLIC [id number] 03:26:00* Test Item Value Reference Range Interpretation [...] ECRCL) 88 mL/min >30 HEPATIC FUNCTION PANEL [id number] 03:26:00* Test Item Value Reference Range Interpretation [...] code = ALKP) 118 Units/L 50.0-136.0 N [id number] 03:26:00* Test Item Value Reference Range Interpretation Comme nts LIPASE (test code = LIP) 78 Units/L 16-77 H TROP-I HIGH [id number] 03:26:00* Test Item Value Reference Range Interpretation Comme nts TROP-I HIGH SENSITIVITY (test code = TROPIHS) 29 ng/L 0-76 N CAUTION: Units o f the current TROPI-HS test methodology(ng/L) differ from the prior test methodology (ng/mL) by afactor of 1000. 99th Percentile: Females: 0 - 51 ng/L Males: 0 - 76 ng/LThese results were obtained using [employer] TnIHreagent. Results from different methodologies should not becompared to one another as quantitative results may vary bymethod. CBC W/AUTO [id number] 03:04:00* Test Item Value Reference Range Interpretation [...] code = BA#) 0.1 K/mm3 0.0-0.2 N [id number] 02:29:00* Test Item Value Reference Range Interpretation Comme nts GLUBED (test code = GLUBED) 83 mg/dL 70-110 N Notes Date/Time Note Provider Source 2024-03-20 22:50:00 [facility] ([facility]) Hospitalist Discharge Summary REPORT#:[id number] REPORT STATUS: Signed REPORT INITIALIZATION DATE:03/20/24 TIME: 2249 PATIENT: TACHO LOBO UNIT #: [id number] ROOM/BED: [place] [address] : 75 AGE: 48 SEX: M ATTEND: [...] (Auto) (23.0 - 38.0 %) 11.9 L Stephens % (Auto) (1.0 - 10.0 %) 8.2 Eos % (Auto) (1.0 - 5.0 %) 3.3 Baso % (Auto) (0.0 - 1.0 %) 0.6 Neut # (Auto) (2.4 - 6.3 K/mm3) 3.7 Lymph # (Auto) (1.2 - 4.0 K/mm3) 0.6 L Stephens # (Auto) (0.0 - 0.6 K/mm3) 0.4 [...] Musculoskeletal: full range of motion, normal inspection Neuro/EXCELSIOR PICKER alert, oriented X 3, CNII-XII intact Skin: [...] 1-2 weeks at 2252 at 1445 RPT #:[id number] END OF REPORT [facility] 2024-03-19 14:41:00 [facility] ([facility] Pulmonology Progress Note REPORT#:[id number] REPORT STATUS: Signed REPORT INITIALIZATION DATE:03/19/24 TIME: 144 PATIENT: TACHO LOBO UNIT #: [id number] ROOM/BED: [place] [address] : 75 AGE: 48 SEX: M ATTEND: [...] Musculoskeletal: full range of motion, normal inspection Neuro/EXCELSIOR PICKER: alert, oriented X 3 Skin: dry, intact [...] (Auto) (23.0 - 38.0 %) 15.6 L Stephens % (Auto) (1.0 - 10.0 %) 8.1 Eos % (Auto) (1.0 - 5.0 %) 2.3 Baso % (Auto) (0.0 - 1.0 %) 0.5 Neut # (Auto) (2.4 - 6.3 K/mm3) 2.8 Lymph # (Auto) (1.2 - 4.0 K/mm3) 0.6 L Stephens # (Auto) (0.0 - 0.6 K/mm3) 0.3 [...] floor will sign off at 1443 RPT #:[id number] END OF REPORT [facility] 2024-03-19 09:54:00 [facility] ([facility]) Hospitalist Progress Note REPORT#:[id number] REPORT STATUS: Signed REPORT INITIALIZATION DATE:03/19/24 TIME: 953 PATIENT: TACHO LOBO UNIT #: [id number] ROOM/BED: [place] [address] : 75 AGE: 48 SEX: M ATTEND: [...] 03/19 0600 82 16 128/63 89 95 07/29 0500 85 15 132/64 90 97 03/19 [...] Sodium Chloride (SODIUM CHLORIDE 0.9%) 1,000 ML .[id number] IV Enoxaparin Sodium (LOVENOX) 40 MG Q24H [...] (Auto) (23.0 - 38.0 %) 15.6 L Stephens % (Auto) (1.0 - 10.0 %) 8.1 Eos % (Auto) (1.0 - 5.0 %) 2.3 Baso % (Auto) (0.0 - 1.0 %) 0.5 Neut # (Auto) (2.4 - 6.3 K/mm3) 2.8 Lymph # (Auto) (1.2 - 4.0 K/mm3) 0.6 L Stephens # (Auto) (0.0 - 0.6 K/mm3) 0.3 [...] Musculoskeletal: full range of motion, normal inspection Neuro/EXCELSIOR PICKER alert, oriented X 3, CNII-XII intact Skin: [...] DC in am at 0957 at 1444 RUST #:[id number] END OF REPORT [facility] 2024-03-18 09:09:00 [facility] ([facility]) Hospitalist History Physical REPORT#:[id number] REPORT STATUS: Signed REPORT INITIALIZATION DATE:03/18/24 TIME: 908 PATIENT: TACHO LOBO UNIT #: [id number] ROOM/BED: [place] [address] : 75 AGE: 48 SEX: M ATTEND: [...] 28.0 Results Findings/Data: Laboratory Tests: 03/186 7 7 Chemistry Sodium (134.0 - 147.0 [...] (Auto) (23.0 - 38.0 %) 15.3 L Stephens % (Auto) (1.0 - 10.0 %) 6.2 Eos % (Auto) (1.0 - 5.0 %) 0.7 L Baso % (Auto) (0.0 - 1.0 %) 0.9 Neut # (Auto) (2.4 - 6.3 K/mm3) 4.1 Lymph # (Auto) (1.2 - 4.0 K/mm3) 0.8 L Stephens # (Auto) (0.0 - 0.6 K/mm3) 0.3 [...] Musculoskeletal: full range of motion, normal inspection Neuro/EXCELSIOR PICKER alert, oriented X 3, CNII-XII intact Skin: [...] IV hydration BMP in a.m. at 1003 RUST #:[id number] END OF REPORT [facility] 2024-03-18 07:56:00 [facility] ([facility] Pulmonary Consultation Note REPORT#:[id number] REPORT STATUS: Signed REPORT INITIALIZATION DATE:03/18/24 TIME: 755 PATIENT: TACHO LOBO UNIT #: [id number] [address]: [address] : [address] AGE: 48 SEX: M ATTEND: Vickie Garcia MD ADM AUTHOR: Rylan Vaughn MD REPT SERVICE DT/TIME: 03/18/24755 * ALL edits or amendments must be made on the electronic/computer document * History of Present Illness HPI Requesting clinician: AMJoe Reason for consult: SOB Chief complaint: SOB [...] Mean 90 03/18 1105 Temp 98.1 03/18 110 Pulse 112 03/18 [...] (Auto) (23.0 - 38.0 %) 15.3 L Stephens % (Auto) (1.0 - 10.0 %) 6.2 Eos % (Auto) (1.0 - 5.0 %) 0.7 L Baso % (Auto) (0.0 - 1.0 %) 0.9 Neut # (Auto) (2.4 - 6.3 K/mm3) 4.1 Lymph # (Auto) (1.2 - 4.0 K/mm3) 0.8 L Stephens # (Auto) (0.0 - 0.6 K/mm3) 0.3 [...] At risk for deterioration at 1242 RPT #:[id number] END OF REPORT [facility] 2024-03-18 03:52:00 [facility] ([facility]) EMERGENCY PROVIDER REPORT REPORT#:[id number] REPORT STATUS: Signed DATE:03/18/24 TIME: 351 PATIENT: TACHO LOBO UNIT #: [id number] ROOM/BED: [place] [address] AGE: 48 SEX: M PCP PHYS: No [...] 0207 Pulse 100 03/18 0207 Resp 16 03/187 Last Documented: Result Date Time Pulse Ox 99 03/18 0330 B/P 122/76 03/18 0330 B/P Mean 94 03/18 0330 Pulse 98 03/18 0330 Resp 22 03/18 0330 O2 Delivery Room air 03/18 0207 Temp 36.3 03/18 0207 Review of Vital [...] (Auto) (23.0 - 38.0 %) 15.3 L Stephens % (Auto) (1.0 - 10.0 %) 6.2 Eos % (Auto) (1.0 - 5.0 %) 0.7 L Baso % (Auto) (0.0 - 1.0 %) 0.9 Neut # (Auto) (2.4 - 6.3 K/mm3) 4.1 Lymph # (Auto) (1.2 - 4.0 K/mm3) 0.8 L Stephens # (Auto) (0.0 - 0.6 K/mm3) 0.3 [...] Hospitalize Hosp Physician Name Vickie Garcia MD [facility] Physician Hospitalist Request [...] with the family or caregiver. at 0615 RUST #:[id number] END OF REPORT [facility]
[2025-05-28] MEDS ORDERED: LORazepam 2 MG/ML VIAL ONE (11:02)
[2025-05-28 12:27] LABS: Absolute Lymphocytes (CBC) 1.2 K/uL (0.7-4.9); Hematocrit 32.5 % (39.6-49.0); Hemoglobin 10.4 g/dL (13.6-17.9); MCH 24.4 pg (27.0-35.0); MCHC 32.0 g/dL (32.0-36.0); MCV 76.3 fL (80-100); MPV 8.0 fL (7.6-11.3); Nucleated RBC Absolute Count 0.0 (0-0); Nucleated Red Blood Cells % 0.1 % (0-0); RBC Red Blood Cell Count 4.25 M/uL (4.33-5.43); White Blood Count 5.80 thou/uL (4.3-10.9)
[2025-05-28 12:35] LABS: PT Prothrombin Time 11.4 SECONDS (10-13.0); PTT, Activated Partial Thromb 23.6 SECONDS (27.2-37.4); Protime INR 1.01
[2025-05-28 12:50] LABS: ALT/SGPT 346 U/L (16-61); AST/SGOT 400 U/L (15-37); Albumin 3.2 g/dL (3.4-5.0); Albumin/Globulin Ratio 0.8 (1.1-1.8); Alkaline Phosphatase 75 U/L (45-117); Anion Gap 16.5 mEq/L (5.0-15.0); BUN Blood Urea Nitrogen 7 mg/dL (7-18); Globulin 3.9 g/dL (2.3-3.5); Glucose Level 86 mg/dL (74-106); Potassium 3.5 mEq/L (3.5-5.1)
[2025-05-28 12:51] LABS: Bilirubin Indirect, Calculated 0.1 mg/dL (0.2-0.8)
--- NOTE | 2025-05-28 13:02 | ER ---
Nurse's Notes [facility] Name: Felipe Barriga Age: 49 yrs Sex: Male : 1975 Arrival Date: 05/28/2025 Time: 10:35 Bed 15 Private MD: Diagnosis: Alcoholism, alcohol abuse, alcohol intoxication Presentation: 05/28 10:39 Chief complaint: EMS states: seizures x2, 1 on scene, 2nd when EMS was calling report af3 to hospital. Coronavirus screen: At this time, the client does not indicate any symptoms associated with coronavirus-19. Ebola Screen: No symptoms or risks identified at this time. Initial Sepsis Screen: Does the patient meet any 2 criteria? No. Patient's initial sepsis screen is negative. Does the patient have a suspected source of infection? No. Patient's initial sepsis screen is negative. Risk Assessment: Do you want to hurt yourself or someone else? Patient reports no desire to harm self or others. Onset of symptoms was May 28, 2025. 10:39 Method Of Arrival: EMS: [facility] af3 10:39 Acuity: CLARITA 3 af3 Triage Assessment: 10:41 General: Appears in no apparent distress. comfortable, well groomed, well developed, af3 Behavior is calm, cooperative, appropriate for age. Pain:. Neuro: Level of Consciousness is awake, alert, obeys commands, Oriented to person, place, time, situation, Appropriate for age. Cardiovascular: Patient's skin is warm and dry. Respiratory: Airway is patent Respiratory effort is even, unlabored, Respiratory pattern is regular, symmetrical. Historical: - Allergies: 10:41 No Known Allergies; af3 - PMHx: 10:41 Alcohol dependence; Anxiety; depressive disorder; Night Terrors; PTSD; af3 - PSHx: 10:41 aortic root replacement; af3 - Immunization history:: Adult Immunizations unknown. - Infectious Disease History:: Denies. - Social history:: Smoking status: unknown. Screenin:54 [facility] ED Fall Risk Assessment (Adult) History of falling in the last 3 months, af3 including since admission No falls in past 3 months (0 pts) Confusion or Disorientation No (0 pts) Intoxicated or Sedated No (0 pts) Impaired Gait No (0 pts) Mobility Assist Device Used No (0 pt) Altered Elimination No (0 pt) Score/Fall Risk Level 0 - 2 = Low Risk Oriented to surroundings, Maintained a safe environment, Educated pt \T\ family on fall prevention, incl call for assistance when getting out of bed. Abuse screen: Denies threats or abuse. Denies injuries from another. Nutritional screening: No deficits noted. Tuberculosis screening: No symptoms or risk factors identified. Assessment: 10:54 General: Appears in no apparent distress. comfortable, well groomed, well developed, af3 Behavior is calm, cooperative, appropriate for age. Pain: Denies pain. Neuro: Level of Consciousness is awake, alert, obeys commands, Oriented to person, place, time, situation, Appropriate for age. Cardiovascular: Patient's skin is warm and dry. Respiratory: Airway is patent Respiratory effort is even, unlabored, Respiratory pattern is regular, symmetrical. 11:00 Neuro: Seizure activity noted at this time. Seizure lasted approximately 2 minutes. cm10 Vital Signs: 10:39 BP 106 / 71; Pulse 108; Resp 18; Temp 98.4; Pulse Ox 95% on R/A; Weight 97.52 kg; af3 Height 5 ft. 11 in. ; 10:39 Body Mass Index 29.99 (97.52 kg, 180.34 cm) af3 ED Course: 10:36 Patient arrived in ED. bd 10:38 Minda Chacon MD is Attending Physician. sp3 10:38 Bárbara Hubbard, RN is Primary Nurse. af3 10:41 Triage completed. af3 10:41 Arm band placed on. af3 10:54 Patient has correct armband on for positive identification. Bed in low position. Call af3 light in reach. Seizure precautions initiated. Provided Education on: call light use . 10:54 Client placed on continuous cardiac and pulse oximetry monitoring. NIBP monitoring af3 applied. front desk monitor on. Pulse ox on. NIBP on. 10:54 No provider procedures requiring assistance completed. af3 11:08 Inserted saline lock: 20 gauge in right ,using aseptic technique. Leg Flushed with 10 cm10 mL NS. 11:14 Initial lab(s) drawn, by production laborer, sent to lab. ts3 12:13 EKG done, by ED staff, reviewed by Minda Chacon MD. ts3 Administered Medications: 11:11 Drug: Ativan IVP 2 mg IVP once Route: IVP; Site: Other; [facility] 11:45 Follow up: Response: No adverse reaction 10 Medication: 10:54 VIS not applicable for this client. af3 Outcome: 13:02 Discharge ordered by . elysia 13:45 Patient left the ED. rg5 Signatures: Tori Chavis Setul, MD MD sp3 Liliana Roberto RN RN 10 Oniel Harvey RN RN 5 Bárbara Hubbard RN RN 3 Nicolle Reyes 3
--- NOTE | 2025-05-28 13:02 | EDPHYS ---
Physician Documentation [facility] Name: Felipe Barriga Age: 49 yrs Sex: Male : 1975 Arrival Date: 05/28/2025 Time: 10:35 Bed 15 Private MD: ED Physician Minda Chacon HPI: 05/28 11:14 This 49 yrs old Male presents to ER via EMS with complaints of Seizure. sp3 11:14 49-year-old male with history of multiple episodes of alcohol dependence and sp3 withdrawal, depression, anxiety, PTSD that presents to the ED by EMS again for alcohol withdrawal and shaking episodes with possible seizure. Patient denies headache, head injury, chest pain, shortness of breath, abdominal pain, syncope, or any other signs or symptoms on ROS at this time.. Historical: - Allergies: 10:41 No Known Allergies; af3 - PMHx: 10:41 Alcohol dependence; Anxiety; depressive disorder; Night Terrors; PTSD; af3 - PSHx: 10:41 aortic root replacement; af3 - Immunization history:: Adult Immunizations unknown. - Infectious Disease History:: Denies. - Social history:: Smoking status: unknown. ROS: 11:14 Unable to obtain ROS due to patient being uncooperative, Patient in alcohol withdrawal sp3 and intermittent seizures, Exam: 11:15 Constitutional: The patient appears Limited exam. Normal vital signs except heart rate sp3 104 on arrival and 130 during partial seizure. Patient was shaking vigorously however was still able to maintain gaze and tracked staff as they walked around the room. Patient is unkept and smells of urine and has not behaved in a significant amount of time. Heart and lung sounds normal. Abdomen is soft. Remainder of exam limited. 11:15 Unable to obtain exam due to patient being uncooperative, 12:31 ECG was reviewed by the Attending Physician. EKG demonstrates sinus tachycardia 100 bpm sp3 with normal intervals, normal QRS, normal axis, normal ST/T-segment's without evidence of acute ischemia. Vital Signs: 10:39 BP 106 / 71; Pulse 108; Resp 18; Temp 98.4; Pulse Ox 95% on R/A; Weight 97.52 kg; af3 Height 5 ft. 11 in. ; 10:39 Body Mass Index 29.99 (97.52 kg, 180.34 cm) af3 MDM: 10:39 Medical Screening Exam initiated sp3 11:16 Data reviewed: vital signs, nurses notes, EMS record, old medical records, lab test sp3 result(s), EKG. ED course: 49-year-old male with alcohol dependence currently in withdrawal and/or seizing. Workup will include standard labs, Ativan IV as needed and general supportive care. Disposition pending workup and patient course. Differential diagnosis includes alcohol withdrawal seizure, electrolyte disturbance, dehydration, among others.. 13:01 ED course: Alcohol at 285. Consider pseudoseizures on this patient. Will discharge sp3 patient at this time.. 05/28 11:05 Order name: Acetaminophen; Complete Time: 13:00 sp3 05/28 11:05 Order name: Basic Metabolic Panel; Complete Time: 13:00 sp3 05/28 11:05 Order name: CBC with Diff sp3 05/28 11:05 Order name: ETOH Level; Complete Time: 12:45 sp3 05/28 11:05 Order name: Hepatic Function; Complete Time: 13:00 sp3 05/28 11:05 Order name: PT-INR; Complete Time: 12:45 sp3 05/28 11:05 Order name: Ptt, Activated; Complete Time: 12:45 sp3 05/28 11:05 Order name: Salicylate; Complete Time: 12:45 sp3 05/28 13:32 Order name: CBC Smear Scan EDMS 05/28 11:05 Order name: EKG - Nurse/Tech; Complete Time: 12:11 sp3 05/28 11:05 Order name: IV Saline Lock; Complete Time: 11:14 sp3 05/28 11:05 Order name: Labs collected and sent; Complete Time: 11:14 sp3 Administered Medications: 11:11 Drug: Ativan IVP 2 mg IVP once Route: IVP; Site: Other; cm10 11:45 Follow up: Response: No adverse reaction cm10 Disposition Summary: 05/28/25 13:02 Discharge Ordered Notes: Location: Home sp3 Condition: Stable sp3 Diagnosis - Alcoholism, alcohol abuse, alcohol intoxication sp3 Followup: sp3 - With: Private Physician - When: Upon discharge from the Emergency Department - Reason: Continuance of care Discharge Instructions: - Discharge Summary Sheet sp3 - Alcohol Abuse and Dependence Information, Adult sp3 Forms: - Medication Reconciliation Form sp3 - Antibiotic Education sp3 - Prescription Opioid Use sp3 - Patient Portal Instructions sp3 - Leadership Thank You Letter sp3 Signatures: Dispatcher [employer] EDMS Minda Chacon MD MD sp3 Liliana Roberto RN RN cm10 Bárbara Hubbard RN RN af3 Corrections: (The following items were deleted from the chart) 11:06 11:06 ACETAMINOPHEN+C.LAB.BRZ ordered. EDMS EDMS 11: 11:06 BASIC METABOLIC PANEL+C.LAB.BRZ ordered. EDMS EDMS 11: 11:06 CBC+H.LAB.BRZ ordered. EDMS EDMS 11: 11:06 ETHANOL+C.LAB.BRZ ordered. EDMS EDMS 11: 11:06 HEPATIC FUNCTION+C.LAB.BRZ ordered. EDMS EDMS 11: 11:06 PROTIME (+INR)+COAG.LAB.BRZ ordered. EDMS EDMS 11: 11:06 PTT, ACTIVATED+COAG.LAB.BRZ ordered. EDMS EDMS 11: 11:06 SALICYLATE+C.LAB.BRZ ordered. EDMS EDMS 11:06 11:06 URINE DRUG SCREEN+UC.LAB.BRZ ordered. EDMS EDMS 11:45 11:05 Suicide Screening ([place]) ordered. sp3 cm10
[2025-05-28 13:31] LABS: Anisocytosis 2+; Blood Morphology Comment NOTED (NOT SEEN); Poikilocytosis 1+; White Blood Cell Scan OK (OK)
[2025-05-28 13:32] LABS: Ovalocytes 1+
[2025-05-28 14:07] VITALS: BP 106/71; TEMP 98.4; O2SAT 95
== END 2025-05-28 13:45 | disposition home or self-care (01) ==
LOC: ER 10:35
DX: F10.229 Alcohol dependence with intoxication, unspecified (principal); F43.10 Post-traumatic stress disorder, unspecified
CPT/HCPCS: 36415; 80048; 80076; 80143; 80179; 82077; 85025; 85610; 85730; 93005; 96374; 99285